=== PATIENT | female | born 1980 | race Caucasian/White ===

== ENCOUNTER 2017-05-15 08:23 | Outpatient (RCR) | payer MEDICAID, SELFPAY ==
[2017-04-17 01:04] VITALS: BP 135/86; PULSE 79; RESP 18; TEMP 36.9; BMI 29.9
[2017-05-15 08:45] VITALS: BP 136/90; PULSE 91; RESP 18; TEMP 36.4; BMI 29.9
--- NOTE | 2017-05-15 18:21 | PCM.WC.PN ---
Type of Wound Date of Service: 05/15/17 Chief Complaint: Recurrent hidradenitis ulcer left axillary area s/p recent skin graft 09/29/16 with some early compromise. History of Wound: Surgery 09/29/16 - Excisional debridement nonhealing recurrent hidradenitis ulcer left axilla with FTSG reconstruction from lower anterior abdominal wall (28 cm2). Wound care - Santyl. Operative culture - Staphylococcus aureus. She was discharged on Levaquin. It was changed to Doxycycline. However she had issues with Doxycycline with vomiting. She was changed back to Levaquin and has finished them. She had another wound culture done on 02/06/17. It showed Staphylococcus aureus and Streptococcus agalactiae and both are sensitive to Cleocin. There is a fungal rash around the ulcer left axilla. Started her on Diflucan as well as Nystatin powder to the affected area twice a day. Prealbumin from 08/12/16 was 21.6. She takes nutritional supplementation with protein. She started HBO for compromised graft left axilla and tolerated the treatments and has finished the treatments. Today she denies any fever. Her appetite is good. Her tingling has resolved in her left arm. She does have burning nerve pain in the ulcerated graft area which has improved with the Neurontin. She was supposed to have her teeth removed and had 3 molars removed. She will also have additional teeth removed relatively soon. Progress of Wound: Skin graft surgery 09/29/16 with some early compromise. - Physical Exam Vital Signs Temp Pulse Resp BP 97.6 F L 91 18 136/90 H 05/15/17 08:45 05/15/17 08:45 05/15/17 08:45 05/15/17 08:45 Debridement Note Post-Debridement Measurements/Treatment WC - Nurse 2 - General Ulcer CM Notes Start: 05/15/17 08:42 Freq: Status: Active Protocol: Activity Type Activity Date Activity User E-Sign Co-Sign Detail Recorded Client Recorded Date Recorded By Document 05/15/17 09:26 SHOSHANA [id number] 05/15/17 09:27 SHOSHANA 05/15/17 09:26 Wound Center Nurse 2 #1 Left medial Axilla -Time 09:26 -Correct Patient Yes -Correct Side, Site, Position Yes -Correct Procedure Yes -Procedure Performed Yes -Type of Procedure Debridement -Clinical Debridement Subcutaneous -Post Debridement Size (cm) - Length 2.3 -Post Debridement Size (cm) - Width 6.5 -Post Debridement Size (cm) - Depth 0.1 -Total Square Cm 14.95 -Wound/Ulcer Outcome Not Healed -Ulcer Cleansing Rinsed/ Irrigated with Saline -Foul Odor after Cleansing No -Bioengineered Tissue No -Cetacaine [place] No -Bleeding Controlled with Pressure Silver Nitrate -Treatment Response Procedure Tolerated Well Pain Scale: 0-10 Numeric Is Patient Pain Free? Yes Wound debrided: #1 Left medial axilla. Laterality: Left Wound Grade/Stage: 2. Type of Debridement: Excisional debridement Anesthesia Used: 4% Lidocaine Solution Depth: Down to and including healthy tissue, in the subcutaneous layer Percentage of wound debrided: 100 Instrument Used: 7mm curette Tissue Removed: subcutaneous tissue. Severity: Fat Layer Exposed Amount of bleeding with debridement: Mild Bleeding Controlled with: Pressure Patient tolerated procedure well Assessment/Plan Assessment: 1. Nonhealing recurrent hidradenitis ulcer left axillary area. 2. Early compromise skin graft left axilla. 3. H/O left axillary hidradenitis. 4. s/p excisional debridement nonhealing recurrent hidradenitis ulcer left axilla with FTSG reconstruction from lower anterior abdominal wall (28 cm2). 5. Burning nerve pain ulcerated graft area left axilla. Plan: The skin graft shows about 80% take mostly in the center. Will continue Santyl dressing changes daily to the graft because of persistent drainage. May alternate with the Silver dressing. She also has a fungal rash around the ulcer. Will start Diflucan and start Nystatin ointment to the area. The tingling in her left forearm probably related to swelling from the surgery has resolved with the compression sleeve. She does have burning nerve pain in the ulcerated graft area which has improved with the Neurontin. She was a candidate for HBO for a compromised graft and started them, and has finished them. Operative culture showed Staphylococus aureus. She was treated perioperatively with Levaquin and changed that to Doxycycline. However she had episodes of vomiting from the Doxycycline. So it was changed back to Levaquin and has finished them. Another wound culture was done at a previous visit on 02/06/17. The culture showed Staphylococcus aureus and Streptococcus agalactiae both sensitive to Cleocin. Encourage range of motion exercises to minimize stiffness. Encourage nutritional supplementation with protein to help the healing process. Her Prealbumin from 08/12/16 was 21.6. She finally had 3 molars removed. She states that more of them will be removed at a future date. Followup 3 weeks.
== END 2017-05-17 23:59 ==
LOC: WC 08:23
PROVIDERS: Family Provider Family Medicine; PCP Family Medicine; Visit Provider Surgery
DX: L73.2 Hidradenitis suppurativa (principal); T86.821 Skin graft (allograft) (autograft) failure; Y83.2 Surgical operation with anastomosis, bypass or graft as the cause of abnormal reaction of the patient, or of later complication, without mention of misadventure at the time of the procedure
CPT/HCPCS: 11042; 87070; 87075; 87077; 87186; 87205

== ENCOUNTER 2017-05-29 09:13 | Outpatient (RCR) | payer MEDICAID, SELFPAY ==
[2017-05-15 08:45] VITALS: BP 136/90
[2017-05-18 00:42] VITALS: PULSE 91; RESP 18; TEMP 36.4
[2017-05-29 09:33] VITALS: BP 124/85; PULSE 78; RESP 18; TEMP 37.4; BMI 29.9
--- NOTE | 2017-05-29 16:36 | PCM.WC.PN ---
Type of Wound Date of Service: 05/29/17 Chief Complaint: Recurrent hidradenitis ulcer left axillary area s/p recent skin graft 09/29/16 with some early compromise. History of Wound: Surgery 09/29/16 - Excisional debridement nonhealing recurrent hidradenitis ulcer left axilla with FTSG reconstruction from lower anterior abdominal wall (28 cm2). Wound care - Santyl. Operative culture - Staphylococcus aureus. She was discharged on Levaquin. It was changed to Doxycycline. However she had issues with Doxycycline with vomiting. She was changed back to Levaquin and has finished them. She had another wound culture done on 02/06/17. It showed Staphylococcus aureus and Streptococcus agalactiae and both are sensitive to Cleocin. There is a fungal rash around the ulcer left axilla. Started her on Diflucan as well as Nystatin powder to the affected area twice a day. Prealbumin from 08/12/16 was 21.6. She takes nutritional supplementation with protein. She started HBO for compromised graft left axilla and tolerated the treatments and has finished the treatments. Today she denies any fever. Her appetite is good. Her tingling has resolved in her left arm. She does have burning nerve pain in the ulcerated graft area which has improved with the Neurontin. She was supposed to have her teeth removed and had 3 molars removed. She will also have additional teeth removed relatively soon. Progress of Wound: Skin graft surgery 09/29/16 with some early compromise. - Physical Exam Vital Signs Temp Pulse Resp BP 99.3 F H 78 18 124/85 H 05/29/17 09:33 05/29/17 09:33 05/29/17 09:33 05/29/17 09:33 Wound Measurements and Assessment - Nurse 1 - General Ulcer Measurement Start: 05/29/17 09:29 Freq: Status: Active Protocol: Activity Type Activity Date Activity User E-Sign Co-Sign Detail Recorded Client Recorded Date Recorded By Document 05/29/17 09:33 [id number] 05/29/17 09:39 TM 05/29/17 09:33 Wound Center Nurse 1 [Ulcer Assessment Protocol: GARRICK.WD.LOC] #1 Left medial Axilla -Combined with other wound No -Current Size (cm) - Length 6.2 -Current Size (cm) - Width 2.0 -Current Size (cm) - Depth 0.1 -Total Square Cm 12.40 -Photo Taken No -Epithelialization None Present -Tunneling No -Undermining/Tunneling No -Circular Undermining No -Classification - Thickness Full Thickness without Exposed Support Structure -Exudate Amt Large (67-100%) -Exudate Type Yellow/Green -Wound Margin Fibrotic Scar, Thickened Scar -Granulation Amt Large (67-100%) -Granulation Quality Hyper- granulation -Slough/Fibrin Yes -Necrosis Amt Small (1-33%) -Necrotic Tissue Type Adherent Slough -Structure Exposed Fascia Fat Layer Exposed -Texture (Sadie-wound Skin Appearance) Excoriation Friable Scarring -Moisture (Sadie-wound Skin Appearance No Abnormality ) -Color (Sadie-wound Skin Appearance) Erythema -Temperature (Sadie-wound Skin No Abnormality Appearance) (Pt Warm) -Tenderness on Palpation (Sadie-wound No Skin Appearance) -Ulcer Cleansing Rinsed/ Irrigated with Saline -Foul Odor after Cleansing No -Anesthetic Used 5% Lidocaine Gel [Edema Assessment] -Lower Limb Edema Present No WC - Nurse 2 - General Ulcer CM Notes Start: 05/29/17 09:29 Freq: Status: Active Protocol: Activity Type Activity Date Activity User E-Sign Co-Sign Detail Recorded Client Recorded Date Recorded By Document 05/29/17 09:51 SHOSHANA [id number] 05/29/17 09:52 SHOSHANA 05/29/17 09:51 Wound Center Nurse 2 [Procedure/Treatment] #1 Left medial Axilla -Time 09:52 -Correct Patient Yes -Correct Side, Site, Position Yes -Correct Procedure Yes -Procedure Performed Yes -Type of Procedure Debridement -Clinical Debridement Subcutaneous -Post Debridement Size (cm) - Length 6.5 -Post Debridement Size (cm) - Width 2.1 -Post Debridement Size (cm) - Depth 0.1 -Total Square Cm 13.65 -Wound/Ulcer Outcome Not Healed -Ulcer Cleansing Rinsed/ Irrigated with Saline -Foul Odor after Cleansing No -Bioengineered Tissue No -Bleeding Controlled with Pressure -Treatment Response Procedure Tolerated Well [See Physician Procedure note for Specifics] Pain Scale: 0-10 Numeric [Pain] -Is Patient Pain Free? Yes Debridement Note Post-Debridement Measurements/Treatment WC - Nurse 2 - General Ulcer CM Notes Start: 05/29/17 09:29 Freq: Status: Active Protocol: Activity Type Activity Date Activity User E-Sign Co-Sign Detail Recorded Client Recorded Date Recorded By Document 05/29/17 09:51 SHOSHANA [id number] 05/29/17 09:52 SHOSHANA 05/29/17 09:51 Wound Center Nurse 2 #1 Left medial Axilla -Time 09:52 -Correct Patient Yes -Correct Side, Site, Position Yes -Correct Procedure Yes -Procedure Performed Yes -Type of Procedure Debridement -Clinical Debridement Subcutaneous -Post Debridement Size (cm) - Length 6.5 -Post Debridement Size (cm) - Width 2.1 -Post Debridement Size (cm) - Depth 0.1 -Total Square Cm 13.65 -Wound/Ulcer Outcome Not Healed -Ulcer Cleansing Rinsed/ Irrigated with Saline -Foul Odor after Cleansing No -Bioengineered Tissue No -Bleeding Controlled with Pressure -Treatment Response Procedure Tolerated Well Pain Scale: 0-10 Numeric Is Patient Pain Free? Yes Wound debrided: #1 Left medial axilla. Laterality: Left Wound Grade/Stage: 2. Type of Debridement: Excisional debridement Anesthesia Used: 4% Lidocaine Solution Depth: Down to and including healthy tissue, in the subcutaneous layer Percentage of wound debrided: 100 Instrument Used: 7mm curette Tissue Removed: subcutaneous tissue. Severity: Fat Layer Exposed Amount of bleeding with debridement: Mild Bleeding Controlled with: Pressure Patient tolerated procedure well Assessment/Plan Assessment: 1. Nonhealing recurrent hidradenitis ulcer left axillary area. 2. Early compromise skin graft left axilla. 3. H/O left axillary hidradenitis. 4. s/p excisional debridement nonhealing recurrent hidradenitis ulcer left axilla with FTSG reconstruction from lower anterior abdominal wall (28 cm2). 5. Burning nerve pain ulcerated graft area left axilla. Plan: The skin graft shows about 80% take mostly in the center. Will continue Santyl dressing changes daily to the graft because of persistent drainage. May alternate with the Silver dressing. She also has a fungal rash around the ulcer. Will start Diflucan and start Nystatin ointment to the area. The tingling in her left forearm probably related to swelling from the surgery has resolved with the compression sleeve. She does have burning nerve pain in the ulcerated graft area which has improved with the Neurontin. She was a candidate for HBO for a compromised graft and started them, and has finished them. Operative culture showed Staphylococus aureus. She was treated perioperatively with Levaquin and changed that to Doxycycline. However she had episodes of vomiting from the Doxycycline. So it was changed back to Levaquin and has finished them. Another wound culture was done at a previous visit on 02/06/17. The culture showed Staphylococcus aureus and Streptococcus agalactiae both sensitive to Cleocin. Encourage range of motion exercises to minimize stiffness. Encourage nutritional supplementation with protein to help the healing process. Her Prealbumin from 08/12/16 was 21.6. She finally had 3 molars removed. She states that more of them will be removed at a future date. Followup 3 weeks.
== END 2017-06-14 23:59 ==
LOC: WC 09:13
PROVIDERS: Family Provider Family Medicine; PCP Family Medicine; Visit Provider Surgery
DX: L73.2 Hidradenitis suppurativa (principal); T86.821 Skin graft (allograft) (autograft) failure; Y83.2 Surgical operation with anastomosis, bypass or graft as the cause of abnormal reaction of the patient, or of later complication, without mention of misadventure at the time of the procedure; Z86.19 Personal history of other infectious and parasitic diseases
CPT/HCPCS: 11042

== ENCOUNTER 2017-06-29 15:55 | Observation (INO) | payer MEDICAID, SELFPAY ==
--- NOTE | 2017-06-27 22:03 | PCM.HP.BLA ---
History and Physical Date of Admission: 06/28/17 History of Present Illness The patient is a 36 year old F who presents with a recurrent nonhealing hidradenitis ulcer left axillary area that initially resulted from her flare up of hidradenitis. This necessitated surgery in 03/31 where she underwent surgical preparation left axillary wound with excision hidradenitis. She was treated with antibiotics after surgery along with the VAC and Silver dressing changes. She followed up at the Wound Center and in 09/30, the wound healed. The left axilla then re-ulcerated and she was placed back on Silver dressing changes. Culture showed Staphylococcus aureus and she was placed on Doxycycline. It improved but did not heal and she went back to surgery in 11/30 where she underwent excision nonhealing recurrent hidradenitis ulcer left axilla and reconstruction with proximal medial left arm bilobed transposition skin flap (56 cm2). There was adequate healing initially but then she developed some compromise to the flap. She underwent HBO treatments and tolerated them well but had to stop them because of the flu. The ulcer improved but did not heal. Repeat culture once again showed Staphylococcus aureus and she was placed back on Doxycycline. She went back to surgery on 08/11/16 where she underwent surgical preparation left axilla with excision nonhealing hidradenitis ulcer (60 cm2). She initially had the VAC for wound care and was recently changed to Silver dressing changes daily. Operative cultures showed Staphylococcus aureus and Staphylococcus epidermidis. They were resistant to Doxycycline and she was changed to Levaquin. The ulcer stabilized with good granulation tissue, and she was taken back to the OR on 09/29/16 where she underwent excisional debridement nonhealing recurrent hidradenitis ulcer left axilla with FTSG reconstruction from lower anterior abdominal wall (28 cm2). Operative culture showed Staphylococcus aureus and was placed on Doxycycline. She developed some compromise of the skin graft at the edges and underwent HBO treatments with some improvement. With local wound care with Silver dressings and then Santyl dressings, along with antibiotics for positive cultures, she still had a persistent ulceration. Her last culture was on 05/15/17 which showed Serratia marcescens and Staphylococcus lugdunensis and was treated with Levaquin. Part of the healing difficulties has been surmised by her chronically infected teeth that need to be removed. She has seen dentists for this problem and there have been many delays in getting this done. It has been hard to debride the ulcer lately in the Wound Center secondary to discomfort, so further debridement was recommended in preparation for additional HBO treatments in preparation for additional surgery with skin grafting. Past Medical History Past Medical History: Depression. Anxiety. Anemia. Back problems. Hidradenitis bilateral axillary areas. Surgical History: - - Surgical preparation right axillary wound with excision hidradenitis (40 cm2) on 06/02/14. Surgical preparation left axillary wound with excision hidradenitis (36 cm2) on 03/17/15. Excision nonhealing recurrent hidradenitis ulcer left axilla and reconstruction with proximal medial left arm bilobed transposition skin flap (56 cm2) on 11/24/15. surgical preparation left axilla with excision nonhealing hidradenitis ulcer (60 cm2) - 08/11/16. Excisional debridement nonhealing recurrent hidradenitis ulcer left axilla with FTSG reconstruction from lower anterior abdominal wall (28 cm2) - 09/29/16. Home Medications: Phenergan. Percocet. Levaquin. Valium. Tylenol. Allergies latex Allergy Penicillins [PCN] hydromorphone HCl [From Dilaudid] SOCIAL HISTORY: Lives: Spouse/ Significant Other Smoking Status: Never smoker Tobacco Use: Non-smoker Alcohol: Occasional Drugs: None - *Family History Maternal History Items: Diabetes, Heart Disease, Hypertension, - - ovarian cancer. negative for skin cancer. Paternal History Items: Heart Disease, Hypertension, Stroke, - - negative for skin cancer. Review of Systems Constitutional: Denies: Fever, Weakness, Fatigue Eyes: Denies: Pain HEENT: Denies: Nasal Congestion, Sore Throat Cardiovascular: Denies: Chest Pain Respiratory: Denies: Cough, Shortness of Breath Gastrointestinal: Denies: Constipation, Diarrhea, Nausea, Vomiting Genitourinary: Denies: Frequency, Hematuria Musculoskeletal: Reports: - - left axillary pain.. Denies: Back Pain, Hand Pain, Neck Pain Skin: Reports: Wounds - left axillary hidradenitis ulcer. Neurological: Denies: Headaches Psychiatric: Reports: Anxiety, Depression Endocrine: Denies: Polydipsia, Polyuria Hematologic/ Lymphatic: Reports: Anemia. Denies: Easy Bruising, Hx of blood clot - Physical Exam General: Alert, Oriented x3 HEENT: PERRLA, EOMI Neck: Supple Lungs: Clear to auscultation Cardiovascular: Regular rate, Regular Rhythm Abdomen: Soft, Non-Distended Extremities: No clubbing, No cyanosis, No edema, Peripheral Pulses Normal Skin: Ulcer/ Wound - left axillary hidradenitis ulcer. Measures 3 x 7.6 x 0.1 cm. Good granulation tissue present. No purulent drainage. In the central aspect is a healed island portion of the previous skin graft. Lymphatic: No Cervical, Supraclavicular, or Inguinal Adenopathy Neurological: Cranial nerves II-XII grossly intact Psych/Mental Status: Normal Affect, Appropriate Assessment/Plan 1. Nonhealing recurrent hidradenitis ulcer left axillary area. 2. H/O left axillary hidradenitis. 3. Compromised skin graft left axilla. PLAN: The ulcer is clean with granulation tissue. Some hypergranulation tissue seen that is hard to debride because of pain. She has good range of motion of her left shoulder. It is recommended to the patient to proceed with operative debridement and then postop wound care with the VAC or daily dressing changes with Santyl. Postop will proceed with HBO treatments in preparation for further skin grafting. Surgery will be done under general anesthesia on an outpatient basis. Tissue will be sent to Pathology for analysis and to Microbiology for culture. A positive culture may necessitate antibiotic modification. Followup at the Wound Center after discharge from the hospital. I anticipate increased metabolic demands from the ulcer and the surgery. Encourage nutritional supplementation with protein to help the healing process. Her latest Prealbumin from 08/01 was 21.6. The patient was informed of the risks and complications of the procedure including alternatives to surgery. These were discussed with her personally. She voices understanding and wishes to proceed.
[2017-06-28] VITALS (11 sets, daily range): BP systolic 115–128; BP diastolic 70–84; PULSE 68–95; RESP 14–16; TEMP 35.9–36.8; O2SAT 93–100; BMI 25.8
--- NOTE | 2017-06-28 | HID_PTH ---
PATIENT: RAVI IRAHETA LOC: MS2 U#:[id number] AGE/SX: 36/F ROOM: [facility] [place] RE06/29/[address]: Dr. Lennox Eugene MD : 1980 BED: 1 DIS: 06/30/2017 SPEC #: [id number] RECD: 06/28/17 14:28 STATUS: YANIQUE MONO #: [id number] BRIGHT: 06/28/17 00:[address]: Lennox Eugene DEPT: SURGICAL PATHOLOGY RECD BY: Dano Morataya ENTERED: 06/28/17 14:28 SP TYPE: Barry TOBIN DR: Dr. Bogdan Guerra DO Tissues: Axilla, NOS Procedures: Surgery Specimen Level III HEADER OPERATION: Excision, hidradenitis, axilla PRE-OP DIAGNOSIS: Nonhealing recurrent hidradenitis ulcer left axillary area TISSUE SUBMITTED: Recurrent hidradenitis left axilla MICROSCOPIC DIAGNOSIS Recurrent hidradenitis left axilla, excision: Pieces of skin with underlying tissue with focal ulceration, acute and chronic inflammation and granulation tissue reaction, clinically nonhealing recurrent hidradenitis. SINGH:kusum 06/29/17 MICROSCOPIC DESCRIPTION Slides are reviewed. GROSS DESCRIPTION Received in fixative is one container labeled with the patient's name and designated recurrent hidradenitis left axilla. The specimen consists of two variable size pieces of paredes-white skin measuring in aggregate 5.5 x 3.5 x 0.5 cm. The skin surface shows an area of ulceration. Industrial Recruiter sections are submitted in two cassettes. / SINGH:kusum 06/28/17 TC:2 CPT: 77576
[2017-06-28 11:20] LABS: Internal QC Validated? YES +Cl - CLEAR BKGD; Pregnancy, Urine Negative Negative
--- NOTE | 2017-06-28 13:41 | PCM.IMDPSTOP ---
Immediate Post-Op Note Date of Procedure: 06/28/17 Primary Surgeon/Physician: Lennox Eugene manager of quality: None Pre-Operative Diagnosis: 1. Nonhealing recurrent hidradenitis ulcer left axillary area. 2. H/O left axillary hidradenitis. 3. Compromised skin graft left axilla. Post-Operative Diagnosis: Same. Surgery/Procedure Performed:: Surgical preparation left axilla with excision recurrent hidradenitis ulcer (66 cm2). Description of Surgical Findings:: The patient is a 36 year old F who presents with a recurrent nonhealing hidradenitis ulcer left axillary area that initially resulted from her flare up of hidradenitis. This necessitated surgery in 03/31 where she underwent surgical preparation left axillary wound with excision hidradenitis. She was treated with antibiotics after surgery along with the VAC and Silver dressing changes. She followed up at the [facility] and in 09/30, the wound healed. The left axilla then re-ulcerated and she was placed back on Silver dressing changes. Culture showed Staphylococcus aureus and she was placed on Doxycycline. It improved but did not heal and she went back to surgery in 11/30 where she underwent excision nonhealing recurrent hidradenitis ulcer left axilla and reconstruction with proximal medial left arm bilobed transposition skin flap (56 cm2). There was adequate healing initially but then she developed some compromise to the flap. She underwent HBO treatments and tolerated them well but had to stop them because of the flu. The ulcer improved but did not heal. Repeat culture once again showed Staphylococcus aureus and she was placed back on Doxycycline. She went back to surgery on 08/11/16 where she underwent surgical preparation left axilla with excision nonhealing hidradenitis ulcer (60 cm2). She initially had the VAC for wound care and was recently changed to Silver dressing changes daily. Operative cultures showed Staphylococcus aureus and Staphylococcus epidermidis. They were resistant to Doxycycline and she was changed to Levaquin. The ulcer stabilized with good granulation tissue, and she was taken back to the OR on 09/29/16 where she underwent excisional debridement nonhealing recurrent hidradenitis ulcer left axilla with FTSG reconstruction from lower anterior abdominal wall (28 cm2). Operative culture showed Staphylococcus aureus and was placed on Doxycycline. She developed some compromise of the skin graft at the edges and underwent HBO treatments with some improvement. With local wound care with Silver dressings and then Santyl dressings, along with antibiotics for positive cultures, she still had a persistent ulceration. Her last culture was on 05/15/17 which showed Serratia marcescens and Staphylococcus lugdunensis and was treated with Levaquin. Part of the healing difficulties has been surmised by her chronically infected teeth that need to be removed. She has seen dentists for this problem and there have been many delays in getting this done. It has been hard to debride the ulcer lately in the Wound Center secondary to discomfort, so further debridement was recommended in preparation for additional HBO treatments in preparation for additional surgery with skin grafting. Today the patient underwent surgical preparation left axilla with excision recurrent hidradenitis ulcer (66 cm2). Size of defect left axilla - 11 x 6 x 2 cm. Estimated Blood Loss: 50 ml. Specimen's removed: Recurrent hidradenitis ulcer left axilla to Pathology and Microbiology. Drains: None. Type of Anesthesia:: General - Admit VTE Documentation VTE Present on Admission: No VTE Mechan Device Prophylaxis: SCD's VTE Pharm Prophylaxis ordered?: No
--- NOTE | 2017-06-28 13:44 | OP.PN_ITS ---
Immediate Post-Op Note Date of Procedure: 06/28/17 Primary Surgeon/Physician: Lennox Eugene chief service dispatcher: None Pre-Operative Diagnosis: 1. Nonhealing recurrent hidradenitis ulcer left axillary area. 2. H/O left axillary hidradenitis. 3. Compromised skin graft left axilla. Post-Operative Diagnosis: Same. Surgery/Procedure Performed:: Surgical preparation left axilla with excision recurrent hidradenitis ulcer (66 cm2). Description of Surgical Findings:: The patient is a 36 year old F who presents with a recurrent nonhealing hidradenitis ulcer left axillary area that initially resulted from her flare up of hidradenitis. This necessitated surgery in 03/31 where she underwent surgical preparation left axillary wound with excision hidradenitis. She was treated with antibiotics after surgery along with the VAC and Silver dressing changes. She followed up at the [facility]ound Center and in 09/30, the wound healed. The left axilla then re-ulcerated and she was placed back on Silver dressing changes. Culture showed Staphylococcus aureus and she was placed on Doxycycline. It improved but did not heal and she went back to surgery in 11/30 where she underwent excision nonhealing recurrent hidradenitis ulcer left axilla and reconstruction with proximal medial left arm bilobed transposition skin flap (56 cm2). There was adequate healing initially but then she developed some compromise to the flap. She underwent HBO treatments and tolerated them well but had to stop them because of the flu. The ulcer improved but did not heal. Repeat culture once again showed Staphylococcus aureus and she was placed back on Doxycycline. She went back to surgery on 08/11 where she underwent surgical preparation left axilla with excision nonhealing hidradenitis ulcer (60 cm2). She initially had the VAC for wound care and was recently changed to Silver dressing changes daily. Operative cultures showed Staphylococcus aureus and Staphylococcus epidermidis. They were resistant to Doxycycline and she was changed to Levaquin. The ulcer stabilized with good granulation tissue, and she was taken back to the OR on where she underwent excisional debridement nonhealing recurrent hidradenitis ulcer left axilla with FTSG reconstruction from lower anterior abdominal wall (28 cm2). Operative culture showed Staphylococcus aureus and was placed on Doxycycline. She developed some compromise of the skin graft at the edges and underwent HBO treatments with some improvement. With local wound care with Silver dressings and then Santyl dressings, along with antibiotics for positive cultures, she still had a persistent ulceration. Her last culture was on 05/15/17 which showed Serratia marcescens and Staphylococcus lugdunensis and was treated with Levaquin. Part of the healing difficulties has been surmised by her chronically infected teeth that need to be removed. She has seen dentists for this problem and there have been many delays in getting this done. It has been hard to debride the ulcer lately in the Wound Center secondary to discomfort, so further debridement was recommended in preparation for additional HBO treatments in preparation for additional surgery with skin grafting. Today the patient underwent surgical preparation left axilla with excision recurrent hidradenitis ulcer (66 cm2). Size of defect left axilla - 11 x 6 x 2 cm. Estimated Blood Loss: 50 ml. Specimen's removed: Recurrent hidradenitis ulcer left axilla to Pathology and Microbiology. Drains: None. Type of Anesthesia:: General - Admit VTE Documentation VTE Present on Admission: No VTE Mechan Device Prophylaxis: SCD's VTE Pharm Prophylaxis ordered?: No
[2017-06-28] MEDS: Acetaminophen 325 MG Tablet PO (19:03)
[2017-06-28] MEDS: Docusate Sodium 100 MG Capsule PO (20:45)
--- NOTE | 2017-06-28 23:18 | PCM.OPRPT ---
Report of Operation Date of Procedure: 06/28/17 Pre-Operative Diagnosis: 1. Nonhealing recurrent hidradenitis ulcer left axillary area. 2. H/O left axillary hidradenitis. 3. Compromised skin graft left axilla. Post-Operative Diagnosis: Same. Surgery/Procedure Performed:: Surgical preparation left axilla with excision recurrent hidradenitis ulcer (66 cm2). Description of Surgical Findings:: The patient is a 36 year old F who presents with a recurrent nonhealing hidradenitis ulcer left axillary area that initially resulted from her flare up of hidradenitis. This necessitated surgery in 03/31 where she underwent surgical preparation left axillary wound with excision hidradenitis. She was treated with antibiotics after surgery along with the VAC and Silver dressing changes. She followed up at the [facility]ound Center and in 09/30, the wound healed. The left axilla then re-ulcerated and she was placed back on Silver dressing changes. Culture showed Staphylococcus aureus and she was placed on Doxycycline. It improved but did not heal and she went back to surgery in 11/30 where she underwent excision nonhealing recurrent hidradenitis ulcer left axilla and reconstruction with proximal medial left arm bilobed transposition skin flap (56 cm2). There was adequate healing initially but then she developed some compromise to the flap. She underwent HBO treatments and tolerated them well but had to stop them because of the flu. The ulcer improved but did not heal. Repeat culture once again showed Staphylococcus aureus and she was placed back on Doxycycline. She went back to surgery on 08/11/16 where she underwent surgical preparation left axilla with excision nonhealing hidradenitis ulcer (60 cm2). She initially had the VAC for wound care and was recently changed to Silver dressing changes daily. Operative cultures showed Staphylococcus aureus and Staphylococcus epidermidis. They were resistant to Doxycycline and she was changed to Levaquin. The ulcer stabilized with good granulation tissue, and she was taken back to the OR on 09/29/16 where she underwent excisional debridement nonhealing recurrent hidradenitis ulcer left axilla with FTSG reconstruction from lower anterior abdominal wall (28 cm2). Operative culture showed Staphylococcus aureus and was placed on Doxycycline. She developed some compromise of the skin graft at the edges and underwent HBO treatments with some improvement. With local wound care with Silver dressings and then Santyl dressings, along with antibiotics for positive cultures, she still had a persistent ulceration. Her last culture was on 05/15/17 which showed Serratia marcescens and Staphylococcus lugdunensis and was treated with Levaquin. Part of the healing difficulties has been surmised by her chronically infected teeth that need to be removed. She has seen dentists for this problem and there have been many delays in getting this done. It has been hard to debride the ulcer lately in the Wound Center secondary to discomfort, so further debridement was recommended in preparation for additional HBO treatments in preparation for additional surgery with skin grafting. The patient was informed of the risks and complications of the procedure including alternatives to surgery. These were discussed with her personally. She voices understanding and wishes to proceed. Size of defect left axilla - 11 x 6 x 2 cm. communications media professor: None Type of Anesthesia:: General Specimen's removed: Recurrent hidradenitis ulcer left axilla to Pathology and Microbiology. Drains: None. Estimated Blood Loss (mL): 50 ml. Description of Procedure: Patient was taken to OR in supine position and was placed under general anesthesia. Her left axillary area was prepped and draped in the usual fashion. SCD's were placed for DVT prophylaxis. Perioperative antibiotics were given intravenously. Using a scalpel, the left axillary area ulcer was excised down through the subcutaneous tissue until the muscular fascia was seen. Some of the tissue was sent to Microbiology for culture. A positive culture will necessitate antibiotic therapy. The rest of the tissue was sent to Pathology for analysis to rule out carcinoma. Hemostasis was obtained with electrocautery. The wound was irrigated with saline. The size of the wound after the surgical preparation was 11 x 6 x 2 cm or 66 cm2. The base of the wound is close to the neurovascular structures entering the arm. Depending on the effects on the wound from HBO, I may not feel comfortable skin grafting the defect. A local skin flap may be necessary to provide more durable soft tissue coverage in this area. The wound was dressed with Mepitel nonadherent dressing followed by Kerlix gauze and Betadine followed by a dry Kerlix gauze and a compression JAGRUTI wrap. Patient tolerated the procedure well and was sent to PACU in satisfactory condition. She will be sent upstairs for a surgical observation overnight stay in the hospital. Will begin Santyl dressings tomorrow. After discharge, will followup at the Wound Center for evaluation for HBO treatments as well as for continuing wound care dressing changes to the left axilla. Grafts/Implants Used: None. - Complications None. - Admit VTE Documentation VTE Present on Admission: No VTE Mechan Device Prophylaxis: SCD's VTE Pharm Prophylaxis ordered?: No Code Visit Surgery Charges CPT - 68511 ICD-10 - L98.492, L73.2, T86.828
[2017-06-29] MEDS: Acetaminophen 325 MG Tablet PO (01:57)
[2017-06-29 02:35] VITALS: BP 120/78; PULSE 89; RESP 16; TEMP 36.9; O2SAT 98
[2017-06-29] MEDS: Lactated Ringers 1,000 ML 60 ML IV ×2 (05:58→23:19)
[2017-06-29 07:14] LABS: Hematocrit 34.9 % (37-47); Hemoglobin 11.2 g/dl (12.0-15.0); Mean Corp Hgb Conc 32.1 g/gl (32-36); Mean Corpuscular Hgb 24.5 pg (27.0-32.0); Mean Corpuscular Volume 76.4 fL (81-99); Mean Platelet Vol. 9.9 fl (6.2-12.0); Platelet Count 280 K/mm3 (150-450); RBC Distribution Width CV 14.7 % (11.6-14.6); Red Blood Count 4.57 M/mm3 (4.2-5.4)
[2017-06-29 07:20] LABS: Anion Gap 8 (5-15); BUN 15 mg/dL (7-18); Calcium,Total 8.4 mg/dL (8.5-10.1); Chloride 106 mmol/L (98-107); Creatinine, Serum 0.48 mg/dL (0.55-1.02); EST Glomerular Filtration Rate 155 mL/min (>60); Est Glom Filt Rate - Afr Amer 187 mL/min (>60); Estimated Creatinine Clearance 129.38 ml/min; Glucose 86 mg/dL (74-106); Potassium 3.5 mmol/L (3.5-5.1); Prealbumin 24.7 mg/dL (20.0-40.0); Sodium Level 140 mmol/L (136-145)
[2017-06-29 07:44] LABS: Scan Indicated on CBC? Y/N NO
[2017-06-29] MEDS: Collagenase 30gm Tube 1 APPLIC TOPICAL (07:51)
[2017-06-29] MEDS: Docusate Sodium 100 MG Capsule PO ×2 (07:52→20:17)
[2017-06-29 08:35] VITALS: BP 130/88; PULSE 90; RESP 16; TEMP 36.6; O2SAT 100
[2017-06-29] MEDS: Ondansetron 4 MG/2 ML Vial IV (10:06)
[2017-06-29] MEDS: HYDROmorphone 1 MG/ML Syringe IV (10:06)
--- NOTE | 2017-06-29 10:25 | NURSING ---
wound photo: left axilla
--- NOTE | 2017-06-29 12:30 | CASEMGMT ---
JASON BOX met with patient to discuss transition planning. Prior to admission patient's spouse was doing dressing changes. JASON BOX offers patient home health care, and patient declines. The wound RN, Lauren, did change the dressing this morning with spouse present to observe. The patient reports she has been managing well at home, and declines further home going needs at this time. JASON BOX spoke with Lauren, wound RN, re: plan for dressing changes. Per Lauren will be Santyl with dry dressing, and assistance form for bulk ordering has been completed. The Santyl will be directly shipped to patient's home. Per Lauren, should know co-pay by tomorrow. Disposition Plan: Home with support of spouse and follow-up plans in place.
[2017-06-29 14:35] VITALS: BP 117/79; PULSE 92; RESP 16; TEMP 36.7; O2SAT 100
--- NOTE | 2017-06-29 15:33 | PCM.PN.SRG ---
Subjective: Postop #1 Patient complains of left axillary wound pain. - Physical Exam General: Alert, Oriented x3 HEENT: PERRLA, EOMI Neck: Supple Lungs: Clear to auscultation Cardiovascular: Regular rate, Regular Rhythm Abdomen: Soft, Non-Distended Skin: Ulcer/ Wound - left axillary wound is stable. Minor oozing at the edges that was controlled with gentle pressure. Redressed with Santyl. Neurological: Cranial nerves II-XII grossly intact Psych/Mental Status: Normal Affect, Appropriate Vital Signs Temp Pulse Resp BP Pulse Ox 98.1 F 92 16 117/79 100 06/29/17 14:35 06/29/17 14:35 06/29/17 14:35 06/29/17 14:35 06/29/17 14:35 Oxygen Delivery Method Room Air Weight: 141 lb 5.061 oz Body Mass Index (BMI) 25.8 Intake and Output for Last 24 Hours 06/27/17 06/28/17 06/29/17 23:59 23:59 23:59 Intake Total 1733 / 1733 375 / 375 Output Total 475 / 475 Balance 1258 / 1258 375 / 375 Microbiology Past 72 Hours 06/28/17 13:25 Gram Stain - Final Tissue - Other Laboratory Tests Past 24 Hrs 06/29/17 06/29/17 06:37 06:37 WBC 10.0 RBC 4.57 Hgb 11.2 L Hct 34.9 L MCV 76.4 L MCH 24.5 L MCHC 32.1 RDW 14.7 H RDW Differential 41.0 Plt Count 280 MPV 9.9 Sodium 140 Potassium 3.5 Chloride 106 Carbon Dioxide 26.0 Anion Gap 8 BUN 15 Creatinine 0.48 L Estim Creat Clear Calc 129.38 Est GFR (MDRD) Af Amer 187 Est GFR (MDRD) Non-Af 155 BUN/Creatinine Ratio 31.0 H Glucose 86 Calcium 8.4 L Prealbumin 24.7 Assessment/Plan 1. Nonhealing recurrent hidradenitis ulcer left axillary area. 2. H/O left axillary hidradenitis. 3. Compromised skin graft left axilla. 4. s/p surgical preparation left axilla with excision recurrent hidradenitis ulcer (66 cm2). Left axillary wound is stable. No bleeding noted. Santyl dressing changes applied. She complains of a lot of wound pain. Still needs IV analgesia. Operative culture negative thus far. Continue Levaquin antibiotics. Prealbumin was 24.7. Encourage nutritional supplementation with protein to help the healing process. Will wean to po analgesia for discharge. Anticipate discharge tomorrow. After discharge, followup at the Wound Center.
[2017-06-29] MEDS: oxyCODONE 5 MG Tablet 10 MG PO (20:17)
[2017-06-29 20:24] VITALS: BP 128/65; PULSE 90; RESP 16; TEMP 36.8; O2SAT 97
[2017-06-30 02:25] VITALS: BP 108/67; PULSE 83; RESP 16; TEMP 36.1; O2SAT 98
[2017-06-30 08:25] VITALS: BP 122/82; PULSE 86; RESP 16; TEMP 36.8; O2SAT 98
[2017-06-30] MEDS: Docusate Sodium 100 MG Capsule PO (09:20)
[2017-06-30] MEDS: oxyCODONE 5 MG Tablet 10 MG PO (09:20)
[2017-06-30] MEDS: Collagenase 30gm Tube 1 APPLIC TOPICAL (12:34)
--- NOTE | 2017-06-30 12:52 | PN.SURG_ITS ---
Subjective: Postop #2 Patient is resting comfortably. Tolerating po analgesia. - Physical Exam General: Alert, Oriented x3 HEENT: PERRLA, EOMI Neck: Supple Lungs: Clear to auscultation Cardiovascular: Regular rate, Regular Rhythm Abdomen: Soft, Non-Distended Skin: Ulcer/ Wound - left axillary wound is stable. No bleeding noted. Some granulation tissue seen. Has good range of motion. Some limitation secondary to pain. Can lift arm over shoulder but not all the way yet to her head. Neurological: Cranial nerves II-XII grossly intact Psych/Mental Status: Normal Affect, Appropriate Vital Signs Temp Pulse Resp BP Pulse Ox 98.3 F 86 16 122/82 H 98 06/30/17 08:25 06/30/17 08:25 06/30/17 08:25 06/30/17 08:25 06/30/17 08:25 Oxygen Delivery Method Room Air Weight: 141 lb 5.061 oz Body Mass Index (BMI) 25.8 Intake and Output for Last 24 Hours 06/28/17 06/29/17 06/30/17 23:59 23:59 23:59 Intake Total 1733 / 1733 1251 / 1251 1962 / 1962 Output Total 475 / 475 200 / 200 900 / 900 Balance 1258 / 1258 1051 / 1051 1062 / 1062 Microbiology Past 72 Hours 06/28/17 13:25 Gram Stain - Final Tissue - Other Wound Culture - Preliminary Staphylococcus aureus Anaerobic Culture - Preliminary No growth in 48 hours. Assessment/Plan 1. Nonhealing recurrent hidradenitis ulcer left axillary area. 2. H/O left axillary hidradenitis. 3. Compromised skin graft left axilla. 4. s/p surgical preparation left axilla with excision recurrent hidradenitis ulcer (66 cm2). Left axillary wound is stable. No bleeding noted. Santyl dressing changes applied. She complains of wound pain. Tolerating po analgesia. She is anxious to go home. Operative culture shows Staphylococcus aureus. Awaiting sensitivity. Will send home on Levaquin and Doxycycline antibiotics. Once the sensitivity is available, will be able to decide which antibiotic to continue. Prealbumin was 24.7. Encourage nutritional supplementation with protein to help the healing process. Since she is tolerating po analgesia, she may be discharged home. Wrote scripts for Levaquin and Doxycycline. Wrote scripts for Percocet for pain (60 tabs) and for Valium for spasm (30 tabs) . Wrote scripts for Phenergan for nausea (30 tabs) and a refill and for Colace for constipation (60 tabs). Followup at the [facility] on 07/03/17. Will discuss HBO treatments in preparation for further skin grafting.
[2017-06-30 13:00] VITALS: BP 124/72; PULSE 93; RESP 14; TEMP 36.6; O2SAT 99
--- NOTE | 2017-06-30 13:01 | DCINST_ITS ---
You will use the following diet at home:: No restrictions, Other - encourage nutritional supplementation with protein to help the healing process. Discharge Activity: May not drive while taking narcotic pain medications., - - no heavy lifting. May shower in (days): 1 - may shower at the time of the dressing change. May resume sexual activity in: No Restrictions Weight Bearing Status: Weight bearing as tolerated Lifting Restrictions: 20 lbs. Keep extremity elevated above heart level: Left Arm Call your doctor if your incision/area has: Continuous Slow Oozing, Sudden Increased Bleeding, Increased Pain/ Swelling, Increased Redness, Foul Smelling Discharge, Swelling at the incision site Call your doctor if you observe: Fever of 101 or Higher, Coldness, Increased Pain, Shortness of breath, Chest pain, Calf discomfort, Uncontrolled pain Suture Line Care: - - daily wound care with Santyl dressing changes and gauze. Change Dressing in (Days):: 1 - Santyl dressing changes daily. Cleanse incision/area with: Soap & Water - may cleanse the wound with soap and water at the time of the Santyl dressing change. Allergies/Adverse Reactions: Allergies latex Allergy (Verified 06/16/17 08:46) Rash Penicillins [PCN] Allergy (Verified 06/16/17 08:46) Hives doxycycline Adverse Reaction (Verified 06/16/17 08:46) Nausea hydromorphone HCl [From Dilaudid] Adverse Reaction (Verified 06/16/17 08:46) Nausea Medications to take at Discharge Acetaminophen [Tylenol] 325 mg PO Q4H PRN 11/23/15 DiphenhydrAMINE [Benadryl] 25 mg PO TID PRN PRN #30 capsule 11/07/16 Collagenase [Santyl] 1 applic TOPICAL DAILY tube 06/30/17 Diazepam [Valium] 5 mg PO 4X/DAY PRN PRN #30 tab 06/30/17 Docusate Sodium [Colace] 100 mg PO BID #60 cap 06/30/17 Doxycycline 100 mg PO BID #28 cap 06/30/17 Levofloxacin [Levaquin] 500 mg PO DAILY #14 tab 06/30/17 Oxycodone HCl/Acetaminophen [Percocet 5/325] 1 - 2 tab PO 4X/DAY PRN PRN 7 Days #60 tab 06/30/17 ProMETHAzine [Phenergan] 25 mg PO 4X/DAY PRN PRN #30 tab 06/30/17 The following prescriptions were given: Diazepam [Valium] 5 mg PO 4X/DAY PRN PRN #30 tab PRN Reason: Spasms Levofloxacin [Levaquin] 500 mg PO DAILY #14 tab Oxycodone HCl/Acetaminophen [Percocet 5/325] 1 - 2 tab PO 4X/DAY PRN PRN 7 Days #60 tab PRN Reason: Pain ProMETHAzine [Phenergan] 25 mg PO 4X/DAY PRN PRN #30 tab PRN Reason: Nausea Docusate Sodium [Colace] 100 mg PO BID #60 cap Doxycycline 100 mg PO BID #28 cap Primary Care Physician: Bogdan Guerra DO [Primary Care Provider] - Please Follow Up With: Lennox Eugene MD - call [phone] if any questions. When: monday07/03/17 at [facility]. Proposed Discharge Date: 06/30/17
== END 2017-06-30 15:22 | disposition home or self-care (01) ==
LOC: SDC 16:13
PROVIDERS: Anesthesiology; Admitting Provider Surgery; Family Provider Family Medicine; PCP Family Medicine; Visit Provider Surgery
PROC: (CPT 11450; principal; 2017-06-28 12:15)
DX: L73.2 Hidradenitis suppurativa (principal); T86.821 Skin graft (allograft) (autograft) failure; Z79.899 Other long term (current) drug therapy
CPT/HCPCS: 00400; 11450; 36415; 80048; 81025; 84134; 85027; 87070; 87075; 87077; 87102; 87186; 87205; 87206; 88304; 96365; 96366; 96375; 99218; J7120; G0378; G0379; J2405

== ENCOUNTER → 2017-07-07 11:14 | Outpatient (CLI) | payer MEDICAID, SELFPAY ==
--- NOTE | 2017-07-07 11:21 | RAD_ITS ---
STUDY: X-RAY CHEST REASON FOR EXAM: Female, 36 years old. Open wound in left arm. TECHNIQUE: Frontal and lateral views COMPARISON: None. FINDINGS: The lungs are clear and expanded. There is no demonstrated pleural abnormality. Normal size heart. Normal mediastinum and ines. Normal visualized pulmonary arteries. Normal visualized aortic arch and descending thoracic aorta. Normal visualized thoracic spine. Normal visualized ribs, clavicles, and shoulders. Left axillary soft tissue wound is suspected. There is no demonstrated abnormality of the visualized soft tissue structures of the upper abdomen. RAD/Chest PA and Lateral IMPRESSION: No acute pulmonary pathology of the chest. Electronically Signed: Pancho Hendricks DO at 11:15 EDT Tel [phone], Service support ,
--- NOTE | 2017-07-10 18:18 | PCM.HBO.PN ---
History of Present Illness Date of Service: 07/10/17 Presenting Chief Complaint: Recurrent hidradenitis ulcer left axillary area s/p recent skin graft 09/29/16 with some early compromise. RAVI SR is a 36 year old currently undergoing hyperbaric oxygen therapy for Recurrent hidradenitis ulcer left axillary area s/p skin graft 09/29/16 with some early compromise. Progress: She has tolerated Hyperbaric Oxygen Therapy well so far. This is her third course of HBO and treatment #1. Tolerance of hyperbaric oxygen therapy: Hyperbaric oxygen therapy was administered as per the facility's protocol. The patient tolerated hyperbaric oxygen therapy well, without complications or complaints. Upon emergence from the hyperbaric chamber, the patient's vital signs remained stable. 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) L98.499 nonhealing hidradenitis ulcer left axillary area Right axillary hidradenitis (Chronic) L73.2 right axillary hidradenitis H/O hidradenitis suppurativa (Chronic) Allergies/Adverse Reactions: Allergies latex Allergy (Verified 06/16/17 08:46) Rash Penicillins [PCN] Allergy (Verified 06/16/17 08:46) Hives doxycycline Adverse Reaction (Verified 06/16/17 08:46) Nausea hydromorphone HCl [From Dilaudid] Adverse Reaction (Verified 06/16/17 08:46) Nausea Home Medications: Ambulatory Orders Medication Instructions Recorded Acetaminophen [Tylenol] 325 mg PO Q4H PRN 11/23/15 DiphenhydrAMINE [Benadryl] 25 mg PO TID PRN PRN #30 capsule 11/07/16 Collagenase [Santyl] 1 applic TOPICAL DAILY tube 06/30/17 Diazepam [Valium] 5 mg PO 4X/DAY PRN PRN #30 tab 06/30/17 Docusate Sodium [Colace] 100 mg PO BID #60 cap 06/30/17 Doxycycline 100 mg PO BID #28 cap 06/30/17 Oxycodone HCl/Acetaminophen 1 - 2 tab PO 4X/DAY PRN PRN 7 Days 06/30/17 [Percocet 5/325] #60 tab levoFLOXacin tablet [Levaquin 500 mg PO DAILY #14 tab 06/30/17 tablet] proMETHazine tablet [Phenergan 25 mg PO 4X/DAY PRN PRN #30 tab 06/30/17 tablet] Maternal Family History: Diabetes, Heart Disease, Hypertension, - - ovarian cancer. negative for skin cancer. Paternal Family History: Heart Disease, Hypertension, Stroke, - - negative for skin cancer. Smoking Status: Never smoker
== END ==
PROVIDERS: Family Provider Family Medicine; PCP Family Medicine; Visit Provider Surgery
DX: S41.102A Unspecified open wound of left upper arm, initial encounter (principal)
CPT/HCPCS: 71046

== ENCOUNTER 2017-07-14 08:00 | Outpatient (RCR) | payer MEDICAID, SELFPAY ==
[2017-06-15 00:36] VITALS: BP 136/90; PULSE 78; RESP 18; TEMP 37.4; BMI 29.9
[2017-06-19 09:39] VITALS: BP 132/76; PULSE 80; RESP 16; TEMP 36.4; BMI 29.9
--- NOTE | 2017-06-19 22:19 | PN.PCM_ITS ---
Type of Wound Date of Service: 06/19/17 Chief Complaint: Recurrent hidradenitis ulcer left axillary area. History of Wound: Comes in today for evaluation of her nonhealing hidradenitis ulcer left medial axilla. She is scheduled for operative debridement next week. Will consider postop HBO in preparation for skin grafting. Encourage nutritional supplementation with protein to help the healing process. Progress of Wound: Slightly improved. - Physical Exam Vital Signs Temp Pulse Resp BP 97.5 F L 80 16 132/76 H 06/19/17 09:39 06/19/17 09:39 06/19/17 09:39 06/19/17 09:39 Wound Measurements and Assessment WC - Nurse 1 - General Ulcer Measurement Start: 06/19/17 09:39 Freq: Status: Active Protocol: Activity Type Activity Date Activity User E-Sign Co-Sign Detail Recorded Client Recorded Date Recorded By Document 06/19/17 09:39 [facility] [id number] 06/19/17 09:45 BM 06/19/17 09:39 Wound Center Nurse 1 [Ulcer Assessment] #1 Left medial Axilla -Combined with other wound No -Current Size (cm) - Length 2.9 -Current Size (cm) - Width 7.6 -Current Size (cm) - Depth 0.1 -Total Square Cm 22.04 -Date of Last Picture (Recall this 06/19/17 field) -Photo Taken Yes -Epithelialization None Present -Tunneling No -Undermining/Tunneling No -Exudate Amt Small (1-33%) -Exudate Type Serosanguineous -Wound Margin Distinct, Outline Attached -Granulation Amt Large (67-100%) -Granulation Quality Hyper- granulation Red -Slough/Fibrin No -Necrosis Amt None Present (0 %) -Structure Exposed None/Limited to Skin Breakdown -Texture (Sadie-wound Skin Appearance) Scarring Rash -Moisture (Sadie-wound Skin Appearance Dry/Scaly ) -Color (Sadie-wound Skin Appearance) Erythema -Temperature (Sadie-wound Skin No Abnormality Appearance) (Pt Warm) -Tenderness on Palpation (Sadie-wound Yes Skin Appearance) -Ulcer Cleansing Rinsed/ Irrigated with Saline -Foul Odor after Cleansing No -Anesthetic Used 4% Lidocaine Solution WC - Nurse 2 - General Ulcer CM Notes Start: 06/19/17 09:39 Freq: Status: Active Protocol: Activity Type Activity Date Activity User E-Sign Co-Sign Detail Recorded Client Recorded Date Recorded By Document 06/19/17 10:43 SHOSHANA [id number] 06/19/17 10:44 SHOSHANA 06/19/17 10:43 Wound Center Nurse 2 [Procedure/Treatment] -Time 10:44 -Correct Patient Yes -Correct Side, Site, Position Yes -Correct Procedure Yes -Procedure Performed Yes -Type of Procedure Debridement -Clinical Debridement Subcutaneous -Post Debridement Size (cm) - Length 3.0 -Post Debridement Size (cm) - Width 7.6 -Post Debridement Size (cm) - Depth 0.1 -Total Square Cm 22.80 -Wound/Ulcer Outcome Not Healed -Ulcer Cleansing Rinsed/ Irrigated with Saline -Foul Odor after Cleansing No -Bioengineered Tissue No -Bleeding Controlled with Pressure Silver Nitrate -Treatment Response Procedure Tolerated Well [See Physician Procedure note for Specifics] Pain Scale: 0-10 Numeric [Pain] -Is Patient Pain Free? Yes Debridement Note Post-Debridement Measurements/Treatment WC - Nurse 2 - General Ulcer CM Notes Start: 06/19/17 09:39 Freq: Status: Active Protocol: Activity Type Activity Date Activity User E-Sign Co-Sign Detail Recorded Client Recorded Date Recorded By Document 06/19/17 10:43 SHOSHANA [id number] 06/19/17 10:44 SHOSHANA 06/19/17 10:43 Wound Center Nurse 2 #1 Left medial Axilla -Time 10:44 -Correct Patient Yes -Correct Side, Site, Position Yes -Correct Procedure Yes -Procedure Performed Yes -Type of Procedure Debridement -Clinical Debridement Subcutaneous -Post Debridement Size (cm) - Length 3.0 -Post Debridement Size (cm) - Width 7.6 -Post Debridement Size (cm) - Depth 0.1 -Total Square Cm 22.80 -Wound/Ulcer Outcome Not Healed -Ulcer Cleansing Rinsed/ Irrigated with Saline -Foul Odor after Cleansing No -Bioengineered Tissue No -Bleeding Controlled with Pressure Silver Nitrate -Treatment Response Procedure Tolerated Well Pain Scale: 0-10 Numeric Is Patient Pain Free? Yes Wound debrided: #1 Left medial axilla. Laterality: Left Wound Grade/Stage: 2. Type of Debridement: Excisional debridement Anesthesia Used: 4% Lidocaine Solution Depth: Down to and including healthy tissue, in the subcutaneous layer Percentage of wound debrided: 100 Instrument Used: 7mm curette Tissue Removed: subcutaneous tissue. Severity: Fat Layer Exposed Amount of bleeding with debridement: Mild Bleeding Controlled with: Pressure Patient tolerated procedure well Assessment/Plan Assessment: 1. Nonhealing recurrent hidradenitis ulcer left axillary area. 2. H/O left axillary hidradenitis. Plan: Continue Santyl dressing changes daily to the left axilla. She is scheduled for operative debridement next week. Will continue Santyl postop. Will also consider HBO in preparation for further skin grafting. Encourage range of motion exercises to minimize stiffness. Encourage nutritional supplementation with protein to help the healing process. Would like to see improvement in the fungal periwound rash before proceeding with skin grafting in the future.
[2017-07-03 09:30] VITALS: BP 132/88; PULSE 116; RESP 18; TEMP 36.9; BMI 29.9
--- NOTE | 2017-07-03 18:34 | PCM.WC.PN ---
Type of Wound Date of Service: 07/03/17 Chief Complaint: Recurrent hidradenitis ulcer left axillary area. History of Wound: Surgery 06/28/17 - Surgical preparation left axilla with excision recurrent hidradenitis ulcer (66 cm2). Wound care - Santyl. Operative culture - Staphylococcus aureus. Will stop the Levaquin and start her on Doxycycline. Encourage nutritional supplementation with protein to help the healing process. She is being evaluated for HBO. She needs a CXR. She states she has a bed bug problem at home which can be contributing to her nonhealing nature of this left axillary wound. Progress of Wound: Recent surgery on 06/28/17. - Physical Exam Vital Signs Temp Pulse Resp BP 98.4 F 116 H 18 132/88 H 07/03/17 09:30 07/03/17 09:30 07/03/17 09:30 07/03/17 09:30 HEENT: TM's Clear - no bleeding seen. Wound Measurements and Assessment WC - Nurse 1 - General Ulcer Measurement Start: 06/19/17 09:39 Freq: Status: Active Protocol: Activity Type Activity Date Activity User E-Sign Co-Sign Detail Recorded Client Recorded Date Recorded By Document 07/03/17 09:30 [facility] [id number] 07/03/17 09:38 BMF 07/03/17 09:30 Wound Center Nurse 1 [Ulcer Assessment] #3 Left medial Axilla -Combined with other wound No -Current Size (cm) - Length 8.5 -Current Size (cm) - Width 11.0 -Current Size (cm) - Depth 1.3 -Total Square Cm 93.50 -Date of Last Picture (Recall this 07/03/17 field) -Photo Taken Yes -Epithelialization None Present -Tunneling No -Undermining/Tunneling Yes -Undermining/Tunneling Starts (O' 3 clock) -Undermining/Tunneling Ends (O'clock) 4 -Exudate Amt Large (67-100%) -Exudate Type Serosanguineous -Wound Margin Distinct, Outline Attached -Granulation Amt Medium (34-66%) -Granulation Quality Red -Slough/Fibrin Yes -Necrosis Amt Medium (34-66%) -Necrotic Tissue Type Adherent Slough -Texture (Sadie-wound Skin Appearance) Scarring -Moisture (Sadie-wound Skin Appearance Dry/Scaly ) -Color (Sadie-wound Skin Appearance) Erythema -Temperature (Sadie-wound Skin No Abnormality Appearance) (Pt Warm) -Tenderness on Palpation (Sadie-wound Yes Skin Appearance) -Ulcer Cleansing Rinsed/ Irrigated with Saline -Foul Odor after Cleansing No -Anesthetic Used 4% Lidocaine Solution - Nurse 2 - General Ulcer Notes Start: 06/19/17 09:39 Freq: Status: Active Protocol: Activity Type Activity Date Activity User E-Sign Co-Sign Detail Recorded Client Recorded Date Recorded By Document 07/03/17 10:01 [id number] 07/03/17 10:02 07/03/17 10:01 Wound Center Nurse 2 [Procedure/Treatment] -Correct Patient No -Correct Side, Site, Position No -Correct Procedure No -Procedure Performed No [See Physician Procedure note for Specifics] Pain Scale: 0-10 Numeric [Pain] -Is Patient Pain Free? Yes Debridement Note Post-Debridement Measurements/Treatment - Nurse 2 - General Ulcer Notes Start: 06/19/17 09:39 Freq: Status: Active Protocol: Activity Type Activity Date Activity User E-Sign Co-Sign Detail Recorded Client Recorded Date Recorded By Document 06/19/17 10:43 [id number] 06/19/17 10:44 Document 07/03/17 10:01 [id number] 07/03/17 10:02 06/19/17 07/03/17 10:43 10:01 Wound Center Nurse 2 #3 Left medial Axilla -Time 10:44 -Correct Patient Yes No -Correct Side, Site, Position Yes No -Correct Procedure Yes No -Procedure Performed Yes No -Type of Procedure Debridement -Clinical Debridement Subcutaneous -Post Debridement Size (cm) - Length 3.0 -Post Debridement Size (cm) - Width 7.6 -Post Debridement Size (cm) - Depth 0.1 -Total Square Cm 22.80 -Wound/Ulcer Outcome Not Healed -Ulcer Cleansing Rinsed/ Irrigated with Saline -Foul Odor after Cleansing No -Bioengineered Tissue No -Bleeding Controlled with Pressure Silver Nitrate -Treatment Response Procedure Tolerated Well Pain Scale: 0-10 Numeric Is Patient Pain Free? Yes Yes Wound debrided: #1 Left medial axilla. Laterality: Left Wound Grade/Stage: 2. No debridement was completed today - patient had recent surgery on 06/28/17. Assessment/Plan Assessment: 1. Nonhealing recurrent hidradenitis ulcer left axillary area. 2. H/O left axillary hidradenitis. 3. s/p surgical preparation left axilla with excision recurrent hidradenitis ulcer (66 cm2). Plan: Continue Santyl dressing changes. She is being evaluated for HBO. She needs a CXR. Her ears are ok. She states she has bed bugs which can be contributing to the nonhealing nature of the nonhealing wound. Has Staphylococcus aureus. Will stop the Levaquin and start Doxycycline. Followup 2 weeks.
[2017-07-10 10:57] VITALS: BP 114/74; BP 133/83; PULSE 83; PULSE 99; RESP 20; TEMP 36.7
[2017-07-12 08:12] VITALS: BP 129/95; BP 131/88; PULSE 103; PULSE 78; RESP 16; TEMP 36.5; TEMP 36.8
--- NOTE | 2017-07-12 08:27 | PCM.HBO.PN ---
History of Present Illness Date of Service: 07/12/17 Presenting Chief Complaint: Recurrent hidradenitis ulcer left axillary area s/p recent skin graft 09/29/16 with some early compromise. RAVI SR is a 36 year old currently undergoing hyperbaric oxygen therapy for Recurrent hidradenitis ulcer left axillary area s/p skin graft 09/29/16 with some early compromise. Progress: She has tolerated Hyperbaric Oxygen Therapy well so far. Tolerance of hyperbaric oxygen therapy: Hyperbaric oxygen therapy was administered as per the facility's protocol. The patient tolerated hyperbaric oxygen therapy well, without complications or complaints. Upon emergence from the hyperbaric chamber, the patient's vital signs remained stable. 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) L98.499 nonhealing hidradenitis ulcer left axillary area Right axillary hidradenitis (Chronic) L73.2 right axillary hidradenitis H/O hidradenitis suppurativa (Chronic) Allergies/Adverse Reactions: Allergies latex Allergy (Verified 06/16/17 08:46) Rash Penicillins [PCN] Allergy (Verified 06/16/17 08:46) Hives doxycycline Adverse Reaction (Verified 06/16/17 08:46) Nausea hydromorphone HCl [From Dilaudid] Adverse Reaction (Verified 06/16/17 08:46) Nausea Home Medications: Ambulatory Orders Medication Instructions Recorded RX: Acetaminophen [Tylenol] 325 mg PO Q4H PRN 11/23/15 RX: DiphenhydrAMINE [Benadryl] 25 mg PO TID PRN PRN #30 capsule 11/07/16 Diazepam [Valium] 5 mg PO 4X/DAY PRN PRN #30 tab 06/30/17 Oxycodone HCl/Acetaminophen 1 - 2 tab PO 4X/DAY PRN PRN 7 Days 06/30/17 [Percocet 5/325] #60 tab RX: Collagenase [Santyl] 1 applic TOPICAL DAILY tube 06/30/17 RX: Docusate Sodium [Colace] 100 mg PO BID #60 cap 06/30/17 RX: Doxycycline 100 mg PO BID #28 cap 06/30/17 RX: levoFLOXacin tablet [Levaquin 500 mg PO DAILY #14 tab 06/30/17 tablet] RX: proMETHazine tablet [Phenergan 25 mg PO 4X/DAY PRN PRN #30 tab 06/30/17 tablet] Maternal Family History: Diabetes, Heart Disease, Hypertension, - - ovarian cancer. negative for skin cancer. Paternal Family History: Heart Disease, Hypertension, Stroke, - - negative for skin cancer. Smoking Status: Never smoker Physical Exam Vital Signs Temp Pulse Resp BP 98.2 F 103 H 16 131/88 H 07/12/17 08:12 07/12/17 08:12 07/12/17 08:12 07/12/17 08:12 General: Alert, Oriented x3, Cooperative, No apparent distress HEENT: Atraumatic Lungs: Normal air movement Cardiovascular: Regular rate Psych/Mental Status: Normal Affect Assessment/Plan The patient appears to be tolerating hyperbaric oxygen treatments well which will continue as per the patient's medical plan.
== END 2017-07-15 23:59 ==
LOC: WC 08:00
PROVIDERS: Family Provider Family Medicine; PCP Family Medicine; Visit Provider Surgery
DX: L73.2 Hidradenitis suppurativa (principal); T86.821 Skin graft (allograft) (autograft) failure; Y83.2 Surgical operation with anastomosis, bypass or graft as the cause of abnormal reaction of the patient, or of later complication, without mention of misadventure at the time of the procedure; Z86.19 Personal history of other infectious and parasitic diseases
CPT/HCPCS: 11042; 11045; 99183; 99213; G0277; G0463

== ENCOUNTER 2017-08-07 08:00 | Outpatient (RCR) | payer MEDICAID, SELFPAY ==
[2017-07-16 00:35] VITALS: BP 136/90; PULSE 78; RESP 16; TEMP 36.5; BMI 29.9
[2017-07-17 09:15] VITALS: BP 127/80; PULSE 84; RESP 18; TEMP 36.6; BMI 29.9
--- NOTE | 2017-07-17 17:44 | PCM.WC.PN ---
Type of Wound Date of Service: 07/17/17 Chief Complaint: Recurrent hidradenitis ulcer left axillary area. History of Wound: Surgery 06/28/17 - Surgical preparation left axilla with excision recurrent hidradenitis ulcer (66 cm2). Wound care - Santyl. Operative culture - Staphylococcus aureus. She is on Doxycycline. Encourage nutritional supplementation with protein to help the healing process. She has started HBO but has not been consistent in going. Progress of Wound: Slightly improved. - Physical Exam Vital Signs Temp Pulse Resp BP 97.8 F 84 18 127/80 H 07/17/17 09:15 07/17/17 09:15 07/17/17 09:15 07/17/17 09:15 Wound Measurements and Assessment WC - Nurse 1 - General Ulcer Measurement Start: 07/17/17 09:05 Freq: Status: Active Protocol: Activity Type Activity Date Activity User E-Sign Co-Sign Detail Recorded Client Recorded Date Recorded By Document 07/17/17 09:15 TM [id number] 07/17/17 09:18 TM 07/17/17 09:15 Wound Center Nurse 1 [Ulcer Assessment] #3 Left medial Axilla -Combined with other wound No -Current Size (cm) - Length 8.0 -Current Size (cm) - Width 9.1 -Current Size (cm) - Depth 1.2 -Total Square Cm 72.80 -Photo Taken No -Epithelialization Small 1-33% -Tunneling No -Undermining/Tunneling No -Circular Undermining No -Classification - Thickness Full Thickness without Exposed Support Structure -Exudate Amt Medium (34-66%) -Exudate Type Serosanguineous -Wound Margin Distinct, Outline Attached -Granulation Amt Large (67-100%) -Granulation Quality Red -Slough/Fibrin Yes -Necrosis Amt Small (1-33%) -Necrotic Tissue Type Adherent Slough -Structure Exposed Fascia Fat Layer Exposed -Texture (Sadie-wound Skin Appearance) Excoriation Friable Rash -Moisture (Sadie-wound Skin Appearance No Abnormality ) -Color (Sadie-wound Skin Appearance) Erythema -Temperature (Sadie-wound Skin No Abnormality Appearance) (Pt Warm) -Tenderness on Palpation (Sadie-wound No Skin Appearance) -Ulcer Cleansing Rinsed/ Irrigated with Saline -Foul Odor after Cleansing No -Anesthetic Used 5% Lidocaine Gel [Edema Assessment] -Lower Limb Edema Present No WC - Nurse 2 - General Ulcer CM Notes Start: 07/17/17 09:05 Freq: Status: Active Protocol: Activity Type Activity Date Activity User E-Sign Co-Sign Detail Recorded Client Recorded Date Recorded By Document 07/17/17 09:37 SHOSHANA [id number] 07/17/17 09:40 SHOSHANA 07/17/17 09:37 Wound Center Nurse 2 [Procedure/Treatment] #3 Left medial Axilla -Time 09:38 -Correct Patient Yes -Correct Side, Site, Position Yes -Correct Procedure Yes -Procedure Performed Yes -Type of Procedure Debridement -Clinical Debridement Subcutaneous -Post Debridement Size (cm) - Length 8 -Post Debridement Size (cm) - Width 9.2 -Post Debridement Size (cm) - Depth 1.2 -Total Square Cm 73.6 -Wound/Ulcer Outcome Not Healed -Ulcer Cleansing Rinsed/ Irrigated with Saline -Foul Odor after Cleansing No -Bioengineered Tissue No -Bleeding Controlled with Pressure -Treatment Response Procedure Tolerated Well [See Physician Procedure note for Specifics] Pain Scale: 0-10 Numeric [Pain] -Is Patient Pain Free? Yes Debridement Note Post-Debridement Measurements/Treatment WC - Nurse 2 - General Ulcer CM Notes Start: 07/17/17 09:05 Freq: Status: Active Protocol: Activity Type Activity Date Activity User E-Sign Co-Sign Detail Recorded Client Recorded Date Recorded By Document 07/17/17 09:37 SHOSHANA [id number] 07/17/17 09:40 SHOSHANA 07/17/17 09:37 Wound Center Nurse 2 #3 Left medial Axilla -Time 09:38 -Correct Patient Yes -Correct Side, Site, Position Yes -Correct Procedure Yes -Procedure Performed Yes -Type of Procedure Debridement -Clinical Debridement Subcutaneous -Post Debridement Size (cm) - Length 8 -Post Debridement Size (cm) - Width 9.2 -Post Debridement Size (cm) - Depth 1.2 -Total Square Cm 73.6 -Wound/Ulcer Outcome Not Healed -Ulcer Cleansing Rinsed/ Irrigated with Saline -Foul Odor after Cleansing No -Bioengineered Tissue No -Bleeding Controlled with Pressure -Treatment Response Procedure Tolerated Well Pain Scale: 0-10 Numeric Is Patient Pain Free? Yes Wound debrided: #1 Left medial axilla. Laterality: Left Wound Grade/Stage: 2. Type of Debridement: Excisional debridement Anesthesia Used: 4% Lidocaine Solution Depth: Down to and including healthy tissue, in the subcutaneous layer Percentage of wound debrided: 100 Instrument Used: 7mm curette Tissue Removed: subcutaneous tissue. Severity: Fat Layer Exposed Amount of bleeding with debridement: Mild Bleeding Controlled with: Pressure Patient tolerated procedure well Assessment/Plan Assessment: 1. Nonhealing recurrent hidradenitis ulcer left axillary area. 2. H/O left axillary hidradenitis. 3. s/p surgical preparation left axilla with excision recurrent hidradenitis ulcer (66 cm2). Plan: Continue Santyl dressing changes. She has started HBO but is not consistent in going. It was discussed with her the importance of showing up for her treatments. Continued inconsistency and noncompliance is not going to improve the wound at all. Has Staphylococcus aureus. Continue Doxycycline. Renewed her Percocet for pain (50 tabs). Followup 2 weeks.
[2017-07-31 10:03] VITALS: BP 124/82; PULSE 95; RESP 16; TEMP 36.3; BMI 29.9
--- NOTE | 2017-07-31 23:11 | PCM.WC.PN ---
Type of Wound Date of Service: 07/31/17 Chief Complaint: Recurrent hidradenitis ulcer left axillary area. History of Wound: Surgery 06/28/17 - Surgical preparation left axilla with excision recurrent hidradenitis ulcer (66 cm2). Wound care - Santyl. Operative culture - Staphylococcus aureus. She is on Doxycycline. Encourage nutritional supplementation with protein to help the healing process. She has started HBO but has not been consistent in going. She states she is awaiting transportation. Progress of Wound: Slightly improved. - Physical Exam Vital Signs Temp Pulse Resp BP 97.3 F L 95 16 124/82 H 07/31/17 10:03 07/31/17 10:03 07/31/17 10:03 07/31/17 10:03 Wound Measurements and Assessment WC - Nurse 1 - General Ulcer Measurement Start: 07/17/17 09:05 Freq: Status: Active Protocol: Activity Type Activity Date Activity User E-Sign Co-Sign Detail Recorded Client Recorded Date Recorded By Document 07/31/17 10:03 [facility] [id number] 07/31/17 10:09 [facility] 07/31/17 10:03 Wound Center Nurse 1 [Ulcer Assessment] #3 Left medial Axilla -Combined with other wound No -Current Size (cm) - Length 6 -Current Size (cm) - Width 7.5 -Current Size (cm) - Depth 0.2 -Total Square Cm 45.0 -Photo Taken No -Epithelialization Small 1-33% -Tunneling No -Undermining/Tunneling No -Circular Undermining No -Exudate Type Serosanguineous -Wound Margin Distinct, Outline Attached -Granulation Amt Large (67-100%) -Granulation Quality Red -Slough/Fibrin No -Necrosis Amt None Present (0 %) -Texture (Sadie-wound Skin Appearance) Scarring Rash -Moisture (Sadie-wound Skin Appearance Dry/Scaly ) -Color (Sadie-wound Skin Appearance) Erythema -Temperature (Sadie-wound Skin No Abnormality Appearance) (Pt Warm) -Tenderness on Palpation (Sadie-wound Yes Skin Appearance) -Ulcer Cleansing Rinsed/ Irrigated with Saline -Foul Odor after Cleansing No -Anesthetic Used 4% Lidocaine Solution GARRICK - Nurse 2 - General Ulcer CM Notes Start: 07/17/17 09:05 Freq: Status: Active Protocol: Activity Type Activity Date Activity User E-Sign Co-Sign Detail Recorded Client Recorded Date Recorded By Document 07/31/17 10:41 [id number] 07/31/17 10:42 07/31/17 10:41 Wound Center Nurse 2 [Procedure/Treatment] -Time 10:41 -Correct Patient Yes -Correct Side, Site, Position Yes -Correct Procedure Yes -Procedure Performed Yes -Type of Procedure Debridement -Clinical Debridement Subcutaneous -Post Debridement Size (cm) - Length 6.1 -Post Debridement Size (cm) - Width 7.5 -Post Debridement Size (cm) - Depth 0.2 -Total Square Cm 45.75 -Wound/Ulcer Outcome Not Healed -Ulcer Cleansing Rinsed/ Irrigated with Saline -Foul Odor after Cleansing No -Bioengineered Tissue No -Bleeding Controlled with Pressure -Treatment Response Procedure Tolerated Well [See Physician Procedure note for Specifics] Pain Scale: 0-10 Numeric [Pain] -Is Patient Pain Free? Yes Debridement Note Post-Debridement Measurements/Treatment WC - Nurse 2 - General Ulcer CM Notes Start: 07/17/17 09:05 Freq: Status: Active Protocol: Activity Type Activity Date Activity User E-Sign Co-Sign Detail Recorded Client Recorded Date Recorded By Document 07/17/17 09:37 [id number] 07/17/17 09:40 Document 07/31/17 10:41 [id number] 07/31/17 10:42 07/17/17 07/31/17 09:37 10:41 Wound Center Nurse 2 #3 Left medial Axilla -Time 09:38 10:41 -Correct Patient Yes Yes -Correct Side, Site, Position Yes Yes -Correct Procedure Yes Yes -Procedure Performed Yes Yes -Type of Procedure Debridement Debridement -Clinical Debridement Subcutaneous Subcutaneous -Post Debridement Size (cm) - Length 8 6.1 -Post Debridement Size (cm) - Width 9.2 7.5 -Post Debridement Size (cm) - Depth 1.2 0.2 -Total Square Cm 73.6 45.75 -Wound/Ulcer Outcome Not Healed Not Healed -Ulcer Cleansing Rinsed/ Rinsed/ Irrigated with Irrigated with Saline Saline -Foul Odor after Cleansing No No -Bioengineered Tissue No No -Bleeding Controlled with Pressure Pressure -Treatment Response Procedure Procedure Tolerated Well Tolerated Well Pain Scale: 0-10 Numeric Is Patient Pain Free? Yes Yes Wound debrided: #1 Left medial axilla. Laterality: Left Wound Grade/Stage: 2. Type of Debridement: Excisional debridement Anesthesia Used: 4% Lidocaine Solution Depth: Down to and including healthy tissue, in the subcutaneous layer Percentage of wound debrided: 100 Instrument Used: 7mm curette Tissue Removed: subcutaneous tissue. Severity: Fat Layer Exposed Amount of bleeding with debridement: Mild Bleeding Controlled with: Pressure Patient tolerated procedure well Assessment/Plan Assessment: 1. Nonhealing recurrent hidradenitis ulcer left axillary area. 2. H/O left axillary hidradenitis. 3. s/p surgical preparation left axilla with excision recurrent hidradenitis ulcer (66 cm2). Plan: Continue Santyl dressing changes. She has started HBO but is not consistent in going. It was discussed with her the importance of showing up for her treatments. Continued inconsistency and noncompliance is not going to improve the wound at all. She states she is awaiting transportation for her HBO. Has Staphylococcus aureus. Continue Doxycycline. Renewed her Percocet for pain (50 tabs). Followup 2 weeks.
--- NOTE | 2017-08-03 09:13 | PCM.HBO.PN ---
History of Present Illness Date of Service: 08/03/17 Presenting Chief Complaint: Recurrent hidradenitis ulcer left axillary area s/p recent skin graft 09/29/16 with some early compromise. RAVI SR is a 36 year old currently undergoing hyperbaric oxygen therapy for Recurrent hidradenitis ulcer left axillary area s/p recent skin graft 09/29/16 with some early compromise. Progress: She has tolerated Hyperbaric Oxygen Therapy well so far. Tolerance of hyperbaric oxygen therapy: Hyperbaric oxygen therapy was administered as per the facility's protocol. The patient tolerated hyperbaric oxygen therapy well, without complications or complaints. Upon emergence from the hyperbaric chamber, the patient's vital signs remained stable. 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) L98.499 nonhealing hidradenitis ulcer left axillary area Right axillary hidradenitis (Chronic) L73.2 right axillary hidradenitis H/O hidradenitis suppurativa (Chronic) Allergies/Adverse Reactions: Allergies latex Allergy (Verified 06/16/17 08:46) Rash Penicillins [PCN] Allergy (Verified 06/16/17 08:46) Hives doxycycline Adverse Reaction (Verified 06/16/17 08:46) Nausea hydromorphone HCl [From Dilaudid] Adverse Reaction (Verified 06/16/17 08:46) Nausea Home Medications: Ambulatory Orders Medication Instructions Recorded Acetaminophen [Tylenol] 325 mg PO Q4H PRN 11/23/15 DiphenhydrAMINE [Benadryl] 25 mg PO TID PRN PRN #30 capsule 11/07/16 Collagenase [Santyl] 1 applic TOPICAL DAILY tube 06/30/17 Diazepam [Valium] 5 mg PO 4X/DAY PRN PRN #30 tab 06/30/17 Docusate Sodium [Colace] 100 mg PO BID #60 cap 06/30/17 Doxycycline 100 mg PO BID #28 cap 06/30/17 Oxycodone HCl/Acetaminophen 1 - 2 tab PO 4X/DAY PRN PRN 7 Days 06/30/17 [Percocet 5/325] #60 tab levoFLOXacin tablet [Levaquin 500 mg PO DAILY #14 tab 06/30/17 tablet] proMETHazine tablet [Phenergan 25 mg PO 4X/DAY PRN PRN #30 tab 06/30/17 tablet] Maternal Family History: Diabetes, Heart Disease, Hypertension, - - ovarian cancer. negative for skin cancer. Paternal Family History: Heart Disease, Hypertension, Stroke, - - negative for skin cancer. Smoking Status: Never smoker Physical Exam Vital Signs Temp Pulse Resp BP 97.3 F L 95 16 124/82 H 07/31/17 10:03 07/31/17 10:03 07/31/17 10:03 07/31/17 10:03 General: Alert, Oriented x3, Cooperative, No apparent distress HEENT: Atraumatic, Normocephalic, TM's Clear Lungs: Normal air movement Cardiovascular: Regular rate Psych/Mental Status: Normal Affect Assessment/Plan Active Problems Open wound of left axillary region with complication (Acute) planned open hidradenitis wound left axillary area H/O hidradenitis suppurativa (Chronic) The patient appears to be tolerating hyperbaric oxygen treatments well which will continue as per the patient's medical plan.
[2017-08-03 09:33] VITALS: BP 121/85; BP 134/88; PULSE 68; PULSE 91; RESP 16; TEMP 36.4; TEMP 36.5
[2017-08-04 08:30] VITALS: BP 125/81; BP 135/81; PULSE 81; PULSE 88; RESP 16; TEMP 36.5; TEMP 36.6
--- NOTE | 2017-08-04 09:35 | PCM.HBO.PN ---
History of Present Illness Date of Service: 08/04/17 Presenting Chief Complaint: Recurrent hidradenitis ulcer left axillary area s/p recent skin graft 09/29/16 with some early compromise. RAVI SR is a 36 year old currently undergoing hyperbaric oxygen therapy for Recurrent hidradenitis ulcer left axillary area s/p recent skin graft 09/29/16 with some early compromise. Progress: She has tolerated Hyperbaric Oxygen Therapy well so far. Tolerance of hyperbaric oxygen therapy: Hyperbaric oxygen therapy was administered as per the facility's protocol. The patient tolerated hyperbaric oxygen therapy well, without complications or complaints. Upon emergence from the hyperbaric chamber, the patient's vital signs remained stable. 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) L98.499 nonhealing hidradenitis ulcer left axillary area Right axillary hidradenitis (Chronic) L73.2 right axillary hidradenitis H/O hidradenitis suppurativa (Chronic) Allergies/Adverse Reactions: Allergies latex Allergy (Verified 06/16/17 08:46) Rash Penicillins [PCN] Allergy (Verified 06/16/17 08:46) Hives doxycycline Adverse Reaction (Verified 06/16/17 08:46) Nausea hydromorphone HCl [From Dilaudid] Adverse Reaction (Verified 06/16/17 08:46) Nausea Home Medications: Ambulatory Orders Medication Instructions Recorded Acetaminophen [Tylenol] 325 mg PO Q4H PRN 11/23/15 DiphenhydrAMINE [Benadryl] 25 mg PO TID PRN PRN #30 capsule 11/07/16 Collagenase [Santyl] 1 applic TOPICAL DAILY tube 06/30/17 Diazepam [Valium] 5 mg PO 4X/DAY PRN PRN #30 tab 06/30/17 Docusate Sodium [Colace] 100 mg PO BID #60 cap 06/30/17 Doxycycline 100 mg PO BID #28 cap 06/30/17 Oxycodone HCl/Acetaminophen 1 - 2 tab PO 4X/DAY PRN PRN 7 Days 06/30/17 [Percocet 5/325] #60 tab levoFLOXacin tablet [Levaquin 500 mg PO DAILY #14 tab 06/30/17 tablet] proMETHazine tablet [Phenergan 25 mg PO 4X/DAY PRN PRN #30 tab 06/30/17 tablet] Maternal Family History: Diabetes, Heart Disease, Hypertension, - - ovarian cancer. negative for skin cancer. Paternal Family History: Heart Disease, Hypertension, Stroke, - - negative for skin cancer. Smoking Status: Never smoker Physical Exam Vital Signs Temp Pulse Resp BP 97.7 F L 88 16 125/81 H 08/04/17 08:30 08/04/17 08:30 08/04/17 08:30 08/04/17 08:30 Assessment/Plan Active Problems Open wound of left axillary region with complication (Acute) planned open hidradenitis wound left axillary area H/O hidradenitis suppurativa (Chronic) The patient appears to be tolerating hyperbaric oxygen treatments well which will continue as per the patient's medical plan.
[2017-08-07 08:17] VITALS: BP 113/83; BP 134/93; PULSE 71; PULSE 97; RESP 16; TEMP 36.3; TEMP 36.6
--- NOTE | 2017-08-07 20:50 | PCM.HBO.PN ---
History of Present Illness Date of Service: 08/07/17 Presenting Chief Complaint: Recurrent hidradenitis ulcer left axillary area s/p recent skin graft 09/29/16 with some early compromise. RAVI SR is a 36 year old currently undergoing hyperbaric oxygen therapy for Recurrent hidradenitis ulcer left axillary area s/p recent skin graft 09/29/16 with some early compromise. Progress: She has tolerated Hyperbaric Oxygen Therapy well so far. This is her third course of HBO and treatment #5. Tolerance of hyperbaric oxygen therapy: Hyperbaric oxygen therapy was administered as per the facility's protocol. The patient tolerated hyperbaric oxygen therapy well, without complications or complaints. Upon emergence from the hyperbaric chamber, the patient's vital signs remained stable. The patient was discharged in good condition. 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) L98.499 nonhealing hidradenitis ulcer left axillary area Right axillary hidradenitis (Chronic) L73.2 right axillary hidradenitis H/O hidradenitis suppurativa (Chronic) Allergies/Adverse Reactions: Allergies latex Allergy (Verified 06/16/17 08:46) Rash Penicillins [PCN] Allergy (Verified 06/16/17 08:46) Hives doxycycline Adverse Reaction (Verified 06/16/17 08:46) Nausea hydromorphone HCl [From Dilaudid] Adverse Reaction (Verified 06/16/17 08:46) Nausea Home Medications: Ambulatory Orders Medication Instructions Recorded Acetaminophen [Tylenol] 325 mg PO Q4H PRN 11/23/15 DiphenhydrAMINE [Benadryl] 25 mg PO TID PRN PRN #30 capsule 11/07/16 Collagenase [Santyl] 1 applic TOPICAL DAILY tube 06/30/17 Diazepam [Valium] 5 mg PO 4X/DAY PRN PRN #30 tab 06/30/17 Docusate Sodium [Colace] 100 mg PO BID #60 cap 06/30/17 Doxycycline 100 mg PO BID #28 cap 06/30/17 Oxycodone HCl/Acetaminophen 1 - 2 tab PO 4X/DAY PRN PRN 7 Days 06/30/17 [Percocet 5/325] #60 tab levoFLOXacin tablet [Levaquin 500 mg PO DAILY #14 tab 06/30/17 tablet] proMETHazine tablet [Phenergan 25 mg PO 4X/DAY PRN PRN #30 tab 06/30/17 tablet] Maternal Family History: Diabetes, Heart Disease, Hypertension, - - ovarian cancer. negative for skin cancer. Paternal Family History: Heart Disease, Hypertension, Stroke, - - negative for skin cancer. Smoking Status: Never smoker Physical Exam Vital Signs Temp Pulse Resp BP 98 F 97 16 134/93 H 08/07/17 08:17 08/07/17 08:17 08/07/17 08:17 08/07/17 08:17
[2017-08-09 08:13] VITALS: BP 118/84; BP 140/83; PULSE 69; PULSE 98; RESP 16; TEMP 36.1; TEMP 36.5
--- NOTE | 2017-08-09 09:34 | PCM.HBO.PN ---
History of Present Illness Date of Service: 08/09/17 Presenting Chief Complaint: Recurrent hidradenitis ulcer left axillary area s/p recent skin graft 09/29/16 with some early compromise. RAVI SR is a 36 year old currently undergoing hyperbaric oxygen therapy for Recurrent hidradenitis ulcer left axillary area s/p recent skin graft 09/29/16 with some early compromise. Progress: She has tolerated Hyperbaric Oxygen Therapy well so far. Tolerance of hyperbaric oxygen therapy: Hyperbaric oxygen therapy was administered as per the facility's protocol. The patient tolerated hyperbaric oxygen therapy well, without complications or complaints. Upon emergence from the hyperbaric chamber, the patient's vital signs remained stable. 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) L98.499 nonhealing hidradenitis ulcer left axillary area Right axillary hidradenitis (Chronic) L73.2 right axillary hidradenitis H/O hidradenitis suppurativa (Chronic) Allergies/Adverse Reactions: Allergies latex Allergy (Verified 06/16/17 08:46) Rash Penicillins [PCN] Allergy (Verified 06/16/17 08:46) Hives doxycycline Adverse Reaction (Verified 06/16/17 08:46) Nausea hydromorphone HCl [From Dilaudid] Adverse Reaction (Verified 06/16/17 08:46) Nausea Home Medications: Ambulatory Orders Medication Instructions Recorded Acetaminophen [Tylenol] 325 mg PO Q4H PRN 11/23/15 DiphenhydrAMINE [Benadryl] 25 mg PO TID PRN PRN #30 capsule 11/07/16 Collagenase [Santyl] 1 applic TOPICAL DAILY tube 06/30/17 Diazepam [Valium] 5 mg PO 4X/DAY PRN PRN #30 tab 06/30/17 Docusate Sodium [Colace] 100 mg PO BID #60 cap 06/30/17 Doxycycline 100 mg PO BID #28 cap 06/30/17 Oxycodone HCl/Acetaminophen 1 - 2 tab PO 4X/DAY PRN PRN 7 Days 06/30/17 [Percocet 5/325] #60 tab levoFLOXacin tablet [Levaquin 500 mg PO DAILY #14 tab 06/30/17 tablet] proMETHazine tablet [Phenergan 25 mg PO 4X/DAY PRN PRN #30 tab 06/30/17 tablet] Maternal Family History: Diabetes, Heart Disease, Hypertension, - - ovarian cancer. negative for skin cancer. Paternal Family History: Heart Disease, Hypertension, Stroke, - - negative for skin cancer. Smoking Status: Never smoker Physical Exam Vital Signs Temp Pulse Resp BP 97.7 F L 98 16 140/83 H 08/09/17 08:13 08/09/17 08:13 08/09/17 08:13 08/09/17 08:13 General: Alert, Oriented x3, Cooperative, No apparent distress HEENT: Atraumatic, Normocephalic, TM's Clear Lungs: Normal air movement Cardiovascular: Regular rate Psych/Mental Status: Normal Affect Assessment/Plan Active Problems Open wound of left axillary region with complication (Acute) planned open hidradenitis wound left axillary area H/O hidradenitis suppurativa (Chronic) The patient appears to be tolerating hyperbaric oxygen treatments well which will continue as per the patient's medical plan.
--- NOTE | 2017-08-09 10:28 | NURSING ---
Addendum entered and electronically signed by Zunilda Duong 08/09/17 11:40: Will return Monday at regularly scheduled time, center is closed on Monday08/11/17 Original Note: Pt will not be coming for HBO tx due to a in family. Will return Monday at regularly scheduled time.
== END 2017-08-14 23:59 ==
LOC: WC 08:00
PROVIDERS: Family Provider Family Medicine; PCP Family Medicine; Visit Provider Surgery
DX: L73.2 Hidradenitis suppurativa (principal); T86.821 Skin graft (allograft) (autograft) failure; Y83.2 Surgical operation with anastomosis, bypass or graft as the cause of abnormal reaction of the patient, or of later complication, without mention of misadventure at the time of the procedure; Z86.19 Personal history of other infectious and parasitic diseases
CPT/HCPCS: 11042; 11045; 99183; G0277

== ENCOUNTER 2017-10-02 08:24 | Outpatient (RCR) | payer MEDICAID, SELFPAY ==
[2017-10-02 10:10] VITALS: BP 139/92; PULSE 75; RESP 16; TEMP 37
--- NOTE | 2017-10-02 19:13 | PCM.WC.PN ---
Type of Wound Date of Service: 10/02/17 Chief Complaint: Recurrent hidradenitis ulcer left axillary area s/p recent skin graft 09/29/16 with some early compromise. History of Wound: Surgery 06/28/17 - Surgical preparation left axilla with excision recurrent hidradenitis ulcer (66 cm2). Wound care - Santyl. Operative culture - Staphylococcus aureus. She has finished the Doxycycline. Encourage nutritional supplementation with protein to help the healing process. She has started HBO but has not been consistent in going. Progress of Wound: Unchanged. - Physical Exam Vital Signs Temp Pulse Resp BP 98.6 F 75 16 139/92 H 10/02/17 10:10 10/02/17 10:10 10/02/17 10:10 10/02/17 10:10 Wound Measurements and Assessment WC - Nurse 1 - General Ulcer Measurement Start: 10/02/17 10:10 Freq: Status: Active Protocol: Activity Type Activity Date Activity User E-Sign Co-Sign Detail Recorded Client Recorded Date Recorded By Document 10/02/17 10:10 [id number] 10/02/17 10:37 10/02/17 10:10 Wound Center Nurse 1 [Ulcer Assessment] #4 left axilla -Combined with other wound No -Current Size (cm) - Length 5.3 -Current Size (cm) - Width 5.9 -Current Size (cm) - Depth 0.1 -Total Square Cm 31.27 -Date of Last Picture (Recall this 10/02/17 field) -Photo Taken Yes -Epithelialization None Present -Tunneling No -Undermining/Tunneling No -Circular Undermining No -Classification - Thickness Full Thickness without Exposed Support Structure -Exudate Amt Small (1-33%) -Exudate Type Yellow/Green -Wound Margin Distinct, Outline Attached -Granulation Amt Large (67-100%) -Granulation Quality Hyper- granulation -Slough/Fibrin Yes -Necrosis Amt Medium (34-66%) -Necrotic Tissue Type Adherent Slough -Structure Exposed None/Limited to Skin Breakdown -Texture (Sadie-wound Skin Appearance) Assessed Scarring -Moisture (Sadie-wound Skin Appearance Assessed ) Maceration -Color (Sadie-wound Skin Appearance) Assessed Erythema -Temperature (Sadie-wound Skin No Abnormality Appearance) (Pt Warm) -Tenderness on Palpation (Sadie-wound Yes Skin Appearance) -Ulcer Cleansing Wound Cleanser -Foul Odor after Cleansing No -Anesthetic Used 4% Lidocaine Solution - Nurse 2 - General Ulcer CM Notes Start: 10/02/17 10:10 Freq: Status: Active Protocol: Activity Type Activity Date Activity User E-Sign Co-Sign Detail Recorded Client Recorded Date Recorded By Document 10/02/17 11:05 [id number] 10/02/17 11:08 10/02/17 11:05 Wound Center Nurse 2 [Procedure/Treatment] -Time 11:06 -Correct Patient Yes -Correct Side, Site, Position Yes -Correct Procedure Yes -Procedure Performed Yes -Type of Procedure Debridement -Clinical Debridement Subcutaneous -Post Debridement Size (cm) - Length 5.3 -Post Debridement Size (cm) - Width 6 -Post Debridement Size (cm) - Depth 0.1 -Total Square Cm 31.8 -Wound/Ulcer Outcome Not Healed -Ulcer Cleansing Rinsed/ Irrigated with Saline -Foul Odor after Cleansing No -Bioengineered Tissue No -Bleeding Controlled with Pressure Silver Nitrate -Treatment Response Procedure Tolerated Well [See Physician Procedure note for Specifics] Pain Scale: 0-10 Numeric [Pain] -Is Patient Pain Free? Yes Debridement Note Post-Debridement Measurements/Treatment - Nurse 2 - General Ulcer CM Notes Start: 10/02/17 10:10 Freq: Status: Active Protocol: Activity Type Activity Date Activity User E-Sign Co-Sign Detail Recorded Client Recorded Date Recorded By Document 10/02/17 11:05 [id number] 10/02/17 11:08 10/02/17 11:05 Wound Center Nurse 2 #4 left axilla -Time 11:06 -Correct Patient Yes -Correct Side, Site, Position Yes -Correct Procedure Yes -Procedure Performed Yes -Type of Procedure Debridement -Clinical Debridement Subcutaneous -Post Debridement Size (cm) - Length 5.3 -Post Debridement Size (cm) - Width 6 -Post Debridement Size (cm) - Depth 0.1 -Total Square Cm 31.8 -Wound/Ulcer Outcome Not Healed -Ulcer Cleansing Rinsed/ Irrigated with Saline -Foul Odor after Cleansing No -Bioengineered Tissue No -Bleeding Controlled with Pressure Silver Nitrate -Treatment Response Procedure Tolerated Well Pain Scale: 0-10 Numeric Is Patient Pain Free? Yes Wound debrided: #1 Left medial axilla. Laterality: Left Wound Grade/Stage: 2. Type of Debridement: Excisional debridement Anesthesia Used: 4% Lidocaine Solution Depth: Down to and including healthy tissue, in the subcutaneous layer Percentage of wound debrided: 100 Instrument Used: 7mm curette Tissue Removed: Subcutaneous tissue. Severity: Fat Layer Exposed Amount of bleeding with debridement: Mild Bleeding Controlled with: Pressure Patient tolerated procedure well Assessment/Plan Assessment: 1. Nonhealing recurrent hidradenitis ulcer left axillary area. 2. H/O left axillary hidradenitis. 3. s/p surgical preparation left axilla with excision recurrent hidradenitis ulcer (66 cm2). Plan: Continue Santyl dressing changes. She has started HBO but is not consistent in going. It was discussed with her the importance of showing up for her treatments. Continued inconsistency and noncompliance is not going to improve the wound at all. She states she is awaiting transportation for her HBO. Has Staphylococcus aureus. She has finished the Doxycycline. Followup 2 weeks. Discussed the importance of teeth removal before any further surgery such as skin grafting. She has not made arrangements yet to have them removed.
== END 2017-10-14 23:59 ==
LOC: WC 08:24
PROVIDERS: Family Provider Family Medicine; PCP Family Medicine; Visit Provider Surgery
DX: L73.2 Hidradenitis suppurativa (principal); L98.492 Non-pressure chronic ulcer of skin of other sites with fat layer exposed
CPT/HCPCS: 11042; 11045

== ENCOUNTER 2017-10-23 08:50 | Outpatient (RCR) | payer MEDICAID, SELFPAY ==
[2017-10-15 01:13] VITALS: BP 139/92; PULSE 75; RESP 16; TEMP 37
[2017-10-23 09:42] VITALS: BP 149/93; PULSE 78; RESP 16; TEMP 37
--- NOTE | 2017-10-23 23:55 | PN.PCM_ITS ---
Type of Wound Date of Service: 10/23/17 Chief Complaint: Recurrent hidradenitis ulcer left axillary area s/p recent skin graft 09/29/16 with some early compromise. History of Wound: Surgery 06/28/17 - Surgical preparation left axilla with excision recurrent hidradenitis ulcer (66 cm2). Wound care - Santyl. Operative culture - Staphylococcus aureus. She has finished the Doxycycline. Encourage nutritional supplementation with protein to help the healing process. She has started HBO but has not been consistent in going and has stopped them. She still hasn't had her teeth removed. Progress of Wound: Unchanged. - Physical Exam Vital Signs Temp Pulse Resp BP 98.6 F 78 16 149/93 H 10/23/17 09:42 10/23/17 09:42 10/23/17 09:42 10/23/17 09:42 Wound Measurements and Assessment WC - Nurse 1 - General Ulcer Measurement Start: 10/23/17 09:37 Freq: Status: Active Protocol: Activity Type Activity Date Activity User E-Sign Co-Sign Detail Recorded Client Recorded Date Recorded By Document 10/23/17 09:42 [id number] 10/23/17 09:44 10/23/17 09:42 Wound Center Nurse 1 [Ulcer Assessment] #4 left axilla -Combined with other wound No -Current Size (cm) - Length 1.9 -Current Size (cm) - Width 5.6 -Current Size (cm) - Depth 0.1 -Total Square Cm 10.64 -Photo Taken No -Epithelialization None Present -Tunneling No -Undermining/Tunneling No -Circular Undermining No -Exudate Amt Medium (34-66%) -Exudate Type Serosanguineous -Wound Margin Distinct, Outline Attached -Granulation Amt Large (67-100%) -Granulation Quality [place] Red -Slough/Fibrin No -Necrosis Amt None Present (0 %) -Structure Exposed None/Limited to Skin Breakdown -Texture (Sadie-wound Skin Appearance) Assessed Excoriation -Color (Sadie-wound Skin Appearance) No Abnormality Assessed -Temperature (Sadie-wound Skin No Abnormality Appearance) (Pt Warm) -Tenderness on Palpation (Sadie-wound Yes Skin Appearance) -Ulcer Cleansing Wound Cleanser -Foul Odor after Cleansing No -Anesthetic Used 5% Lidocaine Gel [Edema Assessment] -Lower Limb Edema Present NA WC - Nurse 2 - General Ulcer CM Notes Start: 10/23/17 09:37 Freq: Status: Active Protocol: Activity Type Activity Date Activity User E-Sign Co-Sign Detail Recorded Client Recorded Date Recorded By Document 10/23/17 10:13 [email or web address] [id number] 10/23/17 10:14 [email or web address] 10/23/17 10:13 Wound Center Nurse 2 [Procedure/Treatment] #4 left axilla -Time 10:13 -Correct Patient Yes -Correct Side, Site, Position Yes -Correct Procedure Yes -Procedure Performed Yes -Type of Procedure Debridement -Clinical Debridement Subcutaneous -Post Debridement Size (cm) - Length 2.0 -Post Debridement Size (cm) - Width 5.6 -Post Debridement Size (cm) - Depth 0.1 -Total Square Cm 11.20 -Wound/Ulcer Outcome Not Healed -Ulcer Cleansing Rinsed/ Irrigated with Saline -Foul Odor after Cleansing No -Bioengineered Tissue No -Bleeding Controlled with Pressure Silver Nitrate -Treatment Response Procedure Tolerated Well [See Physician Procedure note for Specifics] Pain Scale: 0-10 Numeric [Pain] -Is Patient Pain Free? Yes Debridement Note Post-Debridement Measurements/Treatment - Nurse 2 - General Ulcer CM Notes Start: 10/23/17 09:37 Freq: Status: Active Protocol: Activity Type Activity Date Activity User E-Sign Co-Sign Detail Recorded Client Recorded Date Recorded By Document 10/23/17 10:13 JF [id number] 10/23/17 10:14 [email or web address] 10/23/17 10:13 Wound Center Nurse 2 #4 left axilla -Time 10:13 -Correct Patient Yes -Correct Side, Site, Position Yes -Correct Procedure Yes -Procedure Performed Yes -Type of Procedure Debridement -Clinical Debridement Subcutaneous -Post Debridement Size (cm) - Length 2.0 -Post Debridement Size (cm) - Width 5.6 -Post Debridement Size (cm) - Depth 0.1 -Total Square Cm 11.20 -Wound/Ulcer Outcome Not Healed -Ulcer Cleansing Rinsed/ Irrigated with Saline -Foul Odor after Cleansing No -Bioengineered Tissue No -Bleeding Controlled with Pressure Silver Nitrate -Treatment Response Procedure Tolerated Well Pain Scale: 0-10 Numeric Is Patient Pain Free? Yes Wound debrided: #4 Left axilla. Laterality: Left Wound Grade/Stage: 2. Type of Debridement: Excisional debridement Anesthesia Used: 4% Lidocaine Solution Depth: Down to and including healthy tissue, in the subcutaneous layer Percentage of wound debrided: 100 Instrument Used: 7mm curette Tissue Removed: subcutaneous tissue. Severity: Fat Layer Exposed Amount of bleeding with debridement: Mild Bleeding Controlled with: Pressure, Silver Nitrate - for chemical cauterization for the hypergranulation tissue. Patient did not tolerate procedure well - She had some discomfort with the debridement. There was some hypergranulation tissue present. Assessment/Plan Assessment: 1. Nonhealing recurrent hidradenitis ulcer left axillary area. 2. H/O left axillary hidradenitis. 3. s/p surgical preparation left axilla with excision recurrent hidradenitis ulcer (66 cm2). Plan: Continue Santyl dressing changes. She has started HBO but is not consistent in going. It was discussed with her the importance of showing up for her treatments. Continued inconsistency and noncompliance is not going to improve the wound at all. The HBO has been cancelled due to poor attendance. Culture showed Staphylococcus aureus. She has finished the Doxycycline. There is a periwound rash, so I wrote a script for Diflucan. Followup 4 weeks. Discussed the importance of teeth removal before any further surgery such as skin grafting. She has not made arrangements yet to have them removed.
== END 2017-11-14 23:59 ==
LOC: WC 08:50
PROVIDERS: Family Provider Family Medicine; PCP Family Medicine; Visit Provider Surgery
DX: L73.2 Hidradenitis suppurativa (principal); L98.492 Non-pressure chronic ulcer of skin of other sites with fat layer exposed
CPT/HCPCS: 11042

== ENCOUNTER 2017-12-04 13:13 | Outpatient (RCR) | payer MEDICAID, SELFPAY ==
[2017-11-15 01:08] VITALS: BP 149/93; PULSE 78; RESP 16; TEMP 37
[2017-12-04 14:35] VITALS: BP 121/89; PULSE 89; RESP 16; TEMP 36.6
--- NOTE | 2017-12-04 22:46 | PCM.WC.PN ---
Type of Wound Date of Service: 12/04/17 Chief Complaint: Recurrent hidradenitis ulcer left axillary area. History of Wound: Surgery 06/28/17 - Surgical preparation left axilla with excision recurrent hidradenitis ulcer (66 cm2). Wound care - Santyl. Operative culture - Staphylococcus aureus. She has finished the Doxycycline. Encourage nutritional supplementation with protein to help the healing process. She has started HBO but has not been consistent in going and has stopped them. She still hasn't had her teeth removed. Progress of Wound: Unchanged. - Physical Exam Vital Signs Temp Pulse Resp BP 97.8 F 89 16 121/89 H 12/04/17 14:35 12/04/17 14:35 12/04/17 14:35 12/04/17 14:35 Wound Measurements and Assessment WC - Nurse 1 - General Ulcer Measurement Start: 12/04/17 14:35 Freq: Status: Active Protocol: Activity Type Activity Date Activity User E-Sign Co-Sign Detail Recorded Client Recorded Date Recorded By Document 12/04/17 14:35 [email or web address] 12/04/17 14:56 12/04/17 14:35 Wound Center Nurse 1 [Ulcer Assessment] #4 left axilla -Combined with other wound No -Current Size (cm) - Length 8.0 -Current Size (cm) - Width 3.7 -Current Size (cm) - Depth 0.3 -Total Square Cm 29.60 -Date of Last Picture (Recall this 12/04/17 field) -Photo Taken Yes -Epithelialization None Present -Tunneling No -Undermining/Tunneling No -Circular Undermining No -Classification - Thickness Full Thickness without Exposed Support Structure -Exudate Amt Medium (34-66%) -Exudate Type Yellow/Green -Wound Margin Distinct, Outline Attached -Granulation Amt Large (67-100%) -Granulation Quality Red -Slough/Fibrin No -Necrosis Amt None Present (0 %) -Necrotic Tissue Type Adherent Slough -Structure Exposed Fat Layer Exposed -Texture (Sadie-wound Skin Appearance) Excoriation -Moisture (Sadie-wound Skin Appearance No Abnormality ) -Color (Sadie-wound Skin Appearance) No Abnormality -Temperature (Sadie-wound Skin No Abnormality Appearance) (Pt Warm) -Tenderness on Palpation (Sadie-wound Yes Skin Appearance) -Ulcer Cleansing Rinsed/ Irrigated with Saline -Foul Odor after Cleansing No -Anesthetic Used 4% Lidocaine Solution - Nurse 2 - General Ulcer CM Notes Start: 12/04/17 14:35 Freq: Status: Active Protocol: Activity Type Activity Date Activity User E-Sign Co-Sign Detail Recorded Client Recorded Date Recorded By Document 12/04/17 15:12 [email or web address] 12/04/17 15:15 12/04/17 15:12 Wound Center Nurse 2 [Procedure/Treatment] -Time 15:14 -Correct Patient Yes -Correct Side, Site, Position Yes -Correct Procedure Yes -Procedure Performed Yes -Type of Procedure Debridement -Clinical Debridement Subcutaneous -Post Debridement Size (cm) - Length 8 -Post Debridement Size (cm) - Width 3.8 -Post Debridement Size (cm) - Depth 0.3 -Total Square Cm 30.4 -Wound/Ulcer Outcome Not Healed -Ulcer Cleansing Rinsed/ Irrigated with Saline -Foul Odor after Cleansing No -Bioengineered Tissue No -Bleeding Controlled with Pressure Silver Nitrate -Treatment Response Procedure Tolerated Well [See Physician Procedure note for Specifics] Pain Scale: 0-10 Numeric [Pain] -Is Patient Pain Free? Yes Debridement Note Post-Debridement Measurements/Treatment - Nurse 2 - General Ulcer CM Notes Start: 12/04/17 14:35 Freq: Status: Active Protocol: Activity Type Activity Date Activity User E-Sign Co-Sign Detail Recorded Client Recorded Date Recorded By Document 12/04/17 15:12 [email or web address] 12/04/17 15:15 12/04/17 15:12 Wound Center Nurse 2 #4 left axilla -Time 15:14 -Correct Patient Yes -Correct Side, Site, Position Yes -Correct Procedure Yes -Procedure Performed Yes -Type of Procedure Debridement -Clinical Debridement Subcutaneous -Post Debridement Size (cm) - Length 8 -Post Debridement Size (cm) - Width 3.8 -Post Debridement Size (cm) - Depth 0.3 -Total Square Cm 30.4 -Wound/Ulcer Outcome Not Healed -Ulcer Cleansing Rinsed/ Irrigated with Saline -Foul Odor after Cleansing No -Bioengineered Tissue No -Bleeding Controlled with Pressure Silver Nitrate -Treatment Response Procedure Tolerated Well Pain Scale: 0-10 Numeric Is Patient Pain Free? Yes Wound debrided: #4 Left axilla. Laterality: Left Wound Grade/Stage: 2. Type of Debridement: Excisional debridement Anesthesia Used: 4% Lidocaine Solution Depth: Down to and including healthy tissue, in the subcutaneous layer Percentage of wound debrided: 100 Instrument Used: 7mm curette Tissue Removed: subcutaneous tissue. Severity: Fat Layer Exposed Amount of bleeding with debridement: Mild Bleeding Controlled with: Pressure, Silver Nitrate - for chemical cauterization for the hypergranulation tissue. Patient did not tolerate procedure well - She had some discomfort with the debridement. There was some hypergranulation tissue present. Assessment/Plan Assessment: Assessment: 1. Nonhealing recurrent hidradenitis ulcer left axillary area. 2. H/O left axillary hidradenitis. 3. s/p surgical preparation left axilla with excision recurrent hidradenitis ulcer (66 cm2). Plan: Continue Santyl dressing changes. She has started HBO but is not consistent in going. It was discussed with her the importance of showing up for her treatments. Continued inconsistency and noncompliance is not going to improve the wound at all. The HBO has been cancelled due to poor attendance. Culture showed Staphylococcus aureus. She has finished the Doxycycline. Another wound culture was done today. If the culture is negative, then continue the Santyl. If the culture is positive, then will start antibiotics and will begin Silver dressing changes. The Diflucan has helped the periwound rash. Discussed the importance of teeth removal before any further surgery such as skin grafting. She has not made arrangements yet to have them removed. We are having difficulty with adequate debridement at the Wound Center secondary to pain. Will schedule an operative debridement to remove the hypergranulation tissue. Then can continue the wound care with Santyl or Silver dressing changes. The culture today will help determine what antibiotic is used perioperatively. Followup 4 weeks.
== END 2017-12-15 23:59 ==
LOC: WC 13:13
PROVIDERS: Family Provider Family Medicine; PCP Family Medicine; Visit Provider Surgery
DX: L73.2 Hidradenitis suppurativa (principal); L98.492 Non-pressure chronic ulcer of skin of other sites with fat layer exposed; Z91.19 Patient's noncompliance with other medical treatment and regimen
CPT/HCPCS: 11042; 87070; 87075; 87077; 87186; 87205

== ENCOUNTER 2017-12-19 10:20 | Day surgery (SDC) | payer MEDICAID, SELFPAY ==
[2017-12-19] VITALS (8 sets, daily range): BP systolic 118–149; BP diastolic 52–89; PULSE 77–101; RESP 16; TEMP 36.1–36.8; O2SAT 98–100; BMI 24.0
--- NOTE | 2017-12-19 00:20 | PCM.HP.BLA ---
History and Physical Date of Admission: 12/19/17 History of Present Illness The patient is a 36 year old F who presents with a recurrent nonhealing hidradenitis ulcer left axillary area that initially resulted from her flare up of hidradenitis. This necessitated surgery in 03/31 where she underwent surgical preparation left axillary wound with excision hidradenitis. She was treated with antibiotics after surgery along with the VAC and Silver dressing changes. She followed up at the Wound Center and in 09/30, the wound healed. The left axilla then re-ulcerated and she was placed back on Silver dressing changes. Culture showed Staphylococcus aureus and she was placed on Doxycycline. It improved but did not heal and she went back to surgery in 11/30 where she underwent excision nonhealing recurrent hidradenitis ulcer left axilla and reconstruction with proximal medial left arm bilobed transposition skin flap (56 cm2). There was adequate healing initially but then she developed some compromise to the flap. She underwent HBO treatments and tolerated them well but had to stop them because of the flu. The ulcer improved but did not heal. Repeat culture once again showed Staphylococcus aureus and she was placed back on Doxycycline. She went back to surgery on 08/11/16 where she underwent surgical preparation left axilla with excision nonhealing hidradenitis ulcer (60 cm2). She initially had the VAC for wound care and was recently changed to Silver dressing changes daily. Operative cultures showed Staphylococcus aureus and Staphylococcus epidermidis. They were resistant to Doxycycline and she was changed to Levaquin. The ulcer stabilized with good granulation tissue, and she was taken back to the OR on 09/29/16 where she underwent excisional debridement nonhealing recurrent hidradenitis ulcer left axilla with FTSG reconstruction from lower anterior abdominal wall (28 cm2). Operative culture showed Staphylococcus aureus and was placed on Doxycycline. She developed some compromise of the skin graft at the edges and underwent HBO treatments with some improvement. With local wound care with Silver dressings and then Santyl dressings, along with antibiotics for positive cultures, she still had a persistent ulceration. Her last culture was on 05/15/17 which showed Serratia marcescens and Staphylococcus lugdunensis and was treated with Levaquin. Part of the healing difficulties has been surmised by her chronically infected teeth that need to be removed. She has seen dentists for this problem and there have been many delays in getting this done. It has been hard to debride the ulcer lately in the Wound Center secondary to discomfort, so further debridement was recommended in preparation for additional HBO treatments in preparation for additional surgery with skin grafting. On 06/28/17, the patient underwent surgical preparation left axilla with excision recurrent hidradenitis ulcer (66 cm2). Some healing has occurred, but once again, hypertrophic granulation tissue has persisted that is quite painful and difficult to debride in the Wound Center. Recent culture on 12/04/17 showed Staphylococcus aureus, Burkholderia cepacia, and Rhizobium radiobacter and was placed on Levaquin. Past Medical History Past Medical History: Depression. Anxiety. Anemia. Back problems. Hidradenitis bilateral axillary areas. Surgical History: - - Surgical preparation right axillary wound with excision hidradenitis (40 cm2) on 06/02/14. Surgical preparation left axillary wound with excision hidradenitis (36 cm2) on 03/17/15. Excision nonhealing recurrent hidradenitis ulcer left axilla and reconstruction with proximal medial left arm bilobed transposition skin flap (56 cm2) on 11/24/15. surgical preparation left axilla with excision nonhealing hidradenitis ulcer (60 cm2) - 08/11/16. Excisional debridement nonhealing recurrent hidradenitis ulcer left axilla with FTSG reconstruction from lower anterior abdominal wall (28 cm2) - 09/29/16. Surgical preparation left axilla with excision recurrent hidradenitis ulcer (66 cm2) - 06/28/17 Home Medications: Phenergan. Percocet. Levaquin. Valium. Tylenol. Allergies latex Allergy Penicillins [PCN] hydromorphone HCl [From Dilaudid] SOCIAL HISTORY: Lives: Spouse/ Significant Other Smoking Status: Never smoker Tobacco Use: Non-smoker Alcohol: Occasional Drugs: None - *Family History Maternal History Items: Diabetes, Heart Disease, Hypertension, - - ovarian cancer. negative for skin cancer. Paternal History Items: Heart Disease, Hypertension, Stroke, - - negative for skin cancer. Review of Systems Constitutional: Denies: Fever, Weakness, Fatigue Eyes: Denies: Pain HEENT: Denies: Nasal Congestion, Sore Throat Cardiovascular: Denies: Chest Pain Respiratory: Denies: Cough, Shortness of Breath Gastrointestinal: Denies: Constipation, Diarrhea, Nausea, Vomiting Genitourinary: Denies: Frequency, Hematuria Musculoskeletal: Reports: - - left axillary pain.. Denies: Back Pain, Hand Pain, Neck Pain Skin: Reports: Wounds - left axillary hidradenitis ulcer. Neurological: Denies: Headaches Psychiatric: Reports: Anxiety, Depression Endocrine: Denies: Polydipsia, Polyuria Hematologic/ Lymphatic: Reports: Anemia. Denies: Easy Bruising, Hx of blood clot - Physical Exam General: Alert, Oriented x3 HEENT: PERRLA, EOMI. Has poor dental hygiene with severe periodontal disease and decaying teeth. Neck: Supple Lungs: Clear to auscultation Cardiovascular: Regular rate, Regular Rhythm Abdomen: Soft, Non-Distended Extremities: No clubbing, No cyanosis, No edema, Peripheral Pulses Normal Skin: Ulcer/ Wound - left axillary hidradenitis ulcer. Measures 4 x 8 x 0.3 cm. Hypergranulation tissue present. No purulent drainage. Tender to palpation. Lymphatic: No Cervical, Supraclavicular, or Inguinal Adenopathy Neurological: Cranial nerves II-XII grossly intact Psych/Mental Status: Normal Affect, Appropriate Assessment/Plan 1. Nonhealing recurrent hidradenitis ulcer left axillary area. 2. H/O left axillary hidradenitis. PLAN: The ulcer is clean with granulation tissue. Some hypergranulation tissue seen that is hard to debride because of pain. She has good range of motion of her left shoulder. It is recommended to the patient to proceed with operative debridement and then postop wound care with the VAC or daily dressing changes with Santyl. Postop will proceed with HBO treatments in preparation for further skin grafting. She had trouble with arranging transportation for HBO last time. She states she is scheduled to have her teeth removed within the next month. Will hold off on any skin grafting until the teeth are removed. Surgery will be done under general anesthesia on an outpatient basis. Tissue will be sent to Pathology for analysis and to Microbiology for culture. A positive culture may necessitate antibiotic modification. Followup at the Wound Center after discharge from the hospital. I anticipate increased metabolic demands from the ulcer and the surgery. Encourage nutritional supplementation with protein to help the healing process. The patient was informed of the risks and complications of the procedure including alternatives to surgery. These were discussed with her personally. She voices understanding and wishes to proceed.
[2017-12-19 10:42] LABS: Internal QC Validated? YES +Cl - CLEAR BKGD; Pregnancy, Urine Negative Negative
[2017-12-19] MEDS: levoFLOXacin IV 500 MG/100 ML BAG 100 MG IV (11:49)
--- NOTE | 2017-12-19 15:06 | PCM.IMDPSTOP ---
Immediate Post-Op Note Date of Procedure: 12/19/17 Primary Surgeon/Physician: Lennox Eugene vocational examiner: None Pre-Operative Diagnosis: 1. Nonhealing recurrent hidradenitis ulcer left axillary area. 2. H/O left axillary hidradenitis. Post-Operative Diagnosis: Same. Surgery/Procedure Performed:: Surgical preparation left axilla with excision nonhealing recurrent hidradenitis ulcer (45 cm2). Description of Surgical Findings:: The patient is a 36 year old F who presents with a recurrent nonhealing hidradenitis ulcer left axillary area that initially resulted from her flare up of hidradenitis. This necessitated surgery in 03/31 where she underwent surgical preparation left axillary wound with excision hidradenitis. She was treated with antibiotics after surgery along with the VAC and Silver dressing changes. She followed up at the Wound Center and in 09/30, the wound healed. The left axilla then re-ulcerated and she was placed back on Silver dressing changes. Culture showed Staphylococcus aureus and she was placed on Doxycycline. It improved but did not heal and she went back to surgery in 11/30 where she underwent excision nonhealing recurrent hidradenitis ulcer left axilla and reconstruction with proximal medial left arm bilobed transposition skin flap (56 cm2). There was adequate healing initially but then she developed some compromise to the flap. She underwent HBO treatments and tolerated them well but had to stop them because of the flu. The ulcer improved but did not heal. Repeat culture once again showed Staphylococcus aureus and she was placed back on Doxycycline. She went back to surgery on 08/11/16 where she underwent surgical preparation left axilla with excision nonhealing hidradenitis ulcer (60 cm2). She initially had the VAC for wound care and was recently changed to Silver dressing changes daily. Operative cultures showed Staphylococcus aureus and Staphylococcus epidermidis. They were resistant to Doxycycline and she was changed to Levaquin. The ulcer stabilized with good granulation tissue, and she was taken back to the OR on 09/29/16 where she underwent excisional debridement nonhealing recurrent hidradenitis ulcer left axilla with FTSG reconstruction from lower anterior abdominal wall (28 cm2). Operative culture showed Staphylococcus aureus and was placed on Doxycycline. She developed some compromise of the skin graft at the edges and underwent HBO treatments with some improvement. With local wound care with Silver dressings and then Santyl dressings, along with antibiotics for positive cultures, she still had a persistent ulceration. Her last culture was on 05/15/17 which showed Serratia marcescens and Staphylococcus lugdunensis and was treated with Levaquin. Part of the healing difficulties has been surmised by her chronically infected teeth that need to be removed. She has seen dentists for this problem and there have been many delays in getting this done. It has been hard to debride the ulcer lately in the Wound Center secondary to discomfort, so further debridement was recommended in preparation for additional HBO treatments in preparation for additional surgery with skin grafting. On 06/28/17, the patient underwent surgical preparation left axilla with excision recurrent hidradenitis ulcer (66 cm2). Some healing has occurred, but once again, hypertrophic granulation tissue has persisted that is quite painful and difficult to debride in the Wound Center. Recent culture on 12/04/17 showed Staphylococcus aureus, Burkholderia cepacia, and Rhizobium radiobacter and was placed on Levaquin. Today the patient underwent surgical preparation left axilla with excision nonhealing recurrent hidradenitis ulcer (45 cm2). Size of defect left axilla - 9 x 5 x 1 cm. Estimated Blood Loss: 50 ml. Specimen's removed: Nonhealing recurrent hidradenitis ulcer left axilla to Pathology and Microbiology. Drains: None. Type of Anesthesia:: General - Admit VTE Documentation VTE Present on Admission: No VTE Mechan Device Prophylaxis: SCD's VTE Pharm Prophylaxis ordered?: No
--- NOTE | 2017-12-19 15:17 | PCM.DC ---
You will use the following diet at home:: No restrictions, Other - encourage nutritional supplementation with protein to help the healing process. Discharge Activity: May Shower - at the time of the dressing changes. May shower in (days): 1 Weight Bearing Status: Weight bearing as tolerated Keep extremity elevated above heart level: Left Arm Additional Activity Instructions:: encourage range of motion exercises to minimize stiffness. Call your doctor if your incision/area has: Continuous Slow Oozing, Sudden Increased Bleeding, Increased Pain/ Swelling, Increased Redness, Foul Smelling Discharge, Swelling at the incision site Call your doctor if you observe: Fever of 101 or Higher, Coldness, Increased Pain, Shortness of breath, Chest pain, Calf discomfort, Uncontrolled pain Suture Line Care: - - daily dressing changes with aquacel silver. Change Dressing in (Days):: 1 - daily dressings with aquacel silver. Cleanse incision/area with: Soap & Water - may cleanse the wound with soap and water at the time of the dressing change. Additional Dressing/Incision Instructions:: aquacel silver dressing changes daily to left axilla. Additional Instructions: Patient has Levaquin at home and will continue them. Allergies/Adverse Reactions: Allergies latex Allergy (Verified 12/14/17 14:24) Rash Penicillins [PCN] Allergy (Verified 12/14/17 14:24) Hives doxycycline Adverse Reaction (Verified 12/14/17 14:24) Nausea hydromorphone HCl [From Dilaudid] Adverse Reaction (Verified 12/14/17 14:24) Nausea Medications to take at Discharge levoFLOXacin tablet [Levaquin tablet] 500 mg PO DAILY #14 tab 06/30/17 Fluconazole [Diflucan] 100 mg PO BID #28 tab 12/19/17 Oxycodone HCl/Acetaminophen [Percocet 5/325] 1 - 2 tab PO 4X/DAY PRN PRN 5 Days #40 tab 12/19/17 Silver/Hydrocolloid Dressing [Aquacel-Ag W-Hydrofiber Dress] 1 ea TP .QDAILY #30 bandage 12/19/17 The following prescriptions were given: Oxycodone HCl/Acetaminophen [Percocet 5/325] 1 - 2 tab PO 4X/DAY PRN PRN 5 Days #40 tab PRN Reason: Pain Silver/Hydrocolloid Dressing [Aquacel-Ag W-Hydrofiber Dress] 1 ea TP .QDAILY #30 bandage Fluconazole [Diflucan] 100 mg PO BID #28 tab Primary Care Physician: Bogdan Guerra DO [Primary Care Provider] - Test Results: Test results from this visit will be discussed in further detail at your follow-up appointment, if applicable. Please Follow Up With: Lennox Eugene MD When: 2 weeks at wound center. call [phone] for appt. Proposed Discharge Date: 12/19/17
--- NOTE | 2017-12-19 20:39 | PCM.OPRPT ---
Report of Operation Date of Procedure: 12/19/17 Pre-Operative Diagnosis: 1. Nonhealing recurrent hidradenitis ulcer left axillary area. 2. H/O left axillary hidradenitis. Post-Operative Diagnosis: Same. Surgery/Procedure Performed:: Surgical preparation left axilla with excision nonhealing recurrent hidradenitis ulcer (45 cm2). Description of Surgical Findings:: The patient is a 36 year old F who presents with a recurrent nonhealing hidradenitis ulcer left axillary area that initially resulted from her flare up of hidradenitis. This necessitated surgery in 03/31 where she underwent surgical preparation left axillary wound with excision hidradenitis. She was treated with antibiotics after surgery along with the VAC and Silver dressing changes. She followed up at the Wound Center and in 09/30, the wound healed. The left axilla then re-ulcerated and she was placed back on Silver dressing changes. Culture showed Staphylococcus aureus and she was placed on Doxycycline. It improved but did not heal and she went back to surgery in 11/30 where she underwent excision nonhealing recurrent hidradenitis ulcer left axilla and reconstruction with proximal medial left arm bilobed transposition skin flap (56 cm2). There was adequate healing initially but then she developed some compromise to the flap. She underwent HBO treatments and tolerated them well but had to stop them because of the flu. The ulcer improved but did not heal. Repeat culture once again showed Staphylococcus aureus and she was placed back on Doxycycline. She went back to surgery on 08/11/16 where she underwent surgical preparation left axilla with excision nonhealing hidradenitis ulcer (60 cm2). She initially had the VAC for wound care and was recently changed to Silver dressing changes daily. Operative cultures showed Staphylococcus aureus and Staphylococcus epidermidis. They were resistant to Doxycycline and she was changed to Levaquin. The ulcer stabilized with good granulation tissue, and she was taken back to the OR on 09/29/16 where she underwent excisional debridement nonhealing recurrent hidradenitis ulcer left axilla with FTSG reconstruction from lower anterior abdominal wall (28 cm2). Operative culture showed Staphylococcus aureus and was placed on Doxycycline. She developed some compromise of the skin graft at the edges and underwent HBO treatments with some improvement. With local wound care with Silver dressings and then Santyl dressings, along with antibiotics for positive cultures, she still had a persistent ulceration. Her last culture was on 05/15/17 which showed Serratia marcescens and Staphylococcus lugdunensis and was treated with Levaquin. Part of the healing difficulties has been surmised by her chronically infected teeth that need to be removed. She has seen dentists for this problem and there have been many delays in getting this done. It has been hard to debride the ulcer lately in the Wound Center secondary to discomfort, so further debridement was recommended in preparation for additional HBO treatments in preparation for additional surgery with skin grafting. On 06/28/17, the patient underwent surgical preparation left axilla with excision recurrent hidradenitis ulcer (66 cm2). Some healing has occurred, but once again, hypertrophic granulation tissue has persisted that is quite painful and difficult to debride in the Wound Center. Recent culture on 12/04/17 showed Staphylococcus aureus, Burkholderia cepacia, and Rhizobium radiobacter and was placed on Levaquin. Patient was informed of the risks and complications of the procedure including alternatives to surgery. These were discussed with the patient personally. Patient voices understanding and wishes to proceed. Size of defect left axilla - 9 x 5 x 1 cm. leather stretcher: None Type of Anesthesia:: General Specimen's removed: Nonhealing recurrent hidradenitis ulcer left axilla to Pathology and Microbiology. Drains: None. Estimated Blood Loss (mL): 50 ml. Description of Procedure: Patient was taken to OR in supine position and was placed under general anesthesia. Her left axillary area was prepped and draped in the usual fashion. SCD's were placed for DVT prophylaxis. Perioperative antibiotics were given intravenously. Using a large curette, the left axillary area ulcer was excised and sharply debrided into the subcutaneous tissue. The surrounding scar tissue was also excised. Some of the tissue was sent to Microbiology for culture. A positive culture will necessitate antibiotic therapy. The rest of the tissue was sent to Pathology for analysis to rule out carcinoma. Hemostasis was obtained with electrocautery. The wound was irrigated with saline. The size of the wound after the surgical preparation was 9 x 5 x 1 cm or 45 cm2. The base of the wound is close to the neurovascular structures entering the arm. Depending on the effects on the wound from HBO, I may not feel comfortable skin grafting the defect. A local skin flap may be necessary to provide more durable soft tissue coverage in this area. The wound was dressed with Aquacel Silver followed by Kerlix gauze and Betadine followed by a dry Kerlix gauze, ABD pads and a compression JAGRUTI wrap. Patient tolerated the procedure well and was sent to PACU in satisfactory condition. She will be sent home on pain medication and antibiotics for the surrounding fungal rash. She is already taking Levaquin at home and will continue them at home. Once the Santyl dressings are available as an outpatient, she may change dressings to the Santyl. After discharge, will followup at the Wound Center for evaluation for HBO treatments as well as for continuing wound care dressing changes to the left axilla. After release of the skin scarring, there was good range of motion of her shoulder under anesthesia. Grafts/Implants Used: None. - Complications None. - Admit VTE Documentation VTE Present on Admission: No VTE Mechan Device Prophylaxis: SCD's VTE Pharm Prophylaxis ordered?: No Code Visit Surgery Charges CPT - 95894 ICD-10 - L98.492, L73.2
--- NOTE | 2017-12-20 | HID_PTH ---
PATIENT: RAVI IRAHETA [place] [facility] [id number] AGE/SX: 36/F ROOM: RE12/19/[address]: Dr. Lennox Eugene MD : 1980 BED: DIS: 12/19/2017 SPEC #: [id number] RECD: 12/20/17 13:03 STATUS: YANIQUE MONO #: [id number] BRIGHT: 12/20/17 00:[address]: Lennox Eugene DEPT: SURGICAL PATHOLOGY RECD BY: Dano Morataya ENTERED: 12/20/17 13:03 SP TYPE: Seraenit MAHAD DR: Dr. Bogdan Guerra DO Tissues: Axilla, NOS Procedures: Surgery Specimen Level III HEADER OPERATION: Surgical prep left axillary with excision, hidradenitis PRE-OP DIAGNOSIS: Nonhealing recurrent hidradenitis ulcer, left axillary area TISSUE SUBMITTED: Hidradenitis left axilla MICROSCOPIC DIAGNOSIS Hidradenitis left axilla: Pieces of fibroadipose tissue and fibroconnective tissue with chronic inflammation. SINGH:kusum 12/21/17 MICROSCOPIC DESCRIPTION Slides are reviewed. GROSS DESCRIPTION Received in fixative is one container labeled with the patient's name and designated hidradenitis left axilla. The specimen consists of multiple pieces of soft tissue that in aggregate measure 3 x 2.5 x 0.5 cm. The largest piece is bisected. The entire specimen is submitted in two cassettes. / SINGH:kusum 12/20/17 TC:3 CPT: 38251
== END 2017-12-19 17:05 | disposition home or self-care (01) ==
LOC: SDC 10:20 → AC 10:21
PROVIDERS: Family Provider Family Medicine; PCP Family Medicine; Visit Provider Surgery
PROC: (CPT 15002; principal; 2017-12-19 12:25)
DX: L73.2 Hidradenitis suppurativa (principal); L98.492 Non-pressure chronic ulcer of skin of other sites with fat layer exposed; Z91.040 Latex allergy status
CPT/HCPCS: 15002; 81025; 87070; 87075; 87077; 87102; 87186; 87205; 87206; 88304; J7120; J2405

== ENCOUNTER 2017-12-25 09:40 | Outpatient (RCR) | payer MEDICAID, SELFPAY ==
[2017-12-16 01:13] VITALS: BP 121/89; PULSE 89; RESP 16; TEMP 36.6
[2017-12-25 09:46] VITALS: BP 121/92; PULSE 103; RESP 16; TEMP 36.6
--- NOTE | 2017-12-25 21:40 | PCM.WC.PN ---
Type of Wound Date of Service: 12/25/17 Chief Complaint: Recurrent hidradenitis ulcer left axillary area s/p recent operative debridement. History of Wound: Surgery 12/19/17 - Surgical preparation left axilla with excision nonhealing recurrent hidradenitis ulcer (45 cm2). Wound care - Santyl. The Santyl has been ordered. Will do Silver dressing changes until the Santyl is available. Operative culture - Staphylococcus aureus. She was placed on Levaquin. Continue nutritional supplementation with protein to help the healing process. She states she is scheduled on 01/01/18 for her teeth extraction. Today she denies any fever. Her appetite is good. Progress of Wound: Recent surgery on 12/19/17. - Physical Exam Vital Signs Temp Pulse Resp BP 97.8 F 103 H 16 121/92 H 12/25/17 09:46 12/25/17 09:46 12/25/17 09:46 12/25/17 09:46 Wound Measurements and Assessment WC - Nurse 1 - General Ulcer Measurement Start: 12/25/17 09:45 Freq: Status: Active Protocol: Activity Type Activity Date Activity User E-Sign Co-Sign Detail Recorded Client Recorded Date Recorded By Document 12/25/17 09:46 MW [id number] 12/25/17 09:50 MW 12/25/17 09:46 Wound Center Nurse 1 [Ulcer Assessment] #5 left axilla -Combined with other wound No -Current Size (cm) - Length 5.0 -Current Size (cm) - Width 8.5 -Current Size (cm) - Depth 1.5 -Total Square Cm 42.50 -Photo Taken No -Epithelialization None Present -Tunneling No -Undermining/Tunneling No -Circular Undermining No -Exudate Amt Medium (34-66%) -Exudate Type Serosanguineous -Wound Margin Distinct, Outline Attached -Granulation Amt Large (67-100%) -Granulation Quality Red -Slough/Fibrin Yes -Necrosis Amt Small (1-33%) -Necrotic Tissue Type Adherent Slough -Structure Exposed N/A -Texture (Sadie-wound Skin Appearance) Assessed -Moisture (Sadie-wound Skin Appearance Assessed ) Dry/Scaly -Color (Sadie-wound Skin Appearance) Assessed Rubor -Temperature (Sadie-wound Skin No Abnormality Appearance) (Pt Warm) -Tenderness on Palpation (Sadie-wound No Skin Appearance) -Ulcer Cleansing Rinsed/ Irrigated with Saline -Foul Odor after Cleansing No -Anesthetic Used 4% Lidocaine Solution [Edema Assessment] -Lower Limb Edema Present No - Nurse 2 - General Ulcer CM Notes Start: 12/25/17 09:45 Freq: Status: Active Protocol: Activity Type Activity Date Activity User E-Sign Co-Sign Detail Recorded Client Recorded Date Recorded By Document 12/25/17 10: [id number] 12/25/17 10:26 12/25/17 10:26 Wound Center Nurse 2 [Procedure/Treatment] #5 left axilla -Correct Patient No -Correct Side, Site, Position No -Correct Procedure No -Procedure Performed No [See Physician Procedure note for Specifics] Pain Scale: 0-10 Numeric [Pain] -Is Patient Pain Free? Yes Debridement Note Post-Debridement Measurements/Treatment - Nurse 2 - General Ulcer CM Notes Start: 12/25/17 09:45 Freq: Status: Active Protocol: Activity Type Activity Date Activity User E-Sign Co-Sign Detail Recorded Client Recorded Date Recorded By Document 12/25/17 10:26 [id number] 12/25/17 10:26 12/25/17 10:26 Wound Center Nurse 2 #5 left axilla -Correct Patient No -Correct Side, Site, Position No -Correct Procedure No -Procedure Performed No Pain Scale: 0-10 Numeric Is Patient Pain Free? Yes Wound debrided: #5 Left axilla. Laterality: Left Wound Grade/Stage: 2. No debridement was completed today - the patient had recent surgery on 12/19/17. Assessment/Plan Assessment: 1. Nonhealing recurrent hidradenitis ulcer left axillary area. 2. H/O left axillary hidradenitis. 3. s/p surgical preparation left axilla with excision nonhealing recurrent hidradenitis ulcer (45 cm2). Plan: Continue Santyl dressing changes when available. Until then she will continue her Silver dressing changes. The operative culture showed Staphylococcus aureus. She was placed on Levaquin and will continue them. Encourage nutritional supplementation with protein to help the healing process. The Diflucan has helped the periwound rash. Still has some residual itching which is controlled with Benadryl. Discussed the importance of teeth removal before any further surgery such as skin grafting. She states she has an appointment on 01/01/18 for the teeth extraction. Renewed her Percocet for pain (50 tabs). Renewed her Benadryl for itching (30 tabs) and 2 refills. Followup 4 weeks.
== END 2018-01-14 23:59 ==
LOC: WC 09:40
PROVIDERS: Family Provider Family Medicine; PCP Family Medicine; Visit Provider Surgery
DX: L73.2 Hidradenitis suppurativa (principal); Z86.19 Personal history of other infectious and parasitic diseases; L98.499 Non-pressure chronic ulcer of skin of other sites with unspecified severity
CPT/HCPCS: 99213; G0463

== ENCOUNTER 2018-02-12 08:30 | Outpatient (RCR) | payer SELFPAY ==
[2018-01-15 00:56] VITALS: BP 121/92; PULSE 103; RESP 16; TEMP 36.6
[2018-01-29 08:34] VITALS: BP 117/89; PULSE 102; RESP 16; TEMP 36.2
[2018-01-29 12:04] LABS: Hematocrit 38.4 % (37-47); Hemoglobin 12.4 g/dl (12.0-15.0); Mean Corp Hgb Conc 32.3 g/gl (32-36); Mean Corpuscular Hgb 24.1 pg (27.0-32.0); Mean Corpuscular Volume 74.7 fL (81-99); Mean Platelet Vol. 10.4 fl (6.2-12.0); Platelet Count 394 K/mm3 (150-450); RBC Distribution Width CV 14.6 % (11.6-14.6); RBC Distribution Width SD 38.8 fl (35.1-43.9); Red Blood Count 5.14 M/mm3 (4.2-5.4); White Blood Count 8.6 K/mm3 (4.4-11.0)
[2018-01-29 12:09] LABS: Scan Indicated on CBC? Y/N YES- FLAGS NOTED
[2018-01-29 12:11] LABS: ALB/GLOB Ratio 0.7 RATIO (0.9-2.4); AST(SGOT) 33 U/L (15-37); Alanine Aminotransfer ALT/SGPT 70 U/L (13-56); Albumin, Serum 3.5 g/dL (3.2-5.0); Alkaline Phosphatase 253 U/L (45-117); Anion Gap 7 (5-15); BUN 16 mg/dL (7-18); Calcium,Total 9.2 mg/dL (8.5-10.1); Chloride 107 mmol/L (98-107); EST Glomerular Filtration Rate 101 mL/min (>60); Est Glom Filt Rate - Afr Amer 123 mL/min (>60); Globulin 4.7 g/dL (2.2-4.2); Glucose 83 mg/dL (74-106); Potassium 4.2 mmol/L (3.5-5.1); Prealbumin 23.8 mg/dL (20.0-40.0); Protein, Total 8.2 g/dL (6.4-8.2); Sodium Level 141 mmol/L (136-145)
[2018-01-29 12:39] LABS: Differential Comment SCANNED
--- NOTE | 2018-01-29 13:34 | PCM.WC.PN ---
(1) Open wound of left axillary region with complication Status: Acute Current Visit: Yes Code(s): S41.102A - Unspecified open wound of left upper arm, initial encounter Comment: planned open hidradenitis wound left axillary area (2) Left axillary hidradenitis Status: Chronic Current Visit: Yes Code(s): L73.2 - Hidradenitis suppurativa Comment: L73.2 left axillary hidradenitis. Type of Wound Chief Complaint: Recurrent hidradenitis ulcer left axillary area. History of Wound: Surgery 06/28/17 - Surgical preparation left axilla with excision recurrent hidradenitis ulcer (66 cm2). Wound care - Santyl. Operative culture - Staphylococcus aureus. She has finished the Doxycycline. Encourage nutritional supplementation with protein to help the healing process. She has started HBO but has not been consistent in going and has stopped them. On 12/19/17 she had surgical preparation left axilla with excision nonhealing recurrent hidradenitis ulcer. She had her teeth removed 01/24/18. Progress of Wound: Mild improvement. - Physical Exam Vital Signs Temp Pulse Resp BP 97.1 F L 102 H 16 117/89 H 01/29/18 08:34 01/29/18 08:34 01/29/18 08:34 01/29/18 08:34 General: Alert, Oriented x3, Cooperative HEENT: Atraumatic Oral: Moist Mucosa, - - Sutures intact from getting her teeth pulled 5 days ago Extremities: No edema Skin: Ulcer/ Wound - Left axillary Wound Measurements and Assessment WC - Nurse 1 - General Ulcer Measurement Start: 01/29/18 08:33 Freq: Status: Active Protocol: Activity Type Activity Date Activity User E-Sign Co-Sign Detail Recorded Client Recorded Date Recorded By Document 01/29/18 08:34 GENESIS [id number] 01/29/18 08:39 GENESIS 01/29/18 08:34 Wound Center Nurse 1 [Ulcer Assessment] #5 left axilla -Combined with other wound No -Current Size (cm) - Length 3.5 -Current Size (cm) - Width 8.0 -Current Size (cm) - Depth 0.5 -Total Square Cm 28.00 -Date of Last Picture (Recall this 01/29/18 field) -Photo Taken Yes -Epithelialization Small 1-33% -Tunneling No -Undermining/Tunneling No -Circular Undermining No -Classification - Thickness Full Thickness without Exposed Support Structure -Exudate Amt Large (67-100%) -Exudate Type Serosanguineous -Wound Margin Distinct, Outline Attached -Granulation Amt Large (67-100%) -Granulation Quality Red -Slough/Fibrin Yes -Necrosis Amt None Present (0 %) -Structure Exposed N/A -Texture (Sadie-wound Skin Appearance) No Abnormality -Moisture (Sadie-wound Skin Appearance No Abnormality ) -Color (Sadie-wound Skin Appearance) No Abnormality -Temperature (Sadie-wound Skin No Abnormality Appearance) (Pt Warm) -Tenderness on Palpation (Sadie-wound No Skin Appearance) -Ulcer Cleansing Rinsed/ Irrigated with Saline -Foul Odor after Cleansing No -Anesthetic Used 4% Lidocaine Solution - Nurse 2 - General Ulcer CM Notes Start: 01/29/18 08:33 Freq: Status: Active Protocol: Activity Type Activity Date Activity User E-Sign Co-Sign Detail Recorded Client Recorded Date Recorded By Document 01/29/18 09:04 SHOSHANA [id number] 01/29/18 09:06 SHOSHANA 01/29/18 09:04 Wound Center Nurse 2 [Procedure/Treatment] -Time 09:05 -Correct Patient Yes -Correct Side, Site, Position Yes -Correct Procedure Yes -Procedure Performed Yes -Type of Procedure Debridement -Clinical Debridement Subcutaneous -Post Debridement Size (cm) - Length 7.5 -Post Debridement Size (cm) - Width 4 -Post Debridement Size (cm) - Depth 0.1 -Total Square Cm 30.0 -Wound/Ulcer Outcome Not Healed -Ulcer Cleansing Rinsed/ Irrigated with Saline -Foul Odor after Cleansing No -Bioengineered Tissue No -Bleeding Controlled with Pressure Silver Nitrate -Treatment Response Procedure Tolerated Well [See Physician Procedure note for Specifics] Pain Scale: 0-10 Numeric [Pain] -Is Patient Pain Free? Yes Musculoskeletal: No Tenderness to Palpation of Joints or Extremities Neurological: Neuro grossly intact Psych/Mental Status: Normal Affect, Appropriate Debridement Note Post-Debridement Measurements/Treatment - Nurse 2 - General Ulcer CM Notes Start: 01/29/18 08:33 Freq: Status: Active Protocol: Activity Type Activity Date Activity User E-Sign Co-Sign Detail Recorded Client Recorded Date Recorded By Document 01/29/18 09:04 SHOSHANA [id number] 01/29/18 09:06 JF 01/29/18 09:04 Wound Center Nurse 2 #5 left axilla -Time 09:05 -Correct Patient Yes -Correct Side, Site, Position Yes -Correct Procedure Yes -Procedure Performed Yes -Type of Procedure Debridement -Clinical Debridement Subcutaneous -Post Debridement Size (cm) - Length 7.5 -Post Debridement Size (cm) - Width 4 -Post Debridement Size (cm) - Depth 0.1 -Total Square Cm 30.0 -Wound/Ulcer Outcome Not Healed -Ulcer Cleansing Rinsed/ Irrigated with Saline -Foul Odor after Cleansing No -Bioengineered Tissue No -Bleeding Controlled with Pressure Silver Nitrate -Treatment Response Procedure Tolerated Well Pain Scale: 0-10 Numeric Is Patient Pain Free? Yes Wound debrided: Left axillary Laterality: Left Type of Debridement: Excisional debridement Anesthesia Used: 5% Lidocaine Gel Depth: Down to and including healthy tissue Percentage of wound debrided: 100 Instrument Used: 7mm curette Severity: Limited To Skin Breakdown Amount of bleeding with debridement: Moderate Bleeding Controlled with: Silver Nitrate - Silver Nitrate to two areas that continued to bleed even after pressure held. Patient did not tolerate procedure well Difficult to debride wound due the patient constantly pulling away and putting her arm down to stop debridement. There is significant amount of slough pressent. Assessment/Plan Active Problems Left axillary hidradenitis (Chronic) L73.2 left axillary hidradenitis. Open wound of left axillary region with complication (Acute) planned open hidradenitis wound left axillary area Assessment: Assessment: 1. Nonhealing recurrent hidradenitis ulcer left axillary area. 2. H/O left axillary hidradenitis. 3. s/p surgical preparation left axilla with excision recurrent hidradenitis ulcer (66 cm2). Plan: She did have her teeth removed 01/24/18. HBO was cancelled due to poor attendance. She had an operative debridement to remove hypergranulation tissue on 12/19/17. Surgical culture showed Staphylococcus aureus. She has finished the Levaquin. The Diflucan has helped the periwound rash. Will continue the wound care with Silver dressing changes. Will discontinue the Santyl dressing. Followup 1 week. Code Visit 111xxx-113xx: 60661 Ligia subq tissue 20 sq cm/< Add On Codes: 76485 Ligia subq tissue add-on
--- NOTE | 2018-01-29 13:40 | PN.PCM_ITS ---
(1) Open wound of left axillary region with complication Status: Acute Current Visit: Yes Code(s): S41.102A - Unspecified open wound of left upper arm, initial encounter Comment: planned open hidradenitis wound left axillary area (2) Left axillary hidradenitis Status: Chronic Current Visit: Yes Code(s): L73.2 - Hidradenitis suppurativa Comment: L73.2 left axillary hidradenitis. Type of Wound Chief Complaint: Recurrent hidradenitis ulcer left axillary area. History of Wound: Surgery 06/28/17 - Surgical preparation left axilla with excision recurrent hidradenitis ulcer (66 cm2). Wound care - Santyl. Operative culture - Staphylococcus aureus. She has finished the Doxycycline. Encourage nutritional supplementation with protein to help the healing process. She has started HBO but has not been consistent in going and has stopped them. On 12/19/17 she had surgical preparation left axilla with excision nonhealing recurrent hidradenitis ulcer. She had her teeth removed 01/24/18. Progress of Wound: Mild improvement. - Physical Exam Vital Signs Temp Pulse Resp BP 97.1 F L 102 H 16 117/89 H 01/29/18 08:34 01/29/18 08:34 01/29/18 08:34 01/29/18 08:34 General: Alert, Oriented x3, Cooperative HEENT: Atraumatic Oral: Moist Mucosa, - - Sutures intact from getting her teeth pulled 5 days ago Extremities: No edema Skin: Ulcer/ Wound - Left axillary Wound Measurements and Assessment WC - Nurse 1 - General Ulcer Measurement Start: 01/29/18 08:33 Freq: Status: Active Protocol: Activity Type Activity Date Activity User E-Sign Co-Sign Detail Recorded Client Recorded Date Recorded By Document 01/29/18 08:34 GENESIS [id number] 01/29/18 08:39 GENESIS 01/29/18 08:34 Wound Center Nurse 1 [Ulcer Assessment] #5 left axilla -Combined with other wound No -Current Size (cm) - Length 3.5 -Current Size (cm) - Width 8.0 -Current Size (cm) - Depth 0.5 -Total Square Cm 28.00 -Date of Last Picture (Recall this 01/29/18 field) -Photo Taken Yes -Epithelialization Small 1-33% -Tunneling No -Undermining/Tunneling No -Circular Undermining No -Classification - Thickness Full Thickness without Exposed Support Structure -Exudate Amt Large (67-100%) -Exudate Type Serosanguineous -Wound Margin Distinct, Outline Attached -Granulation Amt Large (67-100%) -Granulation Quality Red -Slough/Fibrin Yes -Necrosis Amt None Present (0 %) -Structure Exposed N/A -Texture (Sadie-wound Skin Appearance) No Abnormality -Moisture (Sadie-wound Skin Appearance No Abnormality ) -Color (Sadie-wound Skin Appearance) No Abnormality -Temperature (Sadie-wound Skin No Abnormality Appearance) (Pt Warm) -Tenderness on Palpation (Sadie-wound No Skin Appearance) -Ulcer Cleansing Rinsed/ Irrigated with Saline -Foul Odor after Cleansing No -Anesthetic Used 4% Lidocaine Solution - Nurse 2 - General Ulcer CM Notes Start: 01/29/18 08:33 Freq: Status: Active Protocol: Activity Type Activity Date Activity User E-Sign Co-Sign Detail Recorded Client Recorded Date Recorded By Document 01/29/18 09:04 [email or web address] [id number] 01/29/18 09:06 SHOSHANA 01/29/18 09:04 Wound Center Nurse 2 [Procedure/Treatment] -Time 09:05 -Correct Patient Yes -Correct Side, Site, Position Yes -Correct Procedure Yes -Procedure Performed Yes -Type of Procedure Debridement -Clinical Debridement Subcutaneous -Post Debridement Size (cm) - Length 7.5 -Post Debridement Size (cm) - Width 4 -Post Debridement Size (cm) - Depth 0.1 -Total Square Cm 30.0 -Wound/Ulcer Outcome Not Healed -Ulcer Cleansing Rinsed/ Irrigated with Saline -Foul Odor after Cleansing No -Bioengineered Tissue No -Bleeding Controlled with Pressure Silver Nitrate -Treatment Response Procedure Tolerated Well [See Physician Procedure note for Specifics] Pain Scale: 0-10 Numeric [Pain] -Is Patient Pain Free? Yes Musculoskeletal: No Tenderness to Palpation of Joints or Extremities Neurological: Neuro grossly intact Psych/Mental Status: Normal Affect, Appropriate Debridement Note Post-Debridement Measurements/Treatment - Nurse 2 - General Ulcer CM Notes Start: 01/29/18 08:33 Freq: Status: Active Protocol: Activity Type Activity Date Activity User E-Sign Co-Sign Detail Recorded Client Recorded Date Recorded By Document 01/29/18 09:04 SHOSHANA [id number] 01/29/18 09:06 JF 01/29/18 09:04 Wound Center Nurse 2 #5 left axilla -Time 09:05 -Correct Patient Yes -Correct Side, Site, Position Yes -Correct Procedure Yes -Procedure Performed Yes -Type of Procedure Debridement -Clinical Debridement Subcutaneous -Post Debridement Size (cm) - Length 7.5 -Post Debridement Size (cm) - Width 4 -Post Debridement Size (cm) - Depth 0.1 -Total Square Cm 30.0 -Wound/Ulcer Outcome Not Healed -Ulcer Cleansing Rinsed/ Irrigated with Saline -Foul Odor after Cleansing No -Bioengineered Tissue No -Bleeding Controlled with Pressure Silver Nitrate -Treatment Response Procedure Tolerated Well Pain Scale: 0-10 Numeric Is Patient Pain Free? Yes Wound debrided: Left axillary Laterality: Left Type of Debridement: Excisional debridement Anesthesia Used: 5% Lidocaine Gel Depth: Down to and including healthy tissue Percentage of wound debrided: 100 Instrument Used: 7mm curette Severity: Limited To Skin Breakdown Amount of bleeding with debridement: Moderate Bleeding Controlled with: Silver Nitrate - Silver Nitrate to two areas that continued to bleed even after pressure held. Patient did not tolerate procedure well Difficult to debride wound due the patient constantly pulling away and putting her arm down to stop debridement. There is significant amount of slough pressent. Assessment/Plan Active Problems Left axillary hidradenitis (Chronic) L73.2 left axillary hidradenitis. Open wound of left axillary region with complication (Acute) planned open hidradenitis wound left axillary area Assessment: Assessment: 1. Nonhealing recurrent hidradenitis ulcer left axillary area. 2. H/O left axillary hidradenitis. 3. s/p surgical preparation left axilla with excision recurrent hidradenitis ulcer (66 cm2). Plan: She did have her teeth removed 01/24/18. HBO was cancelled due to poor attendance. She had an operative debridement to remove hypergranulation tissue on 12/19/17. Surgical culture showed Staphylococcus aureus. She has finished the Levaquin. The Diflucan has helped the periwound rash. Will continue the wound care with Silver dressing changes. Will discontinue the Santyl dressing. Followup 1 week. Code Visit [id number]: [id number] Ligia subq tissue 20 sq cm/< Add On Codes: 59999 Ligia subq tissue add-on
[2018-02-05 08:28] VITALS: BP 119/94; PULSE 80; RESP 16; TEMP 36.7
--- NOTE | 2018-02-05 20:25 | PCM.WC.PN ---
Type of Wound Date of Service: 02/05/18 Chief Complaint: Recurrent hidradenitis ulcer left axillary area. History of Wound: Surgery 12/19/17 - Surgical preparation left axilla with excision nonhealing recurrent hidradenitis ulcer (45 cm2). Wound care - Silver. The Santyl has been causing hypergranulation tissue growth. Operative culture - Staphylococcus aureus. She was placed on Levaquin and has finished them. Continue nutritional supplementation with protein to help the healing process. She finally had her teeth extraction done on 01/24/18. Today she denies any fever. Her appetite is good. Progress of Wound: Mild improvement but with continued hypergranulation tissue growth. - Physical Exam Vital Signs Temp Pulse Resp BP 98.0 F 80 16 119/94 H 02/05/18 08:28 02/05/18 08:28 02/05/18 08:28 02/05/18 08:28 Wound Measurements and Assessment WC - Nurse 1 - General Ulcer Measurement Start: 01/29/18 08:33 Freq: Status: Active Protocol: Activity Type Activity Date Activity User E-Sign Co-Sign Detail Recorded Client Recorded Date Recorded By Document 02/05/18 08:28 DV [id number] 02/05/18 08:33 DV 02/05/18 08:28 Wound Center Nurse 1 [Ulcer Assessment] #5 left axilla -Combined with other wound No -Current Size (cm) - Length 5.0 -Current Size (cm) - Width 7.0 -Current Size (cm) - Depth 0.1 -Total Square Cm 35.00 -Photo Taken No -Epithelialization Small 1-33% -Tunneling No -Circular Undermining No -Classification - Thickness Full Thickness without Exposed Support Structure -Exudate Amt Large (67-100%) -Exudate Type Serosanguineous -Wound Margin Flat & Intact -Granulation Amt Large (67-100%) -Granulation Quality [place] Red -Necrosis Amt Large (67-100%) -Structure Exposed N/A -Texture (Sadie-wound Skin Appearance) Assessed Scarring -Moisture (Sadie-wound Skin Appearance Assessed ) Weeping Dry/Scaly -Color (Sadie-wound Skin Appearance) Assessed Erythema -Temperature (Sadie-wound Skin No Abnormality Appearance) (Pt Warm) -Tenderness on Palpation (Sadie-wound Yes Skin Appearance) -Ulcer Cleansing Wound Cleanser -Foul Odor after Cleansing No -Anesthetic Used 4% Lidocaine Solution - Nurse 2 - General Ulcer CM Notes Start: 01/29/18 08:33 Freq: Status: Active Protocol: Activity Type Activity Date Activity User E-Sign Co-Sign Detail Recorded Client Recorded Date Recorded By Document 02/05/18 09:23 [id number] 02/05/18 09:24 02/05/18 09:23 Wound Center Nurse 2 [Procedure/Treatment] -Time 09:23 -Correct Patient Yes -Correct Side, Site, Position Yes -Correct Procedure Yes -Procedure Performed Yes -Type of Procedure Debridement -Clinical Debridement Subcutaneous -Post Debridement Size (cm) - Length 5.1 -Post Debridement Size (cm) - Width 7 -Post Debridement Size (cm) - Depth 0.1 -Total Square Cm 35.7 -Wound/Ulcer Outcome Not Healed -Ulcer Cleansing Rinsed/ Irrigated with Saline -Foul Odor after Cleansing No -Bioengineered Tissue No -Bleeding Controlled with Pressure -Treatment Response Procedure Tolerated Well [See Physician Procedure note for Specifics] Pain Scale: 0-10 Numeric [Pain] -Is Patient Pain Free? Yes Debridement Note Post-Debridement Measurements/Treatment - Nurse 2 - General Ulcer CM Notes Start: 01/29/18 08:33 Freq: Status: Active Protocol: Activity Type Activity Date Activity User E-Sign Co-Sign Detail Recorded Client Recorded Date Recorded By Document 01/29/18 09:04 [id number] 01/29/18 09:06 Document 02/05/18 09:23 [id number] 02/05/18 09:24 01/29/18 02/05/18 09:04 09:23 Wound Center Nurse 2 #5 left axilla -Time 09:05 09:23 -Correct Patient Yes Yes -Correct Side, Site, Position Yes Yes -Correct Procedure Yes Yes -Procedure Performed Yes Yes -Type of Procedure Debridement Debridement -Clinical Debridement Subcutaneous Subcutaneous -Post Debridement Size (cm) - Length 7.5 5.1 -Post Debridement Size (cm) - Width 4 7 -Post Debridement Size (cm) - Depth 0.1 0.1 -Total Square Cm 30.0 35.7 -Wound/Ulcer Outcome Not Healed Not Healed -Ulcer Cleansing Rinsed/ Rinsed/ Irrigated with Irrigated with Saline Saline -Foul Odor after Cleansing No No -Bioengineered Tissue No No -Bleeding Controlled with Pressure Pressure Silver Nitrate Silver Nitrate -Treatment Response Procedure Procedure Tolerated Well Tolerated Well Pain Scale: 0-10 Numeric Is Patient Pain Free? Yes Yes Wound debrided: #5 Left axilla. Laterality: Left Wound Grade/Stage: 2. Type of Debridement: Excisional debridement Anesthesia Used: 4% Lidocaine Solution Depth: Down to and including healthy tissue, in the subcutaneous layer Percentage of wound debrided: 100 Instrument Used: 7mm curette Tissue Removed: subcutaneous tissue. Severity: Fat Layer Exposed Amount of bleeding with debridement: Mild Bleeding Controlled with: Pressure, Silver Nitrate - increased hypergranulation tissue growth. Patient tolerated procedure well Assessment/Plan Assessment: 1. Nonhealing recurrent hidradenitis ulcer left axillary area. 2. H/O left axillary hidradenitis. 3. s/p surgical preparation left axilla with excision nonhealing recurrent hidradenitis ulcer (45 cm2). Plan: She did have her teeth removed 01/24/18 and feels better. HBO was cancelled due to poor attendance. The Santyl dressing was changed to Silver dressing changes daily because of persistent hypergranulation tissue growth. The operative culture showed Staphylococcus aureus. She was placed on Levaquin and has finished them. Encourage nutritional supplementation with protein to help the healing process. She had LFT's done on 01/29/18 because of her usage of Diflucan to help treat the periwound rash. The Alkaline Phosphatase was elevated at 253 and the ALT was elevated at 70. The Diflucan was stopped. The periwound rash has improved. Still has some residual itching which is controlled with Benadryl. With the continued hypergranulation tissue growth, will schedule another operative debridement. The wound should improve without further hypergranulation tissue growth because her teeth has been removed. Followup one week.
[2018-02-12 08:26] VITALS: BP 129/85; PULSE 90; RESP 16; TEMP 37
[2018-02-12 10:45] LABS: AST(SGOT) 30 U/L (15-37); Alanine Aminotransfer ALT/SGPT 35 U/L (13-56); Albumin, Serum 3.4 g/dL (3.2-5.0); Alkaline Phosphatase 178 U/L (45-117); Globulin 4.2 g/dL (2.2-4.2); Protein, Total 7.6 g/dL (6.4-8.2)
--- NOTE | 2018-02-12 22:24 | PCM.WC.PN ---
Type of Wound Date of Service: 02/12/18 Chief Complaint: Recurrent hidradenitis ulcer left axillary area. History of Wound: Surgery 12/19/17 - Surgical preparation left axilla with excision nonhealing recurrent hidradenitis ulcer (45 cm2). Wound care - Silver. The Santyl has been causing hypergranulation tissue growth. Operative culture - Staphylococcus aureus. She was placed on Levaquin and has finished them. Continue nutritional supplementation with protein to help the healing process. She finally had her teeth extraction done on 01/24/18. Today she denies any fever. Her appetite is good. Progress of Wound: Mild improvement but with continued hypergranulation tissue growth. - Physical Exam Vital Signs Temp Pulse Resp BP 98.6 F 90 16 129/85 H 02/12/18 08:26 02/12/18 08:26 02/12/18 08:26 02/12/18 08:26 Wound Measurements and Assessment WC - Nurse 1 - General Ulcer Measurement Start: 01/29/18 08:33 Freq: Status: Active Protocol: Activity Type Activity Date Activity User E-Sign Co-Sign Detail Recorded Client Recorded Date Recorded By Document 02/12/18 08:26 [id number] 02/12/18 08:35 02/12/18 08:26 Wound Center Nurse 1 [Ulcer Assessment] #5 left axilla -Combined with other wound No -Current Size (cm) - Length 6.5 -Current Size (cm) - Width 5.2 -Current Size (cm) - Depth 0.2 -Total Square Cm 33.80 -Photo Taken No -Epithelialization None Present -Tunneling No -Undermining/Tunneling No -Circular Undermining No -Classification - Thickness Full Thickness without Exposed Support Structure -Exudate Amt Medium (34-66%) -Exudate Type Yellow/Green -Wound Margin Distinct, Outline Attached -Granulation Amt Large (67-100%) -Granulation Quality Red -Slough/Fibrin Yes -Necrosis Amt Small (1-33%) -Necrotic Tissue Type Adherent Slough -Structure Exposed Fat Layer Exposed -Texture (Sadie-wound Skin Appearance) Assessed Scarring -Moisture (Sadie-wound Skin Appearance Assessed ) Maceration Weeping -Color (Sadie-wound Skin Appearance) No Abnormality Assessed -Temperature (Sadie-wound Skin No Abnormality Appearance) (Pt Warm) -Tenderness on Palpation (Sadie-wound No Skin Appearance) -Ulcer Cleansing Rinsed/ Irrigated with Saline -Foul Odor after Cleansing No -Anesthetic Used 4% Lidocaine Solution - Nurse 2 - General Ulcer CM Notes Start: 01/29/18 08:33 Freq: Status: Active Protocol: Activity Type Activity Date Activity User E-Sign Co-Sign Detail Recorded Client Recorded Date Recorded By Document 02/12/18 09:05 [id number] 02/12/18 09:06 02/12/18 09:05 Wound Center Nurse 2 [Procedure/Treatment] -Time 09:06 -Correct Patient Yes -Correct Side, Site, Position Yes -Correct Procedure Yes -Procedure Performed Yes -Type of Procedure Debridement -Clinical Debridement Subcutaneous -Post Debridement Size (cm) - Length 6.5 -Post Debridement Size (cm) - Width 5.3 -Post Debridement Size (cm) - Depth 0.1 -Total Square Cm 34.45 -Wound/Ulcer Outcome Not Healed -Ulcer Cleansing Rinsed/ Irrigated with Saline -Foul Odor after Cleansing No -Bioengineered Tissue No -Bleeding Controlled with Pressure -Treatment Response Procedure Tolerated Well [See Physician Procedure note for Specifics] Pain Scale: 0-10 Numeric [Pain] -Is Patient Pain Free? Yes Debridement Note Post-Debridement Measurements/Treatment - Nurse 2 - General Ulcer CM Notes Start: 01/29/18 08:33 Freq: Status: Active Protocol: Activity Type Activity Date Activity User E-Sign Co-Sign Detail Recorded Client Recorded Date Recorded By Document 01/29/18 09:04 [id number] 01/29/18 09:06 Document 02/05/18 09:23 [email or web address] 02/05/18 09:24 Document 02/12/18 09:05 [id number] 02/12/18 09:06 01/29/18 02/05/18 02/12/18 09:04 09:23 09:05 Wound Center Nurse 2 #5 left axilla -Time 09:05 09:23 09:06 -Correct Patient Yes Yes Yes -Correct Side, Site, Position Yes Yes Yes -Correct Procedure Yes Yes Yes -Procedure Performed Yes Yes Yes -Type of Procedure Debridement Debridement Debridement -Clinical Debridement Subcutaneous Subcutaneous Subcutaneous -Post Debridement Size (cm) - Length 7.5 5.1 6.5 -Post Debridement Size (cm) - Width 4 7 5.3 -Post Debridement Size (cm) - Depth 0.1 0.1 0.1 -Total Square Cm 30.0 35.7 34.45 -Wound/Ulcer Outcome Not Healed Not Healed Not Healed -Ulcer Cleansing Rinsed/ Rinsed/ Rinsed/ Irrigated with Irrigated with Irrigated with Saline Saline Saline -Foul Odor after Cleansing No No No -Bioengineered Tissue No No No -Bleeding Controlled with Pressure Pressure Pressure Silver Nitrate Silver Nitrate -Treatment Response Procedure Procedure Procedure Tolerated Well Tolerated Well Tolerated Well Pain Scale: 0-10 Numeric Is Patient Pain Free? Yes Yes Yes Wound debrided: #5 Left axilla. Laterality: Left Wound Grade/Stage: 2. Type of Debridement: Excisional debridement Anesthesia Used: 4% Lidocaine Solution Depth: Down to and including healthy tissue, in the subcutaneous layer Percentage of wound debrided: 100 Instrument Used: 7mm curette Tissue Removed: subcutaneous tissue. Severity: Fat Layer Exposed Amount of bleeding with debridement: Mild Bleeding Controlled with: Pressure Patient tolerated procedure well Assessment/Plan Assessment: 1. Nonhealing recurrent hidradenitis ulcer left axillary area. 2. H/O left axillary hidradenitis. 3. s/p surgical preparation left axilla with excision nonhealing recurrent hidradenitis ulcer (45 cm2). Plan: She did have her teeth removed 01/24/18 and feels better. HBO was cancelled due to poor attendance. The Santyl dressing was changed to Silver dressing changes daily because of persistent hypergranulation tissue growth. The operative culture showed Staphylococcus aureus. She was placed on Levaquin and has finished them. Encourage nutritional supplementation with protein to help the healing process. She had LFT's done on 01/29/18 because of her usage of Diflucan to help treat the periwound rash. The Alkaline Phosphatase was elevated at 253 and the ALT was elevated at 70. The Diflucan was stopped. The periwound rash has improved. Still has some residual itching which is controlled with Benadryl. With the continued hypergranulation tissue growth, will schedule another operative debridement. The wound should improve without further hypergranulation tissue growth because her teeth has been removed. If the wound looks good after operative debridement, will apply Thera-skin skin substitute graft. Will check LFT's today. Followup one week.
== END 2018-02-14 23:59 ==
LOC: WC 08:30
PROVIDERS: Family Provider Family Medicine; PCP Family Medicine; Visit Provider Surgery
DX: L73.2 Hidradenitis suppurativa (principal); L98.491 Non-pressure chronic ulcer of skin of other sites limited to breakdown of skin
CPT/HCPCS: 11042; 11045; 80053; 80076; 84134; 85027

== ENCOUNTER 2018-02-23 11:09 | Day surgery (SDC) | payer MEDICAID, SELFPAY ==
[2018-02-23] VITALS (10 sets, daily range): BP systolic 108–126; BP diastolic 63–86; PULSE 65–100; RESP 14–18; TEMP 36.5–37; O2SAT 98–100; BMI 23.7
--- NOTE | 2018-02-23 11:07 | HP.PCM_ITS ---
History and Physical Date of Admission: 02/23/18 History of Present Illness The patient is a 37 year old F who presents with a recurrent nonhealing hidradenitis ulcer left axillary area that initially resulted from her flare up of hidradenitis. This necessitated surgery in 03/31 where she underwent surgical preparation left axillary wound with excision hidradenitis. She was treated with antibiotics after surgery along with the VAC and Silver dressing changes. She followed up at the [facility] and in 09/30, the wound healed. The left axilla then re-ulcerated and she was placed back on Silver dressing changes. Culture showed Staphylococcus aureus and she was placed on Doxycycline. It improved but did not heal and she went back to surgery in 11/30 where she underwent excision nonhealing recurrent hidradenitis ulcer left axilla and reconstruction with proximal medial left arm bilobed transposition skin flap (56 cm2). There was adequate healing initially but then she developed some compromise to the flap. She underwent HBO treatments and tolerated them well but had to stop them because of the flu. The ulcer improved but did not heal. Repeat culture once again showed Staphylococcus aureus and she was placed back on Doxycycline. She went back to surgery on 08/11/16 where she underwent rios rgical preparation left axilla with excision nonhealing hidradenitis ulcer (60 cm2). She initially had the VAC for wound care and was recently changed to Silver dressing changes daily. Operative cultures showed Staphylococcus aureus and Staphylococcus epidermidis. They were resistant to Doxycycline and she was changed to Levaquin. The ulcer stabilized with good granulation tissue, and she was taken back to the OR on 09/29/16 where she underwent excisional debridement nonhealing recurrent hidradenitis ulcer left axilla with FTSG reconstruction from lower anterior abdominal wall (28 cm2). Operative culture showed Staphylococcus aureus and was placed on Doxycycline. She developed some compromise of the skin graft at the edges and underwent HBO treatments with some improvement. With local wound care with Silver dressings and then Santyl dressings, along with antibiotics for positive cultures, she still had a persistent ulceration. Her last culture was on 05/15/17 which showed Serratia marcescens and Staphylococcus lugdunensis and was treated with Levaquin. Part of the healing difficulties has been surmised by her chronically infected teeth that need to be removed. She has seen dentists for this problem and there have been many delays in getting this done. It has been hard to debride the ulcer lately in the Wound Center secondary to discomfort, so further debridement was recommended in preparation for additional HBO treatments in preparation for additional surgery with skin grafting. On 06/28/17, the patient underwent surgical preparation left axilla with excision recurrent hidradenitis ulcer (66 cm2). Some healing has occurred, but once again, hypertrophic granulation tissue has persisted that is quite painful and difficult to debride in the Wound Center. Recent culture on 12/04/17 showed Staphylococcus aureus, Burkholderia cepacia, and Rhizobium radiobacter and was placed on Levaquin. On 12/19/17, the patient underwent surgical preparation left axilla with excision nonhealing recurrent hidradenitis ulcer (45 cm2). Operative culture showed Staphylococcus aureus. She was placed on Levaquin and has finished them. Once again, hypertrophic granulation tissue has formed that is painful to debride in the Wound Center. However in the meantime her teeth finally were removed. So after further operative debridement today, will place Thera-skin skin substitute graft for coverage. Past Medical History Past Medical History: Depression. Anxiety. Anemia. Back problems. Hidradenitis bilateral axillary areas. Surgical History: - - Surgical preparation right axillary wound with excision hidradenitis (40 cm2) on 06/02/14. Surgical preparation left axillary wound with excision hidradenitis (36 cm2) on 03/17/15. Excision nonhealing recurrent hidradenitis ulcer left axilla and reconstruction with proximal medial left arm bilobed transposition skin flap (56 cm2) on 11/24/15. surgical preparation left axilla with excision nonhealing hidradenitis ulcer (60 cm2) - 08/11/16. Excisional debridement nonhealing recurrent hidradenitis ulcer left axilla with FTSG reconstruction from lower anterior abdominal wall (28 cm2) - 09/29/16. Surgical preparation left axilla with excision recurrent hidradenitis ulcer (66 cm2) - 06/28/17 Surgical preparation left axilla with excision nonhealing recurrent hidradenitis ulcer (45 cm2) - 12/19/17 Home Medications: Phenergan. Percocet. Levaquin. Valium. Tylenol. Allergies latex Allergy Penicillins [PCN] hydromorphone HCl [From Dilaudid] SOCIAL HISTORY: Lives: Spouse/ Significant Other Smoking Status: Never smoker Tobacco Use: Non-smoker Alcohol: Occasional Drugs: None - *Family History Maternal History Items: Diabetes, Heart Disease, Hypertension, - - ovarian cancer. negative for skin cancer. Paternal History Items: Heart Disease, Hypertension, Stroke, - - negative for skin cancer. Review of Systems Constitutional: Denies: Fever, Weakness, Fatigue Eyes: Denies: Pain HEENT: Denies: Nasal Congestion, Sore Throat Cardiovascular: Denies: Chest Pain Respiratory: Denies: Cough, Shortness of Breath Gastrointestinal: Denies: Constipation, Diarrhea, Nausea, Vomiting Genitourinary: Denies: Frequency, Hematuria Musculoskeletal: Reports: - - left axillary pain.. Denies: Back Pain, Hand Pain, Neck Pain Skin: Reports: Wounds - left axillary hidradenitis ulcer. Neurological: Denies: Headaches Psychiatric: Reports: Anxiety, Depression Endocrine: Denies: Polydipsia, Polyuria Hematologic/ Lymphatic: Reports: Anemia. Denies: Easy Bruising, Hx of blood clot - Physical Exam General: Alert, Oriented x3 HEENT: PERRLA, EOMI. Had poor dental hygiene with severe periodontal disease and decaying teeth and she finally had her teeth removed. Neck: Supple Lungs: Clear to auscultation Cardiovascular: Regular rate, Regular Rhythm Abdomen: Soft, Non-Distended Extremities: No clubbing, No cyanosis, No edema, Peripheral Pulses Normal Skin: Ulcer/ Wound - left axillary hidradenitis ulcer. Measures 9 x 6 x 0.3 cm. Hypergranulation tissue present. No purulent drainage. Tender to palpation. Lymphatic: No Cervical, Supraclavicular, or Inguinal Adenopathy Neurological: Cranial nerves II-XII grossly intact Psych/Mental Status: Normal Affect, Appropriate Assessment/Plan 1. Nonhealing recurrent hidradenitis ulcer left axillary area. 2. H/O left axillary hidradenitis. PLAN: The ulcer is clean with granulation tissue. Some hypergranulation tissue seen that is hard to debride because of pain. She finally had her teeth removed. She has good range of motion of her left shoulder. It is recommended to the patient to proceed with operative debridement to remove the hypergranulation tissue. Can proceed with grafting using Thera-skin, a skin substitute graft. Surgery will be done under general anesthesia on an outpatient basis. Tissue will be sent to Pathology for analysis and to Microbiology for culture. A positive culture may necessitate antibiotic modification. Followup at the Wound Center after discharge from the hospital. Additional Thera-skin can be applied at the Wound Center. I anticipate increased metabolic demands from the ulcer and the surgery. Encourage nutritional supplementation with protein to help the healing process. The patient was informed of the risks and complications of the procedure including alternatives to surgery. These were discussed with her personally. She voices understanding and wishes to proceed.
[2018-02-23 11:49] LABS: Internal QC Validated? YES +Cl - CLEAR BKGD; Pregnancy, Urine Negative Negative
[2018-02-23] MEDS: levoFLOXacin IV 500 MG/100 ML BAG 100 MG IV (12:23)
--- NOTE | 2018-02-23 12:55 | HID_PTH ---
PATIENT: ARVI IRAHETA LOC: [facility] [place] U#:[id number] AGE/SX: 37/F ROOM: RE02/23/[address]: Dr. Lennox Eugene MD : 1980 BED: DIS: 02/24/2018 SPEC #: [id number] RECD: 02/23/18 15:49 STATUS: YANIQUE MONO #: [id number] BRIGHT: 02/23/18 12:[address]: Lennox Eugene DEPT: SURGICAL PATHOLOGY RECD BY: Dano Morataya ENTERED: 02/26/18 08:10 SP TYPE: Hidradenit MAHAD DR: Dr. Bogdan Guerra DO Tissues: Axilla, NOS Procedures: Surgery Specimen Level III HEADER OPERATION: Surgical preparation, left axilla with excision, nonhealing PRE-OP DIAGNOSIS: Nonhealing recurrent hidradenitis ulcer, left axillary area. History of left axillary hidradenitis TISSUE SUBMITTED: Hidradenitis ulcer, left axilla MICROSCOPIC DIAGNOSIS Hidradenitis ulcer left axilla, excision: Pieces of skin and fibroconnective tissue with acute on chronic inflammation and granulation tissue reaction and blood clots. SINGH:nick 02/27/18 MICROSCOPIC DESCRIPTION Slides are reviewed. GROSS DESCRIPTION Received is one container labeled with the patient name and designated hidradenitis ulcer left axilla. The specimen consists of multiple irregular fragments of blood clot and soft tissue that in aggregate measure 5.5 x 6 x 1.5 cm. [employer] tissue is submitted in 3 cassettes. SINGH:nick 02/26/18 TC: 2 CPT: 83557
[2018-02-23] MEDS: Mupirocin Ointment 22gm Tube 1 APPLIC (14:50)
--- NOTE | 2018-02-23 15:08 | PCM.IMDPSTOP ---
Immediate Post-Op Note Date of Procedure: 02/23/18 Primary Surgeon/Physician: Lennox Eugene materials assistant: Ingrid Peraza. Pre-Operative Diagnosis: 1. Nonhealing recurrent hidradenitis ulcer left axillary area. 2. H/O left axillary hidradenitis. Post-Operative Diagnosis: Same. Surgery/Procedure Performed:: Surgical preparation left axilla with excisional debridement nonhealing hidradenitis ulcer and placement of Thera-skin skin substitute graft (39 cm2). Description of Surgical Findings:: The patient is a 37 year old F who presents with a recurrent nonhealing hidradenitis ulcer left axillary area that initially resulted from her flare up of hidradenitis. This necessitated surgery in 03/31 where she underwent surgical preparation left axillary wound with excision hidradenitis. She was treated with antibiotics after surgery along with the VAC and Silver dressing changes. She followed up at the [facility]ound Center and in 09/30, the wound healed. The left axilla then re-ulcerated and she was placed back on Silver dressing changes. Culture showed Staphylococcus aureus and she was placed on Doxycycline. It improved but did not heal and she went back to surgery in 11/30 where she underwent excision nonhealing recurrent hidradenitis ulcer left axilla and reconstruction with proximal medial left arm bilobed transposition skin flap (56 cm2). There was adequate healing initially but then she developed some compromise to the flap. She underwent HBO treatments and tolerated them well but had to stop them because of the flu. The ulcer improved but did not heal. Repeat culture once again showed Staphylococcus aureus and she was placed back on Doxycycline. She went back to surgery on 08/11/16 where she underwent surgical preparation left axilla with excision nonhealing hidradenitis ulcer (60 cm2). She initially had the VAC for wound care and was recently changed to Silver dressing changes daily. Operative cultures showed Staphylococcus aureus and Staphylococcus epidermidis. They were resistant to Doxycycline and she was changed to Levaquin. The ulcer stabilized with good granulation tissue, and she was taken back to the OR on 09/29/16 where she underwent excisional debridement nonhealing recurrent hidradenitis ulcer left axilla with FTSG reconstruction from lower anterior abdominal wall (28 cm2). Operative culture showed Staphylococcus aureus and was placed on Doxycycline. She developed some compromise of the skin graft at the edges and underwent HBO treatments with some improvement. With local wound care with Silver dressings and then Santyl dressings, along with antibiotics for positive cultures, she still had a persistent ulceration. Her last culture was on 05/15/17 which showed Serratia marcescens and Staphylococcus lugdunensis and was treated with Levaquin. Part of the healing difficulties has been surmised by her chronically infected teeth that need to be removed. She has seen dentists for this problem and there have been many delays in getting this done. It has been hard to debride the ulcer lately in the Wound Center secondary to discomfort, so further debridement was recommended in preparation for additional HBO treatments in preparation for additional surgery with skin grafting. On 06/28/17, the patient underwent surgical preparation left axilla with excision recurrent hidradenitis ulcer (66 cm2). Some healing has occurred, but once again, hypertrophic granulation tissue has persisted that is quite painful and difficult to debride in the Wound Center. Recent culture on 12/04/17 showed Staphylococcus aureus, Burkholderia cepacia, and Rhizobium radiobacter and was placed on Levaquin. On 12/19/17, the patient underwent surgical preparation left axilla with excision nonhealing recurrent hidradenitis ulcer (45 cm2). Operative culture showed Staphylococcus aureus. She was placed on Levaquin and has finished them. Once again, hypertrophic granulation tissue has formed that is painful to debride in the Wound Center. However in the meantime her teeth finally were removed. So after further operative debridement today, will place a skin substitute graft from Thera-skin for coverage. Today the patient underwent surgical preparation left axilla with excisional debridement nonhealing hidradenitis ulcer and placement of Thera-skin skin substitute graft (39 cm2). Size of defect left axilla - 9 x 6 cm. I used Thera-skin skin substitute graft, (5.1 x 7.6 cm, or 39 cm2). ID Number - [id number]. Code Number - 102TSL. Expiration - April 12, 2018. Estimated Blood Loss: 50 ml. Specimen's removed: Nonhealing hidradenitis ulcer left axilla to Pathology and Microbiology. Drains: None. Type of Anesthesia:: General - Admit VTE Documentation VTE Present on Admission: No VTE Mechan Device Prophylaxis: SCD's VTE Pharm Prophylaxis ordered?: No
--- NOTE | 2018-02-23 20:44 | OP.PCM_ITS ---
Report of Operation Date of Procedure: 02/23/18 Pre-Operative Diagnosis: 1. Nonhealing recurrent hidradenitis ulcer left axillary area. 2. H/O left axillary hidradenitis. Post-Operative Diagnosis: Same. Surgery/Procedure Performed:: Surgical preparation left axilla with excisional debridement nonhealing hidradenitis ulcer and placement of Thera-skin skin substitute graft (39 cm2). Description of Surgical Findings:: The patient is a 37 year old F who presents with a recurrent nonhealing hidradenitis ulcer left axillary area that initially resulted from her flare up of hidradenitis. This necessitated surgery in 03/31 where she underwent s urgical preparation left axillary wound with excision hidradenitis. She was treated with antibiotics after surgery along with the VAC and Silver dressing changes. She followed up at the Wound Center and in 09/30, the wound healed. The left axilla then re-ulcerated and she was placed back on Silver dressing changes. Culture showed Staphylococcus aureus and she was placed on Doxycycline. It improved but did not heal and she went back to surgery in 11/30 where she underwent excision nonhealing recurrent hidradenitis ulcer left axilla and reconstruction with proximal medial left arm bilobed transposition skin flap (56 cm2). There was adequate healing initially but then she developed some compromise to the flap. She underwent HBO treatments and tolerated them well but had to stop them because of the flu. The ulcer improved but did not heal. Repeat culture once again showed Staphylococcus aureus and she was placed back on Doxycycline. She went back to surgery on 08/11/16 where she underwent surgical preparation left axilla with excision nonhealing hidradenitis ulcer (60 cm2). She initially had the VAC for wound care and was recently changed to Silver dressing changes daily. Operative cultures showed Staphylococcus aureus and Staphylococcus epidermidis. They were resistant to Doxycycline and she was changed to Levaquin. The ulcer stabilized with good granulation tissue, and she was taken back to the OR on 09/29/16 where she underwent excisional debridement nonhealing recurrent hidradenitis ulcer left axilla with FTSG reconstruction from lower anterior abdominal wall (28 cm2). Operative culture showed Staphylococcus aureus and was placed on Doxycycline. She developed some compromise of the skin graft at the edges and underwent HBO treatments with some improvement. With local wound care with Silver dressings and then Santyl dressings, along with antibiotics for positive cultures, she still had a persistent ulceration. Her last culture was on 05/15/17 which showed Serratia marcescens and Staphylococcus lugdunensis and was treated with Levaquin. Part of the healing difficulties has been surmised by her chronically infected teeth that need to be removed. She has seen dentists for this problem and there have been many delays in getting this done. It has been hard to debride the ulcer lately in the Wound Center secondary to discomfort, so further debridement was recommended in preparation for additional HBO treatments in preparation for additional surgery with skin grafting. On 06/28/17, the patient underwent surgical preparation left axilla with excision recurrent hidradenitis ulcer (66 cm2). Some healing has occurred, but once again, hypertrophic granulation tissue has persisted that is quite painful and difficult to debride in the Wound Center. Recent culture on 12/04/17 showed Staphylococcus aureus, Burkholderia cepacia, and Rhizobium radiobacter and was placed on Levaquin. On 12/19/17, the patient underwent surgical preparation left axilla with excision nonhealing recurrent hidradenitis ulcer (45 cm2). Operative culture showed Staphylococcus aureus. She was placed on Levaquin and has finished them. Once again, hypertrophic granulation tissue has formed that is painful to debride in the Wound Center. However in the meantime her teeth finally were removed. So after further operative debridement today, will place a skin substitute graft from Thera-skin for coverage. Patient was informed of the risks and complications of the procedure including alternatives to surgery. These were discussed with the patient personally. Patient voices understanding and wishes to proceed. Size of defect left axilla - 9 x 6 cm. I used Thera-skin skin substitute graft, (5.1 x 7.6 cm, or 39 cm2). ID Number - [id number]. Code Number - 102TSL. Expiration - April 12, 2018. counter helper: Ingrid Peraza. Type of Anesthesia:: General Specimen's removed: Nonhealing hidradenitis ulcer left axilla to Pathology and Microbiology. Drains: None. Estimated Blood Loss (mL): 50 ml. Description of Procedure: Patient was taken to OR in supine position and was placed under general anesthesia. The left axilla was prepped and draped in the usual fashion. SCD's were placed for DVT prophylaxis. Perioperative antibiotics were given intravenously. Using xylocaine with epinephrine, the left axillary ulcer was infiltrated. After waiting 5 minutes for the anesthetic to take effect, I proceeded with surgical preparation of the hidradenitis ulcer with excisional debridement using a scalpel and a curette. Good bleeding was seen after the excisional debridement. Some of the tissue was sent to Microbiology for culture. The rest of the tissue was sent to Pathology for analysis to rule out carcinoma. Hemostasis was obtained with electrocautery. The ulcer was irrigated with saline. The size of the ulcer was 9 x 6 cm. I then placed the Thera-skin skin substitute graft into saline and then placed the graft into the wound. I secured the graft to the distal skin edge and lateral skin edges with 3-0 Chromic simple interrupted sutures. The proximal edge of the ulcer was left ungrafted today as the piece of Thera-skin was not large enough to cover the whole ulcer. I used 3-0 Chromic sutures for central quilting stabilization and to secure the proximal edge of the graft to the ulcer. The size of the Thera- skin skin substitute graft was 39 cm2. I placed antibiotic ointment onto the graft and remaining ulcer followed by Mepitel nonadherent dressing. This was followed by 4x4 gauze fluffs soaked in saline and secured to the skin edge with 3-0 Nylon tie over stent suture dressing. This was followed by dry Kerlix gauze and a compression jennifer wrap. Patient tolerated the procedure well and was sent to PACU in satisfactory cond ition. Patient will be sent upstairs for continued postop care and surgical observation overnight stay. At discharge she will followup at the Wound Center. Will continue to place Thera-skin to the remaining ulcer on a weekly basis for up to 10 applications in 12 weeks. Will treat her with Levaquin perioperatively. If the operative culture is positive, antibiotic modification may be necessary. Grafts/Implants Used: Thera-skin skin substitute graft. - Complications None. - Admit VTE Documentation VTE Present on Admission: No VTE Mechan Device Prophylaxis: SCD's VTE Pharm Prophylaxis ordered?: No Code Visit Surgery Charges CPT - 83124 ICD-10 - L98.492, L73.2, L92.9 90410 L98.492, L73.2, L92.9 95342 L98.492, L73.2, L92.9
[2018-02-23] MEDS: Docusate Sodium 100 MG Capsule PO (21:31)
[2018-02-24] MEDS: Lactated Ringers 1,000 ML 60 ML IV ×2 (01:27→01:57)
[2018-02-24 02:43] VITALS: BP 103/64; PULSE 71; RESP 14; TEMP 36.8; O2SAT 99
[2018-02-24] MEDS: oxyCODONE 5 MG Tablet 10 MG PO (02:53)
[2018-02-24 07:23] LABS: Hematocrit 30.3 % (37-47); Hemoglobin 9.4 g/dl (12.0-15.0); Mean Corpuscular Hgb 23.5 pg (27.0-32.0); Mean Corpuscular Volume 75.8 fL (81-99); Mean Platelet Vol. 10.5 fl (6.2-12.0); Platelet Count 282 K/mm3 (150-450); RBC Distribution Width CV 14.5 % (11.6-14.6); RBC Distribution Width SD 40.5 fl (35.1-43.9); Scan Indicated on CBC? Y/N NO; White Blood Count 7.6 K/mm3 (4.4-11.0)
[2018-02-24 07:38] VITALS: BP 104/69; PULSE 76; RESP 16; TEMP 37.1; O2SAT 99
[2018-02-24] MEDS: Docusate Sodium 100 MG Capsule PO (07:44)
[2018-02-24 08:00] LABS: ALB/GLOB Ratio 0.8 RATIO (0.9-2.4); AST(SGOT) 28 U/L (15-37); Alanine Aminotransfer ALT/SGPT 45 U/L (13-56); Albumin, Serum 2.6 g/dL (3.2-5.0); Alkaline Phosphatase 188 U/L (45-117); Anion Gap 8 (5-15); BUN 12 mg/dL (7-18); BUN/Creat Ratio 19.9 RATIO (10-20); Chloride 107 mmol/L (98-107); EST Glomerular Filtration Rate 119 mL/min (>60); Est Glom Filt Rate - Afr Amer 145 mL/min (>60); Estimated Creatinine Clearance 102.52 ml/min; Globulin 3.3 g/dL (2.2-4.2); Glucose 79 mg/dL (74-106); Potassium 4.2 mmol/L (3.5-5.1); Prealbumin 17.4 mg/dL (20.0-40.0); Protein, Total 5.9 g/dL (6.4-8.2); Sodium Level 142 mmol/L (136-145)
[2018-02-24] MEDS: levoFLOXacin IV 500 MG/100 ML BAG 100 MG IV (10:21)
--- NOTE | 2018-02-24 12:42 | PCM.PN.SRG ---
Subjective: Postop #1 Patient is resting comfortably. - Physical Exam General: Alert, Oriented x3 HEENT: PERRLA Oral: Moist Mucosa Neck: Supple Abdomen: Soft, Non-Distended Skin: Ulcer/ Wound - wound is stable. Dressing is dry. Neurological: Cranial nerves II-XII grossly intact Psych/Mental Status: Normal Affect, Appropriate Vital Signs Temp Pulse Resp BP Pulse Ox 98.7 F 76 16 104/69 99 02/24/18 07:38 02/24/18 07:38 02/24/18 07:38 02/24/18 07:38 02/24/18 07:38 Oxygen Delivery Method Room Air Weight: 129 lb 13.636 oz Body Mass Index (BMI) 23.7 Intake and Output for Last 24 Hours 02/22/18 02/23/18 02/24/18 23:59 23:59 23:59 Intake Total 1450 / 1450 1375 / 1375 Output Total 300 / 300 Balance 1150 / 1150 1375 / 1375 Microbiology Past 72 Hours 02/23/18 Unknown Wound Culture - Preliminary Biopsy - Tissue No growth-Final to follow Laboratory Tests Past 24 Hrs 02/24/18 02/24/18 06:56 06:56 WBC 7.6 RBC 4.00 L Hgb 9.4 L Hct 30.3 L MCV 75.8 L MCH 23.5 L MCHC 31.0 L RDW 14.5 RDW Differential 40.5 Plt Count 282 MPV 10.5 Sodium 142 Potassium 4.2 Chloride 107 Carbon Dioxide 27.0 Anion Gap 8 BUN 12 Creatinine 0.60 Estim Creat Clear Calc 102.52 Est GFR (MDRD) Af Amer 145 Est GFR (MDRD) Non-Af 119 BUN/Creatinine Ratio 19.9 Glucose 79 Calcium 8.0 L Total Bilirubin 0.60 AST 28 ALT 45 Alkaline Phosphatase 188 H Total Protein 5.9 L Albumin 2.6 L Globulin 3.3 Albumin/Globulin Ratio 0.8 L Prealbumin 17.4 L Medical Necessity - Tobacco Use Smoking Status: Never smoker Tobacco Use: Non-smoker Assessment/Plan All Active Problems Elevated alkaline phosphatase level (Acute) Open wound of left axillary region with complication (Acute) Non-pressure chronic ulcer of skin of other sites (Ruled-out) 1. Nonhealing recurrent hidradenitis ulcer left axillary area. 2. H/O left axillary hidradenitis. 3. s/p surgical preparation left axilla with excisional debridement nonhealing hidradenitis ulcer and placement of Thera-skin skin substitute graft (39 cm2). 4. Elevated alkaline phosphatase level. Dressing is dry. Patient is tolerating po analgesia. Discharge home today. Followup at [facility]ound Center on Monday02/26/18 to remove the operative dressing. Operative culture is negative thus far. Will treat perioperatively with Levaquin. Wrote script for Levaquin. Wrote script for Percocet for pain (40 tabs) and Phenergan for nausea (30 tabs) and a refill. The Alkaline Phosphatase is still elevated at 188. Will check isoenzymes. Monitor as an outpatient. If chronically elevated despite stopping the Diflucan, will order a CT scan.
--- NOTE | 2018-02-24 12:47 | PCM.DC ---
You will use the following diet at home:: No restrictions, Other - encourage nutritional supplementation with protein to help the healing process. Discharge Activity: Return to Normal Activity, May not drive while taking narcotic pain medications., May Not Shower - until the dressing is removed at the wound center., - - no heavy lifting. May shower in (days): 2 - after the dressing is removed at the wound center. May resume sexual activity in: No Restrictions Weight Bearing Status: Weight bearing as tolerated Lifting Restrictions: 20 lbs. Keep extremity elevated above heart level: Left Arm Additional Activity Instructions:: after dressing is removed at the wound center, encourage range of motion exercises to minimize stiffness. Call your doctor if your incision/area has: Continuous Slow Oozing, Sudden Increased Bleeding, Increased Pain/ Swelling, Increased Redness, Foul Smelling Discharge, Swelling at the incision site Call your doctor if you observe: Fever of 101 or Higher, Coldness, Increased Pain, Shortness of breath, Chest pain, Calf discomfort, Uncontrolled pain Suture Line Care: - Change Dressing in (Days):: 2 - will change the dressing at the wound center Cleanse incision/area with: - - after the dressing is removed at the wound center, may get the left axillary graft wound wet in the shower. Additional Instructions: Will continue to monitor her Alkaline Phosphatase off the Diflucan. Allergies/Adverse Reactions: Allergies latex Allergy (Verified 02/20/18 08:27) Rash Penicillins [PCN] Allergy (Verified 02/20/18 08:27) Hives doxycycline Adverse Reaction (Verified 02/20/18 08:27) Nausea hydromorphone HCl [From Dilaudid] Adverse Reaction (Verified 02/20/18 08:27) Nausea Medications to take at Discharge Oxycodone HCl/Acetaminophen [Percocet 5-325] 1 - 2 tab PO 4X/DAY PRN PRN 5 Days #40 tab 02/24/18 levoFLOXacin tablet [Levaquin tablet] 500 mg PO DAILY #14 tab 02/24/18 proMETHazine tablet [Phenergan tablet] 25 mg PO 4X/DAY PRN PRN #30 tab 02/24/18 The following prescriptions were given: levoFLOXacin tablet [Levaquin tablet] 500 mg PO DAILY #14 tab Oxycodone HCl/Acetaminophen [Percocet 5-325] 1 - 2 tab PO 4X/DAY PRN PRN 5 Days #40 tab PRN Reason: Pain proMETHazine tablet [Phenergan tablet] 25 mg PO 4X/DAY PRN PRN #30 tab PRN Reason: NAUSEA/VOMITING Orders to be completed after discharge: ,Urine Time Frame: 02/23/18, Location: Laboratory Primary Care Physician: Bogdan Guerra DO [Primary Care Provider] - Test Results: Test results from this visit will be discussed in further detail at your follow-up appointment, if applicable. Please Follow Up With: Lennox Eugene MD - call [phone] if questions. When: monday02/26/18 at the [facility] at 830pm. Proposed Discharge Date: 02/24/18
--- NOTE | 2018-02-24 12:52 | DCINST_ITS ---
You will use the following diet at home:: No restrictions, Other - encourage nutritional supplementation with protein to help the healing process. Discharge Activity: Return to Normal Activity, May not drive while taking narcotic pain medications., May Not Shower - until the dressing is removed at the wound center., - - no heavy lifting. May shower in (days): 2 - after the dressing is removed at the wound center. May resume sexual activity in: No Restrictions Weight Bearing Status: Weight bearing as tolerated Lifting Restrictions: 20 lbs. Keep extremity elevated above heart level: Left Arm Additional Activity Instructions:: after dressing is removed at the wound center, encourage range of motion exercises to minimize stiffness. Call your doctor if your incision/area has: Continuous Slow Oozing, Sudden Increased Bleeding, Increased Pain/ Swelling, Increased Redness, Foul Smelling Discharge, Swelling at the incision site Call your doctor if you observe: Fever of 101 or Higher, Coldness, Increased Pain, Shortness of breath, Chest pain, Calf discomfort, Uncontrolled pain Suture Line Care: - Change Dressing in (Days):: 2 - will change the dressing at the wound center Cleanse incision/area with: - - after the dressing is removed at the wound center, may get the left axillary graft wound wet in the shower. Additional Instructions: Will continue to monitor her Alkaline Phosphatase off the Diflucan. Allergies/Adverse Reactions: Allergies latex Allergy (Verified 02/20/18 08:27) Rash Penicillins [PCN] Allergy (Verified 02/20/18 08:27) Hives doxycycline Adverse Reaction (Verified 02/20/18 08:27) Nausea hydromorphone HCl [From Dilaudid] Adverse Reaction (Verified 02/20/18 08:27) Nausea Medications to take at Discharge Oxycodone HCl/Acetaminophen [Percocet 5-325] 1 - 2 tab PO 4X/DAY PRN PRN 5 Days #40 tab 02/24/18 levoFLOXacin tablet [Levaquin tablet] 500 mg PO DAILY #14 tab 02/24/18 proMETHazine tablet [Phenergan tablet] 25 mg PO 4X/DAY PRN PRN #30 tab 02/24/18 The following prescriptions were given: levoFLOXacin tablet [Levaquin tablet] 500 mg PO DAILY #14 tab Oxycodone HCl/Acetaminophen [Percocet 5-325] 1 - 2 tab PO 4X/DAY PRN PRN 5 Days #40 tab PRN Reason: Pain proMETHazine tablet [Phenergan tablet] 25 mg PO 4X/DAY PRN PRN #30 tab PRN Reason: NAUSEA/VOMITING Orders to be completed after discharge: ,Urine Time Frame: 02/23/18, Location: Laboratory Primary Care Physician: Bogdan Guerra DO [Primary Care Provider] - Test Results: Test results from this visit will be discussed in further detail at your follow- up appointment, if applicable. Please Follow Up With: Lennox Eugene MD - call [phone] if questions. When: monday02/26/18 at the [facility] at 830pm. Proposed Discharge Date: 02/24/18
[2018-02-24 12:53] VITALS: BP 114/70; PULSE 77; RESP 16; TEMP 36.8; O2SAT 98
[2018-02-28 14:07] LABS: Alkaline Phosphatase, Serum 198 IU/L (39-117); Bone Fraction 23 % (14-68); Liver Fraction 75 % (18-85)
[2018-03-01 08:11] LABS: Intestinal Fraction 2 % (0-18)
== END 2018-02-24 14:04 | disposition home or self-care (01) ==
LOC: SDC 11:10 → AC 11:12 → MS3 11:29 → MS2 14:11
PROVIDERS: Anesthesiology; Family Provider Family Medicine; PCP Family Medicine; Referring Provider Surgery; Visit Provider Surgery
PROC: (CPT 15002; principal; 2018-02-23 12:40)
DX: L73.2 Hidradenitis suppurativa (principal); L98.492 Non-pressure chronic ulcer of skin of other sites with fat layer exposed; L92.9 Granulomatous disorder of the skin and subcutaneous tissue, unspecified; F32.9 Major depressive disorder, single episode, unspecified; F41.9 Anxiety disorder, unspecified; Z91.040 Latex allergy status; K05.6 Periodontal disease, unspecified; R74.8 Abnormal levels of other serum enzymes
CPT/HCPCS: 00300; 15002; 15271; 15272; 36415; 80053; 81025; 84075; 84080; 84134; 85027; 87070; 87075; 87077; 87102; 87186; 87205; 87206; 88304; 97802; J7120; J2405

== ENCOUNTER 2018-03-12 09:45 | Outpatient (RCR) | payer MEDICAID, SELFPAY ==
[2018-02-15 00:59] VITALS: BP 129/85; PULSE 90; RESP 16; TEMP 37
[2018-02-26 08:37] VITALS: BP 118/81; PULSE 87; RESP 18; TEMP 36.6
--- NOTE | 2018-02-26 15:55 | PCM.WC.PN ---
Type of Wound Date of Service: 02/26/18 Chief Complaint: Recurrent hidradenitis ulcer left axillary area with recent placement of skin substitute graft. History of Wound: Surgery 02/23/18 - Surgical preparation left axilla with excisional debridement nonhealing hidradenitis ulcer and placement of Thera-skin skin substitute graft (39 cm2). Wound care - Silver. Operative culture - Staphylococcus aureus. She was placed on Levaquin. Her Prealbumin on 02/24/18 was 17.4. Continue nutritional supplementation with protein to help the healing process. She finally had her teeth extraction done on 01/24/18. Today she denies any fever. Her appetite is good. While in the hospital, her repeat Alkaline Phosphatase was 188 and the isoenzymes were in the normal range of 73% for the liver and 25% for the bone and 2% for the intestine. Progress of Wound: Recent surgery on 02/23/18 with placement of skin substitute graft. - Physical Exam Vital Signs Temp Pulse Resp BP 98 F 87 18 118/81 H 02/26/18 08:37 02/26/18 08:37 02/26/18 08:37 02/26/18 08:37 Wound Measurements and Assessment WC - Nurse 1 - General Ulcer Measurement Start: 02/26/18 08:37 Freq: Status: Active Protocol: Activity Type Activity Date Activity User E-Sign Co-Sign Detail Recorded Client Recorded Date Recorded By Document 02/26/18 08:37 DL [id number] 02/26/18 08:41 DL 02/26/18 08:37 Wound Center Nurse 1 [Ulcer Assessment] #5 left axilla -Current Size (cm) - Length 0.1 -Current Size (cm) - Width 0.1 -Current Size (cm) - Depth 0.1 -Total Square Cm 0.01 -Photo Taken Yes -Exudate Amt Medium (34-66%) -Exudate Type Serosanguineous -Structure Exposed N/A -Texture (Sadie-wound Skin Appearance) No Abnormality -Moisture (Sadie-wound Skin Appearance Dry/Scaly ) -Color (Sadie-wound Skin Appearance) Erythema Rubor -Temperature (Sadie-wound Skin No Abnormality Appearance) (Pt Warm) -Ulcer Cleansing Rinsed/ Irrigated with Saline -Foul Odor after Cleansing No WC - Nurse 2 - General Ulcer CM Notes Start: 02/26/18 08:37 Freq: Status: Active Protocol: Activity Type Activity Date Activity User E-Sign Co-Sign Detail Recorded Client Recorded Date Recorded By Document 02/26/18 09:04 [email or web address] [id number] 02/26/18 09:06 02/26/18 09:04 Wound Center Nurse 2 [Procedure/Treatment] -Correct Patient No -Correct Side, Site, Position No -Correct Procedure No -Procedure Performed No [See Physician Procedure note for Specifics] Pain Scale: 0-10 Numeric [Pain] -Is Patient Pain Free? Yes Debridement Note Post-Debridement Measurements/Treatment WC - Nurse 2 - General Ulcer CM Notes Start: 02/26/18 08:37 Freq: Status: Active Protocol: Activity Type Activity Date Activity User E-Sign Co-Sign Detail Recorded Client Recorded Date Recorded By Document 02/26/18 09:04 [id number] 02/26/18 09:06 02/26/18 09:04 Wound Center Nurse 2 #5 left axilla -Correct Patient No -Correct Side, Site, Position No -Correct Procedure No -Procedure Performed No Pain Scale: 0-10 Numeric Is Patient Pain Free? Yes Wound debrided: #5 Left axilla. Laterality: Left Wound Grade/Stage: 2. No debridement was completed today - she recently had operative debridement and placement of Thera-skin skin substitute graft on 02/23/18. Assessment/Plan Assessment: 1. Nonhealing recurrent hidradenitis ulcer left axillary area. 2. H/O left axillary hidradenitis. 3. s/p surgical preparation left axilla with excisional debridement nonhealing hidradenitis ulcer and placement of Thera-skin skin substitute graft (39 cm2). 4. Elevated alkaline phosphatase level. Plan: She did have her teeth removed 01/24/18 and feels better. HBO was cancelled due to poor attendance. Thera-skin was placed in the left axilla on 02/23/18. Today the skin substitute graft shows good adherence. The remaining ulcer is clean without further hypergranulation tissue. The operative culture showed Staphylococcus aureus. She was placed on Levaquin. Prealbumin from 02/24/18 was 17.4. Encourage nutritional supplementation with protein to help the healing process. She had LFT's done on 01/29/18 because of her usage of Diflucan to help treat the periwound rash. The Alkaline Phosphatase was elevated at 253 and the ALT was elevated at 70. The Diflucan was stopped. The periwound rash has improved. Still has some residual itching which is controlled with Benadryl. The wound should improve without further hypergranulation tissue growth because her teeth has been removed. Because the teeth have been removed, she was taken back to surgery and Thera-skin skin substitute graft was applied. There wasn't enough to cover the entire ulcer. Will reapply some more Thera-skin next week. The Alkaline Phosphatase is still elevated at 188. The isoenzymes were in the normal percentage range of 75% for the liver and 23% for the bone and 2% for the intestine. Will continue to monitor as an outpatient. If chronically elevated despite stopping the Diflucan, will order a CT scan. Followup one week.
--- NOTE | 2018-02-28 15:55 | PN.PCM_ITS ---
Type of Wound Date of Service: 02/26/18 Chief Complaint: Recurrent hidradenitis ulcer left axillary area with recent placement of skin substitute graft. History of Wound: Surgery 02/23/18 - Surgical preparation left axilla with excisional debridement nonhealing hidradenitis ulcer and placement of Thera-skin skin substitute graft (39 cm2). Wound care - Silver. Operative culture - Staphylococcus aureus. She was placed on Levaquin. Her Prealbumin on 02/24/18 was 17.4. Continue nutritional supplementation with protein to help the healing process. She finally had her teeth extraction done on 01/24/18. Today she denies any fever. Her appetite is good. While in the hospital, her repeat A lkaline Phosphatase was 188 and the isoenzymes were in the normal range of 73% for the liver and 25% for the bone and 2% for the intestine. Progress of Wound: Recent surgery on 02/23/18 with placement of skin substitute graft. - Physical Exam Vital Signs Temp Pulse Resp BP 98 F 87 18 118/81 H 02/26/18 08:37 02/26/18 08:37 02/26/18 08:37 02/26/18 08:37 Wound Measurements and Assessment WC - Nurse 1 - General Ulcer Measurement Start: 02/26/18 08:37 Freq: Status: Active Protocol: Activity Type Activity Date Activity User E-Sign Co-Sign Detail Recorded Client Recorded Date Recorded By Document 02/26/18 08:37 DL [id number] 02/26/18 08:41 DL 02/26/18 08:37 Wound Center Nurse 1 [Ulcer Assessment] #5 left axilla -Current Size (cm) - Length 0.1 -Current Size (cm) - Width 0.1 -Current Size (cm) - Depth 0.1 -Total Square Cm 0.01 -Photo Taken Yes -Exudate Amt Medium (34-66%) -Exudate Type Serosanguineous -Structure Exposed N/A -Texture (Sadie-wound Skin Appearance) No Abnormality -Moisture (Sadie-wound Skin Appearance Dry/Scaly ) -Color (Sadie-wound Skin Appearance) Erythema Rubor -Temperature (Sadie-wound Skin No Abnormality Appearance) (Pt Warm) -Ulcer Cleansing Rinsed/ Irrigated with Saline -Foul Odor after Cleansing No WC - Nurse 2 - General Ulcer CM Notes Start: 02/26/18 08:37 Freq: Status: Active Protocol: Activity Type Activity Date Activity User E-Sign Co-Sign Detail Recorded Client Recorded Date Recorded By Document 02/26/18 09:04 [id number] 02/26/18 09:06 02/26/18 09:04 Wound Center Nurse 2 [Procedure/Treatment] -Correct Patient No -Correct Side, Site, Position No -Correct Procedure No -Procedure Performed No [See Physician Procedure note for Specifics] Pain Scale: 0-10 Numeric [Pain] -Is Patient Pain Free? Yes Debridement Note Post-Debridement Measurements/Treatment WC - Nurse 2 - General Ulcer CM Notes Start: 02/26/18 08:37 Freq: Status: Active Protocol: Activity Type Activity Date Activity User E-Sign Co-Sign Detail Recorded Client Recorded Date Recorded By Document 02/26/18 09:04 [id number] 02/26/18 09:06 02/26/18 09:04 Wound Center Nurse 2 #5 left axilla -Correct Patient No -Correct Side, Site, Position No -Correct Procedure No -Procedure Performed No Pain Scale: 0-10 Numeric Is Patient Pain Free? Yes Wound debrided: #5 Left axilla. Laterality: Left Wound Grade/Stage: 2. No debridement was completed today - she recently had operative debridement and placement of Thera-skin skin substitute graft on 02/23/18. Assessment/Plan Assessment: 1. Nonhealing recurrent hidradenitis ulcer left axillary area. 2. H/O left axillary hidradenitis. 3. s/p surgical preparation left axilla with excisional debridement nonhealing hidradenitis ulcer and placement of Thera-skin skin substitute graft (39 cm2). 4. Elevated alkaline phosphatase level. Plan: She did have her teeth removed 01/24/18 and feels better. HBO was ca ncelled due to poor attendance. Thera-skin was placed in the left axilla on 02/23/18. Today the skin substitute graft shows good adherence. The remaining ulcer is clean without further hypergranulation tissue. The operative culture showed Staphylococcus aureus. She was placed on Levaquin. Prealbumin from 02/24/18 was 17.4. Encourage nutritional supplementation with protein to help the healing process. She had LFT's done on 01/29/18 because of her usage of Diflucan to help treat the periwound rash. The Alkaline Phosphatase was elevated at 253 and the ALT was elevated at 70. The Diflucan was stopped. The periwound rash has improved. Still has some residual itching which is controlled with Benadryl. The wound should improve without further hypergranulation tissue growth because her teeth has been removed. Because the teeth have been removed, she was taken back to surgery and Thera-skin skin substitute graft was applied. There wasn't enough to cover the entire ulcer. Will reapply some more Thera-skin next week. The Alkaline Phosphatase is still elevated at 188. The isoenzymes were in the normal percentage range of 75% for the liver and 23% for the bone and 2% for the intestine. Will continue to monitor as an outpatient. If chronically elevated despite stopping the Diflucan, will order a CT scan. Followup one week.
[2018-03-05 10:03] VITALS: BP 131/76; PULSE 88; RESP 18; TEMP 37.2
--- NOTE | 2018-03-05 14:01 | PCM.WC.PN ---
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 Type of Wound Date of Service: 03/05/18 Chief Complaint: Recurrent hidradenitis ulcer left axillary area with recent placement of skin substitute graft. History of Wound: Surgery 02/23/18 - Surgical preparation left axilla with excisional debridement nonhealing hidradenitis ulcer and placement of Thera-skin skin substitute graft (39 cm2). Wound care - Silver. Operative culture - Staphylococcus aureus. She was placed on Levaquin. Her Prealbumin on 02/24/18 was 17.4. Continue nutritional supplementation with protein to help the healing process. She finally had her teeth extraction done on 01/24/18. Today she denies any fever. Her appetite is good. While in the hospital, her repeat Alkaline Phosphatase was 188 and the isoenzymes were in the normal range of 73% for the liver and 25% for the bone and 2% for the intestine. Progress of Wound: Recent surgery on 02/23/18 with placement of skin substitute graft. - Physical Exam Vital Signs Temp Pulse Resp BP 98.9 F 88 18 131/76 H 03/05/18 10:03 03/05/18 10:03 03/05/18 10:03 03/05/18 10:03 General: Alert, Oriented x3, Cooperative HEENT: Atraumatic Oral: Moist Mucosa Extremities: No edema, Capillary Refill Less than 3 Seconds Skin: Ulcer/ Wound - Left axilla ulcer Wound Measurements and Assessment WC - Nurse 1 - General Ulcer Measurement Start: 02/26/18 08:37 Freq: Status: Active Protocol: Activity Type Activity Date Activity User E-Sign Co-Sign Detail Recorded Client Recorded Date Recorded By Document 03/05/18 10:03 DL [id number] 03/05/18 10:08 DL 03/05/18 10:03 Wound Center Nurse 1 [Ulcer Assessment] #5 left axilla -Current Size (cm) - Length 7.5 -Current Size (cm) - Width 9 -Current Size (cm) - Depth 0.7 -Total Square Cm 67.5 -Photo Taken No -Exudate Amt Large (67-100%) -Exudate Type Yellow/Green -Wound Margin Distinct, Outline Attached -Granulation Amt Large (67-100%) -Granulation Quality Red -Necrosis Amt Small (1-33%) -Necrotic Tissue Type Adherent Slough -Structure Exposed N/A -Texture (Sadie-wound Skin Appearance) Excoriation Scarring -Moisture (Sadie-wound Skin Appearance No Abnormality ) -Color (Sadie-wound Skin Appearance) Rubor -Temperature (Sadie-wound Skin No Abnormality Appearance) (Pt Warm) -Ulcer Cleansing Wound Cleanser -Foul Odor after Cleansing No -Anesthetic Used 4% Lidocaine Solution WC - Nurse 2 - General Ulcer CM Notes Start: 02/26/18 08:37 Freq: Status: Active Protocol: Activity Type Activity Date Activity User E-Sign Co-Sign Detail Recorded Client Recorded Date Recorded By Document 03/05/18 10:41 MW [id number] 03/05/18 10:55 MW 03/05/18 10:41 Wound Center Nurse 2 [Procedure/Treatment] -Time 10:41 -Correct Patient Yes -Correct Side, Site, Position Yes -Correct Procedure Yes -Procedure Performed Yes -Type of Procedure Debridement -Clinical Debridement Subcutaneous -Post Debridement Size (cm) - Length 6.9 -Post Debridement Size (cm) - Width 8.8 -Post Debridement Size (cm) - Depth 0.2 -Total Square Cm 60.72 -Wound/Ulcer Outcome Not Healed -Ulcer Cleansing Rinsed/ Irrigated with Saline -Foul Odor after Cleansing Yes -Type of bioengineered Tissue [place] -Expiration Date 05/11/19 -Product Lot Number [id number] -Percent Used 100 -Saline Lot Number [id number] -Bleeding Controlled with Pressure -Treatment Response Procedure Tolerated Well [See Physician Procedure note for Specifics] Pain Scale: 0-10 Numeric [Pain] -Is Patient Pain Free? Yes Musculoskeletal: No Tenderness to Palpation of Joints or Extremities, No Muscle Wasting Neurological: Neuro grossly intact Psych/Mental Status: Normal Affect, Appropriate Debridement Note Post-Debridement Measurements/Treatment WC - Nurse 2 - General Ulcer CM Notes Start: 02/26/18 08:37 Freq: Status: Active Protocol: Activity Type Activity Date Activity User E-Sign Co-Sign Detail Recorded Client Recorded Date Recorded By Document 02/26/18 09:04 [id number] 02/26/18 09:06 Document 03/05/18 10:41 MW [id number] 03/05/18 10:55 MW 02/26/18 03/05/18 09:04 10:41 Wound Center Nurse 2 #5 left axilla -Time 10:41 -Correct Patient No Yes -Correct Side, Site, Position No Yes -Correct Procedure No Yes -Procedure Performed No Yes -Type of Procedure Debridement -Clinical Debridement Subcutaneous -Post Debridement Size (cm) - Length 6.9 -Post Debridement Size (cm) - Width 8.8 -Post Debridement Size (cm) - Depth 0.2 -Total Square Cm 60.72 -Wound/Ulcer Outcome Not Healed -Ulcer Cleansing Rinsed/ Irrigated with Saline -Foul Odor after Cleansing Yes -Type of bioengineered Tissue [place] -Expiration Date 05/11/19 -Product Lot Number [id number] -Percent Used 100 -Saline Lot Number [id number] -Bleeding Controlled with Pressure -Treatment Response Procedure Tolerated Well Pain Scale: 0-10 Numeric Is Patient Pain Free? Yes Yes Wound debrided: Left axilla Laterality: Left Type of Debridement: Selective debridement Anesthesia Used: 4% Lidocaine Solution Depth: Down to and including healthy tissue, in the subcutaneous layer Percentage of wound debrided: 50 - Debrided part of wound where the Thera-skin was not surgically placed. Instrument Used: 3mm curette Tissue Removed: Subuctaneous tissue and slough Severity: Fat Layer Exposed Amount of bleeding with debridement: Mild Bleeding Controlled with: Pressure Patient tolerated procedure well Assessment/Plan Active Problems Hypergranulation (Chronic) Non-pressure chronic ulcer of skin of other sites with fat layer exposed (Chronic) Left axillary hidradenitis (Chronic) L73.2 left axillary hidradenitis. Assessment: 1. Nonhealing recurrent hidradenitis ulcer left axillary area. 2. H/O left axillary hidradenitis. 3. s/p surgical preparation left axilla with excisional debridement nonhealing hidradenitis ulcer and placement of Thera-skin skin substitute graft (39 cm2). 4. Elevated alkaline phosphatase level. Plan: She did have her teeth removed 01/24/18 and feels better. HBO was cancelled due to poor attendance. Thera-skin was placed in the left axilla on 02/23/18. Today the skin substitute graft shows good adherence. The remaining ulcer is clean without further hypergranulation tissue. The operative culture showed Staphylococcus aureus. She continues the Levaquin. Prealbumin from 02/24/18 was 17.4. Encourage nutritional supplementation with protein to help the healing process. She had LFT's done on 01/29/18 because of her usage of Diflucan to help treat the periwound rash. The Alkaline Phosphatase was elevated at 253 and the ALT was elevated at 70. The Diflucan was stopped. The periwound rash has improved. Still has some residual itching which is controlled with Benadryl. The wound should improve without further hypergranulation tissue growth because her teeth has been removed. Because the teeth have been removed, she was taken back to surgery and Thera-skin skin substitute graft was applied. There wasn't enough to cover the entire ulcer. Applied Thera-skin #2 to 1/2 of the ulcer that did not already have Thera-Skin applied. Used 100% of the Thera-skin. Wound veil applied. Will reapply some more Thera-skin next week. She is complaining of increased burning pain. Will start on Neurotin 300 mg TID. Instructed to start at bedtime and then gradually add the other doses as needed as it will make her tired. The Alkaline Phosphatase is still elevated at 188. The isoenzymes were in the normal percentage range of 75% for the liver and 23% for the bone and 2% for the intestine. Will continue to monitor as an outpatient. If chronically elevated despite stopping the Diflucan, will order a CT scan. Followup one week. Code Visit [id number]: 94107 Skin sub graft trnk/arm/leg
--- NOTE | 2018-03-05 14:53 | PN.PCM_ITS ---
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 Type of Wound Date of Service: 03/05/18 Chief Complaint: Recurrent hidradenitis ulcer left axillary area with recent placement of skin substitute graft. History of Wound: Surgery 02/23/18 - Surgical preparation left axilla with excisional debridement nonhealing hidradenitis ulcer and placement of Thera-skin skin substitute graft (39 cm2). Wound care - Silver. Operative culture - Staphylococcus aureus. She was placed on Levaquin. Her Prealbumin on 02/24/18 was 17.4. Continue nutritional supplementation with protein to help the healing process. She finally had her teeth extraction done on 01/24/18. Today she denies any fever. Her appetite is good. While in the hospital, her repeat Alkaline Phosphatase was 188 and the isoenzymes were in the normal range of 73% for the liver and 25% for the bone and 2% for the intestine. Progress of Wound: Recent surgery on 02/23/18 with placement of skin substitute graft. - Physical Exam Vital Signs Temp Pulse Resp BP 98.9 F 88 18 131/76 H 03/05/18 10:03 03/05/18 10:03 03/05/18 10:03 03/05/18 10:03 General: Alert, Oriented x3, Cooperative HEENT: Atraumatic Oral: Moist Mucosa Extremities: No edema, Capillary Refill Less than 3 Seconds Skin: Ulcer/ Wound - Left axilla ulcer Wound Measurements and Assessment WC - Nurse 1 - General Ulcer Measurement Start: 02/26/18 08:37 Freq: Status: Active Protocol: Activity Type Activity Date Activity User E-Sign Co-Sign Detail Recorded Client Recorded Date Recorded By Document 03/05/18 10:03 DL [id number] 03/05/18 10:08 DL 03/05/18 10:03 Wound Center Nurse 1 [Ulcer Assessment] #5 left axilla -Current Size (cm) - Length 7.5 -Current Size (cm) - Width 9 -Current Size (cm) - Depth 0.7 -Total Square Cm 67.5 -Photo Taken No -Exudate Amt Large (67-100%) -Exudate Type Yellow/Green -Wound Margin Distinct, Outline Attached -Granulation Amt Large (67-100%) -Granulation Quality Red -Necrosis Amt Small (1-33%) -Necrotic Tissue Type Adherent Slough -Structure Exposed N/A -Texture (Sadie-wound Skin Appearance) Excoriation Scarring -Moisture (Sadie-wound Skin Appearance No Abnormality ) -Color (Sadie-wound Skin Appearance) Rubor -Temperature (Sadie-wound Skin No Abnormality Appearance) (Pt Warm) -Ulcer Cleansing Wound Cleanser -Foul Odor after Cleansing No -Anesthetic Used 4% Lidocaine Solution WC - Nurse 2 - General Ulcer CM Notes Start: 02/26/18 08:37 Freq: Status: Active Protocol: Activity Type Activity Date Activity User E-Sign Co-Sign Detail Recorded Client Recorded Date Recorded By Document 03/05/18 10:41 MW [id number] 03/05/18 10:55 MW 03/05/18 10:41 Wound Center Nurse 2 [Procedure/Treatment] -Time 10:41 -Correct Patient Yes -Correct Side, Site, Position Yes -Correct Procedure Yes -Procedure Performed Yes -Type of Procedure Debridement -Clinical Debridement Subcutaneous -Post Debridement Size (cm) - Length 6.9 -Post Debridement Size (cm) - Width 8.8 -Post Debridement Size (cm) - Depth 0.2 -Total Square Cm 60.72 -Wound/Ulcer Outcome Not Healed -Ulcer Cleansing Rinsed/ Irrigated with Saline -Foul Odor after Cleansing Yes -Type of bioengineered Tissue THER[place]IN -Expiration Date 05/11/19 -Product Lot Number [id number] -Percent Used 100 -Saline Lot Number [id number] -Bleeding Controlled with Pressure -Treatment Response Procedure Tolerated Well [See Physician Procedure note for Specifics] Pain Scale: 0-10 Numeric [Pain] -Is Patient Pain Free? Yes Musculoskeletal: No Tenderness to Palpation of Joints or Extremities, No Muscle Wasting Neurological: Neuro grossly intact Psych/Mental Status: Normal Affect, Appropriate Debridement Note Post-Debridement Measurements/Treatment WC - Nurse 2 - General Ulcer CM Notes Start: 02/26/18 08:37 Freq: Status: Active Protocol: Activity Type Activity Date Activity User E-Sign Co-Sign Detail Recorded Client Recorded Date Recorded By Document 02/26/18 09:04 [id number] 02/26/18 09:06 Document 03/05/18 10:41 MW [id number] 03/05/18 10:55 MW 02/26/18 03/05/18 09:04 10:41 Wound Center Nurse 2 #5 left axilla -Time 10:41 -Correct Patient No Yes -Correct Side, Site, Position No Yes -Correct Procedure No Yes -Procedure Performed No Yes -Type of Procedure Debridement -Clinical Debridement Subcutaneous -Post Debridement Size (cm) - Length 6.9 -Post Debridement Size (cm) - Width 8.8 -Post Debridement Size (cm) - Depth 0.2 -Total Square Cm 60.72 -Wound/Ulcer Outcome Not Healed -Ulcer Cleansing Rinsed/ Irrigated with Saline -Foul Odor after Cleansing Yes -Type of bioengineered Tissue [place] -Expiration Date 05/11/19 -Product Lot Number [id number] -Percent Used 100 -Saline Lot Number [id number] -Bleeding Controlled with Pressure -Treatment Response Procedure Tolerated Well Pain Scale: 0-10 Numeric Is Patient Pain Free? Yes Yes Wound debrided: Left axilla Laterality: Left Type of Debridement: Selective debridement Anesthesia Used: 4% Lidocaine Solution Depth: Down to and including healthy tissue, in the subcutaneous layer Percentage of wound debrided: 50 - Debrided part of wound where the Thera-skin was not surgically placed. Instrument Used: 3mm curette Tissue Removed: Subuctaneous tissue and slough Severity: Fat Layer Exposed Amount of bleeding with debridement: Mild Bleeding Controlled with: Pressure Patient tolerated procedure well Assessment/Plan Active Problems Hypergranulation (Chronic) Non-pressure chronic ulcer of skin of other sites with fat layer exposed (Chronic) Left axillary hidradenitis (Chronic) L73.2 left axillary hidradenitis. Assessment: 1. Nonhealing recurrent hidradenitis ulcer left axillary area. 2. H/O left axillary hidradenitis. 3. s/p surgical preparation left axilla with excisional debridement nonhealing hidradenitis ulcer and placement of Thera-skin skin substitute graft (39 cm2). 4. Elevated alkaline phosphatase level. Plan: She did have her teeth removed 01/24/18 and feels better. HBO was cancelled due to poor attendance. Thera-skin was placed in the left axilla on 02/23/18. Today the skin substitute graft shows good adherence. The remaining ulcer is clean without further hypergranulation tissue. The operative culture showed Staphylococcus aureus. She continues the Levaquin. Prealbumin from 02/24/18 was 17.4. Encourage nutritional supplementation with protein to help the healing process. She had LFT's done on 01/29/18 because of her usage of Diflucan to help treat the periwound rash. The Alkaline Phosphatase was elevated at 253 and the ALT was elevated at 70. The Diflucan was stopped. The periwound rash has improved. Still has some residual itching which is controlled with Benadryl. The wound should improve without further hypergranulation tissue growth because her teeth has been removed. Because the teeth have been removed, she was taken back to surgery and Thera-skin skin substitute graft was applied. There wasn't enough to cover the entire ulcer. Applied Thera-skin #2 to 1/2 of the ulcer that did not already have Thera-Skin applied. Used 100% of the Thera-skin. Wound veil applied. Will reapply some more Thera-skin next week. She is complaining of increased burning pain. Will start on Neurotin 300 mg TID. Instructed to start at bedtime and then gradually add the other doses as needed as it will make her tired. The Alkaline Phosphatase is still elevated at 188. The isoenzymes were in the normal percentage range of 75% for the liver and 23% for the bone and 2% for the intest ine. Will continue to monitor as an outpatient. If chronically elevated despite stopping the Diflucan, will order a CT scan. Followup one week. Code Visit 150xxx-152xx: 82112 Skin sub graft trnk/arm/leg
[2018-03-12 08:53] VITALS: BP 110/78; PULSE 85; RESP 18; TEMP 35.6
[2018-03-12 13:33] LABS: Alkaline Phosphatase 242 U/L (45-117)
--- NOTE | 2018-03-12 22:17 | PCM.WC.PN ---
Type of Wound Date of Service: 03/12/18 Chief Complaint: Recurrent hidradenitis ulcer left axillary area with recent placement of skin substitute graft. History of Wound: Surgery 02/23/18 - Surgical preparation left axilla with excisional debridement nonhealing hidradenitis ulcer and placement of Thera-skin skin substitute graft (39 cm2). Wound care - Thera-skin. Operative culture - Staphylococcus aureus. She was placed on Levaquin. Her Prealbumin on 02/24/18 was 17.4. Continue nutritional supplementation with protein to help the healing process. She finally had her teeth extraction done on 01/24/18. Today she denies any fever. Her appetite is good. While in the hospital, her repeat Alkaline Phosphatase was 188 and the isoenzymes were in the normal range of 73% for the liver and 25% for the bone and 2% for the intestine. Will repeat the lab today. She had Thera-skin application #1 last week. Progress of Wound: Slowly improving after placement of Thera-skin skin substitute graft. - Physical Exam Vital Signs Temp Pulse Resp BP 96.1 F L 85 18 110/78 03/12/18 08:53 03/12/18 08:53 03/12/18 08:53 03/12/18 08:53 Wound Measurements and Assessment WC - Nurse 1 - General Ulcer Measurement Start: 02/26/18 08:37 Freq: Status: Active Protocol: Activity Type Activity Date Activity User E-Sign Co-Sign Detail Recorded Client Recorded Date Recorded By Document 03/12/18 08:53 [id number] 03/12/18 08:55 03/12/18 08:53 Wound Center Nurse 1 [Ulcer Assessment] #5 left axilla -Combined with other wound No -Current Size (cm) - Length 5.0 -Current Size (cm) - Width 8.0 -Current Size (cm) - Depth 0.2 -Total Square Cm 40.00 -Photo Taken No -Epithelialization None Present -Tunneling No -Undermining/Tunneling No -Circular Undermining No -Classification - Thickness Full Thickness without Exposed Support Structure -Exudate Amt Large (67-100%) -Exudate Type Serosanguineous -Wound Margin Distinct, Outline Attached -Granulation Amt Large (67-100%) -Granulation Quality Hyper- granulation Red -Slough/Fibrin Yes -Necrosis Amt Small (1-33%) -Necrotic Tissue Type Adherent Slough -Structure Exposed Fascia Fat Layer Exposed -Texture (Sadie-wound Skin Appearance) Assessed Friable Localized Edema Scarring -Moisture (Sadie-wound Skin Appearance Assessed ) -Color (Sadie-wound Skin Appearance) Assessed Erythema -Temperature (Sadie-wound Skin No Abnormality Appearance) (Pt Warm) -Tenderness on Palpation (Sadie-wound Yes Skin Appearance) -Ulcer Cleansing Rinsed/ Irrigated with Saline -Foul Odor after Cleansing No -Anesthetic Used 5% Lidocaine Gel [Edema Assessment] -Lower Limb Edema Present No WC - Nurse 2 - General Ulcer CM Notes Start: 02/26/18 08:37 Freq: Status: Active Protocol: Activity Type Activity Date Activity User E-Sign Co-Sign Detail Recorded Client Recorded Date Recorded By Document 03/12/18 09:32 [id number] 03/12/18 09:35 03/12/18 09:32 Wound Center Nurse 2 [Procedure/Treatment] #5 left axilla -Time 09:33 -Correct Patient Yes -Correct Side, Site, Position Yes -Correct Procedure Yes -Procedure Performed Yes -Type of Procedure Debridement -Clinical Debridement Subcutaneous -Post Debridement Size (cm) - Length 5 -Post Debridement Size (cm) - Width 8 -Post Debridement Size (cm) - Depth 0.1 -Total Square Cm 40 -Wound/Ulcer Outcome Not Healed -Ulcer Cleansing Rinsed/ Irrigated with Saline -Foul Odor after Cleansing No -Bioengineered Tissue Yes -Type of bioengineered Tissue [place] -Expiration Date 09/23/21 -Product Lot Number [id number] -Percent Used 100 -Saline Lot Number [id number] -Bleeding Controlled with Pressure -Other 1/3 of ulcer debrided. -Treatment Response Procedure Tolerated Well [See Physician Procedure note for Specifics] Pain Scale: 0-10 Numeric [Pain] -Is Patient Pain Free? Yes Debridement Note Post-Debridement Measurements/Treatment WC - Nurse 2 - General Ulcer CM Notes Start: 02/26/18 08:37 Freq: Status: Active Protocol: Activity Type Activity Date Activity User E-Sign Co-Sign Detail Recorded Client Recorded Date Recorded By Document 02/26/18 09:04 [email or web address] [id number] 02/26/18 09:06 Document 03/05/18 10:41 MW [id number] 03/05/18 10:55 MW Document 11/26/18 09:32 [id number] 03/12/18 09:35 02/26/18 03/05/18 03/12/18 09:04 10:41 09:32 Wound Center Nurse 2 #5 left axilla -Time 10:41 09:33 -Correct Patient No Yes Yes -Correct Side, Site, Position No Yes Yes -Correct Procedure No Yes Yes -Procedure Performed No Yes Yes -Type of Procedure Debridement Debridement -Clinical Debridement Subcutaneous Subcutaneous -Post Debridement Size (cm) - Length 6.9 5 -Post Debridement Size (cm) - Width 8.8 8 -Post Debridement Size (cm) - Depth 0.2 0.1 -Total Square Cm 60.72 40 -Wound/Ulcer Outcome Not Healed Not Healed -Ulcer Cleansing Rinsed/ Rinsed/ Irrigated with Irrigated with Saline Saline -Foul Odor after Cleansing Yes No -Bioengineered Tissue Yes -Type of bioengineered Tissue THERASKIN THER[place]IN -Expiration Date 05/11/19 09/23/21 -Product Lot Number [id number] -Percent Used 100 100 -Saline Lot Number [id number] -Bleeding Controlled with Pressure Pressure -Other 1/3 of ulcer debrided. -Treatment Response Procedure Procedure Tolerated Well Tolerated Well Pain Scale: 0-10 Numeric Is Patient Pain Free? Yes Yes Yes Wound debrided: #5 Left axilla. Laterality: Left Wound Grade/Stage: 2. Type of Debridement: Excisional debridement Anesthesia Used: 4% Lidocaine Solution Depth: Down to and including healthy tissue, in the subcutaneous layer Percentage of wound debrided: 100 Instrument Used: 3mm curette, 5mm curette Tissue Removed: subcutaneous tissue. Severity: Fat Layer Exposed Amount of bleeding with debridement: Mild Bleeding Controlled with: Pressure Patient tolerated procedure well - Had Thera-skin application #2 today. Product Lot Number - [id number]. I used 100% of the graft. Saline Lot Number - [id number]. Expiration - September 23, 2021. Assessment/Plan Assessment: 1. Nonhealing recurrent hidradenitis ulcer left axillary area. 2. H/O left axillary hidradenitis. 3. s/p surgical preparation left axilla with excisional debridement nonhealing hidradenitis ulcer and placement of Thera-skin skin substitute graft (39 cm2). 4. Elevated alkaline phosphatase level. Plan: She did have her teeth removed 01/24/18 and feels better. HBO was cancelled due to poor attendance. Thera-skin was placed in the left axilla on 02/23/18. Today the skin substitute graft shows good adherence. The remaining ulcer is clean without further hypergranulation tissue. The operative culture showed Staphylococcus aureus. She was placed on Levaquin. Prealbumin from 02/24/18 was 17.4. Encourage nutritional supplementation with protein to help the healing process. She had LFT's done on 01/29/18 because of her usage of Diflucan to help treat the periwound rash. The Alkaline Phosphatase was elevated at 253 and the ALT was elevated at 70. The Diflucan was stopped. The periwound rash has improved. Still has some residual itching which is controlled with Benadryl. The wound should improve without further hypergranulation tissue growth because her teeth has been removed. Because the teeth have been removed, she was taken back to surgery and Thera-skin skin substitute graft was applied. There wasn't enough to cover the entire ulcer. Will reapply some more Thera-skin next week. The Alkaline Phosphatase is still elevated at 188. The isoenzymes were in the normal percentage range of 75% for the liver and 23% for the bone and 2% for the intestine. Will continue to monitor as an outpatient. Will recheck level today. If chronically elevated despite stopping the Diflucan, will order an Ultrasound and/or CT scan. Followup one week. She had Thera-skin application #2 today.
== END 2018-03-16 23:59 ==
LOC: WC 09:45
PROVIDERS: Family Provider Family Medicine; PCP Family Medicine; Referring Provider Surgery; Visit Provider Surgery
DX: L73.2 Hidradenitis suppurativa (principal); R74.8 Abnormal levels of other serum enzymes; L98.492 Non-pressure chronic ulcer of skin of other sites with fat layer exposed
CPT/HCPCS: 15271; 15272; 84075; 99213; Q4121; Q4131; G0463

== ENCOUNTER → 2018-03-23 09:14 | Outpatient (CLI) | payer MEDICAID, SELFPAY ==
[2018-03-19 09:16] VITALS: BMI 23.7
--- NOTE | 2018-03-23 09:20 | US_ITS ---
STUDY: ABDOMINAL ULTRASOUND - RIGHT UPPER QUADRANT REASON FOR VISIT: Female, 37 years old. Elevated alkaline phosphatase. TECHNIQUE: Ultrasound evaluation of the right upper quadrant was performed with real-time and static irene-scale imaging. TECHNICAL QUALITY: Adequate. COMPARISON: None. FINDINGS: Liver: The liver measures 12.8 cm. There is normal echogenicity of the liver. The bile ducts are within normal limits. There is hepatic color flow. The direction of portal flow is hepatopetal. There is no demonstrated mass lesion. Gallbladder: Normal distended gallbladder. The gallbladder wall measures 12 mm. There is a negative sonographic Felipe's sign. There is no pericholecystic fluid. There are multiple echogenic structures within the gallbladder, consistent with multiple gallstones. Common Bile Duct (C.B.D.): The common bile duct measures 4 mm. Pancreas: Normal size of the head, body and tail of the pancreas. There is normal echogenicity of the pancreas. There is no demonstrated pancreatic mass or cyst. Right Kidney: Normal size of the right kidney. The right kidney measures 10.7 x 5.4 x 4.0 cm. Normal renal cortex. The right cortex measures 1.1 cm. There is no demonstrated renal mass or cyst. There is no right hydronephrosis. US/Abdomen Limited IMPRESSION: Numerous gallstones and markedly thickened gallbladder wall. No tenderness. Electronically Signed: Sanjeev Valdes MD at 18:18 EST , Service support ,
== END ==
PROVIDERS: Family Provider Family Medicine; PCP Family Medicine; Referring Provider Nurse Practitioner Family; Visit Provider Nurse Practitioner Family
DX: R74.8 Abnormal levels of other serum enzymes (principal)
CPT/HCPCS: 76705

== ENCOUNTER 2018-03-24 13:49 | Emergency (ER) | payer MEDICAID, SELFPAY ==
[2018-03-19 09:16] VITALS: BMI 23.7
[2018-03-24 13:50] VITALS: BP 124/81; PULSE 88; RESP 16; TEMP 36.6; O2SAT 95; BMI 23.6
--- NOTE | 2018-03-24 14:04 | ED.VISSUMM ---
- ER Visit Summary Date of Service: 03/24/18 Chief Complaint: Bleeding wound History of Present Illness: The patient is a 37 F who states that her left axilla is bleeding. The patient had a skin graft done to the left axilla in January. She has hidradenitis of the left axilla. She sees the wound center weekly. She states that she took off the dressing today and now there is some bleeding on the terrier edge. She takes no blood thinning medications. She has been on Levaquin since her surgery. Physical Examination: Vital signs reviewed. Left axilla does reveal some granulation tissue with the wound. There is no erythema or purulent drainage. She does have mild bleeding on the anterior edge. Test Results: None performed Emergency Department Course and Treatment: The patient does have some oozing of blood on the anterior part of her wound edge. At this point I feel she can have a piece of Gelfoam placed on this area and a new dressing placed. She follows up with the wound center in less than 48 hours. They can reevaluate it at that time and reapply a new dressing. Treatment Plan: [] Disposition: Discharge Impression: Bleeding wound This note was generated with [employer] dictation software. It may contain incorrect words, spelling, and punctuation that were not noted in review of the chart prior to signing ED Disposition - Plan for ED Patient: Chief Complaint: Wound Check Referrals: Bogdan Guerra DO [Primary Care Provider] -
--- NOTE | 2018-03-24 14:07 | ED.DEP ---
ED Disposition - Plan for ED Patient: Disposition: Home or Assisted Living Chief Complaint: Wound Check Instructions: ED Wound Check Post Op Bleeding Referrals: Bogdan Guerra DO [Primary Care Provider] -
[2018-03-24 14:31] VITALS: BP 124/81; PULSE 88; RESP 18; O2SAT 95
== END 2018-03-24 14:32 | disposition home or self-care (01) ==
LOC: ED 14:18
PROVIDERS: Emergency Provider Emergency Medicine; Family Provider Family Medicine; PCP Family Medicine
DX: S41.102A Unspecified open wound of left upper arm, initial encounter (principal); X58.XXXA Exposure to other specified factors, initial encounter; Y93.9 Activity, unspecified; Y92.89 Other specified places as the place of occurrence of the external cause; Y99.8 Other external cause status; R58 Hemorrhage, not elsewhere classified
CPT/HCPCS: 99282

== ENCOUNTER → 2018-04-05 13:54 | Outpatient (CLI) | payer MEDICAID, SELFPAY ==
[2018-03-29 13:04] VITALS: BMI 23.6
[2018-04-02 11:25] VITALS: BMI 23.7
--- NOTE | 2018-04-05 13:57 | CT_ITS ---
STUDY: CT ABDOMEN AND PELVIS WITH CONTRAST REASON FOR EXAM: Female, 37 years old. Abnormal right upper quadrant ultrasound with findings of gallstones and gallbladder mural thickening, follow-up. RADIATION DOSAGE (If Supplied By Facility): CTDIvol = ( 11.51 ) mGy, DLP = ( 683.67 ) mGycm TECHNIQUE: Transaxial images were obtained from the dome of the diaphragm to the symphysis pubis with oral contrast. 100 ml of Isovue 300 contrast was administered. Sagittal and coronal images were reconstructed. Individualized dose optimization techniques were used for this CT. COMPARISON: Right upper quadrant ultrasound March 23, 2018. FINDINGS: The visualized lung bases are unremarkable. The visualized portions of the heart are within normal limits. Normal liver. The patent portal vein diameter is 13 mm. There are multiple gallstones. There may be mural thickening, measuring 6.5 mm along the inferior gallbladder wall on series 601 image 46. Normal spleen. Normal pancreas. Normal bilateral adrenal glands. Normal right kidney. Normal left kidney. No hydronephrosis. Normal visualized stomach. Normal small intestine. Normal colon. The appendix is visualized and appears normal. There is mild atherosclerotic calcification of the distal abdominal aorta right common iliac artery, without a demonstrated aneurysm. Normal inferior vena cava. Normal retroperitoneum. Normal urinary bladder. Normal size anteverted uterus. Endometrial thickness is 11 mm. Well-defined, mildly rim-enhancing 2.2 x 2.2 x 2.25 cm low-density lesion in the left ovary consistent with a mature follicle. Heterogeneity of the right ovary consistent with normal follicular cysts on that side. Normal abdominal wall. There is moderate narrowing of the L5-S1 intervertebral disc height and right-sided posterolateral endplate osteophytes impinging on the right lateral recess of the central canal. There is an 11.25 degree levoscoliosis of the spine centered at L4 CT/Abdomen/Pelvis WITH Contrast IMPRESSION: 1. Gallstones. There is mural thickening of the gallbladder, which could reflect acute or chronic cholecystitis. No bile duct ectasia. 2. 2.25 cm left ovarian cyst suggesting a mature follicle. There is mild physiologic endometrial thickening. 3. The bowel is unremarkable without sign of obstruction. The appendix is normal. 4. L5-S1 degenerative disease and right posterolateral endplate osteophyte impinging on the right lateral recess of the central canal. Electronically Signed: Miguelangel Jacobson MD at 14:48 EST , Service support ,
== END ==
PROVIDERS: Family Provider Family Medicine; PCP Family Medicine; Referring Provider Surgery; Visit Provider Surgery
DX: R93.5 Abnormal findings on diagnostic imaging of other abdominal regions, including retroperitoneum (principal)
CPT/HCPCS: 74177; Q9967

== ENCOUNTER 2018-04-13 09:55 | Day surgery (SDC) | payer MEDICAID, SELFPAY ==
[2018-04-12 13:45] VITALS: BMI 23.6
[2018-04-13] VITALS (8 sets, daily range): BP systolic 78–119; BP diastolic 47–82; PULSE 60–89; RESP 15–16; TEMP 36–36.9; O2SAT 99–100; BMI 24.5
--- NOTE | 2018-04-13 10:08 | EKG12_ITS ---
Test Reason : PREOP Blood Pressure : / mmHG Vent. Rate : 079 BPM Atrial Rate : 079 BPM P-R Int : 148 ms QRS Dur : 080 ms QT Int : 374 ms P-R-T Axes : 043 000 010 degrees QTc Int : 428 ms Normal sinus rhythm Normal ECG Confirmed by DONNA LANZA, KEERTHI ([id number]), newspaper editor managing SANDRA PEREZ ([id number]) on 04/16/2018 1:49:41 PM Referred By: Charli Martines Confirmed By:KEERTHI THOMPSON MD
--- NOTE | 2018-04-13 12:40 | GALL_PTH ---
PATIENT: RAVI IRAHETA [place] [facility] [id number] AGE/SX: 37/F ROOM: RE04/13/[address]: Dr. Charli Martines MD : 1980 BED: DIS: 04/13/2018 SPEC #: [id number] RECD: 04/13/18 15:00 STATUS: YANIQUE MARCMisael #: [id number] BRIGHT: 04/13/18 12:[address]: Charli Martines DEPT: SURGICAL PATHOLOGY RECD BY: Hank Londono ENTERED: 04/16/18 11:49 SP TYPE: OMA TOBIN DR: Dr. Bogdan Guerra DO Tissues: Gallbladder, NOS Procedures: Surgery Specimen Level III HEADER OPERATION: Laparoscopic cholecystectomy with IOC PRE-OP DIAGNOSIS: Chronic cholelithiasis TISSUE SUBMITTED: Gallbladder and contents MICROSCOPIC DIAGNOSIS Gallbladder and contents: Chronic cholecystitis and cholelithiasis. SJ:kusum 04/18/18 MICROSCOPIC DESCRIPTION Slides are reviewed. GROSS DESCRIPTION Received is one container labeled with the patient's name and designated gallbladder. The specimen consists of a gallbladder measuring 9 x 3 x 3 cm. The external surface is smooth and glistening. Focally, it is granular, hemorrhagic and contains cautery artifact. The lumen of the gallbladder contains yellow-green mucoid bile and multiple paredes-black calculi ranging in size from 1 to 1.5 cm. The mucosa is bile-stained and without any mass lesions. The gallbladder wall averages 0.5 cm in average thickness and is free of mass lesions. Fisheries Inspector sections of the gallbladder and the cystic duct are submitted in one cassette. / AM:kusum 04/16/18 TC:3 CPT: 06124
--- NOTE | 2018-04-13 13:04 | RAD_ITS ---
STUDY: INTRAOPERATIVE CHOLANGIOGRAM. REASON FOR EXAM: Female, 37 years old. Laparoscopic cholecystectomy. FLUOROSCOPY TIME (if supplied): (38.4 seconds) minutes/seconds TECHNIQUE: An intraoperative cholangiogram was performed by the surgeon. 4 images were submitted. COMPARISON: None. FINDINGS: The visualized intrahepatic and extrahepatic biliary ducts are unremarkable. No intraluminal filling defect is seen. There is free flow of contrast into the duodenum. RAD/Cholangiogram/ O R,Initial IMPRESSION: Unremarkable intraoperative cholangiogram. Electronically Signed: Jose Iverson MD at 9:50 EST Tel [phone], Service support ,
[2018-04-13] MEDS: Bupiv/Epi 0.5% Mpf 30 ML Vial (14:17)
--- NOTE | 2018-04-13 14:19 | PCM.OPRPT ---
Problem List (1) Chronic cholecystitis Status: Chronic Report of Operation Date of Procedure: 04/13/18 Pre-Operative Diagnosis: Chronic cholecystitis Post-Operative Diagnosis: Same Surgery/Procedure Performed:: Laparoscopic cholecystectomy with cholangiogram Description of Surgical Findings:: The patient had a very inflamed gallbladder. On cholangiogram the patient had a very short cystic duct. The patient also appear to have a short cystic artery. Specimen's removed: Gallbladder and contents Description of Procedure: After obtaining informed consent patient was brought back to the operating room. General anesthesia was induced. The abdomen was prepped and draped in usual sterile fashion. A small midline incision was made superior to the umbilicus and deepened to the level of fascia. The fascia was elevated and incised. Next the peritoneum was elevated and incised in the same fashion. Finger sweep was performed and the Cordero trocar was placed into the abdomen. The balloon was inflated. The abdomen was inflated to 15 mmHg. Next a camera was introduced into the abdomen and the abdomen was inspected. Next under direct visualization three 5-mm ports were placed one subxiphoid and 2 subcostal. Next the gallbladder was elevated and retracted toward the right shoulder. The peritoneum was stripped from the gallbladder. The infundibulum was located and retracted laterally. Next the triangle of Calot was dissected and the cystic duct and cystic artery were identified. Cholangiograms were performed. The Rodarte clamp was used to clamp across the infundibulum and the catheter needle was inserted into the gallbladder. Under fluoroscopy contrast was instilled into the gallbladder and the common duct, cystic duct as well as proximal hepatic ducts were identified. There was good filling of the duodenum. There were no filling defects noted in the common bile duct. The clamp was removed as well as the needle and the infundibulum was grasped once more. Three hemolock clips were placed across the cystic duct. The cystic duct was then divided leaving 2 clips on the stump. The cystic artery was clipped and divided in the same fashion. The hook cautery was then used to take the gallbladder off of the gallbladder bed. Hemostasis was obtained. Gallbladder fossa was irrigated and no active bleeding or bile leakage was noted. Next the camera switched to a 5 mm camera and introduced in the subxiphoid port. An Endopouch bag was placed through the umbilical port and the gallbladder was placed into it. The gallbladder was then removed through the umbilical incision. The camera was then reinserted through the umbilical port. The gallbladder fossa was inspected once more and noted to be hemostatic with no leaking bile. The abdomen was suctioned dry. The 5 mm ports were removed under direct visualization. The umbilical port was then removed and the air was removed from the abdomen. Next using an 0 Vicryl suture the umbilical fascia was closed in a [id number] fashion. The umbilical port site was irrigated local anesthetic was administered to all the incisions. All the incisions were closed with interrupted subcuticular 4-0 Monocryl sutures followed by Steri-Strips and dressings. The patient was awoken and taken to PACU in stable condition. - Admit VTE Documentation VTE Mechan Device Prophylaxis: SCD's
--- NOTE | 2018-04-13 14:23 | DCINST_ITS ---
Discharge Diet: Light diet - advance as tolerated Discharge Activity: Return to Normal Activity, May Not Drive - for 2-3 days or while taking narcotic pain medicataions., - - Do not drive, work heavy equipment or sign legal documents for 24 hours. May shower in (days): 1 - with the bandage in place. Additional Activity Instructions:: Pain medication may cause nausea. You should typically eat light foods as you take your pain medications. Pain medication may also cause constipation. If this is a problem for you, please discuss with your doctor. Call your doctor if your incision/area has: Continuous Slow Oozing, Sudden Increased Bleeding, Increased Pain/ Swelling, Increased Redness, Foul Smelling Discharge, Fever of 101 or Higher Call your doctor if you observe: Fever of 101 or Higher Suture Line Care: Avoid Pulling/Pushing, Avoid Pinching/Bending Additional Dressing/Incision Instructions:: Leave operative bandaids on for 2 days. When you remove dressing, leave Steri-Strips on until your follow-up appointment, or until the Steri-Strips fall off on their own. Allergies/Adverse Reactions: Allergies latex Allergy (Verified 04/12/18 14:35) Rash Penicillins [PCN] Allergy (Verified 04/12/18 14:35) Hives doxycycline Adverse Reaction (Verified 04/12/18 14:35) Nausea hydromorphone HCl [From Dilaudid] Adverse Reaction (Verified 04/12/18 14:35) Nausea Medications to take at Discharge Oxycodone HCl/Acetaminophen [Percocet 5-325] 1 - 2 tab PO 4X/DAY PRN PRN 5 Days #40 tab 02/24/18 levoFLOXacin tablet [Levaquin tablet] 500 mg PO DAILY #14 tab 02/24/18 proMETHazine tablet [Phenergan tablet] 25 mg PO 4X/DAY PRN PRN #30 tab 02/24/18 gabapentin 300 mg capsule 300 mg PO BID 03/29/18 Oxycodone HCl/Acetaminophen [Percocet 5/325] 1 - 2 tablet PO Q4H PRN PRN 7 Days #30 tablet 04/13/18 The following prescriptions were given: Oxycodone HCl/Acetaminophen [Percocet 5/325] 1 - 2 tablet PO Q4H PRN PRN 7 Days #30 tablet PRN Reason: Pain Orders to be completed after discharge: 12 Lead EKG [[facility]] Time Frame: 04/13/18, Location: None Selected Primary Care Physician: Bogdan Guerra DO [Primary Care Provider] - Test Results: Test results from this visit will be discussed in further detail at your follow- up appointment, if applicable. Please Follow Up With: Charli Martines MD When: Please call to schedule 2 week follow up appointment. [phone]
== END 2018-04-13 16:08 | disposition home or self-care (01) ==
LOC: SDC 09:55 → AC 09:57
PROVIDERS: Family Provider Family Medicine; PCP Family Medicine; Referring Provider Surgery; Visit Provider Surgery
PROC: (CPT 47610; principal; 2018-04-13 12:20)
DX: K80.10 Calculus of gallbladder with chronic cholecystitis without obstruction (principal)
CPT/HCPCS: 47563; 74300; 76000; 88304; 93005; J7120; J2405

== ENCOUNTER 2018-04-16 11:00 | Outpatient (RCR) | payer MEDICAID, SELFPAY ==
[2018-02-23 17:15] VITALS: BMI 23.7
[2018-03-17 00:57] VITALS: BP 110/78; PULSE 85; RESP 18; TEMP 35.6
[2018-03-19 09:16] VITALS: BP 129/77; PULSE 88; RESP 16; TEMP 37; BMI 23.7
--- NOTE | 2018-03-19 11:44 | PCM.WC.PN ---
(1) Non-pressure chronic ulcer of skin of other sites with fat layer exposed Status: Chronic Current Visit: Yes Code(s): L98.492 - Non-pressure chronic ulcer of skin of other sites with fat layer exposed (2) Hypergranulation Status: Chronic Current Visit: Yes Code(s): L92.9 - Granulomatous disorder of the skin and subcutaneous tissue, unspecified (3) Elevated alkaline phosphatase level Status: Acute Current Visit: Yes Code(s): R74.8 - Abnormal levels of other serum enzymes (4) Left axillary hidradenitis Status: Chronic Current Visit: Yes Code(s): L73.2 - Hidradenitis suppurativa Comment: L73.2 left axillary hidradenitis. Type of Wound Date of Service: 03/19/18 Chief Complaint: Recurrent hidradenitis ulcer left axillary area with recent placement of skin substitute graft. History of Wound: Surgery 02/23/18 - Surgical preparation left axilla with excisional debridement nonhealing hidradenitis ulcer and placement of Thera-skin skin substitute graft (39 cm2). Operative culture - Staphylococcus aureus. She was placed on Levaquin. Her Prealbumin on 02/24/18 was 17.4. Continue nutritional supplementation with protein to help the healing process. She finally had her teeth extraction done on 01/24/18. Today she denies any fever. Her appetite is good. While in the hospital, her repeat Alkaline Phosphatase was 188 and the isoenzymes were in the normal range of 73% for the liver and 25% for the bone and 2% for the intestine. On 03/12/18 Alkaline Phasphatase was 242. Will order an ultrasound of her liver, gallbladder and pancreas. Progress of Wound: Has a lot of granulation tissue. - Physical Exam Vital Signs Temp Pulse Resp BP 98.6 F 88 16 129/77 H 03/19/18 09:16 03/19/18 09:16 03/19/18 09:16 03/19/18 09:16 General: Alert, Oriented x3, Cooperative HEENT: Atraumatic Oral: Moist Mucosa Extremities: No edema, Capillary Refill Less than 3 Seconds Skin: Ulcer/ Wound - Left axilla opened area. Wound Measurements and Assessment WC - Nurse 1 - General Ulcer Measurement Start: 03/19/18 09:15 Freq: Status: Active Protocol: Activity Type Activity Date Activity User E-Sign Co-Sign Detail Recorded Client Recorded Date Recorded By Document 03/19/18 09:16 [id number] 03/19/18 09:30 DV 03/19/18 09:16 Wound Center Nurse 1 [Ulcer Assessment] #5 left axilla -Combined with other wound No -Current Size (cm) - Length 5.4 -Current Size (cm) - Width 8.1 -Current Size (cm) - Depth 0.3 -Total Square Cm 43.74 -Photo Taken No -Epithelialization Small 1-33% -Tunneling No -Undermining/Tunneling No -Circular Undermining No -Classification - Thickness Full Thickness without Exposed Support Structure -Exudate Amt Large (67-100%) -Exudate Type Serous -Wound Margin Indistinct, Non -Visible -Granulation Amt Large (67-100%) -Granulation Quality Hyper- granulation Red -Slough/Fibrin Yes -Necrosis Amt Large (67-100%) -Necrotic Tissue Type Adherent Slough -Texture (Sadie-wound Skin Appearance) Assessed Scarring Rash -Moisture (Sadie-wound Skin Appearance Assessed ) Weeping -Color (Sadie-wound Skin Appearance) Assessed Erythema -Temperature (Sadie-wound Skin No Abnormality Appearance) (Pt Warm) -Ulcer Cleansing Wound Cleanser -Foul Odor after Cleansing No -Anesthetic Used 4% Lidocaine Solution WC - Nurse 2 - General Ulcer CM Notes Start: 03/19/18 09:15 Freq: Status: Active Protocol: Activity Type Activity Date Activity User E-Sign Co-Sign Detail Recorded Client Recorded Date Recorded By Document 03/19/18 10:02 [email or web address] [id number] 03/19/18 10:10 03/19/18 10:02 Wound Center Nurse 2 [Procedure/Treatment] -Time 10:08 -Correct Patient Yes -Correct Side, Site, Position Yes -Correct Procedure Yes -Procedure Performed Yes -Type of Procedure Debridement -Clinical Debridement Subcutaneous -Post Debridement Size (cm) - Length 8.5 -Post Debridement Size (cm) - Width 4.5 -Post Debridement Size (cm) - Depth 0.1 -Total Square Cm 38.25 -Wound/Ulcer Outcome Not Healed -Ulcer Cleansing Rinsed/ Irrigated with Saline -Foul Odor after Cleansing No -Bioengineered Tissue Yes -Type of bioengineered Tissue [place] -Expiration Date 09/27/21 -Product Lot Number [id number] -Percent Used 100 -Saline Lot Number [id number] -Bleeding Controlled with Pressure -Offloading No [See Physician Procedure note for Specifics] Pain Scale: 0-10 Numeric [Pain] -Is Patient Pain Free? Yes Musculoskeletal: No Tenderness to Palpation of Joints or Extremities, No Muscle Wasting Neurological: Neuro grossly intact Psych/Mental Status: Normal Affect, Appropriate Debridement Note Post-Debridement Measurements/Treatment WC - Nurse 2 - General Ulcer CM Notes Start: 03/19/18 09:15 Freq: Status: Active Protocol: Activity Type Activity Date Activity User E-Sign Co-Sign Detail Recorded Client Recorded Date Recorded By Document 03/19/18 10:02 [id number] 03/19/18 10:10 03/19/18 10:02 Wound Center Nurse 2 #5 left axilla -Time 10:08 -Correct Patient Yes -Correct Side, Site, Position Yes -Correct Procedure Yes -Procedure Performed Yes -Type of Procedure Debridement -Clinical Debridement Subcutaneous -Post Debridement Size (cm) - Length 8.5 -Post Debridement Size (cm) - Width 4.5 -Post Debridement Size (cm) - Depth 0.1 -Total Square Cm 38.25 -Wound/Ulcer Outcome Not Healed -Ulcer Cleansing Rinsed/ Irrigated with Saline -Foul Odor after Cleansing No -Bioengineered Tissue Yes -Type of bioengineered Tissue [place] -Expiration Date 09/27/21 -Product Lot Number [id number] -Percent Used 100 -Saline Lot Number [id number] -Bleeding Controlled with Pressure -Offloading No Pain Scale: 0-10 Numeric Is Patient Pain Free? Yes Wound debrided: Left axilla Laterality: Left Type of Debridement: Excisional debridement Anesthesia Used: 5% Lidocaine Gel Depth: Down to and including healthy tissue, in the subcutaneous layer Percentage of wound debrided: 80 - Difficulty debriding wound due to the patient keeps putting her arm down to prevent the debridement. Instrument Used: 7mm curette Tissue Removed: Subcutaneous tissue and slough Severity: Fat Layer Exposed Amount of bleeding with debridement: Moderate Bleeding Controlled with: Compression and gauze Patient did not tolerate procedure well Assessment/Plan Active Problems Hypergranulation (Chronic) Elevated alkaline phosphatase level (Acute) Non-pressure chronic ulcer of skin of other sites with fat layer exposed (Chronic) Left axillary hidradenitis (Chronic) L73.2 left axillary hidradenitis. Assessment: 1. Nonhealing recurrent hidradenitis ulcer left axillary area. 2. H/O left axillary hidradenitis. 3. s/p surgical preparation left axilla with excisional debridement nonhealing hidradenitis ulcer and placement of Thera-skin skin substitute graft (39 cm2). 4. Elevated alkaline phosphatase level. Plan: She did have her teeth removed 01/24/18 and feels better. HBO was cancelled due to poor attendance. Thera-skin was placed in the left axilla on 02/23/18. The operative culture showed Staphylococcus aureus. She continues the Levaquin. Prealbumin from 02/24/18 was 17.4. Encourage nutritional supplementation with protein to help the healing process. She had LFT's done on 01/29/18 because of her usage of Diflucan to help treat the periwound rash. The Alkaline Phosphatase was elevated at 253 and the ALT was elevated at 70. The Diflucan was stopped. The Alkaline Phosphatase is still elevated at 188. The isoenzymes were in the normal percentage range of 75% for the liver and 23% for the bone and 2% for the intestine. Will continue to monitor as an outpatient. If chronically elevated despite stopping the Diflucan, will order imagining. 03/12/18 Alkaline phosphatase 242. Ordered an ultrasound of liver, gallbladder and pancreas. Periwound is excoriated again. Because the teeth have been removed, she was taken back to surgery and Thera-skin skin substitute graft was applied. There wasn't enough to cover the entire ulcer. Today she had Theraskin #4 placed. Secured with Dermabond and steri strips and topped with a wound veil. She has an excessive amount of hypergranulation tissue that was difficult to remove due to the fact she keeps putting her arm down to stop the debridement. Used 100% of the Thera-skin. She is complaining of increased burning pain. Started on Neurotin 300 mg TID. Followup one week with Dr. Eugene. Code Visit 150xxx-152xx: [id number] Skin sub graft trnk/arm/leg
[2018-03-26 09:59] VITALS: BP 131/76; PULSE 84; RESP 16; TEMP 37.1; BMI 23.7
--- NOTE | 2018-03-26 23:35 | PCM.WC.PN ---
Type of Wound Date of Service: 03/26/18 Chief Complaint: Recurrent hidradenitis ulcer left axillary area with recent placement of skin substitute graft. History of Wound: Surgery 02/23/18 - Surgical preparation left axilla with excisional debridement nonhealing hidradenitis ulcer and placement of Thera-skin skin substitute graft (39 cm2). Wound care - Thera-skin #3. Operative culture - Staphylococcus aureus. She was placed on Levaquin. Her Prealbumin on 02/24/18 was 17.4. Continue nutritional supplementation with protein to help the healing process. She finally had her teeth extraction done on 01/24/18. Today she denies any fever. Her appetite is good. While in the hospital, her repeat Alkaline Phosphatase was 188 and the isoenzymes were in the normal range of 73% for the liver and 25% for the bone and 2% for the intestine. Repeat Alkaline Phosphatase is still elevated at 242. Abdominal Ultrasound showed multiple gallstones. She had Thera-skin application #3 last week. Progress of Wound: Slowly improving after placement of Thera-skin skin substitute graft. - Physical Exam Vital Signs Temp Pulse Resp BP 98.7 F 84 16 131/76 H 03/26/18 09:59 03/26/18 09:59 03/26/18 09:59 03/26/18 09:59 Wound Measurements and Assessment WC - Nurse 1 - General Ulcer Measurement Start: 03/19/18 09:15 Freq: Status: Active Protocol: Activity Type Activity Date Activity User E-Sign Co-Sign Detail Recorded Client Recorded Date Recorded By Document 03/26/18 09:59 DL [id number] 03/26/18 10:08 DL 03/26/18 09:59 Wound Center Nurse 1 [Ulcer Assessment] #5 left axilla -Current Size (cm) - Length 7.8 -Current Size (cm) - Width 4.5 -Current Size (cm) - Depth 0.1 -Total Square Cm 35.10 -Photo Taken No -Exudate Amt Large (67-100%) -Exudate Type Yellow/Green -Wound Margin Distinct, Outline Attached -Granulation Amt Large (67-100%) -Granulation Quality Red -Necrosis Amt Small (1-33%) -Necrotic Tissue Type Adherent Slough -Structure Exposed N/A -Texture (Sadie-wound Skin Appearance) Excoriation Scarring -Moisture (Sadie-wound Skin Appearance Dry/Scaly ) -Color (Sadie-wound Skin Appearance) No Abnormality Erythema -Temperature (Sadie-wound Skin No Abnormality Appearance) (Pt Warm) -Tenderness on Palpation (Sadie-wound Yes Skin Appearance) -Ulcer Cleansing Wound Cleanser -Foul Odor after Cleansing Yes -Anesthetic Used 4% Lidocaine Solution - Nurse 2 - General Ulcer CM Notes Start: 03/19/18 09:15 Freq: Status: Active Protocol: Activity Type Activity Date Activity User E-Sign Co-Sign Detail Recorded Client Recorded Date Recorded By Document 03/26/18 11:08 [id number] 03/26/18 11:10 03/26/18 11:08 Wound Center Nurse 2 [Procedure/Treatment] -Time 11:09 -Correct Patient Yes -Correct Side, Site, Position Yes -Correct Procedure Yes -Procedure Performed Yes -Type of Procedure Debridement -Clinical Debridement Subcutaneous -Post Debridement Size (cm) - Length 7.8 -Post Debridement Size (cm) - Width 4.6 -Post Debridement Size (cm) - Depth 0.1 -Total Square Cm 35.88 -Wound/Ulcer Outcome Not Healed -Ulcer Cleansing Rinsed/ Irrigated with Saline -Foul Odor after Cleansing No -Bioengineered Tissue Yes -Type of bioengineered Tissue [place] -Expiration Date 10/05/21 -Product Lot Number [id number] -Percent Used 100 -Saline Lot Number [id number] -Bleeding Controlled with Pressure -Offloading No -Treatment Response Procedure Tolerated Well [See Physician Procedure note for Specifics] Pain Scale: 0-10 Numeric [Pain] -Is Patient Pain Free? Yes Debridement Note Post-Debridement Measurements/Treatment - Nurse 2 - General Ulcer CM Notes Start: 03/19/18 09:15 Freq: Status: Active Protocol: Activity Type Activity Date Activity User E-Sign Co-Sign Detail Recorded Client Recorded Date Recorded By Document 03/19/18 10:02 [email or web address] [id number] 03/19/18 10:10 Document 03/26/18 11:08 [id number] 03/26/18 11:10 03/19/18 03/26/18 10:02 11:08 Wound Center Nurse 2 #5 left axilla -Time 10:08 11:09 -Correct Patient Yes Yes -Correct Side, Site, Position Yes Yes -Correct Procedure Yes Yes -Procedure Performed Yes Yes -Type of Procedure Debridement Debridement -Clinical Debridement Subcutaneous Subcutaneous -Post Debridement Size (cm) - Length 8.5 7.8 -Post Debridement Size (cm) - Width 4.5 4.6 -Post Debridement Size (cm) - Depth 0.1 0.1 -Total Square Cm 38.25 35.88 -Wound/Ulcer Outcome Not Healed Not Healed -Ulcer Cleansing Rinsed/ Rinsed/ Irrigated with Irrigated with Saline Saline -Foul Odor after Cleansing No No -Bioengineered Tissue Yes Yes -Type of bioengineered Tissue THERASKIN THERASKIN -Expiration Date 09/27/21 10/05/21 -Product Lot Number [id number] -Percent Used 100 100 -Saline Lot Number [id number] -Bleeding Controlled with Pressure Pressure -Offloading No No -Treatment Response Procedure Tolerated Well Pain Scale: 0-10 Numeric Is Patient Pain Free? Yes Yes Wound debrided: #5 Left axilla. Laterality: Left Wound Grade/Stage: 2. Type of Debridement: Excisional debridement Anesthesia Used: 4% Lidocaine Solution Depth: Down to and including healthy tissue, in the subcutaneous layer Percentage of wound debrided: 100 Instrument Used: 7mm curette Tissue Removed: subcutaneous tissue. Severity: Fat Layer Exposed Amount of bleeding with debridement: Mild - some hypergranulation tissue present. Bleeding Controlled with: Pressure Patient tolerated procedure well - Had Thera-skin application #4 today. Product Lot Number - [id number]. I used 100% of the graft. Saline Lot Number - [id number]. Expiration - October 05, 2021. 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 Assessment: 1. Nonhealing recurrent hidradenitis ulcer left axillary area. 2. H/O left axillary hidradenitis. 3. s/p surgical preparation left axilla with excisional debridement nonhealing hidradenitis ulcer and placement of Thera-skin skin substitute graft (39 cm2). 4. Elevated alkaline phosphatase level. Plan: She did have her teeth removed 01/24/18 and feels better. HBO was cancelled due to poor attendance. Thera-skin was placed in the left axilla on 02/23/18. Today the skin substitute graft shows good adherence. The remaining ulcer is clean with persistent hypergranulation tissue but less than before surgery. The operative culture showed Staphylococcus aureus. She was placed on Levaquin. Prealbumin from 02/24/18 was 17.4. Encourage nutritional supplementation with protein to help the healing process. Her Alkaline Phosphatase is still elevated. Recent abdominal ultrasound showed multiple gallstones. Will have General Surgery evaluate. The wound should improve without further hypergranulation tissue growth because her teeth has been removed. She had Thera-skin application #4 today. Renewed her Percocet for pain (30 tabs). Followup one week.
[2018-04-02 11:25] VITALS: BP 135/79; PULSE 89; RESP 14; TEMP 37.2; BMI 23.7
--- NOTE | 2018-04-02 19:16 | PN.PCM_ITS ---
Type of Wound Date of Service: 04/02/18 Chief Complaint: Recurrent hidradenitis ulcer left axillary area with recent placement of skin substitute graft. History of Wound: Surgery 02/23/18 - Surgical preparation left axilla with excisional debridement nonhealing hidradenitis ulcer and placement of Thera-skin skin substitute graft (39 cm2). Wound care - Thera-skin #4. Operative culture - Staphylococcus aureus. She was placed on Levaquin. Her Prealbumin on 02/24/18 was 17.4. Continue nutritional supplementation with protein to help the healing process. She finally had her teeth extraction done on 01/24/18. Today she denies any fever. Her appetite is good. While in the hospital, her repeat Alkaline Phosphatase was 188 and the isoenzymes were in the normal range of 73% for the liver and 25% for the bone and 2% for the intestine. Repeat Alkaline Phosphatase is still elevated at 242. Abdominal Ultrasound showed multiple gallstones. She has had 4 applications of Thera-skin thus far. He saw General Surgery for her gallstones and a CT was recommended. That is pending. Progress of Wound: Slowly improving after placement of Thera-skin skin substitute graft. - Physical Exam Vital Signs Temp Pulse Resp BP 98.9 F 89 14 135/79 H 04/02/18 11:25 04/02/18 11:25 04/02/18 11:25 04/02/18 11:25 Wound Measurements and Assessment WC - Nurse 1 - General Ulcer Measurement Start: 03/19/18 09:15 Freq: Status: Active Protocol: Activity Type Activity Date Activity User E-Sign Co-Sign Detail Recorded Client Recorded Date Recorded By Document 04/02/18 11:25 [id number] 04/02/18 11:26 04/02/18 11:25 Wound Center Nurse 1 [Ulcer Assessment] #5 left axilla -Combined with other wound No -Current Size (cm) - Length 7.8 -Current Size (cm) - Width 4.2 -Current Size (cm) - Depth 0.1 -Total Square Cm 32.76 -Photo Taken No -Epithelialization None Present -Tunneling No -Undermining/Tunneling No -Circular Undermining No -Exudate Amt Medium (34-66%) -Exudate Type Serosanguineous -Wound Margin Distinct, Outline Attached -Granulation Amt Large (67-100%) -Granulation Quality Red -Slough/Fibrin Yes -Necrosis Amt None Present (0 %) -Necrotic Tissue Type Adherent Slough -Structure Exposed None/Limited to Skin Breakdown -Texture (Sadie-wound Skin Appearance) No Abnormality Assessed -Moisture (Sadie-wound Skin Appearance No Abnormality ) Assessed -Color (Sadie-wound Skin Appearance) No Abnormality Assessed -Temperature (Sadie-wound Skin No Abnormality Appearance) (Pt Warm) -Tenderness on Palpation (Sadie-wound Yes Skin Appearance) -Ulcer Cleansing Rinsed/ Irrigated with Saline -Foul Odor after Cleansing No -Anesthetic Used 4% Lidocaine Solution [Edema Assessment] -Lower Limb Edema Present NA - Nurse 2 - General Ulcer CM Notes Start: 03/19/18 09:15 Freq: Status: Active Protocol: Activity Type Activity Date Activity User E-Sign Co-Sign Detail Recorded Client Recorded Date Recorded By Document 04/02/18 11:58 [id number] 04/02/18 11:59 04/02/18 11:58 Wound Center Nurse 2 [Procedure/Treatment] #5 left axilla -Time 11:59 -Correct Patient Yes -Correct Side, Site, Position Yes -Correct Procedure Yes -Procedure Performed Yes -Type of Procedure Debridement -Clinical Debridement Subcutaneous -Post Debridement Size (cm) - Length 4.3 -Post Debridement Size (cm) - Width 7.8 -Post Debridement Size (cm) - Depth 0.1 -Total Square Cm 33.54 -Wound/Ulcer Outcome Not Healed -Ulcer Cleansing Rinsed/ Irrigated with Saline -Foul Odor after Cleansing No -Bioengineered Tissue No -Bleeding Controlled with Pressure -Offloading No -Treatment Response Procedure Tolerated Well [See Physician Procedure note for Specifics] Pain Scale: 0-10 Numeric [Pain] -Is Patient Pain Free? Yes Debridement Note Post-Debridement Measurements/Treatment - Nurse 2 - General Ulcer CM Notes Start: 03/19/18 09:15 Freq: Status: Active Protocol: Activity Type Activity Date Activity User E-Sign Co-Sign Detail Recorded Client Recorded Date Recorded By Document 03/19/18 10:02 [id number] 03/19/18 10:10 Document 03/26/18 11:08 [id number] 03/26/18 11:10 Document 04/02/18 11:58 [id number] 04/02/18 11:59 JF 03/19/18 03/26/18 04/02/18 10:02 11:08 11:58 Wound Center Nurse 2 #5 left axilla -Time 10:08 11:09 11:59 -Correct Patient Yes Yes Yes -Correct Side, Site, Position Yes Yes Yes -Correct Procedure Yes Yes Yes -Procedure Performed Yes Yes Yes -Type of Procedure Debridement Debridement Debridement -Clinical Debridement Subcutaneous Subcutaneous Subcutaneous -Post Debridement Size (cm) - Length 8.5 7.8 4.3 -Post Debridement Size (cm) - Width 4.5 4.6 7.8 -Post Debridement Size (cm) - Depth 0.1 0.1 0.1 -Total Square Cm 38.25 35.88 33.54 -Wound/Ulcer Outcome Not Healed Not Healed Not Healed -Ulcer Cleansing Rinsed/ Rinsed/ Rinsed/ Irrigated with Irrigated with Irrigated with Saline Saline Saline -Foul Odor after Cleansing No No No -Bioengineered Tissue Yes Yes No -Type of bioengineered Tissue THERASKIN THERASKIN -Expiration Date 09/27/21 10/05/21 -Product Lot Number [id number] -Percent Used 100 100 -Saline Lot Number [id number] -Bleeding Controlled with Pressure Pressure Pressure -Offloading No No No -Treatment Response Procedure Procedure Tolerated Well Tolerated Well Pain Scale: 0-10 Numeric Is Patient Pain Free? Yes Yes Yes Wound debrided: #5 Left axilla. Laterality: Left Wound Grade/Stage: 2. Type of Debridement: Excisional debridement Anesthesia Used: 4% Lidocaine Solution Depth: Down to and including healthy tissue, in the subcutaneous layer Percentage of wound debrided: 100 Instrument Used: 3mm curette Tissue Removed: subcutaneous tissue. Severity: Fat Layer Exposed Amount of bleeding with debridement: Mild - some hypergranulation tissue present. Bleeding Controlled with: Pressure, Silver Nitrate Patient tolerated procedure well Assessment/Plan Assessment: 1. Nonhealing recurrent hidradenitis ulcer left axillary area. 2. H/O left axillary hidradenitis. 3. s/p surgical preparation left axilla with excisional debridement nonhealing hidradenitis ulcer and placement of Thera-skin skin substitute graft (39 cm2). 4. Elevated alkaline phosphatase level and cholelithiasis. Plan: She did have her teeth removed 01/24/18 and feels better. HBO was cancelled due to poor attendance. Thera-skin was placed in the left axilla on 02/23/18. Today the skin substitute graft shows good adherence. The remaining ulcer is clean with persistent hypergranulation tissue but less than before surgery. The operative culture showed Staphylococcus aureus. She was placed o n Levaquin. Prealbumin from 02/24/18 was 17.4. Encourage nutritional supplementation with protein to help the healing process. Her Alkaline Phosphatase is still elevated. Recent abdominal ultrasound showed multiple gallstones. General Surgery evaluated her and recommended a CT scan. That is pending. The wound should improve without further hypergranulation tissue growth because her teeth has been removed. She was supposed to have another application of Thera-Skin today. However, the graft was not available so will need to be applied at her next visit. So the ulcer was dressed with Silver. Also Nystatin was applied to the periwound area. Followup 2 weeks.
[2018-04-16 11:12] VITALS: BP 119/80; PULSE 92; RESP 18; TEMP 36.5; BMI 23.7
--- NOTE | 2018-04-19 11:45 | PCM.WC.PN ---
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 Type of Wound Date of Service: 04/16/18 Chief Complaint: Recurrent hidradenitis ulcer left axillary area with recent placement of skin substitute graft. History of Wound: Surgery 02/23/18 - Surgical preparation left axilla with excisional debridement nonhealing hidradenitis ulcer and placement of Thera-skin skin substitute graft (39 cm2). Wound care - Thera-skin #4. Operative culture - Staphylococcus aureus. She was placed on Levaquin. Her Prealbumin on 02/24/18 was 17.4. Continue nutritional supplementation with protein to help the healing process. She finally had her teeth extraction done on 01/24/18. Today she denies any fever. Her appetite is good. While in the hospital, her repeat Alkaline Phosphatase was 188 and the isoenzymes were in the normal range of 73% for the liver and 25% for the bone and 2% for the intestine. Repeat Alkaline Phosphatase is still elevated at 242. Abdominal Ultrasound showed multiple gallstones. She had her gallbladder removed 04/13/18, that should help with her elevated Alkaline Phosphatase. She has had 4 applications of Thera-skin thus far. Progress of Wound: Slowly improving after placement of Thera-skin skin substitute graft. - Physical Exam Vital Signs Temp Pulse Resp BP 97.7 F L 92 18 119/80 04/16/18 11:12 04/16/18 11:12 04/16/18 11:12 04/16/18 11:12 General: Alert, Oriented x3, Cooperative HEENT: Atraumatic Oral: Moist Mucosa Lungs: Normal air movement Extremities: No edema, Capillary Refill Less than 3 Seconds Skin: Ulcer/ Wound - Left axilla Wound Measurements and Assessment WC - Nurse 1 - General Ulcer Measurement Start: 03/19/18 09:15 Freq: Status: Active Protocol: Activity Type Activity Date Activity User E-Sign Co-Sign Detail Recorded Client Recorded Date Recorded By Document 04/16/18 11:12 ANN MARIE [id number] 04/16/18 11:14 ANN MARIE 04/16/18 11:12 Wound Center Nurse 1 [Ulcer Assessment] #5 left axilla -Combined with other wound No -Current Size (cm) - Length 6.7 -Current Size (cm) - Width 4.4 -Current Size (cm) - Depth 0.1 -Total Square Cm 29.48 -Photo Taken No -Tunneling No -Undermining/Tunneling No -Circular Undermining No -Exudate Amt Large (67-100%) -Exudate Type Serosanguineous -Wound Margin Distinct, Outline Attached -Granulation Amt Large (67-100%) -Granulation Quality Red -Slough/Fibrin Yes -Necrosis Amt Small (1-33%) -Necrotic Tissue Type Adherent Slough -Structure Exposed N/A -Texture (Sadie-wound Skin Appearance) Assessed -Moisture (Sadie-wound Skin Appearance Assessed ) -Color (Sadie-wound Skin Appearance) Assessed -Temperature (Sadie-wound Skin No Abnormality Appearance) (Pt Warm) -Tenderness on Palpation (Sadie-wound No Skin Appearance) -Ulcer Cleansing Wound Cleanser -Foul Odor after Cleansing No -Anesthetic Used 4% Lidocaine Solution - Nurse 2 - General Ulcer CM Notes Start: 03/19/18 09:15 Freq: Status: Active Protocol: Activity Type Activity Date Activity User E-Sign Co-Sign Detail Recorded Client Recorded Date Recorded By Document 04/16/18 11:44 SHOSHANA [id number] 04/16/18 11:48 SHOSHANA 04/16/18 11:44 Wound Center Nurse 2 [Procedure/Treatment] -Time 11:47 -Correct Patient Yes -Correct Side, Site, Position Yes -Correct Procedure Yes -Procedure Performed Yes -Type of Procedure Debridement -Clinical Debridement Subcutaneous -Post Debridement Size (cm) - Length 7.5 -Post Debridement Size (cm) - Width 4 -Post Debridement Size (cm) - Depth 0.2 -Total Square Cm 30.0 -Wound/Ulcer Outcome Not Healed -Ulcer Cleansing Rinsed/ Irrigated with Saline -Foul Odor after Cleansing No -Bioengineered Tissue Yes -Type of bioengineered Tissue THER[place]IN -Expiration Date 10/10/21 -Product Lot Number [id number] -Percent Used 100 -Saline Lot Number [id number] -Bleeding Controlled with Pressure -Offloading No -Treatment Response Procedure Tolerated Well [See Physician Procedure note for Specifics] Pain Scale: 0-10 Numeric [Pain] -Is Patient Pain Free? Yes Musculoskeletal: No Tenderness to Palpation of Joints or Extremities Neurological: Neuro grossly intact Psych/Mental Status: Normal Affect, Appropriate Debridement Note Post-Debridement Measurements/Treatment WC - Nurse 2 - General Ulcer CM Notes Start: 03/19/18 09:15 Freq: Status: Active Protocol: Activity Type Activity Date Activity User E-Sign Co-Sign Detail Recorded Client Recorded Date Recorded By Document 03/19/18 10:02 [id number] 03/19/18 10:10 Document 03/26/18 11:08 [id number] 03/26/18 11:10 Document 04/02/18 11:58 [id number] 04/02/18 11:59 Document 04/16/18 11:44 [id number] 04/16/18 11:48 03/19/18 03/26/18 04/02/18 10:02 11:08 11:58 Wound Center Nurse 2 #5 left axilla -Time 10:08 11:09 11:59 -Correct Patient Yes Yes Yes -Correct Side, Site, Position Yes Yes Yes -Correct Procedure Yes Yes Yes -Procedure Performed Yes Yes Yes -Type of Procedure Debridement Debridement Debridement -Clinical Debridement Subcutaneous Subcutaneous Subcutaneous -Post Debridement Size (cm) - Length 8.5 7.8 4.3 -Post Debridement Size (cm) - Width 4.5 4.6 7.8 -Post Debridement Size (cm) - Depth 0.1 0.1 0.1 -Total Square Cm 38.25 35.88 33.54 -Wound/Ulcer Outcome Not Healed Not Healed Not Healed -Ulcer Cleansing Rinsed/ Rinsed/ Rinsed/ Irrigated with Irrigated with Irrigated with Saline Saline Saline -Foul Odor after Cleansing No No No -Bioengineered Tissue Yes Yes No -Type of bioengineered Tissue THERASKIN THERASKIN -Expiration Date 09/27/21 10/05/21 -Product Lot Number [id number] -Percent Used 100 100 -Saline Lot Number [id number] -Bleeding Controlled with Pressure Pressure Pressure -Offloading No No No -Treatment Response Procedure Procedure Tolerated Well Tolerated Well Pain Scale: 0-10 Numeric Is Patient Pain Free? Yes Yes Yes 04/16/18 11:44 Wound Center Nurse 2 #5 left axilla -Time 11:47 -Correct Patient Yes -Correct Side, Site, Position Yes -Correct Procedure Yes -Procedure Performed Yes -Type of Procedure Debridement -Clinical Debridement Subcutaneous -Post Debridement Size (cm) - Length 7.5 -Post Debridement Size (cm) - Width 4 -Post Debridement Size (cm) - Depth 0.2 -Total Square Cm 30.0 -Wound/Ulcer Outcome Not Healed -Ulcer Cleansing Rinsed/ Irrigated with Saline -Foul Odor after Cleansing No -Bioengineered Tissue Yes -Type of bioengineered Tissue [place]ER[place]IN -Expiration Date 10/10/21 -Product Lot Number [id number] -Percent Used 100 -Saline Lot Number [id number] -Bleeding Controlled with Pressure -Offloading No -Treatment Response Procedure Tolerated Well Pain Scale: 0-10 Numeric Is Patient Pain Free? Yes Wound debrided: Left axilla Laterality: Left Type of Debridement: Excisional debridement Anesthesia Used: 4% Lidocaine Solution Depth: Down to and including healthy tissue, in the subcutaneous layer Percentage of wound debrided: 100 Instrument Used: 7mm curette Tissue Removed: Subcutaneous tissue and slough Severity: Limited To Skin Breakdown Amount of bleeding with debridement: Moderate Bleeding Controlled with: Pressure, Compression and gauze Patient tolerated procedure well Patient continues to have a significant amount of hypergranulation. She is difficult to debride due to her constantly pulling away and putting arm down to avoid the debridement. Assessment/Plan Assessment: 1. Nonhealing recurrent hidradenitis ulcer left axillary area. 2. H/O left axillary hidradenitis. 3. s/p surgical preparation left axilla with excisional debridement nonhealing hidradenitis ulcer and placement of Thera-skin skin substitute graft (39 cm2). 4. Elevated alkaline phosphatase level and cholelithiasis. Plan: She did have her teeth removed 01/24/18 and feels better. HBO was cancelled due to poor attendance. Thera-skin was placed in the left axilla on 02/23/18. Today the skin substitute graft shows good adherence. The remaining ulcer is clean with persistent hypergranulation tissue but less than before surgery. The operative culture showed Staphylococcus aureus. She was placed on Levaquin. Prealbumin from 02/24/18 was 17.4. Encourage nutritional supplementation with protein to help the healing process. Her Alkaline Phosphatase is still elevated. Recent abdominal ultrasound showed multiple gallstones. She had her gallbladder removed 04/13/18. Theraskin #5 applied today, and secured with Dermabond and covered with wound veil. Her periwound has improved with the use of Nystatin powder. Followup 1 week. Code Visit [id number]: [id number] Skin sub graft trnk/arm/leg
--- NOTE | 2018-04-19 11:50 | PN.PCM_ITS ---
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 Type of Wound Date of Service: 04/16/18 Chief Complaint: Recurrent hidradenitis ulcer left axillary area with recent placement of skin substitute graft. History of Wound: Surgery 02/23/18 - Surgical preparation left axilla with excisional debridement nonhealing hidradenitis ulcer and placement of Thera-skin skin substitute graft (39 cm2). Wound care - Thera-skin #4. Operative culture - Staphylococcus aureus. She was placed on Levaquin. Her Prealbumin on 02/24/18 was 17.4. Continue nutritional supplementation with protein to help the healing process. She finally had her teeth extraction done on 01/24/18. Today she denies any fever. Her appetite is good. While in the hospital, her repeat Alkaline Phosphatase was 188 and the isoenzymes were in the normal range of 73% for the liver and 25% for the bone and 2% for the intestine. Repeat Alkaline Phosphatase is still elevated at 242. Abdominal Ultrasound showed multiple gallstones. She had her gallbladder removed 04/13/18, that should help with her elevated Alkaline Phosphatase. She has had 4 applications of Thera-skin thus far. Progress of Wound: Slowly improving after placement of Thera-skin skin substitute graft. - Physical Exam Vital Signs Temp Pulse Resp BP 97.7 F L 92 18 119/80 04/16/18 11:12 04/16/18 11:12 04/16/18 11:12 04/16/18 11:12 General: Alert, Oriented x3, Cooperative HEENT: Atraumatic Oral: Moist Mucosa Lungs: Normal air movement Extremities: No edema, Capillary Refill Less than 3 Seconds Skin: Ulcer/ Wound - Left axilla Wound Measurements and Assessment WC - Nurse 1 - General Ulcer Measurement Start: 03/19/18 09:15 Freq: Status: Active Protocol: Activity Type Activity Date Activity User E-Sign Co-Sign Detail Recorded Client Recorded Date Recorded By Document 04/16/18 11:12 ANN MARIE [id number] 04/16/18 11:14 ANN MARIE 04/16/18 11:12 Wound Center Nurse 1 [Ulcer Assessment] #5 left axilla -Combined with other wound No -Current Size (cm) - Length 6.7 -Current Size (cm) - Width 4.4 -Current Size (cm) - Depth 0.1 -Total Square Cm 29.48 -Photo Taken No -Tunneling No -Undermining/Tunneling No -Circular Undermining No -Exudate Amt Large (67-100%) -Exudate Type Serosanguineous -Wound Margin Distinct, Outline Attached -Granulation Amt Large (67-100%) -Granulation Quality Red -Slough/Fibrin Yes -Necrosis Amt Small (1-33%) -Necrotic Tissue Type Adherent Slough -Structure Exposed N/A -Texture (Sadie-wound Skin Appearance) Assessed -Moisture (Sadie-wound Skin Appearance Assessed ) -Color (Sadie-wound Skin Appearance) Assessed -Temperature (Sadie-wound Skin No Abnormality Appearance) (Pt Warm) -Tenderness on Palpation (Sadie-wound No Skin Appearance) -Ulcer Cleansing Wound Cleanser -Foul Odor after Cleansing No -Anesthetic Used 4% Lidocaine Solution - Nurse 2 - General Ulcer CM Notes Start: 03/19/18 09:15 Freq: Status: Active Protocol: Activity Type Activity Date Activity User E-Sign Co-Sign Detail Recorded Client Recorded Date Recorded By Document 04/16/18 11:44 SHOSHANA [id number] 04/16/18 11:48 SHOSHANA 04/16/18 11:44 Wound Center Nurse 2 [Procedure/Treatment] -Time 11:47 -Correct Patient Yes -Correct Side, Site, Position Yes -Correct Procedure Yes -Procedure Performed Yes -Type of Procedure Debridement -Clinical Debridement Subcutaneous -Post Debridement Size (cm) - Length 7.5 -Post Debridement Size (cm) - Width 4 -Post Debridement Size (cm) - Depth 0.2 -Total Square Cm 30.0 -Wound/Ulcer Outcome Not Healed -Ulcer Cleansing Rinsed/ Irrigated with Saline -Foul Odor after Cleansing No -Bioengineered Tissue Yes -Type of bioengineered Tissue [place] -Expiration Date 10/10/21 -Product Lot Number [id number] -Percent Used 100 -Saline Lot Number [id number] -Bleeding Controlled with Pressure -Offloading No -Treatment Response Procedure Tolerated Well [See Physician Procedure note for Specifics] Pain Scale: 0-10 Numeric [Pain] -Is Patient Pain Free? Yes Musculoskeletal: No Tenderness to Palpation of Joints or Extremities Neurological: Neuro grossly intact Psych/Mental Status: Normal Affect, Appropriate Debridement Note Post-Debridement Measurements/Treatment WC - Nurse 2 - General Ulcer CM Notes Start: 03/19/18 09:15 Freq: Status: Active Protocol: Activity Type Activity Date Activity User E-Sign Co-Sign Detail Recorded Client Recorded Date Recorded By Document 03/19/18 10:02 [id number] 03/19/18 10:10 Document 03/26/18 11:08 [id number] 03/26/18 11:10 Document 04/02/18 11:58 [id number] 04/02/18 11:59 Document 04/16/18 11:44 [id number] 04/16/18 11:48 03/19/18 03/26/18 04/02/18 10:02 11:08 11:58 Wound Center Nurse 2 #5 left axilla -Time 10:08 11:09 11:59 -Correct Patient Yes Yes Yes -Correct Side, Site, Position Yes Yes Yes -Correct Procedure Yes Yes Yes -Procedure Performed Yes Yes Yes -Type of Procedure Debridement Debridement Debridement -Clinical Debridement Subcutaneous Subcutaneous Subcutaneous -Post Debridement Size (cm) - Length 8.5 7.8 4.3 -Post Debridement Size (cm) - Width 4.5 4.6 7.8 -Post Debridement Size (cm) - Depth 0.1 0.1 0.1 -Total Square Cm 38.25 35.88 33.54 -Wound/Ulcer Outcome Not Healed Not Healed Not Healed -Ulcer Cleansing Rinsed/ Rinsed/ Rinsed/ Irrigated with Irrigated with Irrigated with Saline Saline Saline -Foul Odor after Cleansing No No No -Bioengineered Tissue Yes Yes No -Type of bioengineered Tissue [place]ER[place] THERASKIN -Expiration Date 09/27/21 10/05/21 -Product Lot Number [id number] -Percent Used 100 100 -Saline Lot Number [id number] -Bleeding Controlled with Pressure Pressure Pressure -Offloading No No No -Treatment Response Procedure Procedure Tolerated Well Tolerated Well Pain Scale: 0-10 Numeric Is Patient Pain Free? Yes Yes Yes 04/16/18 11:44 Wound Center Nurse 2 #5 left axilla -Time 11:47 -Correct Patient Yes -Correct Side, Site, Position Yes -Correct Procedure Yes -Procedure Performed Yes -Type of Procedure Debridement -Clinical Debridement Subcutaneous -Post Debridement Size (cm) - Length 7.5 -Post Debridement Size (cm) - Width 4 -Post Debridement Size (cm) - Depth 0.2 -Total Square Cm 30.0 -Wound/Ulcer Outcome Not Healed -Ulcer Cleansing Rinsed/ Irrigated with Saline -Foul Odor after Cleansing No -Bioengineered Tissue Yes -Type of bioengineered Tissue [place] -Expiration Date 10/10/21 -Product Lot Number [id number] -Percent Used 100 -Saline Lot Number [id number] -Bleeding Controlled with Pressure -Offloading No -Treatment Response Procedure Tolerated Well Pain Scale: 0-10 Numeric Is Patient Pain Free? Yes Wound debrided: Left axilla Laterality: Left Type of Debridement: Excisional debridement Anesthesia Used: 4% Lidocaine Solution Depth: Down to and including healthy tissue, in the subcutaneous layer Percentage of wound debrided: 100 Instrument Used: 7mm curette Tissue Removed: Subcutaneous tissue and slough Severity: Limited To Skin Breakdown Amount of bleeding with debridement: Moderate Bleeding Controlled with: Pressure, Compression and gauze Patient tolerated procedure well Patient continues to have a significant amount of hypergranulation. She is difficult to debride due to her constantly pulling away and putting arm down to avoid the debridement. Assessment/Plan Assessment: 1. Nonhealing recurrent hidradenitis ulcer left axillary area. 2. H/O left axillary hidradenitis. 3. s/p surgical preparation left axilla with excisional debridement nonhealing hidradenitis ulcer and placement of Thera-skin skin substitute graft (39 cm2). 4. Elevated alkaline phosphatase level and cholelithiasis. Plan: She did have her teeth removed 01/24/18 and feels better. HBO was cancelled due to poor attendance. Thera-skin was placed in the left axilla on 02/23/18. Today the skin substitute graft shows good adherence. The remaining ulcer is clean with persistent hypergranulation tissue but less than before surgery. The operative culture showed Staphylococcus aureus. She was placed on Levaquin. Prealbumin from 02/24/18 was 17.4. Encourage nutritional supplementation with protein to help the healing process. Her Alkaline Phosphatase is still elevated. Recent abdominal ultrasound showed multiple gallstones. She had her gallbladder removed 04/13/18. Theraskin #5 applied today, and secured with Dermabond and covered with wound veil. Her periwound has improved with the use of Nystatin powder. Followup 1 week. Code Visit 150xxx-152xx: [id number] Skin sub graft trnk/arm/leg
== END 2018-04-16 23:59 ==
LOC: WC 11:00
PROVIDERS: Family Provider Family Medicine; PCP Family Medicine; Referring Provider Surgery; Visit Provider Surgery
DX: L73.2 Hidradenitis suppurativa (principal); R74.8 Abnormal levels of other serum enzymes; L98.492 Non-pressure chronic ulcer of skin of other sites with fat layer exposed; L92.9 Granulomatous disorder of the skin and subcutaneous tissue, unspecified
CPT/HCPCS: 11042; 11045; 15271; 15272; Q4121

== ENCOUNTER → 2018-04-30 09:37 | Outpatient (CLI) | payer MEDICAID, SELFPAY ==
[2018-04-24 15:22] VITALS: BMI 24.5
[2018-04-30 10:49] LABS: Alkaline Phosphatase 143 U/L (45-117)
== END ==
PROVIDERS: Family Provider Family Medicine; PCP Family Medicine; Referring Provider Surgery; Visit Provider Surgery
DX: R74.8 Abnormal levels of other serum enzymes (principal)
CPT/HCPCS: 36415; 84075

== ENCOUNTER 2018-05-15 14:00 | Outpatient (RCR) | payer MEDICAID, SELFPAY ==
[2018-04-17 00:45] VITALS: BP 119/80; PULSE 92; RESP 18; TEMP 36.5
[2018-04-20 10:48] VITALS: BMI 24.5
[2018-04-24 15:22] VITALS: BP 121/96; PULSE 98; RESP 18; TEMP 37.2; BMI 24.5
--- NOTE | 2018-04-24 15:22 | PCM.WC.PN ---
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 (3) Hypergranulation Status: Chronic Code(s): L92.9 - Granulomatous disorder of the skin and subcutaneous tissue, unspecified Type of Wound Date of Service: 04/24/18 Chief Complaint: Recurrent hidradenitis ulcer left axillary area with recent placement of skin substitute graft. History of Wound: Surgery 02/23/18 - Surgical preparation left axilla with excisional debridement nonhealing hidradenitis ulcer and placement of Thera-skin skin substitute graft (39 cm2). Wound care - Thera-skin #6. Operative culture - Staphylococcus aureus. She was placed on Levaquin. Her Prealbumin on 02/24/18 was 17.4. Continue nutritional supplementation with protein to help the healing process. She finally had her teeth extraction done on 01/24/18. Today she denies any fever. Her appetite is good. While in the hospital, her repeat Alkaline Phosphatase was 188 and the isoenzymes were in the normal range of 73% for the liver and 25% for the bone and 2% for the intestine. Repeat Alkaline Phosphatase is still elevated at 242. Abdominal Ultrasound showed multiple gallstones. She had Thera-skin application #5 last week. Progress of Wound: Slowly improving after placement of Thera-skin skin substitute graft. Less hypergranulation this week. - Physical Exam Vital Signs Temp Pulse Resp BP 97.7 F L 92 18 119/80 04/17/18 00:45 04/17/18 00:45 04/17/18 00:45 04/17/18 00:45 General: Alert, Oriented x3, Cooperative HEENT: Atraumatic Oral: Moist Mucosa Lungs: Normal air movement Extremities: No edema, Capillary Refill Less than 3 Seconds Skin: Ulcer/ Wound - Left axillary ulcer Musculoskeletal: No Tenderness to Palpation of Joints or Extremities Neurological: Neuro grossly intact Psych/Mental Status: Normal Affect, Appropriate Debridement Note Wound debrided: Left axilla Laterality: Left Type of Debridement: Excisional debridement Anesthesia Used: 4% Lidocaine Solution Depth: Down to and including healthy tissue, in the subcutaneous layer Percentage of wound debrided: 100 Instrument Used: 7mm curette Tissue Removed: Subcutaneous tissue and slough Severity: Fat Layer Exposed Amount of bleeding with debridement: Moderate Bleeding Controlled with: Pressure, Compression and gauze Patient tolerated procedure well Assessment/Plan Assessment: 1. Nonhealing recurrent hidradenitis ulcer left axillary area. 2. H/O left axillary hidradenitis. 3. s/p surgical preparation left axilla with excisional debridement nonhealing hidradenitis ulcer and placement of Thera-skin skin substitute graft (39 cm2). 4. Elevated alkaline phosphatase level. Plan: She did have her teeth removed 01/24/18 and feels better. HBO was cancelled due to poor attendance. Thera-skin was placed in the left axilla on 02/23/18. The operative culture showed Staphylococcus aureus. She was placed on Levaquin. Prealbumin from 02/24/18 was 17.4. Encourage nutritional supplementation with protein to help the healing process. Her Alkaline Phosphatase is still elevated. Recent abdominal ultrasound showed multiple gallstones. On 04/13/18 she had a laparoscopic cholecystectomy with cholangiogram. This should help with her elevated Alkaline Phosphatase. The wound should improve without further hypergranulation tissue growth because her teeth and gallbladder have been removed. She had Thera-skin application #6 today. She did have less hypergranulation today and her periwound is looking much better. Followup one week. Code Visit 150xxx-152xx: 67241 Skin sub graft trnk/arm/leg
[2018-04-30 10:01] VITALS: BP 126/76; PULSE 91; RESP 18; TEMP 36.6; BMI 24.5
--- NOTE | 2018-04-30 16:33 | PCM.WC.PN ---
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 (3) Hypergranulation Status: Chronic Current Visit: Yes Code(s): L92.9 - Granulomatous disorder of the skin and subcutaneous tissue, unspecified Type of Wound Date of Service: 04/30/18 Chief Complaint: Recurrent hidradenitis ulcer left axillary area with recent placement of skin substitute graft. History of Wound: Surgery 02/23/18 - Surgical preparation left axilla with excisional debridement nonhealing hidradenitis ulcer and placement of Thera-skin skin substitute graft (39 cm2). Wound care - Thera-skin #6. Operative culture - Staphylococcus aureus. She was placed on Levaquin. Her Prealbumin on 02/24/18 was 17.4. Continue nutritional supplementation with protein to help the healing process. She finally had her teeth extraction done on 01/24/18. Today she denies any fever. Her appetite is good. While in the hospital, her repeat Alkaline Phosphatase was 188 and the isoenzymes were in the normal range of 73% for the liver and 25% for the bone and 2% for the intestine. Repeat Alkaline Phosphatase is still elevated at 242. Abdominal Ultrasound showed multiple gallstones. She had Thera-skin application #5 last week. Progress of Wound: Slowly improving after placement of Thera-skin skin substitute graft. Less hypergranulation this week. - Physical Exam Vital Signs Temp Pulse Resp BP 97.9 F 91 18 126/76 H 04/30/18 10:01 04/30/18 10:01 04/30/18 10:01 04/30/18 10:01 General: Alert, Oriented x3, Cooperative HEENT: Atraumatic Oral: Moist Mucosa Lungs: Normal air movement Extremities: No edema, Capillary Refill Less than 3 Seconds Skin: Ulcer/ Wound - Left axilla opened area Wound Measurements and Assessment WC - Nurse 1 - General Ulcer Measurement Start: 04/24/18 15:22 Freq: Status: Active Protocol: Activity Type Activity Date Activity User E-Sign Co-Sign Detail Recorded Client Recorded Date Recorded By Document 04/30/18 10:01 DL [id number] 04/30/18 10:09 DL 04/30/18 10:01 Wound Center Nurse 1 [Ulcer Assessment] #5 left axilla -Current Size (cm) - Length 4 -Current Size (cm) - Width 7 -Current Size (cm) - Depth 0.2 -Total Square Cm 28 -Photo Taken No -Exudate Amt Medium -Exudate Type Serosanguineous -Wound Margin Indistinct, Non -Visible -Granulation Amt Large (67-100%) -Granulation Quality [place] -Necrosis Amt Small (1-33%) -Necrotic Tissue Type Adherent Slough -Structure Exposed N/A -Texture (Sadie-wound Skin Appearance) Excoriation Scarring -Moisture (Sadie-wound Skin Appearance Dry/Scaly ) -Color (Sadie-wound Skin Appearance) Rubor -Temperature (Sadie-wound Skin No Abnormality Appearance) (Pt Warm) -Tenderness on Palpation (Sadie-wound No Skin Appearance) -Ulcer Cleansing Rinsed/ Irrigated with Saline -Foul Odor after Cleansing No -Anesthetic Used 4% Lidocaine Solution WC - Nurse 2 - General Ulcer CM Notes Start: 04/24/18 15:22 Freq: Status: Active Protocol: Activity Type Activity Date Activity User E-Sign Co-Sign Detail Recorded Client Recorded Date Recorded By Document 04/30/18 10:54 SHOSHANA [id number] 04/30/18 11:00 SHOSHANA 04/30/18 10:54 Wound Center Nurse 2 [Procedure/Treatment] -Time 10:54 -Correct Patient Yes -Correct Side, Site, Position Yes -Correct Procedure Yes -Procedure Performed Yes -Type of Procedure Debridement -Clinical Debridement Subcutaneous -Post Debridement Size (cm) - Length 7.0 -Post Debridement Size (cm) - Width 3.5 -Post Debridement Size (cm) - Depth 0.1 -Total Square Cm 24.50 -Wound/Ulcer Outcome Not Healed -Ulcer Cleansing Rinsed/ Irrigated with Saline -Foul Odor after Cleansing No -Bioengineered Tissue No -Bleeding Controlled with Pressure -Offloading No -Treatment Response Procedure Tolerated Well [See Physician Procedure note for Specifics] Pain Scale: 0-10 Numeric [Pain] -Is Patient Pain Free? Yes Musculoskeletal: No Tenderness to Palpation of Joints or Extremities Neurological: Neuro grossly intact Psych/Mental Status: Normal Affect, Appropriate Debridement Note Post-Debridement Measurements/Treatment WC - Nurse 2 - General Ulcer CM Notes Start: 04/24/18 15:22 Freq: Status: Active Protocol: Activity Type Activity Date Activity User E-Sign Co-Sign Detail Recorded Client Recorded Date Recorded By Document 04/24/18 16:06 [id number] 04/24/18 16:07 Document 04/30/18 10:54 [id number] 04/30/18 11:00 04/24/18 04/30/18 16:06 10:54 Wound Center Nurse 2 #5 left axilla -Time 16:06 10:54 -Correct Patient Yes Yes -Correct Side, Site, Position Yes Yes -Correct Procedure Yes Yes -Procedure Performed Yes Yes -Type of Procedure Debridement Debridement -Clinical Debridement Subcutaneous Subcutaneous -Post Debridement Size (cm) - Length 7 7.0 -Post Debridement Size (cm) - Width 3.7 3.5 -Post Debridement Size (cm) - Depth 0.2 0.1 -Total Square Cm 25.9 24.50 -Wound/Ulcer Outcome Not Healed Not Healed -Ulcer Cleansing Rinsed/ Rinsed/ Irrigated with Irrigated with Saline Saline -Foul Odor after Cleansing No No -Bioengineered Tissue Yes No -Type of bioengineered Tissue [place] -Expiration Date 10/15/21 -Product Lot Number [id number] -Percent Used 100 -Saline Lot Number [id number] -Bleeding Controlled with Pressure Pressure -Offloading No No -Treatment Response Procedure Procedure Tolerated Well Tolerated Well Pain Scale: 0-10 Numeric Is Patient Pain Free? Yes Yes Wound debrided: Left axilla Laterality: Left Type of Debridement: Excisional debridement Anesthesia Used: 4% Lidocaine Solution Depth: Down to and including healthy tissue, in the subcutaneous layer Percentage of wound debrided: 100 Instrument Used: 3mm curette Tissue Removed: Subcutaneous tissue and slough Severity: Fat Layer Exposed Amount of bleeding with debridement: Mild Bleeding Controlled with: Pressure, Compression and gauze Patient tolerated procedure well Not as much hypergranulation present Assessment/Plan Active Problems (Last Reviewed 04/30/18 @ 09:12 by Jeanie Rodriguez) Hypergranulation (Chronic) Non-pressure chronic ulcer of skin of other sites with fat layer exposed (Chronic) Left axillary hidradenitis (Chronic) L73.2 left axillary hidradenitis. Assessment: 1. Nonhealing recurrent hidradenitis ulcer left axillary area. 2. H/O left axillary hidradenitis. 3. s/p surgical preparation left axilla with excisional debridement nonhealing hidradenitis ulcer and placement of Thera-skin skin substitute graft (39 cm2). 4. Elevated alkaline phosphatase level. Plan: She did have her teeth removed 01/24/18 and feels better. HBO was cancelled due to poor attendance. Thera-skin was placed in the left axilla on 02/23/18. The operative culture showed Staphylococcus aureus. She was placed on Levaquin. Prealbumin from 02/24/18 was 17.4. Encourage nutritional supplementation with protein to help the healing process. Her Alkaline Phosphatase is still elevated. Recent abdominal ultrasound showed multiple gallstones. On 04/13/18 she had a laparoscopic cholecystectomy with cholangiogram. This should help with her elevated Alkaline Phosphatase. The wound should improve without further hypergranulation tissue growth because her teeth and gallbladder have been removed. She came in a day early, therefore the Theraskin is not available. Will do silver dressing changes daily this week and restart theraskin next week. She did have less hypergranulation today. Her periwound is excoriated again. Hopefully with the silver dressing changes and being able to shower regularly, this will help promote the periwound healing. Followup one week. Code Visit 111xxx-113xx: 43107 Ligia subq tissue 20 sq cm/< Add On Codes: 16656 Ligia subq tissue add-on
--- NOTE | 2018-04-30 16:39 | PN.PCM_ITS ---
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 (3) Hypergranulation Status: Chronic Current Visit: Yes Code(s): L92.9 - Granulomatous disorder of the skin and subcutaneous tissue, unspecified Type of Wound Date of Service: 04/30/18 Chief Complaint: Recurrent hidradenitis ulcer left axillary area with recent placement of skin substitute graft. History of Wound: Surgery 02/23/18 - Surgical preparation left axilla with excisional debridement nonhealing hidradenitis ulcer and placement of Thera-skin skin substitute graft (39 cm2). Wound care - Thera-skin #6. Operative culture - Staphylococcus aureus. She was placed on Levaquin. Her Prealbumin on 02/24/18 was 17.4. Continue nutritional supplementation with protein to help the healing process. She finally had her teeth extraction done on 01/24/18. Today she denies any fever. Her appetite is good. While in the hospital, her repeat Alkaline Phosphatase was 188 and the isoenzymes were in the normal range of 73% for the liver and 25% for the bone and 2% for the intestine. Repeat Alkaline Phosphatase is still elevated at 242. Abdominal Ultrasound showed multiple gallstones. She had Thera-skin application #5 last week. Progress of Wound: Slowly improving after placement of Thera-skin skin substitute graft. Less hypergranulation this week. - Physical Exam Vital Signs Temp Pulse Resp BP 97.9 F 91 18 126/76 H 04/30/18 10:01 04/30/18 10:01 04/30/18 10:01 04/30/18 10:01 General: Alert, Oriented x3, Cooperative HEENT: Atraumatic Oral: Moist Mucosa Lungs: Normal air movement Extremities: No edema, Capillary Refill Less than 3 Seconds Skin: Ulcer/ Wound - Left axilla opened area Wound Measurements and Assessment WC - Nurse 1 - General Ulcer Measurement Start: 04/24/18 15:22 Freq: Status: Active Protocol: Activity Type Activity Date Activity User E-Sign Co-Sign Detail Recorded Client Recorded Date Recorded By Document 04/30/18 10:01 DL [id number] 04/30/18 10:09 DL 04/30/18 10:01 Wound Center Nurse 1 [Ulcer Assessment] #5 left axilla -Current Size (cm) - Length 4 -Current Size (cm) - Width 7 -Current Size (cm) - Depth 0.2 -Total Square Cm 28 -Photo Taken No -Exudate Amt Medium -Exudate Type Serosanguineous -Wound Margin Indistinct, Non -Visible -Granulation Amt Large (67-100%) -Granulation Quality [place] -Necrosis Amt Small (1-33%) -Necrotic Tissue Type Adherent Slough -Structure Exposed N/A -Texture (Sadie-wound Skin Appearance) Excoriation Scarring -Moisture (Sadie-wound Skin Appearance Dry/Scaly ) -Color (Sadie-wound Skin Appearance) Rubor -Temperature (Sadie-wound Skin No Abnormality Appearance) (Pt Warm) -Tenderness on Palpation (Sadie-wound No Skin Appearance) -Ulcer Cleansing Rinsed/ Irrigated with Saline -Foul Odor after Cleansing No -Anesthetic Used 4% Lidocaine Solution WC - Nurse 2 - General Ulcer CM Notes Start: 04/24/18 15:22 Freq: Status: Active Protocol: Activity Type Activity Date Activity User E-Sign Co-Sign Detail Recorded Client Recorded Date Recorded By Document 04/30/18 10:54 SHOSHANA [id number] 04/30/18 11:00 SHOSHANA 04/30/18 10:54 Wound Center Nurse 2 [Procedure/Treatment] -Time 10:54 -Correct Patient Yes -Correct Side, Site, Position Yes -Correct Procedure Yes -Procedure Performed Yes -Type of Procedure Debridement -Clinical Debridement Subcutaneous -Post Debridement Size (cm) - Length 7.0 -Post Debridement Size (cm) - Width 3.5 -Post Debridement Size (cm) - Depth 0.1 -Total Square Cm 24.50 -Wound/Ulcer Outcome Not Healed -Ulcer Cleansing Rinsed/ Irrigated with Saline -Foul Odor after Cleansing No -Bioengineered Tissue No -Bleeding Controlled with Pressure -Offloading No -Treatment Response Procedure Tolerated Well [See Physician Procedure note for Specifics] Pain Scale: 0-10 Numeric [Pain] -Is Patient Pain Free? Yes Musculoskeletal: No Tenderness to Palpation of Joints or Extremities Neurological: Neuro grossly intact Psych/Mental Status: Normal Affect, Appropriate Debridement Note Post-Debridement Measurements/Treatment WC - Nurse 2 - General Ulcer CM Notes Start: 04/24/18 15:22 Freq: Status: Active Protocol: Activity Type Activity Date Activity User E-Sign Co-Sign Detail Recorded Client Recorded Date Recorded By Document 04/24/18 16:06 [id number] 04/24/18 16:07 Document 04/30/18 10:54 [id number] 04/30/18 11:00 04/24/18 04/30/18 16:06 10:54 Wound Center Nurse 2 #5 left axilla -Time 16:06 10:54 -Correct Patient Yes Yes -Correct Side, Site, Position Yes Yes -Correct Procedure Yes Yes -Procedure Performed Yes Yes -Type of Procedure Debridement Debridement -Clinical Debridement Subcutaneous Subcutaneous -Post Debridement Size (cm) - Length 7 7.0 -Post Debridement Size (cm) - Width 3.7 3.5 -Post Debridement Size (cm) - Depth 0.2 0.1 -Total Square Cm 25.9 24.50 -Wound/Ulcer Outcome Not Healed Not Healed -Ulcer Cleansing Rinsed/ Rinsed/ Irrigated with Irrigated with Saline Saline -Foul Odor after Cleansing No No -Bioengineered Tissue Yes No -Type of bioengineered Tissue [place] -Expiration Date 10/15/21 -Product Lot Number [id number] -Percent Used 100 -Saline Lot Number [id number] -Bleeding Controlled with Pressure Pressure -Offloading No No -Treatment Response Procedure Procedure Tolerated Well Tolerated Well Pain Scale: 0-10 Numeric Is Patient Pain Free? Yes Yes Wound debrided: Left axilla Laterality: Left Type of Debridement: Excisional debridement Anesthesia Used: 4% Lidocaine Solution Depth: Down to and including healthy tissue, in the subcutaneous layer Percentage of wound debrided: 100 Instrument Used: 3mm curette Tissue Removed: Subcutaneous tissue and slough Severity: Fat Layer Exposed Amount of bleeding with debridement: Mild Bleeding Controlled with: Pressure, Compression and gauze Patient tolerated procedure well Not as much hypergranulation present Assessment/Plan Active Problems (Last Reviewed 04/30/18 @ 09:12 by Jeanie Rodriguez) Hypergranulation (Chronic) Non-pressure chronic ulcer of skin of other sites with fat layer exposed (Chronic) Left axillary hidradenitis (Chronic) L73.2 left axillary hidradenitis. Assessment: 1. Nonhealing recurrent hidradenitis ulcer left axillary area. 2. H/O left axillary hidradenitis. 3. s/p surgical preparation left axilla with excisional debridement nonhealing hidradenitis ulcer and placement of Thera-skin skin substitute graft (39 cm2). 4. Elevated alkaline phosphatase level. Plan: She did have her teeth removed 01/24/18 and feels better. HBO was cancelled due to poor attendance. Thera-skin was placed in the left axilla on 02/23/18. The operative culture showed Staphylococcus aureus. She was placed on Levaquin. Prealbumin from 02/24/18 was 17.4. Encourage nutritional supplementation with protein to help the healing process. Her Alkaline Phosphatase is still elevated. Recent abdominal ultrasound showed multiple gallstones. On 04/13/18 she had a laparoscopic cholecystectomy with cholangiogram. This should help with her elevated Alkaline Phosphatase. The wound should improve without further hypergranulation tissue growth because her teeth and gallbladder have been removed. She came in a day early, therefore the Theraskin is not available. Will do silver dressing changes daily this week and restart theraskin next week. She did have less hypergranulation today. Her periwound is excoriated again. Hopefully with the silver dressing changes and being able to shower regularly, this will help promote the periwound healing. Followup one week. Code Visit 111xxx-113xx: [id number] Ligia subq tissue 20 sq cm/< Add On Codes: 17287 Ligia subq tissue add-on
[2018-05-08 13:32] VITALS: BP 129/82; PULSE 87; RESP 20; TEMP 36.4; BMI 24.5
--- NOTE | 2018-05-08 14:48 | PN.PCM_ITS ---
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 (3) Hypergranulation Status: Chronic Current Visit: Yes Code(s): L92.9 - Granulomatous disorder of the skin and subcutaneous tissue, unspecified Type of Wound Date of Service: 05/08/18 Chief Complaint: Recurrent hidradenitis ulcer left axillary area with recent placement of skin substitute graft. History of Wound: Surgery 02/23/18 - Surgical preparation left axilla with excisional debridement nonhealing hidradenitis ulcer and placement of Thera-skin skin substitute graft (39 cm2). Wound care - Thera-skin #7. Operative culture - Staphylococcus aureus. She was placed on Levaquin. Her Prealbumin on 02/24/18 was 17.4. Continue nutritional supplementation with protein to help the healing process. She finally had her teeth extraction done on 01/24/18. Today she denies any fever. Her appetite is good. While in the hospital, her repeat Alkaline Phosphatase was 188 and the isoenzymes were in the normal range of 73% for the liver and 25% for the bone and 2% for the intestine. Repeat Alkaline Phosphatase is still elevated at 242. Abdominal Ultrasound showed multiple gallstones. She had Thera-skin application #5 last week. Progress of Wound: Slowly improving after placement of Thera-skin skin substitute graft. - Physical Exam Vital Signs Temp Pulse Resp BP 97.6 F L 87 20 H 129/82 H 05/08/18 13:32 05/08/18 13:32 05/08/18 13:32 05/08/18 13:32 General: Alert, Oriented x3, Cooperative HEENT: Atraumatic Oral: Moist Mucosa Lungs: Normal air movement Cardiovascular: Regular rate Extremities: No edema, Capillary Refill Less than 3 Seconds Skin: Ulcer/ Wound - Left axilla ulcer Wound Measurements and Assessment WC - Nurse 1 - General Ulcer Measurement Start: 04/24/18 15:22 Freq: Status: Active Protocol: Activity Type Activity Date Activity User E-Sign Co-Sign Detail Recorded Client Recorded Date Recorded By Document 05/08/18 13:32 DL [id number] 05/08/18 13:43 DL 05/08/18 13:32 Wound Center Nurse 1 [Ulcer Assessment] #5 left axilla -Current Size (cm) - Length 4.5 -Current Size (cm) - Width 7.2 -Current Size (cm) - Depth 0.1 -Total Square Cm 32.40 -Photo Taken No -Exudate Amt Medium -Exudate Type Yellow/Green -Wound Margin Distinct, Outline Attached -Granulation Amt Large (67-100%) -Granulation Quality Red -Necrosis Amt None Present (0 %) -Structure Exposed N/A -Texture (Sadie-wound Skin Appearance) Excoriation Scarring -Moisture (Sadie-wound Skin Appearance Dry/Scaly ) -Color (Sadie-wound Skin Appearance) Erythema Rubor -Temperature (Sadie-wound Skin No Abnormality Appearance) (Pt Warm) -Tenderness on Palpation (Sadie-wound Yes Skin Appearance) -Ulcer Cleansing Wound Cleanser -Foul Odor after Cleansing No -Anesthetic Used 4% Lidocaine Solution WC - Nurse 2 - General Ulcer CM Notes Start: 04/24/18 15:22 Freq: Status: Active Protocol: Activity Type Activity Date Activity User E-Sign Co-Sign Detail Recorded Client Recorded Date Recorded By Document 05/08/18 13:57 SHOSHANA [id number] 05/08/18 13:58 05/08/18 13:57 Wound Center Nurse 2 [Procedure/Treatment] -Time 13:58 -Correct Patient Yes -Correct Side, Site, Position Yes -Correct Procedure Yes -Procedure Performed Yes -Type of Procedure Debridement -Clinical Debridement Subcutaneous -Post Debridement Size (cm) - Length 4.5 -Post Debridement Size (cm) - Width 7.2 -Post Debridement Size (cm) - Depth 0.1 -Total Square Cm 32.40 -Wound/Ulcer Outcome Not Healed -Ulcer Cleansing Rinsed/ Irrigated with Saline -Foul Odor after Cleansing No -Bioengineered Tissue Yes -Type of bioengineered Tissue THERASKIN -Expiration Date 11/10/21 -Product Lot Number [id number] -Percent Used 100 -Saline Lot Number [id number] -Bleeding Controlled with Pressure -Offloading No -Treatment Response Procedure Tolerated Well [See Physician Procedure note for Specifics] Pain Scale: 0-10 Numeric [Pain] -Is Patient Pain Free? Yes Musculoskeletal: No Tenderness to Palpation of Joints or Extremities Neurological: Neuro grossly intact Psych/Mental Status: Normal Affect, Appropriate Debridement Note Post-Debridement Measurements/Treatment WC - Nurse 2 - General Ulcer CM Notes Start: 04/24/18 15:22 Freq: Status: Active Protocol: Activity Type Activity Date Activity User E-Sign Co-Sign Detail Recorded Client Recorded Date Recorded By Document 04/24/18 16:06 [id number] 04/24/18 16:07 Document 04/30/18 10:54 [id number] 04/30/18 11:00 Document 05/08/18 13:57 [id number] 05/08/18 13:58 04/24/18 04/30/18 05/08/18 16:06 10:54 13:57 Wound Center Nurse 2 #5 left axilla -Time 16:06 10:54 13:58 -Correct Patient Yes Yes Yes -Correct Side, Site, Position Yes Yes Yes -Correct Procedure Yes Yes Yes -Procedure Performed Yes Yes Yes -Type of Procedure Debridement Debridement Debridement -Clinical Debridement Subcutaneous Subcutaneous Subcutaneous -Post Debridement Size (cm) - Length 7 7.0 4.5 -Post Debridement Size (cm) - Width 3.7 3.5 7.2 -Post Debridement Size (cm) - Depth 0.2 0.1 0.1 -Total Square Cm 25.9 24.50 32.40 -Wound/Ulcer Outcome Not Healed Not Healed Not Healed -Ulcer Cleansing Rinsed/ Rinsed/ Rinsed/ Irrigated with Irrigated with Irrigated with Saline Saline Saline -Foul Odor after Cleansing No No No -Bioengineered Tissue Yes No Yes -Type of bioengineered Tissue THERASKIN THERASKIN -Expiration Date 10/15/21 11/10/21 -Product Lot Number [id number] -Percent Used 100 100 -Saline Lot Number [id number] -Bleeding Controlled with Pressure Pressure Pressure -Offloading No No No -Treatment Response Procedure Procedure Procedure Tolerated Well Tolerated Well Tolerated Well Pain Scale: 0-10 Numeric Is Patient Pain Free? Yes Yes Yes Wound debrided: Left axilla Laterality: Left Type of Debridement: Excisional debridement Anesthesia Used: 5% Lidocaine Gel Depth: Down to and including healthy tissue, in the subcutaneous layer Percentage of wound debrided: 100 Instrument Used: 7mm curette Tissue Removed: Subcutaneous tissue and slough Severity: Limited To Skin Breakdown Amount of bleeding with debridement: Mild Patient tolerated procedure well Assessment/Plan Active Problems (Last Reviewed 04/30/18 @ 09:12 by Jeanie Rodriguez) Hypergranulation (Chronic) Non-pressure chronic ulcer of skin of other sites with fat layer exposed (Chronic) Left axillary hidradenitis (Chronic) L73.2 left axillary hidradenitis. Assessment: 1. Nonhealing recurrent hidradenitis ulcer left axillary area. 2. H/O left axillary hidradenitis. 3. s/p surgical preparation left axilla with excisional debridement nonhealing hidradenitis ulcer and placement of Thera-skin skin substitute graft (39 cm2). 4. Elevated alkaline phosphatase level. Plan: She did have her teeth removed 01/24/18 and feels better. HBO was cancelled due to poor attendance. Thera-skin was placed in the left axilla on 02/23/18. The operative culture showed Staphylococcus aureus. She was placed on Levaquin. Prealbumin from 02/24/18 was 17.4. Encourage nutritional supplementation with protein to help the healing process. Her Alkaline Phosphatase is still elevated. Recent abdominal ultrasound showed multiple gallstones. On 04/13/18 she had a laparoscopic cholecystectomy with cho langiogram. This should help with her elevated Alkaline Phosphatase. The wound should improve without further hypergranulation tissue growth because her teeth and gallbladder have been removed. Theraskin #7 placed today. Her periwound continues to be excoriated. Followup one week. Code Visit 150xxx-152xx: 96084 Skin sub graft trnk/arm/leg
[2018-05-15 14:00] VITALS: BP 140/88; PULSE 106; RESP 18; TEMP 36.7; BMI 24.5
--- NOTE | 2018-05-15 14:01 | PN.PCM_ITS ---
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 (3) Hypergranulation Status: Chronic Current Visit: Yes Code(s): L92.9 - Granulomatous disorder of the skin and subcutaneous tissue, unspecified Type of Wound Date of Service: 05/15/18 Chief Complaint: Recurrent hidradenitis ulcer left axillary area with recent placement of skin substitute graft. History of Wound: Surgery 02/23/18 - Surgical preparation left axilla with excisional debridement nonhealing hidradenitis ulcer and placement of Thera-skin skin substitute graft (39 cm2). Wound care - Thera-skin #7. Operative culture - Staphylococcus aureus. She was placed on Levaquin. Her Prealbumin on 02/24/18 was 17.4. Continue nutritional supplementation with protein to help the healing process. She finally had her teeth extraction done on 01/24/18. Today she denies any fever. Her appetite is good. While in the hospital, her repeat Alkaline Phosphatase was 188 and the isoenzymes were in the normal range of 73% for the liver and 25% for the bone and 2% for the intestine. Repeat Alkaline Phosphatase is still elevated at 242. Abdominal Ultrasound showed multiple gallstones. She had Thera-skin application #5 last week. Progress of Wound: No improvement in the wound. There is an increase of hypergranulation this week which makes removing the theraskin very difficult. - Physical Exam Vital Signs Temp Pulse Resp BP 97.6 F L 87 20 H 129/82 H 05/08/18 13:32 05/08/18 13:32 05/08/18 13:32 05/08/18 13:32 General: Alert, Oriented x3, Cooperative HEENT: Atraumatic Oral: Moist Mucosa Lungs: Normal air movement Cardiovascular: Regular rate Extremities: No edema, Peripheral Pulses Normal Skin: Ulcer/ Wound - Left axilla ulcer with increased hypergranulation. Musculoskeletal: No Tenderness to Palpation of Joints or Extremities Neurological: Neuro grossly intact Psych/Mental Status: Normal Affect, Appropriate Debridement Note Post-Debridement Measurements/Treatment WC - Nurse 2 - General Ulcer CM Notes Start: 04/24/18 15:22 Freq: Status: Active Protocol: Activity Type Activity Date Activity User E-Sign Co-Sign Detail Recorded Client Recorded Date Recorded By Document 04/24/18 16:06 [id number] 04/24/18 16:07 Document 04/30/18 10:54 [id number] 04/30/18 11:00 Document 05/08/18 13:57 [id number] 05/08/18 13:58 04/24/18 04/30/18 05/08/18 16:06 10:54 13:57 Wound Center Nurse 2 #5 left axilla -Time 16:06 10:54 13:58 -Correct Patient Yes Yes Yes -Correct Side, Site, Position Yes Yes Yes -Correct Procedure Yes Yes Yes -Procedure Performed Yes Yes Yes -Type of Procedure Debridement Debridement Debridement -Clinical Debridement Subcutaneous Subcutaneous Subcutaneous -Post Debridement Size (cm) - Length 7 7.0 4.5 -Post Debridement Size (cm) - Width 3.7 3.5 7.2 -Post Debridement Size (cm) - Depth 0.2 0.1 0.1 -Total Square Cm 25.9 24.50 32.40 -Wound/Ulcer Outcome Not Healed Not Healed Not Healed -Ulcer Cleansing Rinsed/ Rinsed/ Rinsed/ Irrigated with Irrigated with Irrigated with Saline Saline Saline -Foul Odor after Cleansing No No No -Bioengineered Tissue Yes No Yes -Type of bioengineered Tissue THERASKIN THERASKIN -Expiration Date 10/15/21 11/10/21 -Product Lot Number [id number] -Percent Used 100 100 -Saline Lot Number [id number] -Bleeding Controlled with Pressure Pressure Pressure -Offloading No No No -Treatment Response Procedure Procedure Procedure Tolerated Well Tolerated Well Tolerated Well Pain Scale: 0-10 Numeric Is Patient Pain Free? Yes Yes Yes Wound debrided: Left axilla Laterality: Left Type of Debridement: Selective debridement - Had difficulty removing the theraskin due to the increased hypergranulation tissue and then she wouldn't allow further debridement. Anesthesia Used: 5% Lidocaine Gel Depth: in the subcutaneous layer Percentage of wound debrided: 50 Instrument Used: 7mm curette Tissue Removed: Subcutaneous tissue Severity: Fat Layer Exposed Amount of bleeding with debridement: Mild Bleeding Controlled with: Pressure, Compression and gauze Patient tolerated procedure well Assessment/Plan Active Problems (Last Reviewed 04/30/18 @ 09:12 by Jeanie Rodriguez) Hypergranulation (Chronic) Non-pressure chronic ulcer of skin of other sites with fat layer exposed (Chronic) Left axillary hidradenitis (Chronic) L73.2 left axillary hidradenitis. Assessment: 1. Nonhealing recurrent hidradenitis ulcer left axillary area. 2. H/O left axillary hidradenitis. 3. s/p surgical preparation left axilla with excisional debridement nonhealing hidradenitis ulcer and placement of Thera-skin skin substitute graft (39 cm2). 4. Elevated alkaline phosphatase level. Plan: She did have her teeth removed 01/24/18 and feels better. She is scheduled to get her new teeth 04/30/18. HBO was cancelled due to poor attendance. Thera- skin was placed in the left axilla on 02/23/18. The operative culture showed Staphylococcus aureus. She was placed on Levaquin. Prealbumin from 02/24/18 was 17.4. Encourage nutritional supplementation with protein to help the healing process. Her Alkaline Phosphatase is still elevated. Recent abdominal ultrasound showed multiple gallstones. On 04/13/18 she had a laparoscopic cholecystectomy with cholangiogram. Her last Alkaline Phosphatase was 143 on 04/30/18. Theraskin #7 placed last week. There is no improvement in her wound this week and there is an increase in hypergranulation. Had a difficult time removing the old thereaskin. Will stop the theraskin this week. Will start on Dakin's solution daily. Her periwound continues to be excoriated. It appears to be yeast in origin. She has nystatin cream she is to apply to the periwound with dressing changes and one other time per day. Followup one week. Code Visit 81802 selective debridement [id number] x 1 additional
== END 2018-05-17 23:59 ==
LOC: WC 14:00
PROVIDERS: Family Provider Family Medicine; PCP Family Medicine; Referring Provider Surgery; Visit Provider Surgery
DX: L73.2 Hidradenitis suppurativa (principal); R74.8 Abnormal levels of other serum enzymes; L98.492 Non-pressure chronic ulcer of skin of other sites with fat layer exposed; L92.9 Granulomatous disorder of the skin and subcutaneous tissue, unspecified
CPT/HCPCS: 11042; 11045; 15271; 97597; 97598; Q4121

== ENCOUNTER 2018-06-04 08:45 | Outpatient (RCR) | payer MEDICAID, SELFPAY ==
[2018-05-18 01:07] VITALS: BP 140/88; PULSE 106; RESP 18; TEMP 36.7
[2018-05-22 14:19] VITALS: BP 149/90; PULSE 93; RESP 16; TEMP 37.1; BMI 24.5
--- NOTE | 2018-05-22 16:15 | PCM.WC.PN ---
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 (3) Hypergranulation Status: Chronic Current Visit: Yes Code(s): L92.9 - Granulomatous disorder of the skin and subcutaneous tissue, unspecified Type of Wound Date of Service: 05/22/18 Chief Complaint: Recurrent hidradenitis ulcer left axillary area with recent placement of skin substitute graft. History of Wound: Surgery 02/23/18 - Surgical preparation left axilla with excisional debridement nonhealing hidradenitis ulcer and placement of Thera-skin skin substitute graft (39 cm2). Wound care - Thera-skin #7. Operative culture - Staphylococcus aureus. She was placed on Levaquin. Her Prealbumin on 02/24/18 was 17.4. Continue nutritional supplementation with protein to help the healing process. She finally had her teeth extraction done on 01/24/18. Today she denies any fever. Her appetite is good. While in the hospital, her repeat Alkaline Phosphatase was 188 and the isoenzymes were in the normal range of 73% for the liver and 25% for the bone and 2% for the intestine. Repeat Alkaline Phosphatase is still elevated at 242. Abdominal Ultrasound showed multiple gallstones. She had Thera-skin application #5 last week. Progress of Wound: No improvement in the wound. There is an increase of hypergranulation this week. - Physical Exam Vital Signs Temp Pulse Resp BP 98.7 F 93 16 149/90 H 05/22/18 14:19 05/22/18 14:19 05/22/18 14:19 05/22/18 14:19 General: Alert, Oriented x3, Cooperative HEENT: Atraumatic Oral: Moist Mucosa Lungs: Normal air movement Cardiovascular: Regular rate Extremities: No edema, Capillary Refill Less than 3 Seconds Skin: Ulcer/ Wound - Left axilla ulcer Wound Measurements and Assessment WC - Nurse 1 - General Ulcer Measurement Start: 05/22/18 14:19 Freq: Status: Active Protocol: Activity Type Activity Date Activity User E-Sign Co-Sign Detail Recorded Client Recorded Date Recorded By Document 05/22/18 14:19 MW [id number] 05/22/18 14:21 MW 05/22/18 14:19 Wound Center Nurse 1 [Ulcer Assessment] #5 left axilla -Combined with other wound No -Current Size (cm) - Length 6.6 -Current Size (cm) - Width 4.0 -Current Size (cm) - Depth 0.1 -Total Square Cm 26.40 -Photo Taken No -Epithelialization None Present -Tunneling No -Undermining/Tunneling No -Circular Undermining No -Exudate Amt Large -Exudate Type Serosanguineous -Wound Margin Distinct, Outline Attached -Granulation Amt Large (67-100%) -Granulation Quality Red -Slough/Fibrin Yes -Necrosis Amt Small (1-33%) -Necrotic Tissue Type Adherent Slough -Structure Exposed N/A -Texture (Sadie-wound Skin Appearance) Assessed Scarring -Moisture (Sadie-wound Skin Appearance Assessed ) Dry/Scaly -Color (Sadie-wound Skin Appearance) No Abnormality Assessed -Temperature (Sadie-wound Skin No Abnormality Appearance) (Pt Warm) -Tenderness on Palpation (Sadie-wound No Skin Appearance) -Ulcer Cleansing Rinsed/ Irrigated with Saline -Foul Odor after Cleansing No -Anesthetic Used 4% Lidocaine Solution 5% Lidocaine Gel [Edema Assessment] -Lower Limb Edema Present No WC - Nurse 2 - General Ulcer CM Notes Start: 05/22/18 14:19 Freq: Status: Active Protocol: Activity Type Activity Date Activity User E-Sign Co-Sign Detail Recorded Client Recorded Date Recorded By Document 05/22/18 14:59 [id number] 05/22/18 15:00 05/22/18 14:59 Wound Center Nurse 2 [Procedure/Treatment] #5 left axilla -Time 14:59 -Correct Patient Yes -Correct Side, Site, Position Yes -Correct Procedure Yes -Procedure Performed Yes -Type of Procedure Debridement -Clinical Debridement Subcutaneous -Post Debridement Size (cm) - Length 6.6 -Post Debridement Size (cm) - Width 4.1 -Post Debridement Size (cm) - Depth 0.2 -Total Square Cm 27.06 -Wound/Ulcer Outcome Not Healed -Ulcer Cleansing Rinsed/ Irrigated with Saline -Foul Odor after Cleansing No -Bioengineered Tissue No -Bleeding Controlled with Pressure -Offloading No -Treatment Response Procedure Tolerated Well [See Physician Procedure note for Specifics] Pain Scale: 0-10 Numeric [Pain] -Is Patient Pain Free? Yes Musculoskeletal: No Tenderness to Palpation of Joints or Extremities Neurological: Neuro grossly intact Psych/Mental Status: Normal Affect, Appropriate Debridement Note Post-Debridement Measurements/Treatment WC - Nurse 2 - General Ulcer CM Notes Start: 05/22/18 14:19 Freq: Status: Active Protocol: Activity Type Activity Date Activity User E-Sign Co-Sign Detail Recorded Client Recorded Date Recorded By Document 05/22/18 14:59 [id number] 05/22/18 15:00 [email or web address] 05/22/18 14:59 Wound Center Nurse 2 #5 left axilla -Time 14:59 -Correct Patient Yes -Correct Side, Site, Position Yes -Correct Procedure Yes -Procedure Performed Yes -Type of Procedure Debridement -Clinical Debridement Subcutaneous -Post Debridement Size (cm) - Length 6.6 -Post Debridement Size (cm) - Width 4.1 -Post Debridement Size (cm) - Depth 0.2 -Total Square Cm 27.06 -Wound/Ulcer Outcome Not Healed -Ulcer Cleansing Rinsed/ Irrigated with Saline -Foul Odor after Cleansing No -Bioengineered Tissue No -Bleeding Controlled with Pressure -Offloading No -Treatment Response Procedure Tolerated Well Pain Scale: 0-10 Numeric Is Patient Pain Free? Yes Wound debrided: axilla Laterality: Left Type of Debridement: Excisional debridement Anesthesia Used: 5% Lidocaine Gel Depth: in the subcutaneous layer Percentage of wound debrided: 100 Instrument Used: 5mm curette Tissue Removed: Subcutaneous tissue and slough Severity: Limited To Skin Breakdown Amount of bleeding with debridement: Moderate Bleeding Controlled with: Pressure, Compression and gauze Patient tolerated procedure well Assessment/Plan Active Problems (Last Reviewed 04/30/18 @ 09:12 by Jeanie Rodriguez) Hypergranulation (Chronic) Non-pressure chronic ulcer of skin of other sites with fat layer exposed (Chronic) Left axillary hidradenitis (Chronic) L73.2 left axillary hidradenitis. Assessment: 1. Nonhealing recurrent hidradenitis ulcer left axillary area. 2. H/O left axillary hidradenitis. 3. s/p surgical preparation left axilla with excisional debridement nonhealing hidradenitis ulcer and placement of Thera-skin skin substitute graft (39 cm2). 4. Elevated alkaline phosphatase level. Plan: She did have her teeth removed 01/24/18 and feels better. She is scheduled to get her new teeth 04/30/18. HBO was cancelled due to poor attendance. Thera-skin was placed in the left axilla on 02/23/18. The operative culture showed Staphylococcus aureus. She was placed on Levaquin, which she finished. Prealbumin from 02/24/18 was 17.4. Encourage nutritional supplementation with protein to help the healing process. Her Alkaline Phosphatase is still elevated. Recent abdominal ultrasound showed multiple gallstones. On 04/13/18 she had a laparoscopic cholecystectomy with cholangiogram. Her last Alkaline Phosphatase was 143 on 04/30/18. Had theraskin placed x 7. Stopped theraskin due to the amount of hypergranulation.There is no improvement in her wound this week and there is an increase in hypergranulation. Started on Dakin's solution daily last week, but she did not pick it up until yesterday, so we will start this week on the Dakin's. Her periwound continues to be excoriated. It appears to be yeast in origin. She states she has been using the nystatin cream to the periwound with dressing changes and one other time per day. Followup one week. Due to her hypergranulation and her difficulty having her wound properly debrided, she may require a surgical debridement. She is meeting with Dr. Eugene on 06/04/18. Hopefully by then she will have used the Dakin's and Dr. Eugene will be able to evaluate her ulcer. Code Visit 111xxx-113xx: 12529 Ligia subq tissue 20 sq cm/< Add On Codes: 15089 Ligia subq tissue add-on
[2018-05-29 13:46] VITALS: BP 139/78; PULSE 84; RESP 16; TEMP 37; BMI 24.5
--- NOTE | 2018-05-29 15:49 | PCM.WC.PN ---
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 (3) Hypergranulation Status: Chronic Current Visit: Yes Code(s): L92.9 - Granulomatous disorder of the skin and subcutaneous tissue, unspecified Type of Wound Date of Service: 05/29/18 Chief Complaint: Recurrent hidradenitis ulcer left axillary area with recent placement of skin substitute graft. History of Wound: Surgery 02/23/18 - Surgical preparation left axilla with excisional debridement nonhealing hidradenitis ulcer and placement of Thera-skin skin substitute graft (39 cm2). Wound care - Started Dakin's solution 05/22/18 with significant improvement in hypergranulation. Operative culture - Staphylococcus aureus. She was placed on Levaquin. Her Prealbumin on 02/24/18 was 17.4. Continue nutritional supplementation with protein to help the healing process. She finally had her teeth extraction done on 01/24/18. On 04/13/18 she had a laparoscopic cholecystectomy with cholangiogram. Her last Alkaline Phosphatase was 143 on 04/30/18. Had theraskin placed x 7. Stopped theraskin due to the amount of hypergranulation.There is no improvement in her wound this week and there is an increase in hypergranulation. Started on Dakin's solution daily last week, but she did not pick it for a week, so we will start this week on the Dakin's. Today she denies any fever. Her appetite is good. Progress of Wound: Significant improvement in the hypergranulation with Dakin's solution. - Physical Exam Vital Signs Temp Pulse Resp BP 98.6 F 84 16 139/78 H 05/29/18 13:46 05/29/18 13:46 05/29/18 13:46 05/29/18 13:46 General: Alert, Oriented x3, Cooperative HEENT: Atraumatic Oral: Moist Mucosa Lungs: Normal air movement Cardiovascular: Regular rate Extremities: No edema, Capillary Refill Less than 3 Seconds Skin: Ulcer/ Wound - Left axilla open area Wound Measurements and Assessment - Nurse 1 - General Ulcer Measurement Start: 05/22/18 14:19 Freq: Status: Active Protocol: Activity Type Activity Date Activity User E-Sign Co-Sign Detail Recorded Client Recorded Date Recorded By Document 05/29/18 13:46 [facility] [id number] 05/29/18 13:57 [facility] 05/29/18 13:46 Wound Center Nurse 1 [Ulcer Assessment] #5 left axilla -Combined with other wound No -Current Size (cm) - Length 7.2 -Current Size (cm) - Width 3.5 -Current Size (cm) - Depth 0.1 -Total Square Cm 25.20 -Photo Taken No -Epithelialization Small 1-33% -Tunneling No -Undermining/Tunneling No -Circular Undermining No -Exudate Amt Large -Exudate Type Purulent -Wound Margin Flat & Intact -Granulation Amt Large (67-100%) -Granulation Quality Red -Slough/Fibrin Yes -Necrosis Amt None Present (0 %) -Texture (Sadie-wound Skin Appearance) Scarring Rash -Moisture (Sadie-wound Skin Appearance Dry/Scaly ) -Color (Sadie-wound Skin Appearance) Erythema -Temperature (Sadie-wound Skin No Abnormality Appearance) (Pt Warm) -Tenderness on Palpation (Sadie-wound No Skin Appearance) -Ulcer Cleansing Wound Cleanser -Foul Odor after Cleansing No -Anesthetic Used 4% Lidocaine Solution - Nurse 2 - General Ulcer CM Notes Start: 05/22/18 14:19 Freq: Status: Active Protocol: Activity Type Activity Date Activity User E-Sign Co-Sign Detail Recorded Client Recorded Date Recorded By Document 05/29/18 14:12 [id number] 05/29/18 14:13 05/29/18 14:12 Wound Center Nurse 2 [Procedure/Treatment] -Time 14:12 -Correct Patient Yes -Correct Side, Site, Position Yes -Correct Procedure Yes -Procedure Performed Yes -Type of Procedure Debridement -Clinical Debridement Subcutaneous -Post Debridement Size (cm) - Length 6.5 -Post Debridement Size (cm) - Width 2.7 -Post Debridement Size (cm) - Depth 0.1 -Total Square Cm 17.55 -Wound/Ulcer Outcome Not Healed -Ulcer Cleansing Rinsed/ Irrigated with Saline -Foul Odor after Cleansing No -Bioengineered Tissue No -Bleeding Controlled with Pressure -Offloading No -Treatment Response Procedure Tolerated Well [See Physician Procedure note for Specifics] Pain Scale: 0-10 Numeric [Pain] -Is Patient Pain Free? Yes Musculoskeletal: No Tenderness to Palpation of Joints or Extremities Neurological: Neuro grossly intact Psych/Mental Status: Normal Affect, Appropriate Debridement Note Post-Debridement Measurements/Treatment WC - Nurse 2 - General Ulcer CM Notes Start: 05/22/18 14:19 Freq: Status: Active Protocol: Activity Type Activity Date Activity User E-Sign Co-Sign Detail Recorded Client Recorded Date Recorded By Document 05/22/18 14:59 [id number] 05/22/18 15:00 Document 05/29/18 14:12 [id number] 05/29/18 14:13 05/22/18 05/29/18 14:59 14:12 Wound Center Nurse 2 #5 left axilla -Time 14:59 14:12 -Correct Patient Yes Yes -Correct Side, Site, Position Yes Yes -Correct Procedure Yes Yes -Procedure Performed Yes Yes -Type of Procedure Debridement Debridement -Clinical Debridement Subcutaneous Subcutaneous -Post Debridement Size (cm) - Length 6.6 6.5 -Post Debridement Size (cm) - Width 4.1 2.7 -Post Debridement Size (cm) - Depth 0.2 0.1 -Total Square Cm 27.06 17.55 -Wound/Ulcer Outcome Not Healed Not Healed -Ulcer Cleansing Rinsed/ Rinsed/ Irrigated with Irrigated with Saline Saline -Foul Odor after Cleansing No No -Bioengineered Tissue No No -Bleeding Controlled with Pressure Pressure -Offloading No No -Treatment Response Procedure Procedure Tolerated Well Tolerated Well Pain Scale: 0-10 Numeric Is Patient Pain Free? Yes Yes Wound debrided: Left axilla Laterality: Left Type of Debridement: Excisional debridement Anesthesia Used: 5% Lidocaine Gel Depth: Down to and including healthy tissue, in the subcutaneous layer Percentage of wound debrided: 100 Instrument Used: 5mm curette Tissue Removed: Subcutaneous tissue and slough Severity: Limited To Skin Breakdown Amount of bleeding with debridement: Mild Bleeding Controlled with: Compression and gauze Patient tolerated procedure well Assessment/Plan Active Problems (Last Reviewed 04/30/18 @ 09:12 by Jeanie Rodriguez) Hypergranulation (Chronic) Non-pressure chronic ulcer of skin of other sites with fat layer exposed (Chronic) Left axillary hidradenitis (Chronic) L73.2 left axillary hidradenitis. Assessment: 1. Nonhealing recurrent hidradenitis ulcer left axillary area. 2. H/O left axillary hidradenitis. 3. s/p surgical preparation left axilla with excisional debridement nonhealing hidradenitis ulcer and placement of Thera-skin skin substitute graft (39 cm2). 4. Elevated alkaline phosphatase level. Plan: She did have her teeth removed 01/24/18 and feels better. She is scheduled to get her new teeth 04/30/18. HBO was cancelled due to poor attendance. Thera-skin was placed in the left axilla on 02/23/18. The operative culture showed Staphylococcus aureus. She was placed on Levaquin, which she finished. Prealbumin from 02/24/18 was 17.4. Encourage nutritional supplementation with protein to help the healing process. Her Alkaline Phosphatase is still elevated. Abdominal ultrasound showed multiple gallstones. On 04/13/18 she had a laparoscopic cholecystectomy with cholangiogram. Her last Alkaline Phosphatase was 143 on 04/30/18. Had theraskin placed x 7. Stopped theraskin due to the amount of hypergranulation. Has been on on Dakin's solution daily for a week with much improvement in the amount of hypergranulation and the size of her opened area. Her periwound is less excoriated than last week. She states she has been using the nystatin cream to the periwound with dressing changes and one other time per day. Followup one week. Due to her hypergranulation and her difficulty having her wound properly debrided, she may require a surgical debridement. She is meeting with Dr. Eugene on 06/04/18. Code Visit 111xxx-113xx: [id number] Ligia subq tissue 20 sq cm/<
[2018-06-04 08:42] VITALS: BP 150/81; PULSE 96; RESP 18; TEMP 36.7; BMI 24.5
--- NOTE | 2018-06-04 17:19 | PCM.WC.PN ---
Type of Wound Date of Service: 06/04/18 Chief Complaint: Recurrent hidradenitis ulcer left axillary area with recent placement of skin substitute graft. History of Wound: Surgery 02/23/18 - Surgical preparation left axilla with excisional debridement nonhealing hidradenitis ulcer and placement of Thera-skin skin substitute graft (39 cm2). Wound care - Dakin's. Operative culture - Staphylococcus aureus. She was placed on Levaquin and has finished them. Her Prealbumin on 02/24/18 was 17.4. Continue nutritional supplementation with protein to help the healing process. She had her teeth extraction done on 01/24/18. On 04/13/18 she had a laparoscopic cholecystectomy with cholangiogram. Her last Alkaline Phosphatase was 143 on 04/30/18. Had theraskin placed x 7. Stopped theraskin due to the amount of hypergranulation. With the Dakin's dressing changes, the hypergranulation has improved. Today she denies any fever. Her appetite is good. Progress of Wound: Improved. - Physical Exam Vital Signs Temp Pulse Resp BP 98.0 F 96 18 150/81 H 06/04/18 08:42 06/04/18 08:42 06/04/18 08:42 06/04/18 08:42 Wound Measurements and Assessment WC - Nurse 1 - General Ulcer Measurement Start: 05/22/18 14:19 Freq: Status: Active Protocol: Activity Type Activity Date Activity User E-Sign Co-Sign Detail Recorded Client Recorded Date Recorded By Document 06/04/18 08:42 MW [id number] 06/04/18 08:49 MW 06/04/18 08:42 Wound Center Nurse 1 [Ulcer Assessment] #5 left axilla -Combined with other wound No -Current Size (cm) - Length 2.5 -Current Size (cm) - Width 6.9 -Current Size (cm) - Depth 0.1 -Total Square Cm 17.25 -Photo Taken No -Epithelialization Small 1-33% -Tunneling No -Undermining/Tunneling No -Circular Undermining No -Exudate Amt Small -Exudate Type Serosanguineous -Wound Margin Flat & Intact -Granulation Amt Large (67-100%) -Granulation Quality Red -Slough/Fibrin Yes -Necrosis Amt Small (1-33%) -Necrotic Tissue Type Adherent Slough -Structure Exposed N/A -Texture (Sadie-wound Skin Appearance) Assessed Scarring -Moisture (Sadie-wound Skin Appearance Assessed ) Dry/Scaly -Color (Sadie-wound Skin Appearance) Assessed Rubor -Temperature (Sadie-wound Skin No Abnormality Appearance) (Pt Warm) -Tenderness on Palpation (Sadie-wound Yes Skin Appearance) -Ulcer Cleansing Rinsed/ Irrigated with Saline -Foul Odor after Cleansing No -Anesthetic Used 4% Lidocaine Solution 5% Lidocaine Gel [Edema Assessment] -Lower Limb Edema Present No - Nurse 2 - General Ulcer CM Notes Start: 05/22/18 14:19 Freq: Status: Active Protocol: Activity Type Activity Date Activity User E-Sign Co-Sign Detail Recorded Client Recorded Date Recorded By Document 06/04/18 09:07 [id number] 06/04/18 09:08 06/04/18 09:07 Wound Center Nurse 2 [Procedure/Treatment] #5 left axilla -Time 09:07 -Correct Patient Yes -Correct Side, Site, Position Yes -Correct Procedure Yes -Procedure Performed Yes -Type of Procedure Debridement -Clinical Debridement Subcutaneous -Post Debridement Size (cm) - Length 2.5 -Post Debridement Size (cm) - Width 7 -Post Debridement Size (cm) - Depth 0.2 -Total Square Cm 17.5 -Wound/Ulcer Outcome Not Healed -Ulcer Cleansing Rinsed/ Irrigated with Saline -Foul Odor after Cleansing No -Bioengineered Tissue No -Bleeding Controlled with Pressure -Offloading No -Treatment Response Procedure Tolerated Well [See Physician Procedure note for Specifics] Pain Scale: 0-10 Numeric [Pain] -Is Patient Pain Free? Yes Debridement Note Post-Debridement Measurements/Treatment - Nurse 2 - General Ulcer CM Notes Start: 05/22/18 14:19 Freq: Status: Active Protocol: Activity Type Activity Date Activity User E-Sign Co-Sign Detail Recorded Client Recorded Date Recorded By Document 05/22/18 14:59 [id number] 05/22/18 15:00 Document 05/29/18 14:12 [id number] 05/29/18 14:13 Document 06/04/18 09:07 [id number] 06/04/18 09:08 05/22/18 05/29/18 06/04/18 14:59 14:12 09:07 Wound Center Nurse 2 #5 left axilla -Time 14:59 14:12 09:07 -Correct Patient Yes Yes Yes -Correct Side, Site, Position Yes Yes Yes -Correct Procedure Yes Yes Yes -Procedure Performed Yes Yes Yes -Type of Procedure Debridement Debridement Debridement -Clinical Debridement Subcutaneous Subcutaneous Subcutaneous -Post Debridement Size (cm) - Length 6.6 6.5 2.5 -Post Debridement Size (cm) - Width 4.1 2.7 7 -Post Debridement Size (cm) - Depth 0.2 0.1 0.2 -Total Square Cm 27.06 17.55 17.5 -Wound/Ulcer Outcome Not Healed Not Healed Not Healed -Ulcer Cleansing Rinsed/ Rinsed/ Rinsed/ Irrigated with Irrigated with Irrigated with Saline Saline Saline -Foul Odor after Cleansing No No No -Bioengineered Tissue No No No -Bleeding Controlled with Pressure Pressure Pressure -Offloading No No No -Treatment Response Procedure Procedure Procedure Tolerated Well Tolerated Well Tolerated Well Pain Scale: 0-10 Numeric Is Patient Pain Free? Yes Yes Yes Wound debrided: #5 Left axilla. Laterality: Left Wound Grade/Stage: 2. Type of Debridement: Excisional debridement Anesthesia Used: 4% Lidocaine Solution Depth: Down to and including healthy tissue, in the subcutaneous layer Percentage of wound debrided: 100 Instrument Used: 5mm curette Tissue Removed: subcutaneous tissue. Severity: Fat Layer Exposed Amount of bleeding with debridement: Mild Bleeding Controlled with: Pressure Patient tolerated procedure well Assessment/Plan Assessment: 1. Nonhealing recurrent hidradenitis ulcer left axillary area. 2. s/p surgical preparation left axilla with excisional debridement nonhealing hidradenitis ulcer and placement of Thera-skin skin substitute graft (39 cm2). 3. Elevated alkaline phosphatase level, s/p recent cholecystectomy. 4. s/p teeth extraction. Plan: She did have her teeth removed 01/24/18 and feels better. The ulcer has improved with the Dakin's dressing. There is much less hypergranulation. The operative culture showed Staphylococcus aureus. She was placed on Levaquin, which she finished. Prealbumin from 02/24/18 was 17.4. Encourage nutritional supplementation with protein to help the healing process. She had cholecystectomy on 04/13/18. Her last Alkaline Phosphatase was 143 on 04/30/18. Her periwound is less excoriated than last week. She states she has been using the nystatin cream to the periwound with dressing changes and one other time per day. Discussed with the patient about further operative debridement and skin grafting. Will use autograft. Will need a VAC postop for compression to help minimize further buildup of hypergranulation tissue. The patient has had issues with the VAC in the past. I told her that if the VAC is not used postop, I anticipate further buildup of hypergranulation tissue which will compromise the graft. She voices understanding and will keep the VAC on postop. She may need the VAC for as long as a month postop to allow maximal healing and to minimize hypergranulation tissue buildup. Will schedule the surgery next month. Patient was informed of the risks and complications of the procedure including alternatives to surgery. These were discussed with her personally. She voices understanding and wishes to proceed. Followup one week. With possible compromise of the graft after surgery, she would benefit from HBO treatments. However she had tried HBO treatments in the past and was noncompliant with too many cancellations so they were stopped.
== END 2018-06-14 23:59 ==
LOC: WC 08:45
PROVIDERS: Family Provider Family Medicine; PCP Family Medicine; Referring Provider Surgery; Visit Provider Surgery
DX: L73.2 Hidradenitis suppurativa (principal); R74.8 Abnormal levels of other serum enzymes; L92.9 Granulomatous disorder of the skin and subcutaneous tissue, unspecified; L98.491 Non-pressure chronic ulcer of skin of other sites limited to breakdown of skin
CPT/HCPCS: 11042; 11045

== ENCOUNTER 2018-07-10 13:15 | Outpatient (RCR) | payer MEDICAID, SELFPAY ==
[2018-06-15 00:55] VITALS: BP 150/81; PULSE 96; RESP 18; TEMP 36.7
[2018-06-25 08:44] VITALS: BP 127/71; PULSE 79; RESP 18; TEMP 36.2; BMI 24.5
--- NOTE | 2018-06-25 11:05 | PN.PCM_ITS ---
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 Type of Wound Date of Service: 06/25/18 Chief Complaint: Recurrent hidradenitis ulcer left axillary area with recent placement of skin substitute graft. History of Wound: Surgery 02/23/18 - Surgical preparation left axilla with excisional debridement nonhealing hidradenitis ulcer and placement of Thera-skin skin substitute graft (39 cm2). Wound care - Dakin's. Operative culture - Staphylococcus aureus. She was placed on Levaquin and has finished them. Her Prealbumin on 02/24/18 was 17.4. Continue nutritional supplementation with protein to help the healing process. She had her teeth extraction done on 01/24/18. On 04/13/18 she had a laparoscopic cholecystectomy with cholangiogram. Her last Alkaline Phosphatase was 143 on 04/30/18. Had theraskin placed x 7. Stopped theraskin due to the amount of hypergranulation. With the Dakin's dressing changes, the hypergranulation has improved. Today she denies any fever. Her appetite is good. Progress of Wound: Improved. - Physical Exam Vital Signs Temp Pulse Resp BP 97.1 F L 79 18 127/71 H 06/25/18 08:44 06/25/18 08:44 06/25/18 08:44 06/25/18 08:44 General: Alert, Oriented x3, Cooperative HEENT: Atraumatic Oral: Moist Mucosa Lungs: Normal air movement Cardiovascular: Regular rate Extremities: No edema, Capillary Refill Less than 3 Seconds Skin: Ulcer/ Wound - Left axillary ulcer, much improved Wound Measurements and Assessment WC - Nurse 1 - General Ulcer Measurement Start: 06/25/18 08:44 Freq: Status: Active Protocol: Activity Type Activity Date Activity User E-Sign Co-Sign Detail Recorded Client Recorded Date Recorded By Document 06/25/18 08:44 DL [id number] 06/25/18 08:50 DL 06/25/18 08:44 Wound Center Nurse 1 [Ulcer Assessment] #5 left axilla -Current Size (cm) - Length 2.2 -Current Size (cm) - Width 5.1 -Current Size (cm) - Depth 0.1 -Total Square Cm 11.22 -Photo Taken No -Exudate Amt Small -Exudate Type Serosanguineous -Wound Margin Distinct, Outline Attached -Granulation Amt Large (67-100%) -Granulation Quality Hyper- granulation Red -Necrosis Amt None Present (0 %) -Structure Exposed N/A -Texture (Sadie-wound Skin Appearance) Scarring -Moisture (Sadie-wound Skin Appearance Dry/Scaly ) -Color (Sadie-wound Skin Appearance) Rubor -Temperature (Sadie-wound Skin No Abnormality Appearance) (Pt Warm) -Ulcer Cleansing Rinsed/ Irrigated with Saline -Foul Odor after Cleansing No -Anesthetic Used 4% Lidocaine Solution WC - Nurse 2 - General Ulcer CM Notes Start: 06/25/18 08:44 Freq: Status: Active Protocol: Activity Type Activity Date Activity User E-Sign Co-Sign Detail Recorded Client Recorded Date Recorded By Document 06/25/18 09:04 [email or web address] [id number] 06/25/18 09:09 [email or web address] 06/25/18 09:04 Wound Center Nurse 2 [Procedure/Treatment] -Time 09:05 -Correct Patient Yes -Correct Side, Site, Position Yes -Correct Procedure Yes -Procedure Performed Yes -Type of Procedure Debridement -Clinical Debridement Subcutaneous -Post Debridement Size (cm) - Length 5.5 -Post Debridement Size (cm) - Width 2.0 -Post Debridement Size (cm) - Depth 0.2 -Total Square Cm 11.00 -Wound/Ulcer Outcome Not Healed -Ulcer Cleansing Rinsed/ Irrigated with Saline -Foul Odor after Cleansing No -Bioengineered Tissue No -Bleeding Controlled with Pressure -Offloading No -Treatment Response Procedure Tolerated Well [See Physician Procedure note for Specifics] Pain Scale: 0-10 Numeric [Pain] -Is Patient Pain Free? Yes Musculoskeletal: No Tenderness to Palpation of Joints or Extremities Neurological: Neuro grossly intact Psych/Mental Status: Normal Affect, Appropriate Debridement Note Post-Debridement Measurements/Treatment WC - Nurse 2 - General Ulcer CM Notes Start: 06/25/18 08:44 Freq: Status: Active Protocol: Activity Type Activity Date Activity User E-Sign Co-Sign Detail Recorded Client Recorded Date Recorded By Document 06/25/18 09:04 [email or web address] [id number] 06/25/18 09:09 [email or web address] 06/25/18 09:04 Wound Center Nurse 2 #5 left axilla -Time 09:05 -Correct Patient Yes -Correct Side, Site, Position Yes -Correct Procedure Yes -Procedure Performed Yes -Type of Procedure Debridement -Clinical Debridement Subcutaneous -Post Debridement Size (cm) - Length 5.5 -Post Debridement Size (cm) - Width 2.0 -Post Debridement Size (cm) - Depth 0.2 -Total Square Cm 11.00 -Wound/Ulcer Outcome Not Healed -Ulcer Cleansing Rinsed/ Irrigated with Saline -Foul Odor after Cleansing No -Bioengineered Tissue No -Bleeding Controlled with Pressure -Offloading No -Treatment Response Procedure Tolerated Well Pain Scale: 0-10 Numeric Is Patient Pain Free? Yes Wound debrided: Left axillary Laterality: Left Type of Debridement: Excisional debridement Anesthesia Used: 5% Lidocaine Gel Depth: Down to and including healthy tissue, in the subcutaneous layer Percentage of wound debrided: 100 Instrument Used: 5mm curette Tissue Removed: Subcutaneous tissue and slough Severity: Fat Layer Exposed Amount of bleeding with debridement: Mild Bleeding Controlled with: Compression and gauze Patient tolerated procedure well Assessment/Plan Active Problems (Last Reviewed 04/30/18 @ 09:12 by Jeanie Rodriguez) Hypergranulation (Chronic) Non-pressure chronic ulcer of skin of other sites with fat layer exposed (Chronic) Left axillary hidradenitis (Chronic) L73.2 left axillary hidradenitis. Assessment: 1. Nonhealing recurrent hidradenitis ulcer left axillary area. 2. s/p surgical preparation left axilla with excisional debridement nonhealing hidradenitis ulcer and placement of Thera-skin skin substitute graft (39 cm2). 3. Elevated alkaline phosphatase level, s/p recent cholecystectomy. 4. s/p teeth extraction. Plan: She did have her teeth removed 01/24/18 and feels better. The ulcer has significantly improved with the Dakin's dressing. There is much less hypergranulation. The operative culture showed Staphylococcus aureus. She was placed on Levaquin, which she finished. Prealbumin from 02/24/18 was 17.4. Encourage nutritional supplementation with protein to help the healing process. She had cholecystectomy on 04/13/18. Her last Alkaline Phosphatase was 143 on 04/30/18. Her periwound is less excoriated than last week. She states she has been using the nystatin cream to the periwound with dressing changes and one other time per day. Renewed Nystatin today. She is hypersensitive to her right axilla. Instructed her when she showers she should allow the shower spray to hit the area to help desensitize the area. Start with a few seconds and every day increase the amount of time by a few seconds. Discussed with the patient about further operative debridement and skin grafting. Will use autograft. Will need a VAC postop for compression to help minimize further buildup of hypergranulation tissue. The patient has had issues with the VAC in the past. I told her that if the VAC is not used postop, I anticipate further buildup of hypergranulation tissue which will compromise the graft. She voices understanding and will keep the VAC on postop. She may need the VAC for as long as a month postop to allow maximal healing and to minimize hypergranulation tissue buildup. Will schedule the surgery next month. Patient was informed of the risks and complications of the procedure including alternatives to surgery. These were discussed with her personally. She voices understanding and wishes to proceed. Followup one week. With possible compromise of the graft after s urgery, she would benefit from HBO treatments. However she had tried HBO treatments in the past and was noncompliant with too many cancellations so they were stopped. Code Visit 111xxx-113xx: [id number] Ligia subq tissue 20 sq cm/<
[2018-07-10 13:26] VITALS: BP 127/84; PULSE 95; RESP 18; TEMP 37.4; BMI 24.5
--- NOTE | 2018-07-10 14:25 | PN.PCM_ITS ---
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 Type of Wound Date of Service: 07/10/18 Chief Complaint: Recurrent hidradenitis ulcer left axillary area with recent placement of skin substitute graft. History of Wound: Surgery 02/23/18 - Surgical preparation left axilla with excisional debridement nonhealing hidradenitis ulcer and placement of Thera-skin skin substitute graft (39 cm2). Wound care - Dakin's. Operative culture - Staphylococcus aureus. She was placed on Levaquin and has finished them. Her Prealbumin on 02/24/18 was 17.4. Continue nutritional supplementation with protein to help the healing process. She had her teeth extraction done on 01/24/18. On 04/13/18 she had a laparoscopic cholecystectomy with cholangiogram. Her last Alkaline Phosphatase was 143 on 04/30/18. Had theraskin placed x 7. Stopped theraskin due to the amount of hypergranulation. With the Dakin's dressing changes, the hypergranulation has improved. Today she denies any fever. Her appetite is good. Progress of Wound: Increased hypergranulation - Physical Exam Vital Signs Temp Pulse Resp BP 99.3 F H 95 18 127/84 H 07/10/18 13:26 07/10/18 13:26 07/10/18 13:26 07/10/18 13:26 General: Alert, Oriented x3, Cooperative HEENT: Atraumatic Oral: Moist Mucosa Lungs: Normal air movement Cardiovascular: Regular rate Extremities: No edema, Capillary Refill Less than 3 Seconds Skin: Ulcer/ Wound - Left axilla Wound Measurements and Assessment WC - Nurse 1 - General Ulcer Measurement Start: 06/25/18 08:44 Freq: Status: Active Protocol: Activity Type Activity Date Activity User E-Sign Co-Sign Detail Recorded Client Recorded Date Recorded By Document 07/10/18 13:26 ZENON [id number] 07/10/18 13:35 AN 07/10/18 13:26 Wound Center Nurse 1 [Ulcer Assessment] #5 left axilla -Current Size (cm) - Length 2.4 -Current Size (cm) - Width 4.5 -Current Size (cm) - Depth 0.1 -Total Square Cm 10.80 -Tunneling No -Undermining/Tunneling No -Classification - Thickness Full Thickness without Exposed Support Structure -Exudate Amt Small -Exudate Type Sanguineous -Wound Margin Distinct, Outline Attached -Granulation Amt Large (67-100%) -Granulation Quality Red -Slough/Fibrin Yes -Necrosis Amt None Present (0 %) -Necrotic Tissue Type Adherent Slough -Structure Exposed None/Limited to Skin Breakdown -Texture (Sadie-wound Skin Appearance) Assessed -Moisture (Sadie-wound Skin Appearance Assessed ) -Color (Sadie-wound Skin Appearance) Assessed Erythema -Temperature (Asdie-wound Skin No Abnormality Appearance) (Pt Warm) -Tenderness on Palpation (Sadie-wound Yes Skin Appearance) -Ulcer Cleansing Rinsed/ Irrigated with Saline -Foul Odor after Cleansing No -Anesthetic Used 4% Lidocaine Solution 5% Lidocaine Gel WC - Nurse 2 - General Ulcer CM Notes Start: 06/25/18 08:44 Freq: Status: Active Protocol: Activity Type Activity Date Activity User E-Sign Co-Sign Detail Recorded Client Recorded Date Recorded By Document 07/10/18 14:01 [email or web address] [id number] 07/10/18 14:03 07/10/18 14:01 Wound Center Nurse 2 [Procedure/Treatment] -Time 14:02 -Correct Patient Yes -Correct Side, Site, Position Yes -Correct Procedure Yes -Procedure Performed Yes -Type of Procedure Debridement -Clinical Debridement Subcutaneous -Post Debridement Size (cm) - Length 2.5 -Post Debridement Size (cm) - Width 4.5 -Post Debridement Size (cm) - Depth 0.1 -Total Square Cm 11.25 -Wound/Ulcer Outcome Not Healed -Ulcer Cleansing Rinsed/ Irrigated with Saline -Foul Odor after Cleansing No -Bioengineered Tissue No -Bleeding Controlled with Pressure Silver Nitrate -Other silver nitrate used to stunt hypergranulatio n -Offloading No -Treatment Response Procedure Tolerated Well [See Physician Procedure note for Specifics] Pain Scale: 0-10 Numeric [Pain] -Is Patient Pain Free? Yes Musculoskeletal: No Tenderness to Palpation of Joints or Extremities Neurological: Neuro grossly intact Psych/Mental Status: Normal Affect, Appropriate Debridement Note Post-Debridement Measurements/Treatment - Nurse 2 - General Ulcer CM Notes Start: 06/25/18 08:44 Freq: Status: Active Protocol: Activity Type Activity Date Activity User E-Sign Co-Sign Detail Recorded Client Recorded Date Recorded By Document 06/25/18 09:04 [id number] 06/25/18 09:09 Document 07/10/18 14:01 [id number] 07/10/18 14:03 06/25/18 07/10/18 09:04 14:01 Wound Center Nurse 2 #5 left axilla -Time 09:05 14:02 -Correct Patient Yes Yes -Correct Side, Site, Position Yes Yes -Correct Procedure Yes Yes -Procedure Performed Yes Yes -Type of Procedure Debridement Debridement -Clinical Debridement Subcutaneous Subcutaneous -Post Debridement Size (cm) - Length 5.5 2.5 -Post Debridement Size (cm) - Width 2.0 4.5 -Post Debridement Size (cm) - Depth 0.2 0.1 -Total Square Cm 11.00 11.25 -Wound/Ulcer Outcome Not Healed Not Healed -Ulcer Cleansing Rinsed/ Rinsed/ Irrigated with Irrigated with Saline Saline -Foul Odor after Cleansing No No -Bioengineered Tissue No No -Bleeding Controlled with Pressure Pressure Silver Nitrate -Other silver nitrate used to stunt hypergranulatio n -Offloading No No -Treatment Response Procedure Procedure Tolerated Well Tolerated Well Pain Scale: 0-10 Numeric Is Patient Pain Free? Yes Yes Wound debrided: Left axilla Laterality: Left Type of Debridement: Excisional debridement Anesthesia Used: 5% Lidocaine Gel Depth: Down to and including healthy tissue, in the subcutaneous layer Percentage of wound debrided: 90 - Patient would not allow to have the entire ulcer debrided, she kept putting her arm down Instrument Used: 7mm curette Tissue Removed: Subcutaneous tissue and slough Severity: Fat Layer Exposed Amount of bleeding with debridement: Moderate Bleeding Controlled with: Compression and gauze, Silver Nitrate - Silver nitrate used on the base of ulcer to try and burn off slough that unable to remove with currette. Patient tolerated procedure well Assessment/Plan Active Problems (Last Reviewed 04/30/18 @ 09:12 by Jeanie Rodriguez) Hypergranulation (Chronic) Non-pressure chronic ulcer of skin of other sites with fat layer exposed (Chronic) Left axillary hidradenitis (Chronic) L73.2 left axillary hidradenitis. Assessment: 1. Nonhealing recurrent hidradenitis ulcer left axillary area. 2. s/p surgical preparation left axilla with excisional debridement nonhealing hidradenitis ulcer and placement of Thera-skin skin substitute graft (39 cm2). 3. Elevated alkaline phosphatase level, s/p recent cholecystectomy. 4. s/p teeth extraction. Plan: She did have her teeth removed 01/24/18 and feels better. There is no improvement since her last visit in her ulcer. She missed her last appointment so it has been a couple of weeks with no debridement. Will increase the Dakin's solution dressing changes to twice daily due to the increase in hypergranul ation. Wound culture performed today. The operative culture showed Staphylococcus aureus. She was placed on Levaquin, which she finished. Prealbumin from 02/24/18 was 17.4. Encourage nutritional supplementation with protein to help the healing process. She had cholecystectomy on 04/13/18. Her last Alkaline Phosphatase was 143 on 04/30/18. Her periwound continues to be excoriated. She states she has been using the nystatin cream to the periwound with dressing changes and one other time per day. She is hypersensitive to her right axilla. Instructed her when she showers she should allow the shower spray to hit the area to help desensitize the area. Start with a few seconds and every day increase the amount of time by a few seconds. Discussed with the patient about further operative debridement and skin grafting. Will use autograft. Will need a VAC postop for compression to help minimize further buildup of hypergranulation tissue. The patient has had issues with the VAC in the past. I told her that if the VAC is not used postop, I anticipate further buildup of hypergranulation tissue which will compromise the graft. She voices understanding and will keep the VAC on postop. She may need the VAC for as long as a month postop to allow maximal healing and to minimize hypergranulation tissue buildup. Will schedule the surgery next month. Patient was informed of the risks and complications of the procedure including alternatives to surgery. These were discussed with her personally. She voices understanding and wishes to proceed. Followup one week. With possible compromise of the graft after surgery, she would benefit from HBO treatments. However she had tried HBO treatments in the past and was noncompliant with too many cancellations so they were stopped. Code Visit 111xxx-113xx: 49020 Ligia subq tissue 20 sq cm/<
== END 2018-07-15 23:59 ==
LOC: WC 13:15
PROVIDERS: Family Provider Family Medicine; PCP Family Medicine; Referring Provider Surgery; Visit Provider Surgery
DX: L73.2 Hidradenitis suppurativa (principal); R74.8 Abnormal levels of other serum enzymes; L92.9 Granulomatous disorder of the skin and subcutaneous tissue, unspecified; Z91.19 Patient's noncompliance with other medical treatment and regimen; L98.492 Non-pressure chronic ulcer of skin of other sites with fat layer exposed
CPT/HCPCS: 11042; 87070; 87075; 87077; 87186; 87205

== ENCOUNTER 2018-07-24 09:30 | Observation (INO) | payer MEDICAID, SELFPAY ==
--- NOTE | 2018-07-23 18:31 | HP.PCM_ITS ---
History and Physical Date of Admission: 07/24/18 HISTORY OF PRESENT ILLNESS The patient is a 37 year old F who presents with a recurrent nonhealing hidradenitis ulcer left axillary area that initially resulted from her flare up of hidradenitis. This necessitated surgery in 03/31 where she underwent surgical preparation left axillary wound with excision hidradenitis. She was treated with antibiotics after surgery along with the VAC and Silver dressing changes. She followed up at the Wound Center and in 09/30, the wound healed. The left axilla then re-ulcerated and she was placed back on Silver dressing changes. Culture showed Staphylococcus aureus and she was placed on Doxycycline. It improved but did not heal and she went back to surgery in 11/30 where she underwent excision nonhealing recurrent hidradenitis ulcer left axilla and reconstruction with proximal medial left arm bilobed transposition skin flap (56 cm2). There was adequate healing initially but then she developed some compromise to the flap. She underwent HBO treatments and tolerated them well but had to stop them because of the flu. The ulcer improved but did not heal. Repeat culture once again showed Staphylococcus aureus and she was placed back on Doxycycline. She went back to surgery on 08/11/16 where she underwent rios rgical preparation left axilla with excision nonhealing hidradenitis ulcer (60 cm2). She initially had the VAC for wound care and was recently changed to Silver dressing changes daily. Operative cultures showed Staphylococcus aureus and Staphylococcus epidermidis. They were resistant to Doxycycline and she was changed to Levaquin. The ulcer stabilized with good granulation tissue, and she was taken back to the OR on 09/29/16 where she underwent excisional debridement nonhealing recurrent hidradenitis ulcer left axilla with FTSG reconstruction from lower anterior abdominal wall (28 cm2). Operative culture showed Staphylococcus aureus and was placed on Doxycycline. She developed some compromise of the skin graft at the edges and underwent HBO treatments with some improvement. With local wound care with Silver dressings and then Santyl dressings, along with antibiotics for positive cultures, she still had a persistent ulceration. Her last culture was on 05/15/17 which showed Serratia marcescens and Staphylococcus lugdunensis and was treated with Levaquin. Part of the healing difficulties has been surmised by her chronically infected teeth that need to be removed. She has seen dentists for this problem and there have been many delays in getting this done. It has been hard to debride the ulcer lately in the Wound Center secondary to discomfort, so further debridement was recommended in preparation for additional HBO treatments in preparation for additional surgery with skin grafting. On 06/28/17, the patient underwent surgical preparation left axilla with excision recurrent hidradenitis ulcer (66 cm2). Some healing has occurred, but once again, hypertrophic granulation tissue has persisted that is quite painful and difficult to debride in the Wound Center. Recent culture on 12/04/17 showed Staphylococcus aureus, Burkholderia cepacia, and Rhizobium radiobacter and was placed on Levaquin. On 12/19/17, the patient underwent surgical preparation left axilla with excision nonhealing recurrent hidradenitis ulcer (45 cm2). Operative culture showed Staphylococcus aureus. She was placed on Levaquin and has finished them. Once again, hypertrophic granulation tissue has formed that is painful to debride in the Wound Center. However in the meantime her teeth finally were removed. So after further operative debridement today, will proceed with skin grafting. PAST MEDICAL HISTORY Depression. Anxiety. Anemia. Back problems. Hidradenitis bilateral axillary areas. PAST SURGICAL HISTORY Surgical preparation right axillary wound with excision hidradenitis (40 cm2) on 06/02/14. Surgical preparation left axillary wound with excision hidradenitis (36 cm2) on 03/17/15. Excision nonhealing recurrent hidradenitis ulcer left axilla and reconstruction with proximal medial left arm bilobed transposition skin flap (56 cm2) on 11/24/15. surgical preparation left axilla with excision nonhealing hidradenitis ulcer (60 cm2) - 08/11/16. Excisional debridement nonhealing recurrent hidradenitis ulcer left axilla with FTSG reconstruction from lower anterior abdominal wall (28 cm2) - 09/29/16. Surgical preparation left axilla with excision recurrent hidradenitis ulcer (66 cm2) - 06/28/17 Surgical preparation left axilla with excision nonhealing recurrent hidradenitis ulcer (45 cm2) - 12/19/17 MEDICATIONS Phenergan. Percocet. Levaquin. Valium. Tylenol. ALLERGIES latex Allergy Penicillins [PCN] hydromorphone HCl [From Dilaudid] SOCIAL HISTORY Lives: Spouse/ Significant Other Smoking Status: Never smoker Tobacco Use: Non-smoker Alcohol: Occasional Drugs: None FAMILY HISTORY Maternal - Diabetes, Heart Disease, Hypertension, - - ovarian cancer. negative for skin cancer. Paternal - Heart Disease, Hypertension, Stroke, - - negative for skin cancer. REVIEW OF SYSTEMS Constitutional: Denies: Fever, Weakness, Fatigue Eyes: Denies: Pain HEENT: Denies: Nasal Congestion, Sore Throat Cardiovascular: Denies: Chest Pain Respiratory: Denies: Cough, Shortness of Breath Gastrointestinal: Denies: Constipation, Diarrhea, Nausea, Vomiting Genitourinary: Denies: Frequency, Hematuria Musculoskeletal: Reports: - - left axillary pain.. Denies: Back Pain, Hand Pain, Neck Pain Skin: Reports: Wounds - left axillary hidradenitis ulcer. Neurological: Denies: Headaches Psychiatric: Reports: Anxiety, Depression Endocrine: Denies: Polydipsia, Polyuria Hematologic/ Lymphatic: Reports: Anemia. Denies: Easy Bruising, Hx of blood clot PHYSICAL EXAMINATION General: Alert, Oriented x3 HEENT: PERRLA, EOMI. Had poor dental hygiene with severe periodontal disease and decaying teeth and she finally had her teeth removed. Neck: Supple Lungs: Clear to auscultation Cardiovascular: Regular rate, Regular Rhythm Abdomen: Soft, Non-Distended Extremities: No clubbing, No cyanosis, No edema, Peripheral Pulses Normal Skin: Ulcer/ Wound - left axillary hidradenitis ulcer. Measures 6 x 4 x 0.3 cm. Hypergranulation tissue present. No purulent drainage. Tender to palpation. Lymphatic: No Cervical, Supraclavicular, or Inguinal Adenopathy Neurological: Cranial nerves II-XII grossly intact Psych/Mental Status: Normal Affect, Appropriate ASSESSMENT 1. Nonhealing recurrent hidradenitis ulcer left axillary area. 2. H/O left axillary hidradenitis. PLAN The ulcer is clean with granulation tissue. Some hypergranulation tissue seen that is hard to debride because of pain. She finally had her teeth removed. She has good range of motion of her left shoulder. It is recommended to the patient to proceed with operative debridement to remove the hypergranulation tissue. Can proceed with skin grafting. Surgery will be done under general anesthesia on an outpatient basis. Tissue will be sent to Pathology for analysis and to Microbiology for culture. A positive culture may necessitate antibiotic modification. Followup at the Wound Center after discharge from the hospital. I anticipate increased metabolic demands from the ulcer and the surgery. Encourage nutritional supplementation with protein to help the healing process. The patient was informed of the risks and complications of the procedure including alternatives to surgery. These were discussed with her personally. She voices understanding and wishes to proceed.
[2018-07-24] VITALS (15 sets, daily range): BP systolic 111–144; BP diastolic 73–95; PULSE 69–106; RESP 16–18; TEMP 36.3–37.2; O2SAT 98–100; BMI 24.5
--- NOTE | 2018-07-24 | HID_PTH ---
PATIENT: RAVI IRAHETA LOC: MS3 U#:[id number] AGE/SX: 37/F [place] [facility] [place]: Dr. Lennox Eugene MD : 1980 BED: 1 DIS: 07/25/2018 SPEC #: [id number] RECD: 07/24/18 10:38 STATUS: YANIQUE REMisael #: [id number] BRIGHT: 07/24/18 00:[address]: Lennox Eugene DEPT: SURGICAL PATHOLOGY RECD BY: Dano Morataya ENTERED: 07/24/18 11:37 SP TYPE: Barry TOBIN DR: Dr. Bogdan Guerra DO Tissues: Axilla, NOS Procedures: Surgery Specimen Level III HEADER OPERATION: Surgical preparation axilla with excisional debridement PRE-OP DIAGNOSIS: Nonhealing recurrent hidradenitis ulcer left axillary area; history of hidradenitis TISSUE SUBMITTED: Hidradenitis left axilla MICROSCOPIC DIAGNOSIS Hidradenitis left axilla: Pieces of skin and fibroconnective tissue with focal ulceration, acute and chronic inflammation and granulation tissue reaction. SINGH:kusum 07/25/18 MICROSCOPIC DESCRIPTION Slides are reviewed. GROSS DESCRIPTION Received in fixative is one container labeled with the patient's name and designated hidradenitis left axilla. The specimen consists of multiple irregular fragments of skin and pink soft tissue that in aggregate measure 3 x 2.5 x 0.4 cm. The entire specimen is submitted in one cassette. / SINGH:kusum 07/24/18 TC:2 CPT: 52745
[2018-07-24 06:21] LABS: Internal QC Validated? YES +Cl - CLEAR BKGD; Pregnancy, Urine Negative Negative
[2018-07-24] MEDS: levoFLOXacin IV 500 MG/100 ML BAG 100 MG IV (06:41)
[2018-07-24] MEDS: Mupirocin Ointment 22gm Tube 1 APPLIC (09:10)
--- NOTE | 2018-07-24 09:30 | OP.PCM_ITS ---
Report of Operation Date of Procedure: 07/24/18 Pre-Operative Diagnosis: 1. Nonhealing recurrent hidradenitis ulcer left axillary area. 2. H/O left axillary hidradenitis. Post-Operative Diagnosis: Same. Surgery/Procedure Performed:: Surgical preparation left axilla with excisional debridement nonhealing hidradenitis ulcer and STSG reconstruction from left flank (24 cm2) and placement of JESSICA NPWT device. Description of Surgical Findings:: The patient is a 37 year old F who presents with a recurrent nonhealing hidradenitis ulcer left axillary area that initially resulted from her flare up of hidradenitis. This necessitated surgery in 03/31 where she underwent surgical preparation left axillary wound with excision hidradenitis. She was treated with antibiotics after surgery along with the VAC and Silver dressing changes. She followed up at the Wound Center and in 09/30, the wound healed. The left axilla then re-ulcerated and she was placed back on Silver dressing changes. Culture showed Staphylococcus aureus and she was placed on Doxycycline. It improved but did not heal and she went back to surgery in 11/30 where she underwent excision nonhealing recurrent hidradenitis ulcer left axilla and reconstruction with proximal medial left arm bilobed transposition skin flap (56 cm2). There was adequate healing initially but then she developed some compromise to the flap. She underwent HBO treatments and tolerated them well but had to stop them because of the flu. The ulcer improved but did not heal. Repeat culture once again showed Staphylococcus aureus and she was placed back on Doxycycline. She went back to surgery on 08/11/16 where she underwent surgical preparation left axilla with excision nonhealing hidradenitis ulcer (60 cm2). She initially had the VAC for wound care and was recently changed to Silver dressing changes daily. Operative cultures showed Staphylococcus aureus and Staphylococcus epidermidis. They were resistant to Doxycycline and she was changed to Levaquin. The ulcer stabilized with good granulation tissue, and she was taken back to the OR on 09/29/16 where she underwent excisional debridement nonhealing recurrent hidradenitis ulcer left axilla with FTSG reconstruction fro m lower anterior abdominal wall (28 cm2). Operative culture showed Staphylococcus aureus and was placed on Doxycycline. She developed some compromise of the skin graft at the edges and underwent HBO treatments with some improvement. With local wound care with Silver dressings and then Santyl dressings, along with antibiotics for positive cultures, she still had a persistent ulceration. Her last culture was on 05/15/17 which showed Serratia marcescens and Staphylococcus lugdunensis and was treated with Levaquin. Part of the healing difficulties has been surmised by her chronically infected teeth that need to be removed. She has seen dentists for this problem and there have been many delays in getting this done. It has been hard to debride the ulcer lately in the Wound Center secondary to discomfort, so further debridement was recommended in preparation for additional HBO treatments in preparation for additional surgery with skin grafting. On 06/28/17, the patient underwent surgical preparation left axilla with excision recurrent hidradenitis ulcer (66 cm2). Some healing has occurred, but once again, hypertrophic granulation tissue has persisted that is quite painful and difficult to debride in the Wound Center. Recent culture on 12/04/17 showed Staphylococcus aureus, Burkholderia cepacia, and Rhizobium radiobacter and was placed on Levaquin. On 12/19/17, the patient underwent surgical preparation left axilla with excision nonhealing recurrent hidradenitis ulcer (45 cm2). Operative culture showed Staphylococcus aureus. She was placed on Levaquin and has finished them. Once again, hypertrophic granulation tissue has formed that is painful to debride in the Wound Center. However in the meantime her teeth finally were removed. So after further operative debridement today, will proceed with skin grafting. Patient was informed of the risks and complications of the procedure including alternatives to surgery. These were discussed with the patient personally. Pa tient voices understanding and wishes to proceed. Size of skin graft left axilla - 6 x 4 cm. 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 Type of Anesthesia:: General Specimen's removed: Nonhealing hidradenitis ulcer left axilla to Pathology and Microbiology. Drains: None. Estimated Blood Loss (mL): 25 ml. Description of Procedure: Patient was taken to OR in supine position and was placed under general anesthesia. The left axilla and left flank areas were prepped and draped in the usual fashion. SCD's were placed for DVT prophylaxis. Perioperative antibiotics were given intravenously. Using xylocaine with epinephrine, the left axilla and left flank areas were infiltrated. After waiting 5 minutes for the anesthetic to take effect, I made an elliptical incision in the left flank into the subcutaneous tissue. I removed the subcutaneous tissue from the undersurface of the dermis and some of the deeper dermis thus fashioning a thick split thickness skin graft. The skin graft was placed in saline. I excised some additional subcutaneous tissue to aid in the wound closure. Hemostasis was obtained with electrocautery. The wound was irrigated with saline. I then closed the donor incision left flank in a multiple layered fashion with 2-0 Vicryl figure of eight interrupted sutures for the Karolyn's fascia. The deep dermis and subcutaneous tissue was approximated with 3-0 Monocryl interrupted suture. The skin was approximated with 4-0 V lock unidirectional barbed running subcuticular suture. Histoacryl skin tissue adhesive was then applied followed by a Kerlix gauze dressing with an ABD. I then excised the nonhealing hidradenitis ulcer left axilla using a scalpel and also a curette. Some of the tissue was sent to Pathology for analysis to rule out carcinoma and to Microbiology for culture. A positive culture may necessitate antibiotic modification. The size of the defect for skin grafting was 6 x 4 cm or 24 cm2. Good bleeding was seen in the left axillary wound. The skin graft was placed on stretch with hemostats. Using a 15 scalpel, the skin graft was meshed. The split thickness skin graft was then placed on the left axillary wound and secured to the skin edges with 3-0 Chromic simple interrupted sutures. 3-0 Chromic interrupted sutures were also used for central quilting stabilization. This was followed by Bactroban ointment and Mepitel nonadherent dressing. This was followed by a JESSICA NPWT device. Good suction was noted with the device. The green light was blinking. A compression JAGRUTI wrap was then applied to the left axilla. Patient tolerated the procedure well and was sent to PACU in satisfactory condition. Patient will be sent upstairs for continued postop care. She will spend the night as a surgical observation overnight stay. Anticipate discharge tomorrow. Followup Wound Center 07/30/18 for takedown of the EJSSICA NPWT skin graft dressing. Grafts/Implants Used: None. - Complications None. - Admit VTE Documentation VTE Present on Admission: No VTE Mechan Device Prophylaxis: SCD's VTE Pharm Prophylaxis ordered?: No Code Visit Surgery Charges CPT - 42115 ICD-10 - L98.492, L73.2, L92.9, Z87.2 [id number] L98.492, L73.2, L92.9, Z87.2
[2018-07-24] MEDS: Lactated Ringers 1,000 ML 60 ML IV ×2 (09:53→18:49)
[2018-07-24] MEDS: oxyCODONE 5 MG Tablet 10 MG PO ×2 (11:06→18:43)
[2018-07-24] MEDS: proMETHazine 25 MG Tablet PO (12:59)
[2018-07-25] MEDS: levoFLOXacin IV 500 MG/100 ML BAG 100 MG IV (04:59)
[2018-07-25 05:00] VITALS: BP 136/92; PULSE 88; RESP 16; TEMP 36.7; O2SAT 100
[2018-07-25] MEDS: oxyCODONE 5 MG Tablet 10 MG PO ×2 (05:16→09:23)
[2018-07-25 06:22] LABS: Hematocrit 33.8 % (37-47); Hemoglobin 10.5 g/dl (12.0-15.0); Mean Corp Hgb Conc 31.1 g/gl (32-36); Mean Corpuscular Hgb 21.9 pg (27.0-32.0); Mean Corpuscular Volume 70.6 fL (81-99); Mean Platelet Vol. 11.5 fl (6.2-12.0); Platelet Count 245 K/mm3 (150-450); RBC Distribution Width CV 17.5 % (11.6-14.6); RBC Distribution Width SD 44.9 fl (35.1-43.9); Red Blood Count 4.79 M/mm3 (4.2-5.4); Scan Indicated on CBC? Y/N NO; White Blood Count 9.2 K/mm3 (4.4-11.0)
[2018-07-25 06:55] LABS: Anion Gap 7 (5-15); BUN 5 mg/dL (7-18); BUN/Creat Ratio 7.6 RATIO (10-20); Calcium,Total 8.7 mg/dL (8.5-10.1); Chloride 109 mmol/L (98-107); Creatinine, Serum 0.66 mg/dL (0.55-1.02); EST Glomerular Filtration Rate 108 mL/min (>60); Est Glom Filt Rate - Afr Amer 130 mL/min (>60); Glucose 98 mg/dL (74-106); Potassium 3.8 mmol/L (3.5-5.1); Prealbumin 23.3 mg/dL (20.0-40.0); Sodium Level 141 mmol/L (136-145)
[2018-07-25 08:21] VITALS: BP 128/71; PULSE 94; RESP 16; TEMP 37.6; O2SAT 95
[2018-07-25 08:23] VITALS: PULSE 95; O2SAT 96
[2018-07-25 09:09] VITALS: BP 123/76; PULSE 95; RESP 16; TEMP 37.3; O2SAT 96
[2018-07-25] MEDS: Acetaminophen 500 MG Tablet PO (09:23)
[2018-07-25] MEDS: Lactated Ringers 1,000 ML 60 ML IV (11:36)
[2018-07-25 12:53] VITALS: BP 121/71; PULSE 85; RESP 16; TEMP 37.1; O2SAT 97
--- NOTE | 2018-07-25 13:34 | PCM.PN.SRG ---
Subjective: Postop #1 Patient is resting comfortably. - Physical Exam General: Alert, Oriented x3 HEENT: PERRLA, EOMI Oral: Moist Mucosa Neck: Supple Abdomen: Soft, Non-Distended Extremities: Edema - mild edema in left arm., Peripheral Pulses Normal Skin: Incision - skin graft dressing dry. JESSICA NPWT device is functional with the green light blinking. donor incision left flank is dry and intact Neurological: Cranial nerves II-XII grossly intact Psych/Mental Status: Normal Affect, Appropriate Vital Signs Temp Pulse Resp BP Pulse Ox 98.7 F 85 16 121/71 H 97 07/25/18 12:53 07/25/18 12:53 07/25/18 12:53 07/25/18 12:53 07/25/18 12:53 Oxygen Flow Rate (L/min) 4 Oxygen Delivery Method Room Air Weight: 134 lb 0.657 oz Body Mass Index (BMI) 24.5 Intake and Output for Last 24 Hours 07/23/18 07/24/18 07/25/18 23:59 23:59 23:59 Intake Total 1960 / 1960 984 / 984 Output Total 200 / 200 600 / 600 Balance 1760 / 1760 384 / 384 Microbiology Past 72 Hours 07/24/18 09:00 Gram Stain - Final Tissue - Arm Left Wound Culture - Preliminary Gram positive organism Laboratory Tests Past 24 Hrs 07/25/18 07/25/18 05:20 05:20 WBC 9.2 RBC 4.79 Hgb 10.5 L Hct 33.8 L MCV 70.6 L MCH 21.9 L MCHC 31.1 L RDW 17.5 H RDW Differential 44.9 H Plt Count 245 MPV 11.5 Sodium 141 Potassium 3.8 Chloride 109 H Carbon Dioxide 25.0 Anion Gap 7 BUN 5 L Creatinine 0.66 Estim Creat Clear Calc 93.20 Est GFR (MDRD) Af Amer 130 Est GFR (MDRD) Non-Af 108 BUN/Creatinine Ratio 7.6 L Glucose 98 Calcium 8.7 Prealbumin 23.3 Medical Necessity - Tobacco Use Smoking Status: Never smoker Assessment/Plan All Active Problems (Last Reviewed 04/30/18 @ 09:12 by Jeanie Rodriguez) Hx of cholecystectomy (Acute) History of tooth extraction (Acute) History of axillary surgery (Acute) Elevated alkaline phosphatase level (Acute) Non-pressure chronic ulcer of skin of other sites (Ruled-out) 1. Nonhealing recurrent hidradenitis ulcer left axillary area. 2. H/O left axillary hidradenitis. 3. s/p surgical preparation left axilla with excisional debridement nonhealing hidradenitis ulcer and STSG reconstruction from left flank (24 cm2) and placement of JESSICA NPWT device. JESSICA NPWT device is intact and functional. Patient is tolerating po analgesia. Operative culture shows Gram positive organism. Continue Levaquin. A positive culture may necessitate antibiotic modification. Prealbumin was 23.3. Encourage nutritional supplementation with protein to help the healing process. Discharge home today. Encourage light range of motion left shoulder to minimize stiffness. Keep left arm elevated. Has Levaquin at home and will continue them. Wrote script for Percocet for pain (40 tabs). Wrote script for Phenergan for nausea (30 tabs) and a refill. Followup Monday07/30/18 at [facility]ound Center for takedown of the JESSICA NPWT skin graft dressing.
--- NOTE | 2018-07-25 13:37 | PCM.DC ---
You will use the following diet at home:: No restrictions Discharge Activity: May not drive while taking narcotic pain medications., May Not Shower - until the PICP NPWT device is removed at wound center on 07/30/18. May shower in (days): 5 - after the JESSICA NPWT device is removed. May resume sexual activity in: No Restrictions Weight Bearing Status: Weight bearing as tolerated Keep extremity elevated above heart level: Left Arm Call your doctor if your incision/area has: Continuous Slow Oozing, Sudden Increased Bleeding, Increased Pain/ Swelling, Increased Redness, Foul Smelling Discharge, Swelling at the incision site, - - if the JESSICA device starts to beep or malfunction. Call your doctor if you observe: Fever of 101 or Higher, Coldness, Increased Pain, Shortness of breath, Chest pain, Calf discomfort, Uncontrolled pain Suture Line Care: - - Leave JESSICA device in place. Change Dressing in (Days):: 5 - will change JESSICA device at wound center 07/30/18. Cleanse incision/area with: - - may get skin graft wet in the shower after the JESSICA device is removed at the wound center on 07/30/18. Additional Instructions: Patient has Levaquin at home and will continue them. Allergies/Adverse Reactions: Allergies latex Allergy (Verified 07/24/18 06:17) Rash Penicillins [PCN] Allergy (Verified 07/24/18 06:17) Hives doxycycline Adverse Reaction (Verified 07/24/18 06:17) Nausea hydromorphone HCl [From Dilaudid] Adverse Reaction (Verified 07/24/18 06:17) Nausea Medications to take at Discharge levoFLOXacin tablet [Levaquin tablet] 500 mg PO DAILY #14 tab 02/24/18 Oxycodone HCl/Acetaminophen [Percocet 5-325] 1 - 2 tab PO 4X/DAY PRN PRN 5 Days #40 tab 07/25/18 proMETHazine tablet [Phenergan tablet] 25 mg PO 4X/DAY PRN PRN #30 tab 07/25/18 The following prescriptions were given: Oxycodone HCl/Acetaminophen [Percocet 5-325] 1 - 2 tab PO 4X/DAY PRN PRN 5 Days #40 tab PRN Reason: Pain proMETHazine tablet [Phenergan tablet] 25 mg PO 4X/DAY PRN PRN #30 tab PRN Reason: NAUSEA/VOMITING Primary Care Physician: Bogdan Guerra DO [Primary Care Provider] - Test Results: Test results from this visit will be discussed in further detail at your follow-up appointment, if applicable. Please Follow Up With: Lennox Eugene MD When: monday07/30/18 at [facility]. call [phone] if questions. Proposed Discharge Date: 07/25/18
--- NOTE | 2018-07-25 13:41 | DCINST_ITS ---
You will use the following diet at home:: No restrictions Discharge Activity: May not drive while taking narcotic pain medications., May Not Shower - until the PICP NPWT device is removed at wound center on 07/30/18. May shower in (days): 5 - after the JESSICA NPWT device is removed. May resume sexual activity in: No Restrictions Weight Bearing Status: Weight bearing as tolerated Keep extremity elevated above heart level: Left Arm Call your doctor if your incision/area has: Continuous Slow Oozing, Sudden Increased Bleeding, Increased Pain/ Swelling, Increased Redness, Foul Smelling Discharge, Swelling at the incision site, - - if the JESSICA device starts to beep or malfunction. Call your doctor if you observe: Fever of 101 or Higher, Coldness, Increased Pain, Shortness of breath, Chest pain, Calf discomfort, Uncontrolled pain Suture Line Care: - - Leave JESSICA device in place. Change Dressing in (Days):: 5 - will change JESSICA device at wound center 07/30/18. Cleanse incision/area with: - - may get skin graft wet in the shower after the JESSICA device is removed at the wound center on 07/30/18. Additional Instructions: Patient has Levaquin at home and will continue them. Allergies/Adverse Reactions: Allergies latex Allergy (Verified 07/24/18 06:17) Rash Penicillins [PCN] Allergy (Verified 07/24/18 06:17) Hives doxycycline Adverse Reaction (Verified 07/24/18 06:17) Nausea hydromorphone HCl [From Dilaudid] Adverse Reaction (Verified 07/24/18 06:17) Nausea Medications to take at Discharge levoFLOXacin tablet [Levaquin tablet] 500 mg PO DAILY #14 tab 02/24/18 Oxycodone HCl/Acetaminophen [Percocet 5-325] 1 - 2 tab PO 4X/DAY PRN PRN 5 Days #40 tab 07/25/18 proMETHazine tablet [Phenergan tablet] 25 mg PO 4X/DAY PRN PRN #30 tab 07/25/18 The following prescriptions were given: Oxycodone HCl/Acetaminophen [Percocet 5-325] 1 - 2 tab PO 4X/DAY PRN PRN 5 Days #40 tab PRN Reason: Pain proMETHazine tablet [Phenergan tablet] 25 mg PO 4X/DAY PRN PRN #30 tab PRN Reason: NAUSEA/VOMITING Primary Care Physician: Bogdan Guerra DO [Primary Care Provider] - Test Results: Test results from this visit will be discussed in further detail at your follow- up appointment, if applicable. Please Follow Up With: Lennox Eugene MD When: monday07/30/18 at [facility]. call [phone] if questions. Proposed Discharge Date: 07/25/18
--- NOTE | 2018-07-25 14:28 | NURSING ---
student charting used for educational learning purposes and reviewed by eduardo ruggiero
== END 2018-07-25 14:18 | disposition home or self-care (01) ==
LOC: SDC 09:57
PROVIDERS: Anesthesiology; Admitting Provider Surgery; Family Provider Family Medicine; PCP Family Medicine; Referring Provider Surgery; Visit Provider Surgery
PROC: (CPT 15002; principal; 2018-07-24 07:45)
DX: L73.2 Hidradenitis suppurativa (principal); L98.499 Non-pressure chronic ulcer of skin of other sites with unspecified severity
CPT/HCPCS: 00300; 15002; 15100; 36415; 80048; 81025; 84134; 85027; 87015; 87070; 87075; 87077; 87102; 87116; 87205; 87206; 88304; 96365; 99218; J7120; G0378; G0379; J2405

== ENCOUNTER 2018-07-30 07:57 | Outpatient (RCR) | payer MEDICAID, SELFPAY ==
[2018-07-16 00:49] VITALS: BP 127/84; PULSE 95; RESP 18; TEMP 37.4
[2018-07-24 06:18] VITALS: BMI 24.5
[2018-07-30 08:48] VITALS: BP 121/83; PULSE 86; RESP 16; TEMP 36.6; BMI 24.5
--- NOTE | 2018-07-30 12:17 | PCM.WC.PN ---
Type of Wound Date of Service: 07/30/18 Chief Complaint: Recurrent hidradenitis ulcer left axillary area with recent skin grafting 07/24/18. History of Wound: Surgery 07/24/18 - Surgical preparation left axilla with excisional debridement nonhealing hidradenitis ulcer and STSG reconstruction from left flank (24 cm2) and placement of JESSICA NPWT device. Wound care - JESSICA NPWT device. Operative culture - Apoorva willis. She has been on Levaquin for a preop culture that showed Staphylococcus aureus and will continue them. Her Prealbumin on 07/25/18 was 23.3. Continue nutritional supplementation with protein to help the healing process. She had her teeth extraction done on 01/24/18. Today she denies fever. Her appetite is good. Progress of Wound: Recent skin graft 07/24/18. - Physical Exam Vital Signs Temp Pulse Resp BP 98 F 86 16 121/83 H 07/30/18 08:48 07/30/18 08:48 07/30/18 08:48 07/30/18 08:48 HEENT: TM's Clear - No bleeding noted. Skin: - - JESSICA NPWT device was removed today. The skin graft shows good adherence and some vascular ingrowth. Some moisture is present. About 95% take. There is some compromise at the edges of the graft, about 5%. Wound Measurements and Assessment WC - Nurse 1 - General Ulcer Measurement Start: 07/30/18 08:47 Freq: Status: Active Protocol: Activity Type Activity Date Activity User E-Sign Co-Sign Detail Recorded Client Recorded Date Recorded By Document 07/30/18 08:48 [id number] 07/30/18 09:02 DL 07/30/18 08:48 Wound Center Nurse 1 [Ulcer Assessment] #5 left axilla -Current Size (cm) - Length 3 -Current Size (cm) - Width 4 -Current Size (cm) - Depth 0.1 -Total Square Cm 12 -Photo Taken Yes -Exudate Amt Small -Exudate Type Serosanguineous -Wound Margin Distinct, Outline Attached -Granulation Amt None Present (0 %) -Slough/Fibrin No -Necrosis Amt None Present (0 %) -Structure Exposed N/A -Texture (Sadie-wound Skin Appearance) Scarring -Moisture (Sadie-wound Skin Appearance Dry/Scaly ) -Color (Sadie-wound Skin Appearance) Rubor -Temperature (Sadie-wound Skin No Abnormality Appearance) (Pt Warm) -Tenderness on Palpation (Sadie-wound No Skin Appearance) -Ulcer Cleansing Wound Cleanser -Foul Odor after Cleansing No WC - Nurse 2 - General Ulcer CM Notes Start: 07/30/18 08:47 Freq: Status: Active Protocol: Activity Type Activity Date Activity User E-Sign Co-Sign Detail Recorded Client Recorded Date Recorded By Document 07/30/18 09:45 MW [id number] 07/30/18 09:49 MW 07/30/18 09:45 Wound Center Nurse 2 [Procedure/Treatment] -Time 09:47 -Correct Patient Yes -Correct Side, Site, Position Yes -Correct Procedure Yes -Procedure Performed No -Wound/Ulcer Outcome Not Healed -Bleeding Controlled with NA -Offloading No [See Physician Procedure note for Specifics] Pain Scale: 0-10 Numeric [Pain] -Is Patient Pain Free? Yes Debridement Note Post-Debridement Measurements/Treatment WC - Nurse 2 - General Ulcer CM Notes Start: 07/30/18 08:47 Freq: Status: Active Protocol: Activity Type Activity Date Activity User E-Sign Co-Sign Detail Recorded Client Recorded Date Recorded By Document 07/30/18 09:45 MW [id number] 07/30/18 09:49 MW 07/30/18 09:45 Wound Center Nurse 2 #5 left axilla -Time 09:47 -Correct Patient Yes -Correct Side, Site, Position Yes -Correct Procedure Yes -Procedure Performed No -Wound/Ulcer Outcome Not Healed -Bleeding Controlled with NA -Offloading No Pain Scale: 0-10 Numeric Is Patient Pain Free? Yes Wound debrided: #5 Left axilla. Laterality: Left Wound Grade/Stage: 2. No debridement was completed today - the ulcer was skin grafted on 07/24/18. Has some early compromise of the graft at the edges, about 5%. Assessment/Plan Assessment: 1. Nonhealing recurrent hidradenitis ulcer left axillary area. 2. H/O left axillary hidradenitis. 3. s/p surgical preparation left axilla with excisional debridement nonhealing hidradenitis ulcer and STSG reconstruction from left flank (24 cm2) and placement of JESSICA NPWT device. 4. s/p teeth extraction. 5. Early skin graft compromise left axillary area. Plan: The skin graft shows good adherence and good vascular ingrowth. There is some increased moisture present. So will start Silver dressing changes to help absorb the moisture. About 95% take of the graft. There is some early compromise of the graft at the edges, about 5%. She would benefit from HBO treatments to help salvage her compromised graft. Will tentatively start next week. Will start with 20 treatments and reassess. Her operative culture showed Kocuria kristinae. Her preop culture showed Staphylococcus aureus and she has been treated with Levaquin and will continue them. Her Prealbumin from 07/25/18 was 23.3. Encourage nutritional supplementation with protein to help the healing process. Encourage range of motion exercises to minimize stiffness. Followup one week. Will need to check an xray. Her last one was 07/02.
== END 2018-08-14 23:59 ==
LOC: WC 07:57
PROVIDERS: Family Provider Family Medicine; PCP Family Medicine; Referring Provider Surgery; Visit Provider Surgery
DX: L73.2 Hidradenitis suppurativa (principal); Z91.19 Patient's noncompliance with other medical treatment and regimen; T86.828 Other complications of skin graft (allograft) (autograft); Y83.8 Other surgical procedures as the cause of abnormal reaction of the patient, or of later complication, without mention of misadventure at the time of the procedure
CPT/HCPCS: 99213; G0463

== ENCOUNTER → 2018-07-30 11:38 | Outpatient (CLI) | payer MEDICAID, SELFPAY ==
[2018-07-30 08:48] VITALS: BMI 24.5
--- NOTE | 2018-07-30 11:46 | RAD_ITS ---
STUDY: X-RAY CHEST REASON FOR EXAM: Female, 37 years old. Pre-op TECHNIQUE: PA and lateral views of the chest. COMPARISON: 07/07/2017, chest x-ray, January 18, 2016 chest x-ray FINDINGS: Lung markings are stable. There is a focal density in the right apex which likely represents summation of shadows with the bony structures similar to multiple prior studies dating back to January 18, 2016. There is persistent slight elevation of the right hemidiaphragm when compared to the left. There is no demonstrated pleural abnormality. Normal size heart. Normal mediastinum and ines. Normal visualized pulmonary arteries. Normal visualized aortic arch and descending thoracic aorta. Normal visualized thoracic spine. Normal visualized ribs, clavicles, and shoulders. There is no demonstrated abnormality of the visualized soft tissue structures of the upper abdomen. RAD/Chest PA and Lateral IMPRESSION: Stable chest no evidence of acute focal infiltrate. Electronically Signed: Keily Goyal MD at 18:07 EDT Tel , Service support ,
== END ==
PROVIDERS: Family Provider Family Medicine; PCP Family Medicine; Referring Provider Surgery; Visit Provider Surgery
DX: Z01.811 Encounter for preprocedural respiratory examination (principal)
CPT/HCPCS: 71046; 99213; G0463

== ENCOUNTER 2018-09-11 14:00 | Outpatient (RCR) | payer MEDICAID, SELFPAY ==
[2018-08-15 00:58] VITALS: BP 121/83; PULSE 86; RESP 16; TEMP 36.6
[2018-08-20 15:11] VITALS: BP 127/85; PULSE 78; RESP 18; TEMP 36.6; BMI 24.5
--- NOTE | 2018-08-20 16:24 | PN.PCM_ITS ---
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 History of Wound: Surgery 07/24/18 - Surgical preparation left axilla with excisional debridement nonhealing hidradenitis ulcer and STSG reconstruction from left flank (24 cm2) and placement of JESSICA NPWT device. Wound care - Aquacel silver. Operative culture - Apoorva willis. She has been on Levaquin for a preop culture that showed Staphylococcus aureus and will continue them. Her Prealbumin on 07/25/18 was 23.3. Continue nutritional supplementation with protein to help the healing process. She had her teeth extraction done on 01/24/18. Today she denies fever. Her appetite is good. She has not been to the wound center in several weeks. Instructed her that it is important to show up for her appointments. Follow up in one week. Progress of Wound: Recent skin graft 07/24/18. - Physical Exam Vital Signs Temp Pulse Resp BP 97.8 F 78 18 127/85 H 08/20/18 15:11 08/20/18 15:11 08/20/18 15:11 08/20/18 15:11 General: Alert, Oriented x3, Cooperative HEENT: Atraumatic, PERRLA Oral: Moist Mucosa Lungs: Normal air movement Cardiovascular: Regular rate Extremities: No edema, Capillary Refill Less than 3 Seconds, Peripheral Pulses Normal Skin: Ulcer/ Wound - Ulcer left axilla. Skin graft partially failed -60 % take, 40% failed Wound Measurements and Assessment WC - Nurse 1 - General Ulcer Measurement Start: 08/20/18 15:10 Freq: Status: Active Protocol: Activity Type Activity Date Activity User E-Sign Co-Sign Detail Recorded Client Recorded Date Recorded By Document 08/20/18 15:11 DL [id number] 08/20/18 15:12 DL 08/20/18 15:11 Wound Center Nurse 1 [Ulcer Assessment] #5 left axilla -Current Size (cm) - Length 4 -Current Size (cm) - Width 0.8 -Current Size (cm) - Depth 0.1 -Total Square Cm 3.2 -Photo Taken Yes -Exudate Amt None Present -Wound Margin Indistinct, Non -Visible -Granulation Amt Large (67-100%) -Granulation Quality Hyper- granulation [place] -Slough/Fibrin No -Necrosis Amt None Present (0 %) -Structure Exposed N/A -Texture (Sadie-wound Skin Appearance) Excoriation Scarring -Moisture (Sadie-wound Skin Appearance Dry/Scaly ) -Color (Sadie-wound Skin Appearance) Erythema -Temperature (Sadie-wound Skin No Abnormality Appearance) (Pt Warm) -Tenderness on Palpation (Sadie-wound No Skin Appearance) -Ulcer Cleansing Rinsed/ Irrigated with Saline -Foul Odor after Cleansing No -Anesthetic Used 5% Lidocaine Gel WC - Nurse 2 - General Ulcer CM Notes Start: 08/20/18 15:10 Freq: Status: Active Protocol: Activity Type Activity Date Activity User E-Sign Co-Sign Detail Recorded Client Recorded Date Recorded By Document 08/20/18 15:54 [id number] 08/20/18 15:56 08/20/18 15:54 Wound Center Nurse 2 [Procedure/Treatment] -Time 15:54 -Correct Patient Yes -Correct Side, Site, Position Yes -Correct Procedure Yes -Procedure Performed Yes -Type of Procedure Debridement -Clinical Debridement Subcutaneous -Post Debridement Size (cm) - Length 3.7 -Post Debridement Size (cm) - Width 1.5 -Post Debridement Size (cm) - Depth 0.1 -Total Square Cm 5.55 -Wound/Ulcer Outcome Not Healed -Ulcer Cleansing Rinsed/ Irrigated with Saline -Foul Odor after Cleansing No -Bioengineered Tissue No -Bleeding Controlled with Pressure -Offloading No -Treatment Response Procedure Tolerated Well [See Physician Procedure note for Specifics] Pain Scale: 0-10 Numeric [Pain] -Is Patient Pain Free? Yes Musculoskeletal: No Tenderness to Palpation of Joints or Extremities Neurological: Neuro grossly intact Psych/Mental Status: Normal Affect, Appropriate Debridement Note Post-Debridement Measurements/Treatment WC - Nurse 2 - General Ulcer CM Notes Start: 08/20/18 15:10 Freq: Status: Active Protocol: Activity Type Activity Date Activity User E-Sign Co-Sign Detail Recorded Client Recorded Date Recorded By Document 08/20/18 15:54 [id number] 08/20/18 15:56 08/20/18 15:54 Wound Center Nurse 2 #5 left axilla -Time 15:54 -Correct Patient Yes -Correct Side, Site, Position Yes -Correct Procedure Yes -Procedure Performed Yes -Type of Procedure Debridement -Clinical Debridement Subcutaneous -Post Debridement Size (cm) - Length 3.7 -Post Debridement Size (cm) - Width 1.5 -Post Debridement Size (cm) - Depth 0.1 -Total Square Cm 5.55 -Wound/Ulcer Outcome Not Healed -Ulcer Cleansing Rinsed/ Irrigated with Saline -Foul Odor after Cleansing No -Bioengineered Tissue No -Bleeding Controlled with Pressure -Offloading No -Treatment Response Procedure Tolerated Well Pain Scale: 0-10 Numeric Is Patient Pain Free? Yes Wound debrided: Left axilla Type of Debridement: Excisional debridement Anesthesia Used: 4% Lidocaine Solution, 5% Lidocaine Gel Depth: in the subcutaneous layer Percentage of wound debrided: 40 - Partial skin graft failure- 60% take of graft, 40% debrided. Instrument Used: 5mm curette Tissue Removed: Subcutaneous tissue and slough Severity: Limited To Skin Breakdown Amount of bleeding with debridement: Mild Bleeding Controlled with: Pressure Patient tolerated procedure well Assessment/Plan Assessment: 1. Nonhealing recurrent hidradenitis ulcer left axillary area. 2. H/O left axillary hidradenitis. 3. s/p surgical preparation left axilla with excisional debridement nonhealing hidradenitis ulcer and STSG reconstruction from left flank (24 cm2) and placement of JESSICA NPWT device. 4. s/p teeth extraction. 5. Early skin graft compromise left axillary area. Plan: The skin graft shows 60 % adherence and good vascular ingrowth. There is some increased moisture present. So will continue Silver dressing changes to help absorb the moisture. About 60% take of the graft. Patient has not been seen in several weeks and there is 40% failure. She would benefit from HBO treatments to help salvage her compromised graft. But she does not want to do that at this time. Her operative culture showed Kocuria kristinae. Her preop culture showed Staphylococcus aureus and she has been treated with Levaquin and will continue them. Her Prealbumin from 07/25/18 was 23.3. Encourage nutritional supplementation with protein to help the healing process. Encourage range of motion exercises to minimize stiffness. Followup one week. Will need to check an xray. Her last one was 07/02. Code Visit [id number]
[2018-08-27 14:31] VITALS: BP 129/79; PULSE 85; RESP 16; TEMP 36.7; BMI 24.5
--- NOTE | 2018-08-27 16:57 | PCM.WC.PN ---
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 History of Wound: Surgery 07/24/18 - Surgical preparation left axilla with excisional debridement nonhealing hidradenitis ulcer and STSG reconstruction from left flank (24 cm2) and placement of JESSICA NPWT device. Wound care - Aquacel silver. Operative culture - Komaria teresaria jose luisae. She has been on Levaquin for a preop culture that showed Staphylococcus aureus and will continue them. Her Prealbumin on 07/25/18 was 23.3. Continue nutritional supplementation with protein to help the healing process. She had her teeth extraction done on 01/24/18. Today she denies fever. Her appetite is good. She has some compromise to her skin graft. Follow up in one week. Progress of Wound: Recent skin graft 07/24/18. - Physical Exam Vital Signs Temp Pulse Resp BP 98.0 F 85 16 129/79 H 08/27/18 14:31 08/27/18 14:31 08/27/18 14:31 08/27/18 14:31 General: Alert, Oriented x3, Cooperative HEENT: Atraumatic Oral: Moist Mucosa Lungs: Normal air movement Cardiovascular: Regular rate Extremities: No edema Skin: Ulcer/ Wound - Left axilla skin graft with compromise in the center of the graft. Wound Measurements and Assessment WC - Nurse 1 - General Ulcer Measurement Start: 08/20/18 15:10 Freq: Status: Active Protocol: Activity Type Activity Date Activity User E-Sign Co-Sign Detail Recorded Client Recorded Date Recorded By Document 08/27/18 14:31 MW [id number] 08/27/18 14:36 MW 08/27/18 14:31 Wound Center Nurse 1 [Ulcer Assessment] #5 left axilla -Combined with other wound No -Current Size (cm) - Length 2.0 -Current Size (cm) - Width 1.5 -Current Size (cm) - Depth 0.1 -Total Square Cm 3.00 -Photo Taken No -Epithelialization Medium 34-66% -Tunneling No -Undermining/Tunneling No -Circular Undermining No -Exudate Amt Medium -Exudate Type Serous -Wound Margin Flat & Intact -Granulation Amt Large (67-100%) -Granulation Quality Red -Slough/Fibrin Yes -Necrosis Amt None Present (0 %) -Structure Exposed N/A -Texture (Sadie-wound Skin Appearance) Assessed Scarring -Moisture (Sadie-wound Skin Appearance No Abnormality ) Assessed Dry/Scaly -Color (Sadie-wound Skin Appearance) No Abnormality Assessed -Temperature (Sadie-wound Skin No Abnormality Appearance) (Pt Warm) -Tenderness on Palpation (Sadie-wound No Skin Appearance) -Ulcer Cleansing soap and water -Foul Odor after Cleansing No -Anesthetic Used 4% Lidocaine Solution 5% Lidocaine Gel [Edema Assessment] -Lower Limb Edema Present No WC - Nurse 2 - General Ulcer CM Notes Start: 08/20/18 15:10 Freq: Status: Active Protocol: Activity Type Activity Date Activity User E-Sign Co-Sign Detail Recorded Client Recorded Date Recorded By Document 08/27/18 15:11 SHOSHANA [id number] 08/27/18 15:14 [email or web address] 08/27/18 15:11 Wound Center Nurse 2 [Procedure/Treatment] #5 left axilla -Time 15:12 -Correct Patient Yes -Correct Side, Site, Position Yes -Correct Procedure Yes -Procedure Performed Yes -Type of Procedure Debridement -Clinical Debridement Subcutaneous -Post Debridement Size (cm) - Length 2.5 -Post Debridement Size (cm) - Width 2 -Post Debridement Size (cm) - Depth 0.3 -Total Square Cm 5.0 -Wound/Ulcer Outcome Not Healed -Ulcer Cleansing Rinsed/ Irrigated with Saline -Foul Odor after Cleansing No -Bioengineered Tissue No -Bleeding Controlled with Pressure -Offloading No -Treatment Response Procedure Tolerated Well [See Physician Procedure note for Specifics] Pain Scale: 0-10 Numeric [Pain] -Is Patient Pain Free? Yes Musculoskeletal: No Tenderness to Palpation of Joints or Extremities Neurological: Neuro grossly intact Psych/Mental Status: Normal Affect, Appropriate Debridement Note Post-Debridement Measurements/Treatment WC - Nurse 2 - General Ulcer CM Notes Start: 08/20/18 15:10 Freq: Status: Active Protocol: Activity Type Activity Date Activity User E-Sign Co-Sign Detail Recorded Client Recorded Date Recorded By Document 08/20/18 15:54 [id number] 08/20/18 15:56 Document 08/27/18 15:11 [id number] 08/27/18 15:14 08/20/18 08/27/18 15:54 15:11 Wound Center Nurse 2 #5 left axilla -Time 15:54 15:12 -Correct Patient Yes Yes -Correct Side, Site, Position Yes Yes -Correct Procedure Yes Yes -Procedure Performed Yes Yes -Type of Procedure Debridement Debridement -Clinical Debridement Subcutaneous Subcutaneous -Post Debridement Size (cm) - Length 3.7 2.5 -Post Debridement Size (cm) - Width 1.5 2 -Post Debridement Size (cm) - Depth 0.1 0.3 -Total Square Cm 5.55 5.0 -Wound/Ulcer Outcome Not Healed Not Healed -Ulcer Cleansing Rinsed/ Rinsed/ Irrigated with Irrigated with Saline Saline -Foul Odor after Cleansing No No -Bioengineered Tissue No No -Bleeding Controlled with Pressure Pressure -Offloading No No -Treatment Response Procedure Procedure Tolerated Well Tolerated Well Pain Scale: 0-10 Numeric Is Patient Pain Free? Yes Yes Wound debrided: Left axilla skin graft with compromise Laterality: Left Type of Debridement: Selective debridement - center of the graft Anesthesia Used: 5% Lidocaine Gel Depth: Down to and including healthy tissue, in the subcutaneous layer Percentage of wound debrided: 30 Instrument Used: 5mm curette Tissue Removed: Hypergrandulation in the center of the graft along with subcutaneous tissue Severity: Limited To Skin Breakdown Amount of bleeding with debridement: Moderate Bleeding Controlled with: Pressure Patient tolerated procedure well Assessment/Plan Active Problems (Last Reviewed 04/30/18 @ 09:12 by Jeanie Rodriguez) Hidradenitis suppurativa (Chronic) 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 Nonhealing recurrent hidradenitis ulcer left axillary area. 2. H/O left axillary hidradenitis. 3. s/p surgical preparation left axilla with excisional debridement nonhealing hidradenitis ulcer and STSG reconstruction from left flank (24 cm2) and placement of JESSICA NPWT device. 4. s/p teeth extraction. 5. Early skin graft compromise left axillary area. Plan: The skin graft shows 60 % adherence and good vascular ingrowth. There is some increased moisture present. So will continue Silver dressing changes to help absorb the moisture. About 60% take of the graft. Patient had not been seen in several weeks and there is 40% failure. There is hypergrandulation of the compromised area this week. The area was debrided. Patient instructed to wash the area in the shower and dry it well. Instructed to also do range of motion of her left shoulder. She would benefit from HBO treatments to help salvage her compromised graft. But she does not want to do that at this time. Her operative culture showed Kocuria kristinae. Her preop culture showed Staphylococcus aureus and she has been treated with Levaquin and will continue them. Her Prealbumin from 07/25/18 was 23.3. Encourage nutritional supplementation with protein to help the healing process. Encourage range of motion exercises to minimize stiffness. Followup one week. Will need to check an xray. Her last one was 07/02. Code Visit [id number]
[2018-09-03 13:16] VITALS: BP 127/78; PULSE 73; RESP 18; TEMP 36.6; BMI 24.5
--- NOTE | 2018-09-03 16:24 | PCM.WC.PN ---
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 History of Wound: Surgery 07/24/18 - Surgical preparation left axilla with excisional debridement nonhealing hidradenitis ulcer and STSG reconstruction from left flank (24 cm2) and placement of JESSICA NPWT device. Wound care - Aquacel silver. Operative culture - Komaria teresaria jose luisae. She has been on Levaquin for a preop culture that showed Staphylococcus aureus and will continue them. Her Prealbumin on 07/25/18 was 23.3. Continue nutritional supplementation with protein to help the healing process. She had her teeth extraction done on 01/24/18. Today she denies fever. Her appetite is good. She has worsening compromise to her skin graft. Declining HBO. Will start Dakin's daily dressing changes. Follow up in one week. Progress of Wound: Recent skin graft 07/24/18, has an enlarging ulcer in the center of the graft. Refusing HBO - Physical Exam Vital Signs Temp Pulse Resp BP 98 F 73 18 127/78 H 09/03/18 13:16 09/03/18 13:16 09/03/18 13:16 09/03/18 13:16 General: Alert, Oriented x3, Cooperative, No apparent distress HEENT: Atraumatic Oral: Moist Mucosa Lungs: Normal air movement Cardiovascular: Regular rate Extremities: No edema, Capillary Refill Less than 3 Seconds Skin: Ulcer/ Wound - Left axilla skin graft with enlarging ulcer in the center of the graft. Hypergranulation tissue is present Wound Measurements and Assessment WC - Nurse 1 - General Ulcer Measurement Start: 08/20/18 15:10 Freq: Status: Active Protocol: Activity Type Activity Date Activity User E-Sign Co-Sign Detail Recorded Client Recorded Date Recorded By Document 09/03/18 13:16 DL [id number] 09/03/18 13:21 DL 09/03/18 13:16 Wound Center Nurse 1 [Ulcer Assessment] #5 left axilla -Combined with other wound No -Current Size (cm) - Length 2 -Current Size (cm) - Width 3.4 -Current Size (cm) - Depth 0.1 -Total Square Cm 6.8 -Tunneling No -Undermining/Tunneling No -Circular Undermining No -Exudate Amt Small -Exudate Type Serosanguineous -Wound Margin Distinct, Outline Attached -Granulation Amt Large (67-100%) -Granulation Quality Red -Slough/Fibrin No -Necrosis Amt None Present (0 %) -Structure Exposed N/A -Texture (Sadie-wound Skin Appearance) Assessed -Moisture (Sadie-wound Skin Appearance Assessed ) -Color (Sadie-wound Skin Appearance) Assessed -Temperature (Sadie-wound Skin No Abnormality Appearance) (Pt Warm) -Tenderness on Palpation (Sadie-wound No Skin Appearance) -Ulcer Cleansing Rinsed/ Irrigated with Saline -Foul Odor after Cleansing No -Anesthetic Used 4% Lidocaine Solution WC - Nurse 2 - General Ulcer CM Notes Start: 08/20/18 15:10 Freq: Status: Active Protocol: Activity Type Activity Date Activity User E-Sign Co-Sign Detail Recorded Client Recorded Date Recorded By Document 09/03/18 13:59 [id number] 09/03/18 14:02 09/03/18 13:59 Wound Center Nurse 2 [Procedure/Treatment] -Time 13:59 -Correct Patient Yes -Correct Side, Site, Position Yes -Correct Procedure Yes -Procedure Performed Yes -Type of Procedure Debridement -Clinical Debridement Subcutaneous -Post Debridement Size (cm) - Length 3.7 -Post Debridement Size (cm) - Width 2.3 -Post Debridement Size (cm) - Depth 0.2 -Total Square Cm 8.51 -Wound/Ulcer Outcome Not Healed -Ulcer Cleansing Rinsed/ Irrigated with Saline -Foul Odor after Cleansing No -Bioengineered Tissue No -Bleeding Controlled with Pressure -Offloading No [See Physician Procedure note for Specifics] Musculoskeletal: No Tenderness to Palpation of Joints or Extremities Neurological: Neuro grossly intact Psych/Mental Status: Normal Affect, Appropriate Debridement Note Post-Debridement Measurements/Treatment WC - Nurse 2 - General Ulcer CM Notes Start: 08/20/18 15:10 Freq: Status: Active Protocol: Activity Type Activity Date Activity User E-Sign Co-Sign Detail Recorded Client Recorded Date Recorded By Document 08/20/18 15:54 [id number] 08/20/18 15:56 Document 08/27/18 15:11 [id number] 08/27/18 15:14 Document 09/03/18 13:59 [id number] 09/03/18 14:02 08/20/18 08/27/18 09/03/18 15:54 15:11 13:59 Wound Center Nurse 2 #5 left axilla -Time 15:54 15:12 13:59 -Correct Patient Yes Yes Yes -Correct Side, Site, Position Yes Yes Yes -Correct Procedure Yes Yes Yes -Procedure Performed Yes Yes Yes -Type of Procedure Debridement Debridement Debridement -Clinical Debridement Subcutaneous Subcutaneous Subcutaneous -Post Debridement Size (cm) - Length 3.7 2.5 3.7 -Post Debridement Size (cm) - Width 1.5 2 2.3 -Post Debridement Size (cm) - Depth 0.1 0.3 0.2 -Total Square Cm 5.55 5.0 8.51 -Wound/Ulcer Outcome Not Healed Not Healed Not Healed -Ulcer Cleansing Rinsed/ Rinsed/ Rinsed/ Irrigated with Irrigated with Irrigated with Saline Saline Saline -Foul Odor after Cleansing No No No -Bioengineered Tissue No No No -Bleeding Controlled with Pressure Pressure Pressure -Offloading No No No -Treatment Response Procedure Procedure Tolerated Well Tolerated Well Pain Scale: 0-10 Numeric Is Patient Pain Free? Yes Yes Wound debrided: Left axilla Laterality: Left Type of Debridement: Excisional debridement Anesthesia Used: 5% Lidocaine Gel Depth: Down to and including healthy tissue, in the subcutaneous layer Percentage of wound debrided: 100 Instrument Used: 7mm curette Tissue Removed: Subcutaneous tissue and slough Severity: Fat Layer Exposed Amount of bleeding with debridement: Mild Bleeding Controlled with: Pressure, Compression and gauze Patient tolerated procedure well Assessment/Plan Active Problems (Last Reviewed 04/30/18 @ 09:12 by Jeanie Rodriguez) Hidradenitis suppurativa (Chronic) 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 Nonhealing recurrent hidradenitis ulcer left axillary area. 2. H/O left axillary hidradenitis. 3. s/p surgical preparation left axilla with excisional debridement nonhealing hidradenitis ulcer and STSG reconstruction from left flank (24 cm2) and placement of JESSICA NPWT device. 4. s/p teeth extraction. 5. Early skin graft compromise left axillary area. Plan: The skin graft shows 50 % adherence and good vascular ingrowth. She how has an enlarging ulcer in the center of the skin graft that is hypergranulating. The area was debrided. Patient instructed to wash the area in the shower and dry it well daily. Will stop the aquacel silver dressing changes and start daily Dakin's dressing changes. Instructed to also do range of motion of her left shoulder. She would benefit from HBO treatments to help salvage her compromised graft. But she does not want to do that at this time. Her operative culture showed Kocuria kristinae. Her preop culture showed Staphylococcus aureus and she has been treated with Levaquin and will continue them. Her Prealbumin from 07/25/18 was 23.3. Encourage nutritional supplementation with protein to help the healing process. Encourage range of motion exercises to minimize stiffness. Followup one week. Code Visit [id number]
[2018-09-11 14:16] VITALS: BP 135/84; PULSE 84; RESP 18; TEMP 36.6; BMI 24.5
--- NOTE | 2018-09-11 16:26 | PCM.WC.PN ---
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 History of Wound: Surgery 07/24/18 - Surgical preparation left axilla with excisional debridement nonhealing hidradenitis ulcer and STSG reconstruction from left flank (24 cm2) and placement of JESSICA NPWT device. Wound care - Aquacel silver. Operative culture - Komaria teresaria jose luisae. She has been on Levaquin for a preop culture that showed Staphylococcus aureus and will continue them. Her Prealbumin on 07/25/18 was 23.3. Continue nutritional supplementation with protein to help the healing process. She had her teeth extraction done on 01/24/18. Today she denies fever. Her appetite is good. She has worsening compromise to her skin graft. Declining HBO. Wound care is Debbie's daily dressing changes. Follow up in one week. Progress of Wound: Recent skin graft 07/24/18, has an enlarging ulcer in the center of the graft. Refusing HBO - Physical Exam Vital Signs Temp Pulse Resp BP 97.9 F 84 18 135/84 H 09/11/18 14:16 09/11/18 14:16 09/11/18 14:16 09/11/18 14:16 General: Alert, Oriented x3 HEENT: Atraumatic Oral: Moist Mucosa Lungs: Normal air movement Cardiovascular: Regular rate Extremities: No edema, Capillary Refill Less than 3 Seconds Skin: Ulcer/ Wound - Left axilla ulcer Wound Measurements and Assessment WC - Nurse 1 - General Ulcer Measurement Start: 08/20/18 15:10 Freq: Status: Active Protocol: Activity Type Activity Date Activity User E-Sign Co-Sign Detail Recorded Client Recorded Date Recorded By Document 09/11/18 14:16 DL [id number] 09/11/18 14:24 DL 09/11/18 14:16 Wound Center Nurse 1 [Ulcer Assessment] #5 left axilla -Current Size (cm) - Length 2.8 -Current Size (cm) - Width 1.8 -Current Size (cm) - Depth 0.1 -Total Square Cm 5.04 -Photo Taken No -Exudate Amt Small -Exudate Type Serosanguineous -Wound Margin Distinct, Outline Attached -Granulation Amt Large (67-100%) -Granulation Quality Hyper- granulation Red -Necrosis Amt None Present (0 %) -Structure Exposed N/A -Texture (Sadie-wound Skin Appearance) Excoriation Scarring -Moisture (Sadie-wound Skin Appearance Dry/Scaly ) -Color (Sadie-wound Skin Appearance) Rubor -Temperature (Sadie-wound Skin No Abnormality Appearance) (Pt Warm) -Tenderness on Palpation (Sadie-wound No Skin Appearance) -Ulcer Cleansing Wound Cleanser -Foul Odor after Cleansing No -Anesthetic Used 5% Lidocaine Gel WC - Nurse 2 - General Ulcer CM Notes Start: 08/20/18 15:10 Freq: Status: Active Protocol: Activity Type Activity Date Activity User E-Sign Co-Sign Detail Recorded Client Recorded Date Recorded By Document 09/11/18 15:04 [id number] 09/11/18 15:09 09/11/18 15:04 Wound Center Nurse 2 [Procedure/Treatment] -Time 15:05 -Correct Patient Yes -Correct Side, Site, Position Yes -Correct Procedure Yes -Procedure Performed Yes -Type of Procedure Debridement -Clinical Debridement Subcutaneous -Post Debridement Size (cm) - Length 2.8 -Post Debridement Size (cm) - Width 2.4 -Post Debridement Size (cm) - Depth 0.3 -Total Square Cm 6.72 -Wound/Ulcer Outcome Not Healed -Ulcer Cleansing Rinsed/ Irrigated with Saline -Foul Odor after Cleansing No -Bioengineered Tissue No -Bleeding Controlled with Pressure -Offloading No -Treatment Response Procedure Tolerated Well [See Physician Procedure note for Specifics] Pain Scale: 0-10 Numeric [Pain] -Is Patient Pain Free? Yes Musculoskeletal: No Tenderness to Palpation of Joints or Extremities Neurological: Neuro grossly intact Psych/Mental Status: Normal Affect, Appropriate Debridement Note Post-Debridement Measurements/Treatment WC - Nurse 2 - General Ulcer CM Notes Start: 08/20/18 15:10 Freq: Status: Active Protocol: Activity Type Activity Date Activity User E-Sign Co-Sign Detail Recorded Client Recorded Date Recorded By Document 08/20/18 15:54 [id number] 08/20/18 15:56 Document 08/27/18 15:11 [id number] 08/27/18 15:14 Document 09/03/18 13:59 [id number] 09/03/18 14:02 Document 09/11/18 15:04 [id number] 09/11/18 15:09 08/20/18 08/27/18 09/03/18 15:54 15:11 13:59 Wound Center Nurse 2 #5 left axilla -Time 15:54 15:12 13:59 -Correct Patient Yes Yes Yes -Correct Side, Site, Position Yes Yes Yes -Correct Procedure Yes Yes Yes -Procedure Performed Yes Yes Yes -Type of Procedure Debridement Debridement Debridement -Clinical Debridement Subcutaneous Subcutaneous Subcutaneous -Post Debridement Size (cm) - Length 3.7 2.5 3.7 -Post Debridement Size (cm) - Width 1.5 2 2.3 -Post Debridement Size (cm) - Depth 0.1 0.3 0.2 -Total Square Cm 5.55 5.0 8.51 -Wound/Ulcer Outcome Not Healed Not Healed Not Healed -Ulcer Cleansing Rinsed/ Rinsed/ Rinsed/ Irrigated with Irrigated with Irrigated with Saline Saline Saline -Foul Odor after Cleansing No No No -Bioengineered Tissue No No No -Bleeding Controlled with Pressure Pressure Pressure -Offloading No No No -Treatment Response Procedure Procedure Tolerated Well Tolerated Well Pain Scale: 0-10 Numeric Is Patient Pain Free? Yes Yes 09/11/18 15:04 Wound Center Nurse 2 #5 left axilla -Time 15:05 -Correct Patient Yes -Correct Side, Site, Position Yes -Correct Procedure Yes -Procedure Performed Yes -Type of Procedure Debridement -Clinical Debridement Subcutaneous -Post Debridement Size (cm) - Length 2.8 -Post Debridement Size (cm) - Width 2.4 -Post Debridement Size (cm) - Depth 0.3 -Total Square Cm 6.72 -Wound/Ulcer Outcome Not Healed -Ulcer Cleansing Rinsed/ Irrigated with Saline -Foul Odor after Cleansing No -Bioengineered Tissue No -Bleeding Controlled with Pressure -Offloading No -Treatment Response Procedure Tolerated Well Pain Scale: 0-10 Numeric Is Patient Pain Free? 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 Nonhealing recurrent hidradenitis ulcer left axillary area. 2. H/O left axillary hidradenitis. 3. s/p surgical preparation left axilla with excisional debridement nonhealing hidradenitis ulcer and STSG reconstruction from left flank (24 cm2) and placement of JESSICA NPWT device. 4. s/p teeth extraction. 5. Early skin graft compromise left axillary area. Plan: The skin graft shows 50 % adherence and good vascular ingrowth. She how has an enlarging ulcer in the center of the skin graft that is hypergranulating. The area was debrided. Patient instructed to wash the area in the shower and dry it well daily. Has started doing daily Dakin's dressing changes. Instructed to also do range of motion of her left shoulder. She does have good range of motion of left shoulder. She would benefit from HBO treatments to help salvage her compromised graft. But she does not want to do that at this time. Her operative culture showed Kocuria kristinae. Her preop culture showed Staphylococcus aureus and she has been treated with Levaquin and will continue them. Her Prealbumin from 07/25/18 was 23.3. Encourage nutritional supplementation with protein to help the healing process. Encourage range of motion exercises to minimize stiffness. Followup one week. Code Visit 111xxx-113xx: 11210 Ligia subq tissue 20 sq cm/<
== END 2018-09-14 23:59 ==
LOC: WC 14:00
PROVIDERS: Family Provider Family Medicine; PCP Family Medicine; Referring Provider Surgery; Visit Provider Surgery
DX: L73.2 Hidradenitis suppurativa (principal); L98.492 Non-pressure chronic ulcer of skin of other sites with fat layer exposed; T86.828 Other complications of skin graft (allograft) (autograft); Y83.8 Other surgical procedures as the cause of abnormal reaction of the patient, or of later complication, without mention of misadventure at the time of the procedure
CPT/HCPCS: 11042

== ENCOUNTER 2018-10-02 14:00 | Outpatient (RCR) | payer MEDICAID, SELFPAY ==
[2018-09-15 00:44] VITALS: BP 135/84; PULSE 84; RESP 18; TEMP 36.6
[2018-09-18 14:32] VITALS: BP 106/70; PULSE 80; RESP 18; TEMP 35.8; BMI 24.5
--- NOTE | 2018-09-18 17:15 | PCM.WC.PN ---
(1) Skin graft disorder Status: Chronic Code(s): T86.829 - Unspecified complication of skin graft (allograft) (autograft) (2) Non-pressure chronic ulcer of skin of other sites with fat layer exposed Status: Chronic Code(s): L98.492 - Non-pressure chronic ulcer of skin of other sites with fat layer exposed (3) Hidradenitis suppurativa Status: Chronic Code(s): L73.2 - Hidradenitis suppurativa Type of Wound Date of Service: 09/18/18 Chief Complaint: Recurrent hidradenitis ulcer left axillary area with recent skin grafting 07/24/18. History of Wound: Surgery 07/24/18 - Surgical preparation left axilla with excisional debridement nonhealing hidradenitis ulcer and STSG reconstruction from left flank (24 cm2) and placement of JESSICA NPWT device. Wound care - Aquacel silver. Operative culture - [place]. She has been on Levaquin for a preop culture that showed Staphylococcus aureus and will continue them. Her Prealbumin on 07/25/18 was 23.3. Continue nutritional supplementation with protein to help the healing process. She had her teeth extraction done on 01/24/18. Today she denies fever. Her appetite is good. She has worsening compromise to her skin graft. Declining HBO. Wound care is Debbie's daily dressing changes. Follow up in one week. Progress of Wound: Recent skin graft 07/24/18, has an enlarging ulcer in the center of the graft. Hypergranulation tissue is present - Physical Exam Vital Signs Temp Pulse Resp BP 96.5 F L 80 18 106/70 09/18/18 14:32 09/18/18 14:32 09/18/18 14:32 09/18/18 14:32 General: Alert, Oriented x3, Cooperative HEENT: Atraumatic Oral: Moist Mucosa Lungs: Normal air movement Cardiovascular: Regular rate Extremities: No edema, Capillary Refill Less than 3 Seconds Skin: Ulcer/ Wound - Left axilla ulcer present in the center of the skin graft. Hypergranulation tissue present Wound Measurements and Assessment WC - Nurse 1 - General Ulcer Measurement Start: 09/18/18 14:31 Freq: Status: Active Protocol: Activity Type Activity Date Activity User E-Sign Co-Sign Detail Recorded Client Recorded Date Recorded By Document 09/18/18 14:32 LAN [id number] 09/18/18 14:33 DL 09/18/18 14:32 Wound Center Nurse 1 [Ulcer Assessment] #5 left axilla -Current Size (cm) - Length 1.8 -Current Size (cm) - Width 2 -Current Size (cm) - Depth 0.1 -Total Square Cm 3.6 -Photo Taken No -Exudate Amt Small -Exudate Type Serosanguineous -Wound Margin Distinct, Outline Attached -Granulation Amt Large (67-100%) -Granulation Quality Red -Necrosis Amt Small (1-33%) -Necrotic Tissue Type Adherent Slough -Structure Exposed N/A -Texture (Sadie-wound Skin Appearance) Excoriation Scarring -Moisture (Sadie-wound Skin Appearance Dry/Scaly ) -Color (Sadie-wound Skin Appearance) Erythema -Temperature (Sadie-wound Skin No Abnormality Appearance) (Pt Warm) -Tenderness on Palpation (Sadie-wound No Skin Appearance) -Ulcer Cleansing Rinsed/ Irrigated with Saline -Foul Odor after Cleansing No -Anesthetic Used 4% Lidocaine Solution WC - Nurse 2 - General Ulcer CM Notes Start: 09/18/18 14:31 Freq: Status: Active Protocol: Activity Type Activity Date Activity User E-Sign Co-Sign Detail Recorded Client Recorded Date Recorded By Document 09/18/18 15:24 [id number] 09/18/18 15:28 09/18/18 15:24 Wound Center Nurse 2 [Procedure/Treatment] -Time 15:26 -Correct Patient Yes -Correct Side, Site, Position Yes -Correct Procedure Yes -Procedure Performed Yes -Type of Procedure Debridement -Clinical Debridement Subcutaneous -Post Debridement Size (cm) - Length 1.7 -Post Debridement Size (cm) - Width 2.0 -Post Debridement Size (cm) - Depth 0.1 -Total Square Cm 3.40 -Wound/Ulcer Outcome Not Healed -Ulcer Cleansing Rinsed/ Irrigated with Saline -Foul Odor after Cleansing No -Bioengineered Tissue No -Bleeding Controlled with Pressure -Offloading No -Treatment Response Procedure Tolerated Well [See Physician Procedure note for Specifics] Pain Scale: 0-10 Numeric [Pain] -Is Patient Pain Free? Yes Musculoskeletal: No Tenderness to Palpation of Joints or Extremities Neurological: Neuro grossly intact Psych/Mental Status: Normal Affect, Appropriate Debridement Note Post-Debridement Measurements/Treatment WC - Nurse 2 - General Ulcer CM Notes Start: 09/18/18 14:31 Freq: Status: Active Protocol: Activity Type Activity Date Activity User E-Sign Co-Sign Detail Recorded Client Recorded Date Recorded By Document 09/18/18 15:24 [id number] 09/18/18 15:28 09/18/18 15:24 Wound Center Nurse 2 #5 left axilla -Time 15:26 -Correct Patient Yes -Correct Side, Site, Position Yes -Correct Procedure Yes -Procedure Performed Yes -Type of Procedure Debridement -Clinical Debridement Subcutaneous -Post Debridement Size (cm) - Length 1.7 -Post Debridement Size (cm) - Width 2.0 -Post Debridement Size (cm) - Depth 0.1 -Total Square Cm 3.40 -Wound/Ulcer Outcome Not Healed -Ulcer Cleansing Rinsed/ Irrigated with Saline -Foul Odor after Cleansing No -Bioengineered Tissue No -Bleeding Controlled with Pressure -Offloading No -Treatment Response Procedure Tolerated Well Pain Scale: 0-10 Numeric Is Patient Pain Free? Yes Wound debrided: Left axilla Type of Debridement: Excisional debridement Anesthesia Used: 5% Lidocaine Gel Depth: Down to and including healthy tissue, in the subcutaneous layer Percentage of wound debrided: 100 Instrument Used: 5mm curette Tissue Removed: Subcutaneous tissue and slough Severity: Limited To Skin Breakdown Amount of bleeding with debridement: Mild Bleeding Controlled with: Pressure, Compression and gauze Patient did not tolerate procedure well - Patient constantly putting arm down to stop the debridement. Not able to get a good debridement due to her constantly putting her arm down. Assessment/Plan Assessment: 1. Nonhealing recurrent hidradenitis ulcer left axillary area. 2. H/O left axillary hidradenitis. 3. s/p surgical preparation left axilla with excisional debridement nonhealing hidradenitis ulcer and STSG reconstruction from left flank (24 cm2) and placement of JESSICA NPWT device. 4. s/p teeth extraction. 5. Early skin graft compromise left axillary area. Plan: The skin graft shows 50 % adherence and good vascular ingrowth. She how has an enlarging ulcer in the center of the skin graft that is hypergranulating. The area was debrided. Patient instructed to wash the area in the shower and dry it well daily. Has started doing daily Dakin's dressing changes. Instructed to also do range of motion of her left shoulder. She does have good range of motion of left shoulder. She would benefit from HBO treatments to help salvage her compromised graft. But she does not want to do that at this time. Her operative culture showed Kocuria kristinae. Her preop culture showed Staphylococcus aureus and she has been treated with Levaquin. Her Prealbumin from 07/25/18 was 23.3. Encourage nutritional supplementation with protein to help the healing process. Encourage range of motion exercises to minimize stiffness. Her periwound is very dry and red. She states that she has been putting the nystatin cream on it that was previously prescribed. Instructed her to stop that and will order Triamcinolone cream to be applyed 2-3 times per day to try to calm down the redness. Does not look infected, just very irritated looking. Followup one week. Code Visit [id number]
[2018-10-02 13:43] VITALS: BP 123/88; PULSE 86; RESP 18; TEMP 36.3; BMI 24.5
--- NOTE | 2018-10-02 16:50 | PN.PCM_ITS ---
(1) Skin graft disorder Status: Chronic Code(s): T86.829 - Unspecified complication of skin graft (allograft) (autograft) (2) Non-pressure chronic ulcer of skin of other sites with fat layer exposed Status: Chronic Code(s): L98.492 - Non-pressure chronic ulcer of skin of other sites with fat layer exposed (3) Hidradenitis suppurativa Status: Chronic Code(s): L73.2 - Hidradenitis suppurativa Type of Wound Date of Service: 10/02/18 Chief Complaint: Recurrent hidradenitis ulcer left axillary area with recent skin grafting 07/24/18. History of Wound: Surgery 07/24/18 - Surgical preparation left axilla with excisional debridement nonhealing hidradenitis ulcer and STSG reconstruction from left flank (24 cm2) and placement of JESSICA NPWT device. Wound care -Dakin's solution. Operative culture - Apoorva willis. She has been on Levaquin for a preop culture that showed Staphylococcus aureus and will continue them. Her Prealbumin on 07/25/18 was 23.3. Continue nutritional supplementation with protein to help the healing process. She had her teeth extraction done on 01/24/18. Today she denies fever. Her appetite is good. She has worsening compromise to her skin graft. Declining HBO. Wound care is Dakin's daily dressing changes. Follow up in 2 weeks since I am out of town. Progress of Wound: Recent skin graft 07/24/18, has an enlarging ulcer in the center of the graft. Hypergranulation tissue is present - Physical Exam Vital Signs Temp Pulse Resp BP 97.4 F L 86 18 123/88 H 10/02/18 13:43 10/02/18 13:43 10/02/18 13:43 10/02/18 13:43 General: Alert, Oriented x3 HEENT: Atraumatic Oral: Moist Mucosa Lungs: Normal air movement Cardiovascular: Regular rate Extremities: No edema, Capillary Refill Less than 3 Seconds, Peripheral Pulses Normal Skin: Ulcer/ Wound - Left axilla ulcer in the center of her skin graft. Wound Measurements and Assessment WC - Nurse 1 - General Ulcer Measurement Start: 09/18/18 14:31 Freq: Status: Active Protocol: Activity Type Activity Date Activity User E-Sign Co-Sign Detail Recorded Client Recorded Date Recorded By Document 10/02/18 13:43 DL [id number] 10/02/18 13:46 DL 10/02/18 13:43 Wound Center Nurse 1 [Ulcer Assessment] #5 left axilla -Current Size (cm) - Length 1.2 -Current Size (cm) - Width 1.5 -Current Size (cm) - Depth 0.1 -Total Square Cm 1.80 -Photo Taken No -Exudate Amt Small -Exudate Type Serosanguineous -Wound Margin Distinct, Outline Attached -Granulation Amt Large (67-100%) -Granulation Quality [place] -Necrosis Amt None Present (0 %) -Structure Exposed N/A -Texture (Sadie-wound Skin Appearance) Excoriation, Scarring -Moisture (Sadie-wound Skin Appearance Dry/Scaly ) -Color (Sadie-wound Skin Appearance) No Abnormality -Temperature (Sadie-wound Skin No Abnormality Appearance) (Pt Warm) -Ulcer Cleansing Rinsed/ Irrigated with Saline -Foul Odor after Cleansing No -Anesthetic Used 5% Lidocaine Gel WC - Nurse 2 - General Ulcer CM Notes Start: 09/18/18 14:31 Freq: Status: Active Protocol: Activity Type Activity Date Activity User E-Sign Co-Sign Detail Recorded Client Recorded Date Recorded By Document 10/02/18 14:08 [id number] 10/02/18 14:17 10/02/18 14:08 Wound Center Nurse 2 [Procedure/Treatment] -Time 14:09 -Correct Patient Yes -Correct Side, Site, Position Yes -Correct Procedure Yes -Procedure Performed Yes -Type of Procedure Debridement -Clinical Debridement Subcutaneous -Post Debridement Size (cm) - Length 1.5 -Post Debridement Size (cm) - Width 1.4 -Post Debridement Size (cm) - Depth 0.1 -Total Square Cm 2.10 -Wound/Ulcer Outcome Not Healed -Ulcer Cleansing Rinsed/ Irrigated with Saline -Foul Odor after Cleansing No -Bioengineered Tissue No -Bleeding Controlled with Pressure -Offloading No -Treatment Response Procedure Tolerated Well [See Physician Procedure note for Specifics] Pain Scale: 0-10 Numeric [Pain] -Is Patient Pain Free? Yes Musculoskeletal: No Tenderness to Palpation of Joints or Extremities Neurological: Neuro grossly intact Psych/Mental Status: Normal Affect, Appropriate Debridement Note Post-Debridement Measurements/Treatment WC - Nurse 2 - General Ulcer CM Notes Start: 09/18/18 14:31 Freq: Status: Active Protocol: Activity Type Activity Date Activity User E-Sign Co-Sign Detail Recorded Client Recorded Date Recorded By Document 09/18/18 15:24 [id number] 09/18/18 15:28 Document 10/02/18 14:08 [id number] 10/02/18 14:17 09/18/18 10/02/18 15:24 14:08 Wound Center Nurse 2 #5 left axilla -Time 15:26 14:09 -Correct Patient Yes Yes -Correct Side, Site, Position Yes Yes -Correct Procedure Yes Yes -Procedure Performed Yes Yes -Type of Procedure Debridement Debridement -Clinical Debridement Subcutaneous Subcutaneous -Post Debridement Size (cm) - Length 1.7 1.5 -Post Debridement Size (cm) - Width 2.0 1.4 -Post Debridement Size (cm) - Depth 0.1 0.1 -Total Square Cm 3.40 2.10 -Wound/Ulcer Outcome Not Healed Not Healed -Ulcer Cleansing Rinsed/ Rinsed/ Irrigated with Irrigated with Saline Saline -Foul Odor after Cleansing No No -Bioengineered Tissue No No -Bleeding Controlled with Pressure Pressure -Offloading No No -Treatment Response Procedure Procedure Tolerated Well Tolerated Well Pain Scale: 0-10 Numeric Is Patient Pain Free? Yes Yes Wound debrided: Left axilla ulcer Type of Debridement: Excisional debridement Anesthesia Used: 5% Lidocaine Gel Depth: Down to and including healthy tissue, in the subcutaneous layer Percentage of wound debrided: 100 Instrument Used: 5mm curette Tissue Removed: Subcutaneous tissue and slough Severity: Fat Layer Exposed Amount of bleeding with debridement: Mild Bleeding Controlled with: Pressure Patient tolerated procedure well Patient is difficult to debride due to her constantly putting her arm down to try to stop you from debriding the area. She has issues with hyper granulation. Assessment/Plan Assessment: 1. Nonhealing recurrent hidradenitis ulcer left axillary area. 2. H/O left axillary hidradenitis. 3. s/p surgical preparation left axilla with excisional debridement nonhealing hidradenitis ulcer and STSG reconstruction from left flank (24 cm2) and placement of JESSICA NPWT device. 4. s/p teeth extraction. 5. Early skin graft compromise left axillary area. Plan: The skin graft shows 50 % adherence and good vascular ingrowth. She how has an enlarging ulcer in the center of the skin graft that is hypergranulating. The area was debrided with difficulty due to her putting her arm down repeatedly. Patient instructed to wash the area in the shower and dry it well daily. Has started doing daily Dakin's dressing changes. Instructed to also do range of motion of her left shoulder. She does have good range of motion of left shoulder. She would benefit from HBO treatments to help salvage her compromised graft. But she does not want to do that at this time. Her operative culture showed Kocuria kristinae. Her preop culture showed Staphylococcus aureus and she has been treated with Levaquin. Her Prealbumin from 07/25/18 was 23.3. Encourage nutritional supplementation with protein to help the healing process. Encourage range of motion exercises to minimize stiffness. Her periwound is very dry and red. She states that she has been putting the nystatin cream on it that was previously prescribed. Instructed her to stop that and will order Triamcinolone cream to be applyed 2-3 times per day to try to calm down the redness. There is some mild improvement of the periwound will continue the triamcinolone cream for another week. Does not look infected, just very irritated looking. Followup 2 weeks due to may be out of town. Code Visit [id number]
== END 2018-10-14 23:59 ==
LOC: WC 14:00
PROVIDERS: Family Provider Family Medicine; PCP Family Medicine; Referring Provider Surgery; Visit Provider Surgery
DX: L73.2 Hidradenitis suppurativa (principal); T86.828 Other complications of skin graft (allograft) (autograft); Y83.8 Other surgical procedures as the cause of abnormal reaction of the patient, or of later complication, without mention of misadventure at the time of the procedure; L98.492 Non-pressure chronic ulcer of skin of other sites with fat layer exposed
CPT/HCPCS: 11042

== ENCOUNTER 2018-10-30 14:00 | Outpatient (RCR) | payer MEDICAID, SELFPAY ==
[2018-10-15 00:30] VITALS: BP 123/88; PULSE 86; RESP 18; TEMP 36.3
[2018-10-16 14:14] VITALS: RESP 16; TEMP 36; BMI 24.5
--- NOTE | 2018-10-16 17:13 | PN.PCM_ITS ---
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 Type of Wound Date of Service: 10/16/18 Chief Complaint: Recurrent hidradenitis ulcer left axillary area with recent skin grafting 07/24/18. History of Wound: Surgery 07/24/18 - Surgical preparation left axilla with excisional debridement nonhealing hidradenitis ulcer and STSG reconstruction from left flank (24 cm2) and placement of JESSICA NPWT device. Wound care -Dakin's solution. Operative culture - Apoorva willis. She has been on Levaquin for a preop culture that showed Staphylococcus aureus and will continue them. Her Prealbumin on 07/25/18 was 23.3. Continue nutritional supplementation with protein to help the healing process. She had her teeth extraction done on 01/24/18. Today she denies fever. Her appetite is good. She has worsening compromise to her skin graft. Declining HBO. Wound care is Dakin's daily dressing changes. Follow up in 2 weeks since I am out of town. Progress of Wound: Recent skin graft 07/24/18, has an enlarging ulcer in the center of the graft. Hypergranulation tissue is present. Ulcer has improved with Dakin's solution. - Physical Exam Vital Signs Temp Pulse Resp BP 96.8 F L 86 16 123/88 H 10/16/18 14:14 10/15/18 00:30 10/16/18 14:14 10/15/18 00:30 General: Alert, Oriented x3, Cooperative HEENT: Atraumatic Oral: Moist Mucosa Lungs: Normal air movement Cardiovascular: Regular rate Extremities: No edema, Capillary Refill Less than 3 Seconds, Peripheral Pulses Normal Skin: Ulcer/ Wound - Left axilla ulcer with hypergranulation but with decrease in size. Periwound is improved also Wound Measurements and Assessment WC - Nurse 1 - General Ulcer Measurement Start: 10/16/18 14:14 Freq: Status: Active Protocol: Activity Type Activity Date Activity User E-Sign Co-Sign Detail Recorded Client Recorded Date Recorded By Document 10/16/18 14:14 KACY [id number] 10/16/18 14:16 KACY 10/16/18 14:14 Wound Center Nurse 1 [Ulcer Assessment] #5 left axilla -Combined with other wound No -Current Size (cm) - Length 1.1 -Current Size (cm) - Width 0.9 -Current Size (cm) - Depth 0.1 -Total Square Cm 0.99 -Photo Taken No -Epithelialization Small 1-33% -Tunneling No -Undermining/Tunneling No -Circular Undermining No -Classification - Thickness Full Thickness without Exposed Support Structure -Exudate Amt Small -Exudate Type Serosanguineous -Wound Margin Flat & Intact -Granulation Amt Small (1-33%) -Granulation Quality Pale,[place] -Slough/Fibrin Yes -Necrosis Amt Small (1-33%) -Necrotic Tissue Type Adherent Slough -Texture (Sadie-wound Skin Appearance) Assessed, Scarring,Rash -Moisture (Sadie-wound Skin Appearance Assessed, ) Weeping -Color (Sadie-wound Skin Appearance) Assessed, Erythema -Temperature (Sadie-wound Skin No Abnormality Appearance) (Pt Warm) -Tenderness on Palpation (Sadie-wound No Skin Appearance) -Foul Odor after Cleansing No -Anesthetic Used 5% Lidocaine Gel GARRICK - Nurse 2 - General Ulcer CM Notes Start: 10/16/18 14:14 Freq: Status: Active Protocol: Activity Type Activity Date Activity User E-Sign Co-Sign Detail Recorded Client Recorded Date Recorded By Document 10/16/18 14:57 JF [id number] 10/16/18 15:00 JF 10/16/18 14:57 Wound Center Nurse 2 [Procedure/Treatment] -Time 14:58 -Correct Patient Yes -Correct Side, Site, Position Yes -Correct Procedure Yes -Procedure Performed Yes -Type of Procedure Debridement -Clinical Debridement Subcutaneous -Post Debridement Size (cm) - Length 0.9 -Post Debridement Size (cm) - Width 0.9 -Post Debridement Size (cm) - Depth 0.8 -Total Square Cm 0.81 -Wound/Ulcer Outcome Not Healed -Ulcer Cleansing Rinsed/ Irrigated with Saline -Foul Odor after Cleansing No -Bioengineered Tissue No -Bleeding Controlled with Pressure -Offloading No -Treatment Response Procedure Tolerated Well [See Physician Procedure note for Specifics] Pain Scale: 0-10 Numeric [Pain] -Is Patient Pain Free? Yes Musculoskeletal: No Tenderness to Palpation of Joints or Extremities Neurological: Neuro grossly intact Psych/Mental Status: Normal Affect, Appropriate Debridement Note Post-Debridement Measurements/Treatment WC - Nurse 2 - General Ulcer CM Notes Start: 10/16/18 14:14 Freq: Status: Active Protocol: Activity Type Activity Date Activity User E-Sign Co-Sign Detail Recorded Client Recorded Date Recorded By Document 10/16/18 14:57 JF [id number] 10/16/18 15:00 SHOSHANA 10/16/18 14:57 Wound Center Nurse 2 #5 left axilla -Time 14:58 -Correct Patient Yes -Correct Side, Site, Position Yes -Correct Procedure Yes -Procedure Performed Yes -Type of Procedure Debridement -Clinical Debridement Subcutaneous -Post Debridement Size (cm) - Length 0.9 -Post Debridement Size (cm) - Width 0.9 -Post Debridement Size (cm) - Depth 0.8 -Total Square Cm 0.81 -Wound/Ulcer Outcome Not Healed -Ulcer Cleansing Rinsed/ Irrigated with Saline -Foul Odor after Cleansing No -Bioengineered Tissue No -Bleeding Controlled with Pressure -Offloading No -Treatment Response Procedure Tolerated Well Pain Scale: 0-10 Numeric Is Patient Pain Free? 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 Assessment: 1. Nonhealing recurrent hidradenitis ulcer left axillary area. 2. H/O left axillary hidradenitis. 3. s/p surgical preparation left axilla with excisional debridement nonhealing hidradenitis ulcer and STSG reconstruction from left flank (24 cm2) and placement of JESSICA NPWT device. 4. s/p teeth extraction. 5. Early skin graft compromise left axillary area. Plan: The skin graft showed 50 % adherence with good vascular ingrowth. The ulcer in the center is now shrinking using Dakin's solution. Encouraged her to wash and dry the area with soap and water and dry it well. Use Dakin's daily to the area. The periwound is improving. Instructed to stop using the Triamcinol one cream. She can now use an unscented moisturizer on the area. Instructed to also do range of motion of her left shoulder. She does have good range of motion of left shoulder. Her operative culture showed Kocuria kristinae. Her preop culture showed Staphylococcus aureus and she has been treated with Levaquin. Her Prealbumin from 07/25/18 was 23.3. Encourage nutritional supplementation with protein to help the healing process. Follow up in one week. Code Visit 12047
[2018-10-30 13:51] VITALS: BP 149/78; PULSE 78; RESP 18; TEMP 37.3; BMI 24.5
--- NOTE | 2018-10-30 16:59 | PCM.WC.PN ---
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 Type of Wound Date of Service: 10/30/18 Chief Complaint: Recurrent hidradenitis ulcer left axillary area with recent skin grafting 07/24/18. History of Wound: Surgery 07/24/18 - Surgical preparation left axilla with excisional debridement nonhealing hidradenitis ulcer and STSG reconstruction from left flank (24 cm2) and placement of JESSICA NPWT device. Wound care -Dakin's solution. Operative culture - Apoorva willis. She has been on Levaquin for a preop culture that showed Staphylococcus aureus and will continue them. Her Prealbumin on 07/25/18 was 23.3. Continue nutritional supplementation with protein to help the healing process. She had her teeth extraction done on 01/24/18. Today she denies fever. Her appetite is good. She has worsening compromise to her skin graft. Declining HBO. Wound care is Dakin's daily dressing changes. Follow up in 2 weeks since I am out of town. Progress of Wound: Left axilla ulcer is healed! - Physical Exam Vital Signs Temp Pulse Resp BP 99.1 F 78 18 149/78 H 10/30/18 13:51 10/30/18 13:51 10/30/18 13:51 10/30/18 13:51 General: Alert, Oriented x3, Cooperative HEENT: Atraumatic Oral: Moist Mucosa Lungs: Normal air movement Cardiovascular: Regular rate Extremities: No edema, Capillary Refill Less than 3 Seconds Skin: Ulcer/ Wound - Left axilla ulcer is healed Wound Measurements and Assessment WC - Nurse 1 - General Ulcer Measurement Start: 10/16/18 14:14 Freq: Status: Active Protocol: Activity Type Activity Date Activity User E-Sign Co-Sign Detail Recorded Client Recorded Date Recorded By Document 10/30/18 13:51 LAN [id number] 10/30/18 13:56 DL 10/30/18 13:51 Wound Center Nurse 1 [Ulcer Assessment] #5 left axilla -Current Size (cm) - Length 0 -Current Size (cm) - Width 0 -Current Size (cm) - Depth 0 -Total Square Cm 0 -Photo Taken Yes -Exudate Amt None Present -Wound Margin Flat & Intact -Granulation Amt Large (67-100%) -Granulation Quality [place] -Necrosis Amt None Present (0 %) -Structure Exposed N/A -Texture (Sadie-wound Skin Appearance) Excoriation, Scarring -Moisture (Sadie-wound Skin Appearance Dry/Scaly ) -Color (Sadie-wound Skin Appearance) No Abnormality -Temperature (Sadie-wound Skin No Abnormality Appearance) (Pt Warm) -Tenderness on Palpation (Sadie-wound No Skin Appearance) -Ulcer Cleansing Wound Cleanser -Foul Odor after Cleansing No Musculoskeletal: No Tenderness to Palpation of Joints or Extremities, - - Good ROM of left shoulder. No limitiations caused from scarring of left axilla Neurological: Neuro grossly intact Psych/Mental Status: Normal Affect, Appropriate Debridement Note Post-Debridement Measurements/Treatment WC - Nurse 2 - General Ulcer CM Notes Start: 10/16/18 14:14 Freq: Status: Active Protocol: Activity Type Activity Date Activity User E-Sign Co-Sign Detail Recorded Client Recorded Date Recorded By Document 10/16/18 14:57 SHOSHANA [id number] 10/16/18 15:00 SHOSHANA 10/16/18 14:57 Wound Center Nurse 2 #5 left axilla -Time 14:58 -Correct Patient Yes -Correct Side, Site, Position Yes -Correct Procedure Yes -Procedure Performed Yes -Type of Procedure Debridement -Clinical Debridement Subcutaneous -Post Debridement Size (cm) - Length 0.9 -Post Debridement Size (cm) - Width 0.9 -Post Debridement Size (cm) - Depth 0.8 -Total Square Cm 0.81 -Wound/Ulcer Outcome Not Healed -Ulcer Cleansing Rinsed/ Irrigated with Saline -Foul Odor after Cleansing No -Bioengineered Tissue No -Bleeding Controlled with Pressure -Offloading No -Treatment Response Procedure Tolerated Well Pain Scale: 0-10 Numeric Is Patient Pain Free? 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 Assessment: 1. Nonhealing recurrent hidradenitis ulcer left axillary area. 2. H/O left axillary hidradenitis. 3. s/p surgical preparation left axilla with excisional debridement nonhealing hidradenitis ulcer and STSG reconstruction from left flank (24 cm2) and placement of JESSICA NPWT device. 4. s/p teeth extraction. 5. Early skin graft compromise left axillary area. Plan: Left axilla ulcer is healed. Encouraged her to continue to keep the area dry. Instructed her with the summer temperatures to make sure to wipe it dry several times per day. It is ok for her to use any left over silver in the arm crease to help absorb the moisture to prevent maceration of the area. Encouraged her to massage the area to help soften the scarring. She has good ROM of her left shoulder, encouraged her to continue to move her shoulder to prevent the scarring from tightening up and impacting her ROM. Follow up as needed. Code Visit Office Visits / Consults: [id number] OV L3 Est
== END 2018-11-14 23:59 ==
LOC: WC 14:00
PROVIDERS: Family Provider Family Medicine; PCP Family Medicine; Referring Provider Surgery; Visit Provider Surgery
DX: L73.2 Hidradenitis suppurativa (principal); T86.828 Other complications of skin graft (allograft) (autograft); Y83.8 Other surgical procedures as the cause of abnormal reaction of the patient, or of later complication, without mention of misadventure at the time of the procedure; L98.491 Non-pressure chronic ulcer of skin of other sites limited to breakdown of skin
CPT/HCPCS: 11042; 99213; G0463

== ENCOUNTER 2019-01-07 09:38 | Emergency (ER) | payer MEDICAID, SELFPAY ==
[2019-01-07 09:39] VITALS: BP 123/79; PULSE 97; RESP 17; TEMP 37.1; O2SAT 98; BMI 24.5
[2019-01-07 10:02] LABS: Mucous, Urine 0 SEEN /hpf (<or=2+); Squamous Epithelial Cells - UA 0 SEEN /hpf (5-10)
[2019-01-07 10:03] LABS: Color, Urine Yellow (Yellow); Glucose, Dipstick Normal (Normal); Ketone-Dipstick Negative (Negative); Leukocyte Esterase-Dipstick 500 /ul (Negative); Nitrite-Dipstick Positive (Negative); Occult Blood-Urine 50 /ul (Negative); Protein-Dipstick 30 mg/dl (Negative); Specific Gravity, Urine 1.015 (1.002-1.030); Urine Bilirubin Dipstick Negative (Negative); Urine Clarity Cloudy (Clear); Urine Urobilinogen Normal (Normal); Urine pH 6.5 (5.0 - 8.0)
[2019-01-07 10:08] LABS: Bacteria 2+ /hpf (None Seen); Red Blood Cells-Urine 0-5 SEEN /hpf (0-5); White Blood Cells 25-50 SEEN /hpf (0-5)
--- NOTE | 2019-01-07 10:25 | ED.VIS.GEN ---
History of Present Illness Chief Complaint: Flank Pain Detail of Chief Complaint: Dysuria, frequency central low back pain not flank Informant: Patient, Significant Other Onset: Yesterday Context: Sudden Onset Timing: Intermittent Quality: Dysuria Location: Urethra and central low back Current Severity: Mild Maximum Severity: Moderate Worsened by: Urination Relieved by: Nothing Associated Symptoms: No associated symptoms Narrative: Zion is a 38-year-old who presents with dysuria, frequency central low back pain that started yesterday. She denies blood in her urine. She denies fever, chills or night sweats. She denies nausea, vomiting or diarrhea. Last normal menses earlier this month. Patient states had a vasectomy. She has no symptoms of . She has no other complaints. Prior similar symptoms: No Recent Illness/Hospitalization: No - Past Medical History (1) Hx of cholecystectomy Status: Acute Comment: 04/13/18 (2) H/O hidradenitis suppurativa Status: Chronic Past Medical History - Allergies and Home Meds Allergies/Adverse Reactions: Allergies latex Allergy (Verified 01/07/19 09:39) Rash Penicillins [PCN] Allergy (Verified 01/07/19 09:39) Hives doxycycline Adverse Reaction (Verified 01/07/19 09:39) Nausea hydromorphone HCl [From Dilaudid] Adverse Reaction (Verified 01/07/19 09:39) Nausea Primary Care Physician: Bogdan Guerra DO [Primary Care Provider] - Prior records reviewed: Yes Surgical History: noncontributory, - - Surgical preparation right axillary wound with excision hidradenitis (40 cm2) on 06/02/14. Surgical preparation left axillary wound with excision hidradenitis (36 cm2) on 03/17/15. Excision nonhealing recurrent hidradenitis ulcer left axilla and reconstruction with proximal medial left arm bilobed transposition skin flap (56 cm2) on 11/24/15. Lives: Spouse/ Significant Other, With Family Smoking Status: Never smoker Alcohol: None Drugs: None - Family History Maternal Family History: Family History (Last Reviewed 04/30/18 @ 09:12 by Jeanie Rodriguez) Mother Diabetes Heart disease Cancer Father Heart disease Family History: Reports: Diabetes, Heart Disease, Hypertension, - Paternal Family History: Family History (Last Reviewed 04/30/18 @ 09:12 by Jeanie Rodriguez) Mother Diabetes Heart disease Cancer Father Heart disease Family History: Reports: Heart Disease, Hypertension, Stroke, - Review of Systems General: Denies: Chills, Fever, Malaise, Subjective, Sweats Respiratory: Denies: Dyspnea Gastrointestinal: Denies: Abdominal pain, Nausea, Vomiting, Diarrhea Genitourinary: Reports: Dysuria, Frequency. Denies: Hematuria Musculoskeletal: Reports: Back pain. Denies: Myalgias, Arthralgias, Neck pain, Swelling, Extremity Pain Skin: Denies: Rash, Wounds Hematologic: Denies: Easy bruising, Easy bleeding Physical Exam Vital Signs/Narrative: Vital Signs Temp Pulse Resp BP Pulse Ox 01/07/19 09:39 98.7 F 97 17 123/79 H 98 Inital Vital Signs reviewed: Yes General: Well nourished, Well developed, No Acute Distress Head: Normocephalic, Atraumatic Eyes: Perrl, EOMI, Pale conjunctiva, Scleral icterus Cardiovascular: Regular rate, Regular rhythm, No murmurs, Normal S1, Normal S2 Respiratory: No distress, CTA bilaterally, Chest nontender Abdomen: Soft, Nontender, Nondistended, Normal bowel sounds. Negative for: No masses Back: Nontender, Normal Inspection. Negative for: CVA tenderness Skin: Normal color, No rash, No Trauma. Negative for: Cyanosis, Diaphoresis, Jaundice Neurological: Alert, Oriented x3, Cranial nerves II-XII grossly intact, Normal Strength, Normal Sensation Psychological: Normal affect, Normal Mood Diagnostic/Tx/Re-eval Laboratory Results 01/07/19 09:50 Urine Color Yellow Urine Clarity Cloudy Urine pH 6.5 Ur Specific [place] 1.015 Urine Protein 30 H Urine Glucose (UA) Normal Urine Ketones Negative Urine Occult Blood 50 H Urine Nitrite Positive H Urine Bilirubin Negative Urine Urobilinogen Normal Ur Leukocyte Esterase 500 H Urine RBC 0-5 SEEN Urine WBC 25-50 SEEN Ur Squamous Epith Cells 0 SEEN Urine Bacteria 2+ Urine Mucus 0 SEEN Urine is consistent with infection. Culture was not obtained since she has not had a recent infection and there is no evidence of pyelonephritis. - Medical Decision Making Patient's history is consistent with acute cystitis. Since there is no complaint of flank pain and she has no CVA tenderness doubt pyelonephritis or ureterolithiasis. Will obtain UA. UA is consistent with infection she was treated with Pyridium and Macrobid. ED Disposition - Plan for ED Patient: Disposition: Home or Assisted Living Diagnosis: Acute cystitis Instructions: Urinary Tract Infections in Women Prescriptions: Nitrofurantoin Macrocrystals [Macrobid] 100 mg PO Q12 #10 cap Transmission Status: Pending to [facility] Phenazopyridine HCl [Pyridium] 200 mg PO TID #10 tab Transmission Status: Pending to [facility] [address] Referrals: Bogdan Guerra DO [Primary Care Provider] - 3-5 Days if not improving Additional Instructions: Your prescription was electronically transmitted to [facility] pharmacy.
[2019-01-07] MEDS: Nitrofurantoin Macrocrystals 100 MG Capsule PO (10:38)
[2019-01-07] MEDS: Phenazopyridine 95 MG Tablet 190 MG PO (10:38)
[2019-01-07 10:39] VITALS: BP 118/86
== END 2019-01-07 10:40 | disposition home or self-care (01) ==
PROVIDERS: Emergency Provider Emergency Medicine; Family Provider Family Medicine; PCP Family Medicine
DX: N30.00 Acute cystitis without hematuria (principal); Z82.49 Family history of ischemic heart disease and other diseases of the circulatory system; Z88.0 Allergy status to penicillin; Z88.1 Allergy status to other antibiotic agents; Z88.5 Allergy status to narcotic agent; Z91.040 Latex allergy status; Z90.49 Acquired absence of other specified parts of digestive tract
CPT/HCPCS: 81001; 99283

== ENCOUNTER 2019-07-01 08:11 | Outpatient (RCR) | payer MEDICAID, SELFPAY ==
[2019-05-23 10:36] VITALS: BMI 24.5
== END 2019-07-16 23:59 ==
LOC: WC 08:11
PROVIDERS: PCP Family Medicine; Visit Provider Nurse Practitioner Family
DX: Z09 Encounter for follow-up examination after completed treatment for conditions other than malignant neoplasm (principal)

== ENCOUNTER 2020-05-18 15:17 | Observation (INO) | payer MEDICAID, SELFPAY ==
[2020-03-09 15:33] VITALS: BMI 25.2
[2020-05-06 11:07] VITALS: BMI 25.8
[2020-05-18] VITALS (11 sets, daily range): BP systolic 104–124; BP diastolic 60–81; PULSE 68–87; RESP 16–18; TEMP 35.9–37.2; O2SAT 96–100; BMI 25.9
[2020-05-18 10:50] LABS: Internal QC Validated? YES +Cl - CLEAR BKGD; Pregnancy, Urine Negative Negative
--- NOTE | 2020-05-18 10:52 | PCM.HP.BLA ---
History and Physical Date of Admission: 05/18/20 HISTORY OF PRESENT ILLNESS Patient is a 39 year old female who has a history of hidradenitis of bilateral axilla. She presented with a flare up of her right axillary hidradenitis. She denies fever. She denies drainage. She has had surgical excision of her axillary hidradenitis in the past. The most recent surgery was 07/24/18 where she underwent a surgical preparation left axilla with excisional debridement nonhealing hidradenitis ulcer and STSG reconstruction from left flank (24 cm2) and placement of JESSICA NPWT device. She states she has developed a recent allergy to Doxycycline. Her visit on 03/09/20, she was placed on Clindamycin and the hidradenitis resolved. She was also given a script for Bactrim that she will use for flare ups. Since the resolution of the hidradenitis, it did develop a flare up. There was improvement with the Bactrim but is still persistent. She presents today for further evaluation and treatment. PAST MEDICAL HISTORY Hypergranulation Elevated alkaline phosphatase level Non-pressure chronic ulcer of skin of other sites with fat layer exposed Skin flap infection Left axillary hidradenitis Right axillary hidradenitis PAST SURGICAL HISTORY cholecystectomy tooth extraction axillary surgery hidradenitis suppurativa artificial skin graft skin graft ALLERGIES latex Penicillins [PCN] hydromorphone HCl [From Dilaudid] - nausea doxycycline - nausea MEDICATIONS doxycycline lactobacillus bactrim DS FAMILY HISTORY Mother - Diabetes, Heart disease, ovarian cancer Father - Heart disease SOCIAL HISTORY Smoking Status: Never smoker REVIEW OF SYSTEMS General - Denies fever, fatigue, and weight loss. Eyes - Denies cataracts and glaucoma. ENT - Denies nasal congestion and sore throat. Endocrine - Denies excessive thirst and urination. Skin - Denies suspicious lesions and skin cancer. Has recent flare up right axillary hidradenitis, which is now painful and will drain intermittently. Musculoskeletal - Denies joint pain, joint stiffness, weakness of muscles and joints, back pain, and arthritis. Neuro - Denies headaches. Cardiovascular - Denies chest pain, fatigue, and shortness of breath with exertion. Psych - Denies anxiety and depression. Respiratory - Denies chronic cough and shortness of breath. Gastrointestinal - Denies nausea, vomiting, diarrhea, and constipation. Hematologic - Denies abnormal bruising and bleeding. Genitourinary - Denies hematuria and urinary frequency. PHYSICAL EXAMINATION General - Alert and oriented. HEENT - PERRL. EOMI. Throat is clear. Neck - Supple and non-tender. No cervical adenopathy. Lungs- Clear to auscultation. Heart - Regular rate and rhythm. Abdomen - Soft and non distended. Extremities - FROM. No axillary adenopathy. Radial pulses are palpable. In the right axilla is a healed scar from previous excision of hidradenitis. At the anterior superior aspect of the scar is an area of induration. The redness has lessened. Measures 2 cm. It is tender to palpation. No fluctuance. No purulent drainage at this time. In the left axilla is a healed scar from previous excision of hidradenitis. She has good range of motion of bilateral shoulders. Neuro - CN II-XII grossly intact. Psych - Normal mood and affect. ASSESSMENT Recurrent right axillary hidradenitis. PLAN The area of recurrent right axillary hidradenitis has some tenderness to palpation. She has continued to have the redness, pain and drainage even while on her course of Clindamycin, which she has completed. Recommend surgical excision which will be done under general anesthesia and a surgical observation overnight stay in the hospital. The surgery is scheduled for the beginning of May. I will leave the wound open and proceed with wound care with the VAC. Tissue that is removed at surgery would be sent to Pathology for analysis to rule out carcinoma and to Microbiology for culture. A positive culture will necessitate antibiotic therapy. After discharge will followup at the [facility]. If there is a plateau in the healing process, can proceed with delayed closure with skin grafting. Shoulder range of motion exercises would be encouraged to minimize stiffness. Patient was informed of the risks and complications of the procedure including alternatives to surgery. These were discussed with the patient personally. Patient voices understanding and wishes to proceed. Some of the risks and complications were included in a form from the [employer]. We discussed the current risks associated with COVID-19. While it is understood that there is a community spread of COVID-19, the risk of [place] COVID-19 while at [facility] ([facility]) is very low; however, the risk cannot be completely mitigated because of the community spread of the disease. We discussed in detail the risk of exposure to and/or potential harm posed by the COVID-19 virus with having a surgery/procedure at this time versus the risk of delaying the surgery/procedure. It is not possible to know either the risk of delaying the surgery or procedure or chance of getting an infection with perfect accuracy, but a joint decision was made to proceed at this time with the scheduled surgery/procedure as indicated on the consent form. Patient was notified that we will need to comply with any screening or testing WC wishes to perform or that surgery may be delayed for any positive results. Discussed with the patient that I was tested for COVID-19 on 10/17/19 which was negative and on 10/31/19 which was negative and on 11/14/19 which was negative and on 11/28/19 which was negative and on 12/12/19 which was negative and on 01/02/20 which was negative and on 01/23/20 which was negative and on 02/27/20 which was negative and on 03/19/20 which was negative and on 04/07/20 which was negative. My testing regimen at this time is to be COVID-19 tested every 2 weeks or so. I received the COVID-19 vaccine (Moderna) on 04/15/20 and the second vaccine dose was received on 05/13/20. Procedure Criteria Procedure Type: Elective COVID Risk Discussion: The surgeon/proceduralist and patient have discussed in detail the risk of exposure to and/or potential harm posed by the COVID-19 virus with having a surgery/procedure at this time versus the risk of delaying the surgery/procedure. It is not possible to know either the risk of delaying the surgery or procedure or chance of getting an infection with perfect accuracy, but a joint decision was made between the patient and the surgeon/proceduralist to proceed at this time with the scheduled surgery/procedure as indicated on the consent form.
[2020-05-18] MEDS: Lactated Ringers 1,000 ML 100 ML IV (11:18)
[2020-05-18] MEDS: levoFLOXacin IV 500 MG/100 ML BAG 100 MG IV (12:31)
--- NOTE | 2020-05-18 13:30 | HID_PTH ---
PATIENT: RAVI IRAHETA LOC: [facility] U#:[id number] AGE/SX: 39/F ROOM: GA320 RE05/18/[address]: Dr. Lennox Eugene MD : 1980 BED: 1 DIS: 05/19/2020 SPEC #: [id number] RECD: 05/18/20 15:15 STATUS: YANIQUE MONO #: [id number] BRIGHT: 05/18/20 13:[address]: Lennox Eugene DEPT: SURGICAL PATHOLOGY RECD BY: Edwina Malagon ENTERED: 05/19/20 06:36 SP TYPE: Hidradenit MAHAD DR: GILBERTO Tolliver Tissues: Right axillary region Procedures: Surgery Specimen Level III HEADER OPERATION: Surgical preparation axilla with excision recurrent hidradenitis PRE-OP DIAGNOSIS: Recurrent right axillary hidradenitis TISSUE SUBMITTED: Right axilla hidradenitis, recurrent MICROSCOPIC DIAGNOSIS Skin and soft tissue of right axilla, excision: Consistent with hidradenitis. AM:kusum 05/20/2020 MICROSCOPIC DESCRIPTION Slides are reviewed. GROSS DESCRIPTION Received in fixative is one container labeled with the patient's name and designated right axilla hidradenitis. The specimen consists of four irregular fragments of yellow fatty tissue that in aggregate measure 4 x 4 x 2 cm. The largest fragment contains an unremarkable fragment of light paredes attached skin measuring 2 cm in greatest dimension. Serial sections do not reveal mass lesions. [employer] Producer sections are submitted in two cassettes. / AM:kusum 05/19/20 TC:2 CPT: 38944
[2020-05-18] MEDS: Lidocaine 1% (30 ml sdv) 30 ML Vial (14:00)
--- NOTE | 2020-05-18 14:17 | PCM.OPRPT ---
Report of Operation Date of Procedure: 05/18/20 Pre-Operative Diagnosis: Recurrent right axillary hidradenitis. Post-Operative Diagnosis: Same. Surgery/Procedure Performed:: Surgical preparation right axilla with excision recurrent hidradenitis (10.5 cm2). Description of Surgical Findings:: Patient is a 39 year old female who has a history of hidradenitis of bilateral axilla. She presented with a flare up of her right axillary hidradenitis. She denies fever. She denies drainage. She has had surgical excision of her axillary hidradenitis in the past. The most recent surgery was 07/24/18 where she underwent a surgical preparation left axilla with excisional debridement nonhealing hidradenitis ulcer and STSG reconstruction from left flank (24 cm2) and placement of JESSICA NPWT device. She states she has developed a recent allergy to Doxycycline. Her visit on 03/09/20, she was placed on Clindamycin and the hidradenitis resolved. She was also given a script for Bactrim that she will use for flare ups. Since the resolution of the hidradenitis, it did develop a flare up. There was improvement with the Bactrim but is still persistent. Patient was informed of the risks and complications of the procedure including alternatives to surgery. These were discussed with the patient personally. Patient voices understanding and wishes to proceed. Some of the risks and complications were included in a form from the [employer] [employer]. Size of defect right axilla - 3 x 3.5 x 2 cm. lead systems architect: None Type of Anesthesia:: General Specimen's removed: Recurrent right axillary hidradenitis to Pathology and Microbiology. Drains: None. Estimated Blood Loss (mL): 25 ml. Description of Procedure: Patient was taken to OR in supine position and was placed under general anesthesia. The right axilla was prepped and draped in the usual fashion. SCD's were placed for DVT prophylaxis. Perioperative antibiotics were given intravenously. For the procedure, I wore an N95 mask and wore proper eyewear protection. Using xylocaine, I infiltrated the area of hidradenitis for postop pain relief. Using a scalpel, I proceeded with surgical preparation of the right axilla with excision of her recurrent hidradenitis. No purulent drainage was seen. In the subcutaneous tissue, there was extensive fat necrosis. There was indurated scar tissue extending down to the underlying pectoralis muscle and was excised. Some of the tissue was sent to Pathology for analysis to rule out carcinoma and to Microbiology for culture. A positive culture will necessitate antibiotic therapy. The wound was irrigated with saline. Hemostasis was obtained with electrocautery. The size of the defect right axilla after excision recurrent hidradenitis was 3 x 3.5 x 2 cm or 10.5 cm2. The wound was dressed with Mepitel nonadherent dressing followed by Kerlix gauze and Betadine followed by dry Kerlix gauze followed by ABD pads and compression JAGRUTI wrap. Patient tolerated the procedure well and was sent to PACU in satisfactory condition. Patient will be sent upstairs for continued postop care. The VAC will be applied tomorrow. Grafts/Implants Used: None. - Complications None. - Admit VTE Documentation VTE Present on Admission: No VTE Mechan Device Prophylaxis: SCD's VTE Pharm Prophylaxis ordered?: No Surgery Charges CPT - 97827 ICD-10 - L73.2, S41.101A
--- NOTE | 2020-05-18 14:35 | NURSING ---
Home wound VAC paperwork completed. Awaiting approval. wound VAC to be applied 05/19/20 with possible discharge home.
[2020-05-18] MEDS: Lactated Ringers 1,000 ML 60 ML IV (15:54)
--- NOTE | 2020-05-18 16:31 | PCS.PANDOC ---
PANDEMIC DOCUMENTATION INITIATED: Date: 03/23/2020 Time:
[2020-05-18] MEDS: diazePAM 5 MG Tablet PO (18:31)
[2020-05-18] MEDS: Docusate Sodium 100 MG Capsule PO (18:32)
[2020-05-18] MEDS: oxyCODONE 5 MG Tablet 10 MG PO (18:32)
[2020-05-19 00:45] VITALS: BP 100/63; PULSE 81; RESP 16; TEMP 36.5; O2SAT 99
[2020-05-19 05:07] VITALS: BP 103/56; PULSE 77; RESP 16; TEMP 36.1; O2SAT 99
[2020-05-19] MEDS: oxyCODONE 5 MG Tablet 10 MG PO ×2 (05:13→13:22)
[2020-05-19] MEDS: diazePAM 5 MG Tablet PO (05:13)
[2020-05-19 07:13] LABS: Hematocrit 31.1 % (37-47); Hemoglobin 9.9 g/dL (12.0-15.0); Mean Corp Hgb Conc 31.8 g/dL (32-36); Mean Corpuscular Hgb 23.6 pg (27.0-32.0); Mean Corpuscular Volume 74.2 fL (81-99); Platelet Count 245 K/mm3 (150-450); RBC Distribution Width SD 42.1 fl (35.1-43.9); Red Blood Count 4.19 M/mm3 (4.2-5.4); White Blood Count 12.8 K/mm3 (4.4-11.0)
[2020-05-19 07:25] LABS: Anion Gap 7 (5-15); BUN 12 mg/dL (7-18); BUN/Creat Ratio 20.1 RATIO (10-20); Calcium,Total 8.4 mg/dL (8.5-10.1); Chloride 109 mmol/L (98-107); EST Glomerular Filtration Rate 120 mL/min (>60); Est Glom Filt Rate - Afr Amer 145 mL/min (>60); Estimated Creatinine Clearance 100.55 ml/min; Glucose 131 mg/dL (74-106); Potassium 3.7 mmol/L (3.5-5.1); Prealbumin 19.8 mg/dL (20.0-40.0); Sodium Level 139 mmol/L (136-145)
[2020-05-19] MEDS: Docusate Sodium 100 MG Capsule PO (09:23)
[2020-05-19] MEDS: Lactated Ringers 1,000 ML 60 ML IV (09:23)
[2020-05-19] MEDS: levoFLOXacin IV 500 MG/100 ML BAG 100 MG IV (09:23)
[2020-05-19 09:31] VITALS: BP 103/54; PULSE 63; PULSE 70; RESP 16; TEMP 36.4; O2SAT 97
--- NOTE | 2020-05-19 12:54 | PN.SURG_ITS ---
Subjective: Post op #1 Sitting up in bed, pain well controlled. - Physical Exam Vitals/I&O's: Vital Signs Temp Pulse Resp BP Pulse Ox 97.6 F L 70 16 103/54 L 97 05/19/20 09:31 05/19/20 09:31 05/19/20 09:31 05/19/20 09:31 05/19/20 09:31 Oxygen Delivery Method Room Air Weight: 141 lb 12.116 oz Body Mass Index (BMI) 25.9 Intake and Output for Last 24 Hours 05/17/20 05/18/20 05/19/20 23:59 23:59 23:59 Intake Total 1100 / 1100 1740 / 1740 Output Total 400 / 400 Balance 1100 / 1100 1340 / 1340 General: Alert, Oriented x3, Cooperative HEENT: Atraumatic Oral: Moist Mucosa Lungs: Normal air movement Cardiovascular: Regular rate Extremities: Capillary Refill Less than 3 Seconds Skin: Ulcer/ Wound - Right axilla operative dressing removed. Right axilla wound is stable, no active bleeding. Saline moistened 4x4 gauze fluffed and placed inside the wound, topped with ABD and secured with JAGRUTI wrap. Musculoskeletal: Tenderness Neurological: Cranial nerves II-XII grossly intact Psych/Mental Status: Normal Affect, Appropriate Microbiology Past 72 Hours 05/18/20 Unknown Tissue - Axilla, Right Gram Stain - Final 05/18/20 Unknown Tissue - Axilla, Right Wound Culture - Preliminary Laboratory Results 05/19/20 06:45: WBC 12.8 H, RBC 4.19 L, Hgb 9.9 L, Hct 31.1 L, MCV 74.2 L, MCH 23.6 L, MCHC 31.8 L, RDW Std Deviation 42.1, RDW Coeff of Soledad 16.0 H, Plt Count 245, MPV 12.0 05/19/20 06:45: Sodium 139, Potassium 3.7, Chloride 109 H, Carbon Dioxide 23.0, Anion Gap 7, BUN 12, Creatinine 0.60, Estim Creat Clear Calc 100.55, Est GFR (MDRD) Af Amer 145, Est GFR (MDRD) Non-Af 120, BUN/Creatinine Ratio 20.1 H, Glucose 131 H, Calcium 8.4 L, Prealbumin 19.8 L Current Medications Diazepam (Diazepam 5 Mg Tablet) 5 mg PO 4X/DAY PRN PRN PRN Reason: SPASMS Last Admin: 05/19/20 05:13 Dose: 5 mg Documented by: Docusate Sodium (Docusate Sodium 100 Mg Capsule) 100 mg PO BID [facility] Last Admin: 05/19/20 09:23 Dose: 100 mg Documented by: Hydromorphone HCl (Hydromorphone 1 Mg/Ml Syringe) 1 mg IV Q4H PRN PRN PRN Reason: Pain Score 6-10 Lactated Ringer's () 1,000 mls @ 60 mls/hr IV .[id number] [facility] Last Admin: 05/19/20 09:23 Dose: 60 mls/hr Documented by: Levofloxacin (Levaquin Iv) 500 mg in 100 mls @ 100 mls/hr IV Q24 [facility] Last Infusion: 05/19/20 10:25 Dose: Infused Documented by: Ondansetron HCl (Ondansetron 4 Mg/2 Ml Vial) 4 mg IV Q6H PRN PRN PRN Reason: NAUSEA Oxycodone HCl (Oxycodone 5 Mg Tablet) 10 mg PO Q4H PRN PRN PRN Reason: Pain Score 4-5 Last Admin: 05/19/20 05:13 Dose: 10 mg Documented by: Promethazine HCl (Promethazine 25 Mg Tablet) 25 mg PO Q4H PRN PRN PRN Reason: NAUSEA/VOMITING Medical Necessity - Tobacco Use Smoking Status: Never smoker Tobacco Use: Non-smoker Assessment/Plan All Active Problems (Last Reviewed 05/08/20 @ 16:[address] Lennox Eugene MD) URI (upper respiratory infection) (Acute) Granulomatous disorder of the skin and subcutaneous tissue, unspecified (Acute) Skin graft disorder (Resolved) Hx of cholecystectomy (Acute) History of tooth extraction (Acute) History of axillary surgery (Acute) Elevated alkaline phosphatase level (Acute) Skin flap infection (Resolved) Non-pressure chronic ulcer of skin of other sites (Ruled-out) Recurrent hidradenitis right axilla Excision right axilla hidradenitis Patient is doing well. Pain is well controlled on oral pain meds. Prescription sent to her pharmacy. Operative wound cultures pending. She is currently on Levaquin. Will send her home on oral Levaquin. She does not want to have the wound VAC. We will do Saline moistened dressing changes daily. She can wash with soap and water daily. Patient feels comfortable enough to do her own dressing changes with the assistance of her . She will follow up at the [facility] next Monday05/25/20 at 1300.
[2020-05-19 13:24] VITALS: BP 121/70; PULSE 88; RESP 18; TEMP 36.8; O2SAT 98
--- NOTE | 2020-05-19 15:04 | PCM.DC ---
You will use the following diet at home:: No restrictions, Other - Encourage protein intake for wound healing Discharge Activity: Return to Normal Activity, May not drive while taking narcotic pain medications. May shower in (days): 1 - at the time of dressing change May resume sexual activity in: No Restrictions Weight Bearing Status: Weight bearing as tolerated Lifting Restrictions: 20 lb Keep extremity elevated above heart level: Right Arm Additional Activity Instructions:: Encourage range of motion to minimize stiffness Call your doctor if your incision/area has: Continuous Slow Oozing, Sudden Increased Bleeding, Increased Pain/ Swelling, Increased Redness, Foul Smelling Discharge, Swelling at the incision site Call your doctor if you observe: Fever of 101 or Higher, Coldness, Increased Pain, Shortness of breath, Chest pain, Calf discomfort, Uncontrolled pain Suture Line Care: - - Daily saline dressing changes to right axilla Change Dressing in (Days):: 1 - Saline dressing changes daily Cleanse incision/area with: Soap & Water - at the time of the dressing change Allergies/Adverse Reactions: Allergies latex Allergy (Verified 05/11/20 09:17) Rash Penicillins [PCN] Allergy (Verified 05/11/20 09:17) Hives doxycycline Adverse Reaction (Verified 05/11/20 09:17) Nausea hydromorphone HCl [From Dilaudid] Adverse Reaction (Verified 05/11/20 09:17) Nausea Medications to take at Discharge Docusate Sodium [Colace] 100 mg PO BID #60 cap 05/19/20 Oxycodone HCl/Acetaminophen [Percocet 5-325 mg Tablet] 1 each PO Q4H PRN PRN 7 Days #40 tablet 05/19/20 levoFLOXacin tablet [Levaquin tablet] 500 mg PO DAILY #10 tab 05/19/20 The following prescriptions were given: Docusate Sodium [Colace] 100 mg PO BID #60 cap Transmission Status: Pending to [facility] levoFLOXacin tablet [Levaquin tablet] 500 mg PO DAILY #10 tab Transmission Status: Pending to [facility] [address] Oxycodone HCl/Acetaminophen [Percocet 5-325 mg Tablet] 1 each PO Q4H PRN PRN 7 Days #40 tablet PRN Reason: Pain Score 6-10 Transmission Status: Received by [facility]NA [facility] Orders to be completed after discharge: ,Urine Time Frame: 05/18/20, Facility: [facility], Location: Laboratory Primary Care Physician: Tashia Cano NP, DIRECTOR OF [facility] [Primary Care Provider] - Test Results: Test results from this visit will be discussed in further detail at your follow-up appointment, if applicable. Please Follow Up With: Dr. Eugene/Nettie Gusman - call [phone] When: Monday at [facility] 05/25/20 @ 1:00 pm Proposed Discharge Date: 05/19/20
== END 2020-05-19 17:07 | disposition home or self-care (01) ==
LOC: SDC 15:51 → MS3 15:51
PROVIDERS: Anesthesiology; Admitting Provider Surgery; PCP Nurse Practitioner Family; Referring Provider Surgery; Visit Provider Surgery
PROC: (CPT 11450; principal; 2020-05-18 13:15)
DX: L73.2 Hidradenitis suppurativa (principal); Z20.828 Contact with and (suspected) exposure to other viral communicable diseases
CPT/HCPCS: 00400; 11450; 36415; 80048; 81025; 84134; 85027; 87015; 87070; 87075; 87077; 87102; 87116; 87186; 87205; 87206; 87426; 88304; 96365; 99218; 99251; C9803; J7120; G0378; G0379; G0463; J2405

== ENCOUNTER 2020-06-08 09:00 | Outpatient (RCR) | payer MEDICAID, SELFPAY ==
[2020-05-18 16:28] VITALS: BMI 25.9
[2020-05-25 13:10] VITALS: BP 153/84; PULSE 95; RESP 16; TEMP 36.4; BMI 25.7
--- NOTE | 2020-05-25 14:31 | PCM.WC.HP ---
(1) Open wound of right axillary region with complication Status: Acute Code(s): S41.101A - Unspecified open wound of right upper arm, initial encounter (2) Hidradenitis suppurativa Status: Chronic Code(s): L73.2 - Hidradenitis suppurativa History of Present Illness Date of Service: 05/25/20 Chief Complaint: Recurrent hidradenitis ulcer left axillary area with recent skin grafting 07/24/18. History of Wound: Surgery 05/18/20 - Surgical preparation right axilla with excision recurrent hidradenitis (10.5 cm2). Wound care - Saline moistened gauze, will start Dakin's solution moistend gauze daily. Operative culture - Resistant Staphylococcus epidermidis. She was sent home on Levaquin, but when the culture results came back, she was changed to Bactrim DS twice daily. Prealbumin 19.8. Encouraged increase in protein intack to help with wound healing. Today she denies fever. Her appetite is good. Past Medical History Past Medical History: Chronic Problems (Last Reviewed 05/08/20 @ 16:[address] 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 Right axillary hidradenitis (Chronic) L73.2 right axillary hidradenitis H/O hidradenitis suppurativa (Chronic) Surgical preparation left axilla with excisional debridement nonhealing hidradenitis ulcer and STSG reconstruction from left flank (24 cm2) and placement of JESSICA NPWT device - 07/24/18 Surgical preparation left axilla with excisional debridement nonhealing hidradenitis ulcer and placement of Thera-skin skin substitute graft (39 cm2) - 02/23/18 Surgical preparation left axilla with excision nonhealing recurrent hidradenitis ulcer (45 cm2) - 12/19/17 Surgical preparation left axilla with excision recurrent hidradenitis ulcer (66 cm2) - 06/28/17 Excisional debridement, nonhealing recurrent hidradenitis ulcer, left axilla with full-thickness skin graft reconstruction from lower anterior abdominal wall (28 square cm) - 09/29/16 Surgical preparation left axilla with excision nonhealing hidradenitis ulcer (60 square cm) - 08/11/16 Excision nonhealing recurrent hidradenitis ulcer, left axilla and reconstruction with proximal medial left arm bilobed transposition skin flap (56 sq cm) - 11/24/15 Surgical preparation left axillary wound with excision hidradenitis (36 square cm) - 03/17/15 Surgical preparation right axillary wound with excision hidradenitis (40 square cm) - 06/02/14 Surgical History: noncontributory, - - Recurrent hidradenitis of right axilla. Allergies/Adverse Reactions: Allergies latex Allergy (Verified 05/25/20 13:24) Rash Penicillins [PCN] Allergy (Verified 05/25/20 13:24) Hives doxycycline Adverse Reaction (Verified 05/25/20 13:24) Nausea hydromorphone HCl [From Dilaudid] Adverse Reaction (Verified 05/25/20 13:24) Nausea Home Medications: Ambulatory Orders Medication Instructions Recorded Docusate Sodium [Colace] 100 mg PO BID #60 cap 05/19/20 levoFLOXacin tablet [Levaquin 500 mg PO DAILY #10 tab 05/19/20 tablet] sulfamethoxazole 800 1 tab PO Q12H #30 tab 05/21/20 mg-trimethoprim 160 mg tablet - Family History Maternal Family History: Family History (Last Reviewed 05/08/20 @ 16:[address] Lennox Eugene MD) Mother Diabetes Heart disease Cancer Father Heart disease Diabetes, Heart Disease, Hypertension, - Paternal Family History: Family History (Last Reviewed 05/08/20 @ 16:[address] Lennox Eugene MD) Mother Diabetes Heart disease Cancer Father Heart disease Heart Disease, Hypertension, Stroke, - Smoking Status: Never smoker Review of Systems Constitutional: Denies: Chills, Fever, Weight Change Eyes: Denies: Pain, Vision Change HEENT: Denies: Difficulty Hearing, Difficulty Swallowing, Sinus Congestion Cardiovascular: Denies: Chest Pain, Palpitations Respiratory: Denies: Cough, Shortness of Breath Gastrointestinal: Denies: Diarrhea, Nausea, Vomiting Genitourinary: Denies: Dysuria, Hematuria Musculoskeletal: Denies: Joint stiffness, Joint swelling, Joint Tenderness Skin: Reports: Wounds - Right axilla wound is pink and clean. Neurological: Denies: Balance problems, Blurred vision, Double vision, Change in Speech, Headaches Psychiatric: Denies: Anxiety, Homicidal Ideations, Suicidal Ideations Endocrine: Denies: Heat/ Cold Intolerance, Polydipsia, Polyuria Hematologic/ Lymphatic: Denies: Easy Bruising, Easy Bleeding - Physical Exam Vital Signs Temp Pulse Resp BP 97.5 F L 95 16 153/84 H 05/25/20 13:10 05/25/20 13:10 05/25/20 13:10 05/25/20 13:10 General: Alert, Oriented x3, Cooperative HEENT: Atraumatic Oral: Moist Mucosa Lungs: Normal air movement Cardiovascular: Regular rate Abdomen: Soft Extremities: No edema Skin: Ulcer/ Wound - Right axilla wound is beefy pink. Wound Measurements and Assessment WC - Nurse 1 - General Ulcer Measurement Start: 05/25/20 13:09 Freq: Status: Active Protocol: Activity Type Activity Date Activity User E-Sign Co-Sign Detail Recorded Client Recorded Date Recorded By Document 05/25/20 13:10 [facility] [id number] 05/25/20 13:21 [facility] 05/25/20 13:10 Wound Center Nurse 1 [Ulcer Assessment] #6 R AXILLA -Combined with other wound No -Current Size (cm) - Length 3.9 -Current Size (cm) - Width 2 -Current Size (cm) - Depth 1.7 -Total Square Cm 7.8 -Date of Last Picture (Recall this 05/25/20 field) -Photo Taken Yes -Epithelialization None Present -Tunneling No -Undermining/Tunneling No -Circular Undermining No -Exudate Amt Large -Exudate Type Purulent -Wound Margin Distinct, Outline Attached -Granulation Amt Medium (34-66%) -Granulation Quality Red -Slough/Fibrin Yes -Necrosis Amt Medium (34-66%) -Necrotic Tissue Type Adherent Slough -Texture (Sadie-wound Skin Appearance) Assessed -Moisture (Sadie-wound Skin Appearance Assessed ) -Color (Sadie-wound Skin Appearance) Assessed -Temperature (Sadie-wound Skin No Abnormality Appearance) (Pt Warm) -Tenderness on Palpation (Sadie-wound Yes Skin Appearance) -Ulcer Cleansing Rinsed/ Irrigated with Saline -Foul Odor after Cleansing No -Anesthetic Used 4% Lidocaine Solution WC - Nurse 2 - General Ulcer CM Notes Start: 05/25/20 13:09 Freq: Status: Active Protocol: Activity Type Activity Date Activity User E-Sign Co-Sign Detail Recorded Client Recorded Date Recorded By Document 05/25/20 13:57 [id number] 05/25/20 13:58 05/25/20 13:57 Wound Center Nurse 2 [Procedure/Treatment] -Time 13:58 -Correct Patient Yes -Correct Side, Site, Position Yes -Correct Procedure Yes -Procedure Performed Yes -Type of Procedure Debridement -Clinical Debridement Subcutaneous -Tissue Removed Subcutaneous -Post Debridement (cm) - Length 3.9 -Post Debridement (cm) - Width 2 -Post Debridement (cm) - Depth 1.7 -Total Square (Post) (cm) 7.8 -Area of Debridement (cm) - Length 3.9 -Area of Debridement (cm) - Width 2.0 -Total Square (Area) (cm) 7.80 -Tunneling No -Undermining/Tunneling No -Circular Undermining No -Wound/Ulcer Outcome Not Healed -Ulcer Cleansing Rinsed/ Irrigated with Saline -Foul Odor after Cleansing No -Bioengineered Tissue No -Bleeding Controlled with Pressure -Offloading No -Treatment Response Procedure Tolerated Well -Debridement - Subq, 1st 20sq cm No [See Physician Procedure note for Specifics] Pain Scale: 0-10 Numeric [Pain] -Is Patient Pain Free? Yes - Nurse 3 - General Ulcer D/C NN Start: 05/25/20 13:09 Freq: Status: Active Protocol: Activity Type Activity Date Activity User E-Sign Co-Sign Detail Recorded Client Recorded Date Recorded By Document 05/25/20 14:08 [facility] [id number] 05/25/20 14:09 [facility] 05/25/20 14:08 Wound Care Nurse 3 [Wound Dressing] #6 R AXILLA -Ulcer Cleansing Rinsed/ Irrigated with Saline -Foul Odor after Cleansing No -Primary Dressing Applied Other -Other Dressing moist to dry -Primary Dressing Covered/Secured Secured with with Tape,Other -Other Covering abd [Post Procedure Tolerated] -Treatment Response Procedure Tolerated Well Pain Scale: 0-10 Numeric [Pain] -Is Patient Pain Free? Yes - Visit Discharge [Visit Discharge Information] -Discharge Condition Stable -Ambulatory Status Ambulatory -Transportation Private Auto Musculoskeletal: No Tenderness to Palpation of Joints or Extremities - Good arm and shoulder range of motion. Neurological: Cranial nerves II-XII grossly intact Psych/Mental Status: Normal Affect, Appropriate Debridement Note Post-Debridement Measurements/Treatment WC - Nurse 2 - General Ulcer CM Notes Start: 05/25/20 13:09 Freq: Status: Active Protocol: Activity Type Activity Date Activity User E-Sign Co-Sign Detail Recorded Client Recorded Date Recorded By Document 05/25/20 13:57 [id number] 05/25/20 13:58 05/25/20 13:57 Wound Center Nurse 2 #6 R AXILLA -Time 13:58 -Correct Patient Yes -Correct Side, Site, Position Yes -Correct Procedure Yes -Procedure Performed Yes -Type of Procedure Debridement -Clinical Debridement Subcutaneous -Tissue Removed Subcutaneous -Post Debridement (cm) - Length 3.9 -Post Debridement (cm) - Width 2 -Post Debridement (cm) - Depth 1.7 -Total Square (Post) (cm) 7.8 -Area of Debridement (cm) - Length 3.9 -Area of Debridement (cm) - Width 2.0 -Total Square (Area) (cm) 7.80 -Tunneling No -Undermining/Tunneling No -Circular Undermining No -Wound/Ulcer Outcome Not Healed -Ulcer Cleansing Rinsed/ Irrigated with Saline -Foul Odor after Cleansing No -Bioengineered Tissue No -Bleeding Controlled with Pressure -Offloading No -Treatment Response Procedure Tolerated Well -Debridement - Subq, 1st 20sq cm No Pain Scale: 0-10 Numeric Is Patient Pain Free? Yes - Nurse 3 - General Ulcer D/C NN Start: 05/25/20 13:09 Freq: Status: Active Protocol: Activity Type Activity Date Activity User E-Sign Co-Sign Detail Recorded Client Recorded Date Recorded By Document 05/25/20 14:08 [facility] [id number] 05/25/20 14:09 [facility] 05/25/20 14:08 Wound Care Nurse 3 #6 R AXILLA -Ulcer Cleansing Rinsed/ Irrigated with Saline -Foul Odor after Cleansing No -Primary Dressing Applied Other -Other Dressing moist to dry -Primary Dressing Covered/Secured with Secured with Tape,Other -Other Covering abd Treatment Response Procedure Tolerated Well Pain Scale: 0-10 Numeric Is Patient Pain Free? Yes WC - Visit Discharge Discharge Condition Stable Ambulatory Status Ambulatory Transportation Private Auto Wound debrided: Axilla ulcer Laterality: Right No debridement was completed today Assessment/Plan Active Problems (Last Reviewed 05/08/20 @ 16:[address] Lennox Eugene MD) Open wound of right axillary region with complication (Acute) Hidradenitis suppurativa (Chronic) Assessment: 1. Open wound of right axillary region with complication. 2. Hidradenitis suppurativa. Plan: Wound care - Right axilla will stop the normal saline moistened gauze and start Dakin's moistened gauze daily. Contine Bactrim DS for Operative culture with resistant Staphylococcus epidermidis. Encouraged increase protein intake. Follow up 2 weeks. [id number]: [id number] Global Visit
[2020-06-08 08:54] VITALS: BP 120/71; PULSE 93; RESP 16; TEMP 36; BMI 25.7
--- NOTE | 2020-06-08 13:05 | PCM.WC.PN ---
(1) Open wound of right axillary region with complication Status: Acute Code(s): S41.101A - Unspecified open wound of right upper arm, initial encounter (2) Hidradenitis suppurativa Status: Chronic Code(s): L73.2 - Hidradenitis suppurativa Type of Wound Date of Service: 06/08/20 Chief Complaint: Recurrent hidradenitis ulcer left axillary area with recent skin grafting 07/24/18. History of Wound: Surgery 05/18/20 - Surgical preparation right axilla with excision recurrent hidradenitis (10.5 cm2). Wound care - Saline moistened gauze, will start Dakin's solution moistend gauze daily. Operative culture - Resistant Staphylococcus epidermidis. She was sent home on Levaquin, but when the culture results came back, she was changed to Bactrim DS twice daily. Prealbumin 19.8. Encouraged increase in protein intack to help with wound healing. Today she denies fever. Her appetite is good. Progress of Wound: Improved. - Physical Exam Vital Signs Temp Pulse Resp BP 96.8 F L 93 16 120/71 06/08/20 08:54 06/08/20 08:54 06/08/20 08:54 06/08/20 08:54 General: Alert, Oriented x3, Cooperative HEENT: Atraumatic Oral: Moist Mucosa Lungs: Normal air movement Cardiovascular: Regular rate Extremities: No edema, Capillary Refill Less than 3 Seconds Skin: Ulcer/ Wound - Right axilla wound, beefy pink. Wound Measurements and Assessment WC - Nurse 1 - General Ulcer Measurement Start: 05/25/20 13:09 Freq: Status: Active Protocol: Activity Type Activity Date Activity User E-Sign Co-Sign Detail Recorded Client Recorded Date Recorded By Document 06/08/20 08:54 [facility] [id number] 06/08/20 09:04 [facility] 06/08/20 08:54 Wound Center Nurse 1 [Ulcer Assessment] #6 R AXILLA -Combined with other wound No -Current Size (cm) - Length 2.8 -Current Size (cm) - Width 1.2 -Current Size (cm) - Depth 0.6 -Total Square Cm 3.36 -Photo Taken No -Epithelialization Small 1-33% -Tunneling No -Undermining/Tunneling Yes -Undermining/Tunneling Starts (O' 1 clock) -Undermining/Tunneling Ends (O'clock) 3 -Maximum Distance (cm) 1.2 -Circular Undermining No -Exudate Amt Medium -Exudate Type Serosanguineous -Wound Margin Distinct, Outline Attached -Granulation Amt Large (67-100%) -Granulation Quality Red -Slough/Fibrin Yes -Necrosis Amt Small (1-33%) -Necrotic Tissue Type Adherent Slough -Texture (Sadie-wound Skin Appearance) Assessed, Scarring -Moisture (Sadie-wound Skin Appearance Assessed,Dry/ ) Scaly -Color (Sadie-wound Skin Appearance) Assessed -Temperature (Sadie-wound Skin No Abnormality Appearance) (Pt Warm) -Tenderness on Palpation (Sadie-wound Yes Skin Appearance) -Ulcer Cleansing soapy water -Foul Odor after Cleansing No -Anesthetic Used 4% Lidocaine Solution WC - Nurse 2 - General Ulcer CM Notes Start: 05/25/20 13:09 Freq: Status: Active Protocol: Activity Type Activity Date Activity User E-Sign Co-Sign Detail Recorded Client Recorded Date Recorded By Document 06/08/20 09:37 [facility] [id number] 06/08/20 09:41 [facility] 06/08/20 09:37 Wound Center Nurse 2 [Procedure/Treatment] -Time 09:38 -Correct Patient Yes -Correct Side, Site, Position Yes -Correct Procedure Yes -Procedure Performed Yes -Type of Procedure Debridement -Clinical Debridement Subcutaneous -Tissue Removed Subcutaneous -Post Debridement (cm) - Length 2 -Post Debridement (cm) - Width 1.5 -Post Debridement (cm) - Depth 0.8 -Total Square (Post) (cm) 3.0 -Area of Debridement (cm) - Length 2 -Area of Debridement (cm) - Width 1.5 -Total Square (Area) (cm) 3.0 -Tunneling No -Undermining/Tunneling No -Circular Undermining No -Wound/Ulcer Outcome Not Healed -Ulcer Cleansing Rinsed/ Irrigated with Saline -Foul Odor after Cleansing No -Bioengineered Tissue No -Bleeding Controlled with Pressure -Offloading No -Treatment Response Procedure Tolerated Well -Debridement - Subq, 1st 20sq cm Yes [See Physician Procedure note for Specifics] Pain Scale: 0-10 Numeric [Pain] -Is Patient Pain Free? Yes Musculoskeletal: No Tenderness to Palpation of Joints or Extremities Neurological: Cranial nerves II-XII grossly intact Psych/Mental Status: Normal Affect, Appropriate Debridement Note Post-Debridement Measurements/Treatment WC - Nurse 2 - General Ulcer CM Notes Start: 05/25/20 13:09 Freq: Status: Active Protocol: Activity Type Activity Date Activity User E-Sign Co-Sign Detail Recorded Client Recorded Date Recorded By Document 05/25/20 13:57 [id number] 05/25/20 13:58 Document 06/08/20 09:37 [id number] 06/08/20 09:41 05/25/20 06/08/20 13:57 09:37 Wound Center Nurse 2 #6 R AXILLA -Time 13:58 09:38 -Correct Patient Yes Yes -Correct Side, Site, Position Yes Yes -Correct Procedure Yes Yes -Procedure Performed Yes Yes -Type of Procedure Debridement Debridement -Clinical Debridement Subcutaneous Subcutaneous -Tissue Removed Subcutaneous Subcutaneous -Post Debridement (cm) - Length 3.9 2 -Post Debridement (cm) - Width 2 1.5 -Post Debridement (cm) - Depth 1.7 0.8 -Total Square (Post) (cm) 7.8 3.0 -Area of Debridement (cm) - Length 3.9 2 -Area of Debridement (cm) - Width 2.0 1.5 -Total Square (Area) (cm) 7.80 3.0 -Tunneling No No -Undermining/Tunneling No No -Circular Undermining No No -Wound/Ulcer Outcome Not Healed Not Healed -Ulcer Cleansing Rinsed/ Rinsed/ Irrigated with Irrigated with Saline Saline -Foul Odor after Cleansing No No -Bioengineered Tissue No No -Bleeding Controlled with Pressure Pressure -Offloading No No -Treatment Response Procedure Procedure Tolerated Well Tolerated Well -Debridement - Subq, 1st 20sq cm No Yes Pain Scale: 0-10 Numeric Is Patient Pain Free? Yes Yes - Nurse 3 - General Ulcer D/C NN Start: 05/25/20 13:09 Freq: Status: Active Protocol: Activity Type Activity Date Activity User E-Sign Co-Sign Detail Recorded Client Recorded Date Recorded By Document 05/25/20 14:08 [facility] [id number] 05/25/20 14:09 [facility] 05/25/20 14:08 Wound Care Nurse 3 #6 R AXILLA -Ulcer Cleansing Rinsed/ Irrigated with Saline -Foul Odor after Cleansing No -Primary Dressing Applied Other -Other Dressing moist to dry -Primary Dressing Covered/Secured with Secured with Tape,Other -Other Covering abd Treatment Response Procedure Tolerated Well Pain Scale: 0-10 Numeric Is Patient Pain Free? Yes WC - Visit Discharge Discharge Condition Stable Ambulatory Status Ambulatory Transportation Private Auto Wound debrided: Axilla wound Laterality: Right Type of Debridement: Excisional debridement Anesthesia Used: 5% Lidocaine Gel Depth: Down to and including healthy tissue, in the subcutaneous layer Percentage of wound debrided: 100 Instrument Used: 5mm curette Tissue Removed: Subcutaneous tissue and slough with hypergranulation tissue Severity: Fat Layer Exposed Amount of bleeding with debridement: Moderate Bleeding Controlled with: Pressure, Compression and gauze Patient tolerated procedure well Assessment/Plan Active Problems (Last Reviewed 05/08/20 @ 16:[address] Lennox Eugene MD) Open wound of right axillary region with complication (Acute) Hidradenitis suppurativa (Chronic) Assessment: 1. Open wound of right axillary region with complication. 2. Hidradenitis suppurativa. Plan: Wound care - Right axilla will stop the normal saline moistened gauze and start Dakin's moistened gauze daily. Contine Bactrim DS for Operative culture with resistant Staphylococcus epidermidis. Encouraged increase protein intake. Follow up 2 weeks. [id number]: [id number] Global Visit
== END 2020-06-14 23:59 ==
LOC: WC 09:00
PROVIDERS: PCP Nurse Practitioner Family; Visit Provider Nurse Practitioner Family
DX: L73.2 Hidradenitis suppurativa (principal); S41.101A Unspecified open wound of right upper arm, initial encounter; X58.XXXA Exposure to other specified factors, initial encounter; Y93.9 Activity, unspecified; Y92.9 Unspecified place or not applicable; Y99.9 Unspecified external cause status; Z79.899 Other long term (current) drug therapy
CPT/HCPCS: 11042; 99213; G0463

== ENCOUNTER 2020-07-06 09:00 | Outpatient (RCR) | payer MEDICAID, SELFPAY ==
[2020-06-15 00:35] VITALS: BP 120/71; PULSE 93; RESP 16; TEMP 36
[2020-06-22 08:51] VITALS: BP 135/85; PULSE 82; RESP 16; TEMP 36.1; BMI 25.7
--- NOTE | 2020-06-22 09:57 | PN.PCM_ITS ---
(1) Open wound of right axillary region with complication Status: Acute Code(s): S41.101A - Unspecified open wound of right upper arm, initial encounter (2) Hidradenitis suppurativa Status: Chronic Code(s): L73.2 - Hidradenitis suppurativa Type of Wound Date of Service: 06/22/20 Chief Complaint: Recurrent hidradenitis ulcer left axillary area with recent skin grafting 07/24/18. History of Wound: Surgery 05/18/20 - Surgical preparation right axilla with excision recurrent hidradenitis (10.5 cm2). Wound care - Stop Dakin's solution moistend gauze and start collagen hydrogel and cover with gauze daily. Operative culture - Resistant Staphylococcus epidermidis. She was sent home on Levaquin, but when the culture results came back, she was changed to Bactrim DS twice daily. Prealbumin 19.8. Encouraged increase in protein intack to help with wound healing. Today she denies fever. Her appetite is good. Progress of Wound: Improved. - Physical Exam Vital Signs Temp Pulse Resp BP 96.9 F L 82 16 135/85 H 06/22/20 08:51 06/22/20 08:51 06/22/20 08:51 06/22/20 08:51 General: Alert, Oriented x3, Cooperative HEENT: Atraumatic Oral: Moist Mucosa Lungs: Normal air movement Cardiovascular: Regular rate Extremities: No edema, Capillary Refill Less than 3 Seconds Skin: Ulcer/ Wound - Right axilla wound is much smaller. It is beefy pink in color, there is some hyper granulation. Wound Measurements and Assessment WC - Nurse 1 - General Ulcer Measurement Start: 06/22/20 08:51 Freq: Status: Active Protocol: Activity Type Activity Date Activity User E-Sign Co-Sign Detail Recorded Client Recorded Date Recorded By Document 06/22/20 08:51 [facility] [id number] 06/22/20 09:00 [facility] 06/22/20 08:51 Wound Center Nurse 1 [Ulcer Assessment] #6 R AXILLA -Combined with other wound No -Current Size (cm) - Length 1.4 -Current Size (cm) - Width 1 -Current Size (cm) - Depth 0.1 -Total Square Cm 1.4 -Photo Taken No -Epithelialization Medium 34-66% -Tunneling No -Undermining/Tunneling No -Circular Undermining No -Exudate Amt Small -Exudate Type Serosanguineous -Wound Margin Distinct, Outline Attached -Granulation Amt Large (67-100%) -Granulation Quality Red -Slough/Fibrin No -Necrosis Amt None Present (0 %) -Texture (Sadie-wound Skin Appearance) Assessed, Scarring -Moisture (Sadie-wound Skin Appearance Assessed ) -Color (Sadie-wound Skin Appearance) Assessed -Temperature (Sadie-wound Skin No Abnormality Appearance) (Pt Warm) -Tenderness on Palpation (Sadie-wound No Skin Appearance) -Ulcer Cleansing soapy water -Foul Odor after Cleansing No -Anesthetic Used 4% Lidocaine Solution GARRICK - Nurse 2 - General Ulcer CM Notes Start: 06/22/20 08:51 Freq: Status: Active Protocol: Activity Type Activity Date Activity User E-Sign Co-Sign Detail Recorded Client Recorded Date Recorded By Document 06/22/20 09:21 SHOSHANA [id number] 06/22/20 09:26 06/22/20 09:21 Wound Center Nurse 2 [Procedure/Treatment] -Time 09:22 -Correct Patient Yes -Correct Side, Site, Position Yes -Correct Procedure Yes -Procedure Performed Yes -Type of Procedure Debridement -Clinical Debridement Subcutaneous -Tissue Removed Subcutaneous -Post Debridement (cm) - Length 1.6 -Post Debridement (cm) - Width 1.0 -Post Debridement (cm) - Depth 0.1 -Total Square (Post) (cm) 1.60 -Area of Debridement (cm) - Length 1.6 -Area of Debridement (cm) - Width 1 -Total Square (Area) (cm) 1.6 -Tunneling No -Undermining/Tunneling No -Circular Undermining No -Wound/Ulcer Outcome Not Healed -Ulcer Cleansing Rinsed/ Irrigated with Saline -Foul Odor after Cleansing No -Bioengineered Tissue No -Bleeding Controlled with Pressure -Offloading No -Treatment Response Procedure Tolerated Well -Debridement - Subq, 1st 20sq cm Yes [See Physician Procedure note for Specifics] Pain Scale: 0-10 Numeric [Pain] -Is Patient Pain Free? Yes GARRICK - Nurse 3 - General Ulcer D/C NN Start: 06/22/20 08:51 Freq: Status: Active Protocol: Activity Type Activity Date Activity User E-Sign Co-Sign Detail Recorded Client Recorded Date Recorded By Document 06/22/20 09:34 [facility] [id number] 06/22/20 09:36 [facility] 06/22/20 09:34 Wound Care Nurse 3 [Wound Dressing] #6 R AXILLA -Ulcer Cleansing Rinsed/ Irrigated with Saline -Foul Odor after Cleansing No -Primary Dressing Applied C Hydrogel ($) -Primary Dressing Covered/Secured Dry Gauze, with Secured with Tape [Post Procedure Tolerated] -Treatment Response Procedure Tolerated Well Pain Scale: 0-10 Numeric [Pain] -Is Patient Pain Free? Yes WC - Visit Discharge [Visit Discharge Information] -Discharge Condition Stable -Ambulatory Status Ambulatory -Transportation Private Auto -Accompanied by Musculoskeletal: No Tenderness to Palpation of Joints or Extremities Neurological: Cranial nerves II-XII grossly intact Psych/Mental Status: Normal Affect, Appropriate Debridement Note Post-Debridement Measurements/Treatment WC - Nurse 2 - General Ulcer CM Notes Start: 06/22/20 08:51 Freq: Status: Active Protocol: Activity Type Activity Date Activity User E-Sign Co-Sign Detail Recorded Client Recorded Date Recorded By Document 06/22/20 09:21 [id number] 06/22/20 09:26 06/22/20 09:21 Wound Center Nurse 2 #6 R AXILLA -Time 09:22 -Correct Patient Yes -Correct Side, Site, Position Yes -Correct Procedure Yes -Procedure Performed Yes -Type of Procedure Debridement -Clinical Debridement Subcutaneous -Tissue Removed Subcutaneous -Post Debridement (cm) - Length 1.6 -Post Debridement (cm) - Width 1.0 -Post Debridement (cm) - Depth 0.1 -Total Square (Post) (cm) 1.60 -Area of Debridement (cm) - Length 1.6 -Area of Debridement (cm) - Width 1 -Total Square (Area) (cm) 1.6 -Tunneling No -Undermining/Tunneling No -Circular Undermining No -Wound/Ulcer Outcome Not Healed -Ulcer Cleansing Rinsed/ Irrigated with Saline -Foul Odor after Cleansing No -Bioengineered Tissue No -Bleeding Controlled with Pressure -Offloading No -Treatment Response Procedure Tolerated Well -Debridement - Subq, 1st 20sq cm Yes Pain Scale: 0-10 Numeric Is Patient Pain Free? Yes - Nurse 3 - General Ulcer D/C NN Start: 06/22/20 08:51 Freq: Status: Active Protocol: Activity Type Activity Date Activity User E-Sign Co-Sign Detail Recorded Client Recorded Date Recorded By Document 06/22/20 09:34 [facility] [id number] 06/22/20 09:36 [facility] 06/22/20 09:34 Wound Care Nurse 3 #6 R AXILLA -Ulcer Cleansing Rinsed/ Irrigated with Saline -Foul Odor after Cleansing No -Primary Dressing Applied C Hydrogel ($) -Primary Dressing Covered/Secured with Dry Gauze, Secured with Tape Treatment Response Procedure Tolerated Well Pain Scale: 0-10 Numeric Is Patient Pain Free? Yes WC - Visit Discharge Discharge Condition Stable Ambulatory Status Ambulatory Transportation Private Auto Accompanied by Wound debrided: Axilla wound Laterality: Right Type of Debridement: Excisional debridement Anesthesia Used: 5% Lidocaine Gel Depth: Down to and including healthy tissue, in the subcutaneous layer Percentage of wound debrided: 100 Instrument Used: 5mm curette Tissue Removed: Subcutaneous tissue and slough with some hyper granulation Severity: Fat Layer Exposed Amount of bleeding with debridement: Mild Bleeding Controlled with: Pressure, Compression and gauze Patient tolerated procedure well Assessment/Plan Assessment: 1. Open wound of right axillary region with complication. 2. Hidradenitis suppurativa. Plan: Wound care - Right axilla will stop Dakin's moistened gauze start collagen hydrogel covered by gauze daily. Completed Bactrim DS for Operative culture with resistant Staphylococcus epidermidis. Encouraged increase protein intake. Follow up 2 weeks. [id number]: [id number] Global Visit
[2020-07-06 08:56] VITALS: BP 143/95; PULSE 84; RESP 16; TEMP 36.3; BMI 25.7
--- NOTE | 2020-07-06 11:54 | PCM.WC.PN ---
(1) Open wound of right axillary region with complication Status: Acute Code(s): S41.101A - Unspecified open wound of right upper arm, initial encounter (2) Hidradenitis suppurativa Status: Chronic Code(s): L73.2 - Hidradenitis suppurativa Type of Wound Date of Service: 07/06/20 Chief Complaint: Recurrent hidradenitis ulcer left axillary area with recent skin grafting 07/24/18. History of Wound: Surgery 05/18/20 - Surgical preparation right axilla with excision recurrent hidradenitis (10.5 cm2). Wound care - Continue collagen hydrogel and cover with gauze daily. Operative culture - Resistant Staphylococcus epidermidis. She was sent home on Levaquin, but when the culture results came back, she was changed to Bactrim DS twice daily. Prealbumin 19.8. Encouraged increase in protein intack to help with wound healing. Today she denies fever. Her appetite is good. Progress of Wound: Improved. - Physical Exam Vital Signs Temp Pulse Resp BP 97.3 F L 84 16 143/95 H 07/06/20 08:56 07/06/20 08:56 07/06/20 08:56 07/06/20 08:56 General: Alert, Oriented x3, Cooperative HEENT: Atraumatic Oral: Moist Mucosa Lungs: Normal air movement Cardiovascular: Regular rate Extremities: Capillary Refill Less than 3 Seconds Skin: Ulcer/ Wound - Right axilla wound with increased hypergranulation. Wound Measurements and Assessment WC - Nurse 1 - General Ulcer Measurement Start: 06/22/20 08:51 Freq: Status: Active Protocol: Activity Type Activity Date Activity User E-Sign Co-Sign Detail Recorded Client Recorded Date Recorded By Document 07/06/20 08:56 [facility] [id number] 07/06/20 09:04 [facility] 07/06/20 08:56 Wound Center Nurse 1 [Ulcer Assessment] #6 R AXILLA -Combined with other wound No -Current Size (cm) - Length 0.8 -Current Size (cm) - Width 1 -Current Size (cm) - Depth 0.1 -Total Square Cm 0.8 -Photo Taken No -Epithelialization Medium 34-66% -Tunneling No -Undermining/Tunneling No -Circular Undermining No -Exudate Amt Small -Exudate Type Serosanguineous -Wound Margin Distinct, Outline Attached -Granulation Amt Large (67-100%) -Granulation Quality Hyper- granulation,Red -Slough/Fibrin No -Necrosis Amt None Present (0 %) -Texture (Sadie-wound Skin Appearance) Assessed, Scarring -Moisture (Sadie-wound Skin Appearance Assessed ) -Color (Sadie-wound Skin Appearance) Assessed -Temperature (Sadie-wound Skin No Abnormality Appearance) (Pt Warm) -Tenderness on Palpation (Sadie-wound No Skin Appearance) -Ulcer Cleansing Rinsed/ Irrigated with Saline -Foul Odor after Cleansing No -Anesthetic Used 5% Lidocaine Gel WC - Nurse 2 - General Ulcer CM Notes Start: 06/22/20 08:51 Freq: Status: Active Protocol: Activity Type Activity Date Activity User E-Sign Co-Sign Detail Recorded Client Recorded Date Recorded By Document 07/06/20 09:24 SHOSHANA [id number] 07/06/20 09:27 SHOSHANA 07/06/20 09:24 Wound Center Nurse 2 [Procedure/Treatment] -Time 09:25 -Correct Patient Yes -Correct Side, Site, Position Yes -Correct Procedure Yes -Procedure Performed Yes -Type of Procedure Debridement -Clinical Debridement Subcutaneous -Tissue Removed Subcutaneous -Post Debridement (cm) - Length 0.6 -Post Debridement (cm) - Width 0.6 -Post Debridement (cm) - Depth 0.1 -Total Square (Post) (cm) 0.36 -Area of Debridement (cm) - Length 0.6 -Area of Debridement (cm) - Width 0.6 -Total Square (Area) (cm) 0.36 -Tunneling No -Undermining/Tunneling No -Circular Undermining No -Wound/Ulcer Outcome Not Healed -Ulcer Cleansing Rinsed/ Irrigated with Saline -Foul Odor after Cleansing No -Bioengineered Tissue No -Bleeding Controlled with Pressure,Silver Nitrate -Offloading No -Treatment Response Procedure Tolerated Well -Debridement - Subq, 1st 20sq cm Yes [See Physician Procedure note for Specifics] Pain Scale: 0-10 Numeric [Pain] -Is Patient Pain Free? Yes Musculoskeletal: No Tenderness to Palpation of Joints or Extremities Neurological: Cranial nerves II-XII grossly intact Psych/Mental Status: Normal Affect, Appropriate Debridement Note Post-Debridement Measurements/Treatment WC - Nurse 2 - General Ulcer CM Notes Start: 06/22/20 08:51 Freq: Status: Active Protocol: Activity Type Activity Date Activity User E-Sign Co-Sign Detail Recorded Client Recorded Date Recorded By Document 06/22/20 09:21 [id number] 06/22/20 09:26 Document 07/06/20 09:24 [id number] 07/06/20 09:27 JF 06/22/20 07/06/20 09:21 09:24 Wound Center Nurse 2 #6 R AXILLA -Time 09: 09:25 -Correct Patient Yes Yes -Correct Side, Site, Position Yes Yes -Correct Procedure Yes Yes -Procedure Performed Yes Yes -Type of Procedure Debridement Debridement -Clinical Debridement Subcutaneous Subcutaneous -Tissue Removed Subcutaneous Subcutaneous -Post Debridement (cm) - Length 1.6 0.6 -Post Debridement (cm) - Width 1.0 0.6 -Post Debridement (cm) - Depth 0.1 0.1 -Total Square (Post) (cm) 1.60 0.36 -Area of Debridement (cm) - Length 1.6 0.6 -Area of Debridement (cm) - Width 1 0.6 -Total Square (Area) (cm) 1.6 0.36 -Tunneling No No -Undermining/Tunneling No No -Circular Undermining No No -Wound/Ulcer Outcome Not Healed Not Healed -Ulcer Cleansing Rinsed/ Rinsed/ Irrigated with Irrigated with Saline Saline -Foul Odor after Cleansing No No -Bioengineered Tissue No No -Bleeding Controlled with Pressure Pressure,Silver Nitrate -Offloading No No -Treatment Response Procedure Procedure Tolerated Well Tolerated Well -Debridement - Subq, 1st 20sq cm Yes Yes Pain Scale: 0-10 Numeric Is Patient Pain Free? Yes Yes - Nurse 3 - General Ulcer D/C NN Start: 06/22/20 08:51 Freq: Status: Active Protocol: Activity Type Activity Date Activity User E-Sign Co-Sign Detail Recorded Client Recorded Date Recorded By Document 06/22/20 09:34 [facility] [id number] 06/22/20 09:36 [facility] 06/22/20 09:34 Wound Care Nurse 3 #6 R AXILLA -Ulcer Cleansing Rinsed/ Irrigated with Saline -Foul Odor after Cleansing No -Primary Dressing Applied C Hydrogel ($) -Primary Dressing Covered/Secured with Dry Gauze, Secured with Tape Treatment Response Procedure Tolerated Well Pain Scale: 0-10 Numeric Is Patient Pain Free? Yes WC - Visit Discharge Discharge Condition Stable Ambulatory Status Ambulatory Transportation Private Auto Accompanied by Wound debrided: Axilla wound Laterality: Right Type of Debridement: Excisional debridement Anesthesia Used: 5% Lidocaine Gel Depth: Down to and including healthy tissue, in the subcutaneous layer Percentage of wound debrided: 100 Instrument Used: 3mm curette Tissue Removed: Subcutaneous tissue and slough Severity: Limited To Skin Breakdown Amount of bleeding with debridement: Moderate Bleeding Controlled with: Pressure, Compression and gauze, Silver Nitrate Patient tolerated procedure well Assessment/Plan Active Problems (Last Reviewed 05/08/20 @ 16:[address] Lennox Eugene MD) Open wound of right axillary region with complication (Acute) Hidradenitis suppurativa (Chronic) Assessment: 1. Open wound of right axillary region with complication. 2. Hidradenitis suppurativa. Plan: Wound care - Right axilla Collagen hydrogel covered by gauze daily. Completed Bactrim DS for Operative culture with resistant Staphylococcus epidermidis. Encouraged increase protein intake. Follow up 2 weeks. 111xxx-113xx: [id number] Global Visit
== END 2020-07-15 23:59 ==
LOC: WC 09:00
PROVIDERS: PCP Nurse Practitioner Family; Visit Provider Nurse Practitioner Family
DX: L73.2 Hidradenitis suppurativa (principal); S41.101A Unspecified open wound of right upper arm, initial encounter; X58.XXXA Exposure to other specified factors, initial encounter; Y93.9 Activity, unspecified; Y92.9 Unspecified place or not applicable; Y99.9 Unspecified external cause status; Z79.899 Other long term (current) drug therapy
CPT/HCPCS: 11042

== ENCOUNTER 2020-07-20 09:00 | Outpatient (RCR) | payer MEDICAID, SELFPAY ==
[2020-07-16 00:43] VITALS: BP 143/95; PULSE 84; RESP 16; TEMP 36.3
[2020-07-20 08:50] VITALS: BP 143/74; PULSE 78; RESP 18; TEMP 36.8; BMI 25.7
--- NOTE | 2020-07-20 11:15 | PCM.WC.PN ---
(1) Open wound of right axillary region with complication Status: Acute Code(s): S41.101A - Unspecified open wound of right upper arm, initial encounter (2) Hidradenitis suppurativa Status: Chronic Code(s): L73.2 - Hidradenitis suppurativa Type of Wound Date of Service: 07/20/20 Chief Complaint: Recurrent hidradenitis ulcer left axillary area with recent skin grafting 07/24/18. History of Wound: Surgery 05/18/20 - Surgical preparation right axilla with excision recurrent hidradenitis (10.5 cm2). Wound care - She is healed today. Operative culture - Resistant Staphylococcus epidermidis. She was sent home on Levaquin, but when the culture results came back, she was changed to Bactrim DS twice daily. Prealbumin 19.8. Encouraged increase in protein intack to help with wound healing. Today she denies fever. Her appetite is good. Progress of Wound: Healed. - Physical Exam Vital Signs Temp Pulse Resp BP 98.2 F 78 18 143/74 H 07/20/20 08:50 07/20/20 08:50 07/20/20 08:50 07/20/20 08:50 General: Alert, Oriented x3, Cooperative HEENT: Atraumatic Oral: Moist Mucosa Lungs: Normal air movement Cardiovascular: Regular rate Extremities: Capillary Refill Less than 3 Seconds Skin: Ulcer/ Wound - Right axilla ulcer is healed today. Wound Measurements and Assessment WC - Nurse 1 - General Ulcer Measurement Start: 07/20/20 08:49 Freq: Status: Discharge Protocol: Activity Type Activity Date Activity User E-Sign Co-Sign Detail Recorded Client Recorded Date Recorded By Document 07/20/20 08:50 DL [id number] 07/20/20 08:53 DL Edit Status 07/20/20 09:15 MEGAN DAEMON Active=>Discharge [id number] 07/20/20 09:15 MEGAN DAISAACON 07/20/20 08:50 Wound Center Nurse 1 [Ulcer Assessment] #6 R AXILLA -Current Size (cm) - Length 0 -Current Size (cm) - Width 0 -Current Size (cm) - Depth 0 -Total Square Cm 0 -Photo Taken Yes -Exudate Amt None Present -Wound Margin Flat & Intact -Granulation Amt Large (67-100%) -Granulation Quality [place] -Necrosis Amt None Present (0 %) -Structure Exposed N/A -Texture (Sadie-wound Skin Appearance) Scarring -Moisture (Sadie-wound Skin Appearance No Abnormality ) -Color (Sadie-wound Skin Appearance) No Abnormality -Temperature (Sadie-wound Skin No Abnormality Appearance) (Pt Warm) -Tenderness on Palpation (Sadie-wound No Skin Appearance) -Ulcer Cleansing Rinsed/ Irrigated with Saline -Foul Odor after Cleansing No - Nurse 2 - General Ulcer CM Notes Start: 07/20/20 08:49 Freq: Status: Discharge Protocol: Activity Type Activity Date Activity User E-Sign Co-Sign Detail Recorded Client Recorded Date Recorded By Document 07/20/20 09:06 SHOSHANA [id number] 07/20/20 09:07 Edit Status 07/20/20 09:15 BKG DAEMON Active=>Discharge [facility] 07/20/20 09:15 BKG DAEMON 07/20/20 09:06 Wound Center Nurse 2 [Procedure/Treatment] -Correct Patient No -Correct Side, Site, Position No -Correct Procedure No -Procedure Performed No -Post Debridement (cm) - Length 0 -Post Debridement (cm) - Width 0 -Post Debridement (cm) - Depth 0 -Total Square (Post) (cm) 0 -Area of Debridement (cm) - Length 0 -Area of Debridement (cm) - Width 0 -Total Square (Area) (cm) 0 -Wound/Ulcer Outcome Healed- Epithelialized [See Physician Procedure note for Specifics] Pain Scale: 0-10 Numeric [Pain] -Is Patient Pain Free? Yes - Nurse 3 - General Ulcer D/C NN Start: 07/20/20 08:49 Freq: Status: Discharge Protocol: Activity Type Activity Date Activity User E-Sign Co-Sign Detail Recorded Client Recorded Date Recorded By Document 07/20/20 09:07 SHOSHANA [id number] 07/20/20 09:09 SHOSHANA Edit Status 07/20/20 09:15 BKG DAEMON Active=>Discharge [facility] 07/20/20 09:15 BKG DAEMON 07/20/20 09:07 -Is Patient Pain Free? Yes - Visit Discharge [Visit Discharge Information] -Discharge Condition Stable -Ambulatory Status Ambulatory -Transportation Private Auto -Medication Reconcilliation completed Yes & provided to patient/care provider -Clinical Summary of Care Provided Yes Musculoskeletal: No Tenderness to Palpation of Joints or Extremities Neurological: Cranial nerves II-XII grossly intact Psych/Mental Status: Normal Affect, Appropriate Debridement Note Post-Debridement Measurements/Treatment - Nurse 2 - General Ulcer CM Notes Start: 07/20/20 08:49 Freq: Status: Discharge Protocol: Activity Type Activity Date Activity User E-Sign Co-Sign Detail Recorded Client Recorded Date Recorded By Document 07/20/20 09:06 SHOSHANA [id number] 07/20/20 09:07 07/20/20 09:06 Wound Center Nurse 2 #6 R AXILLA -Correct Patient No -Correct Side, Site, Position No -Correct Procedure No -Procedure Performed No -Post Debridement (cm) - Length 0 -Post Debridement (cm) - Width 0 -Post Debridement (cm) - Depth 0 -Total Square (Post) (cm) 0 -Area of Debridement (cm) - Length 0 -Area of Debridement (cm) - Width 0 -Total Square (Area) (cm) 0 -Wound/Ulcer Outcome Healed- Epithelialized Pain Scale: 0-10 Numeric Is Patient Pain Free? Yes - Nurse 3 - General Ulcer D/C NN Start: 07/20/20 08:49 Freq: Status: Discharge Protocol: Activity Type Activity Date Activity User E-Sign Co-Sign Detail Recorded Client Recorded Date Recorded By Document 07/20/20 09:07 SHOSHANA [id number] 07/20/20 09:09 07/20/20 09:07 Is Patient Pain Free? Yes WC - Visit Discharge Discharge Condition Stable Ambulatory Status Ambulatory Transportation Private Auto Medication Reconcilliation completed & Yes provided to patient/care provider Clinical Summary of Care Provided Yes No debridement was completed today Assessment/Plan Assessment: 1. Open wound of right axillary region with complication. 2. Hidradenitis suppurativa. Plan: Right axilla is healed. Encouraged to massage area to help soften scarring. Completed Bactrim DS for Operative culture with resistant Staphylococcus epidermidis. Follow up as needed. [id number]-113xx: [id number] Global Visit
== END 2020-07-20 09:15 | disposition home or self-care (01) ==
LOC: WC 09:00
PROVIDERS: PCP Nurse Practitioner Family; Visit Provider Nurse Practitioner Family
DX: L73.2 Hidradenitis suppurativa (principal); S41.101A Unspecified open wound of right upper arm, initial encounter; X58.XXXA Exposure to other specified factors, initial encounter; Y93.9 Activity, unspecified; Y92.9 Unspecified place or not applicable; Y99.9 Unspecified external cause status; Z79.899 Other long term (current) drug therapy
CPT/HCPCS: 99213; G0463